=== PATIENT | female | born 1955 | race Caucasian/White ===

== ENCOUNTER 2016-09-14 17:42 | Observation (INO) | payer MEDICAID ==
[~2016-09-14] VITALS: Ht 167.6 cm; Wt 139.8 kg
[~2016-09-14 17:42] MED LIST: ACTOS PLUS MET; ALBU8.5H2 IH; ALBU8.5H2 INH; ALPR.25T PO; ARIP15TA; ASP325T PO; ASP81TEC PO; ASPI-875 PO; BACTRIM; BUDE6HFA IH; BUDE6HFA INH; CALC-719 PO; CEFU250T PO; CHLO500T4 PO; CHOL10003 PO; CLCX100C PO; CLON0.3T4 PO; CLON0.5T3 PO; CLON0.5T60 PO; CLOP75TA28 PO; CLPD75T PO; CMBV14.7IN; CYCL10TA45 PO; CYCL10TA9 PO; DPAS20025 PO; DULO30CA PO; DULO60CA58 PO; DULO60CA6 PO; FENT1PAT6 TD; FLT05NA16; FLUT16SP22; FNT25TD TD; FURO40TA4 PO; GABA100C PO; GABA800T PO; GABA800T2 PO; GBPN100C PO; GBPN300C PO; GI COCKTAIL; GLIM2TAB PO; HYDR-2890 PO; HYDR-2962 PO; HYDR-34 PO; HYDR-3583 PO; HYDR-3720 PO; HYDR15SO4 PO; HYDR1TAB66 PO; HYZAAR 100/25; INSASP10V; INSASP10V SC; INSU100I11 SQ; INSU100I14 SC; INSU100I14 SQ; INSU100I16 SQ; INSU100I29 SC; INSU100V16 SQ; INSU100V3 IJ; LANS30CA PO; LEVE1U SQ; LEVEMIR; LEVEMIR SQ; LINA290C PO; LISI10TA PO; LISI10TA2 PO; LISI20TA PO; LOSA25TA15 PO; LOSA50TA6 PO; LUBI8CAP PO; LUNESTA 3 MG; LYRICA 75MG; MELO-195 PO; METF850T2 PO; METO-272 PO; METO10TA3 PO; MNTL10T PO; MONT10TA24 PO; MULT-974 PO; NAPR250T34; NF-TRA/ACE PO; NOVOLOG; OMEP1CAP PO; OMEP1CAP10 PO; OMEP1CAP14 PO; OMEP1CAP15 PO; OMEP40CA36 PO; OXYB5TAB9 PO; OXYC-201 PO; PANT20TA2 PO; PANT40TA PO; PNT40TEC PO; POTA10TA36 PO; PRAV10TA PO; PRAV10TA23 PO; PREG75CA PO; QUET100T32 PO; QUET50TA PO; RANI-10 PO; ROFL500T PO; ROFL500T3 PO; SENN25TA8 PO; SITA1TAB6 PO; TIZA4CAP6 PO; TIZA4CAP8 PO; TIZA4TAB55 PO; TOLT4CAP PO; TOLT4CAP13 PO; TOLTA4; TOLTA4 PO; TRAZ150T42 PO; TRM50TRX; [UNRECOGNIZED DRUG - OTHER]; [UNRECOGNIZED DRUG - OTHER]; [UNRECOGNIZED DRUG - OTHER]; [UNRECOGNIZED DRUG - OTHER]
--- NOTE | 2016-09-14 19:11 | ED Abdominal Pain ---
General Stated Complaint: DIZZY/STOMACH CRAMPS Source of Information: Patient, RN Notes Reviewed, Spouse Exam Limitations: Physical Impairments History of Present Illness Time Seen By Provider: 19:11 Initial Comments Patient presents c/ c/o being dizzy c/ abdominal cramping as well as N/V/D. Patient is an IDDM patient c/ multiple other health issues including hypertension, CAD, S/P RCA stent, and A/P CVA and apparently has been out of her meds for the last week including her Plavix. Timing/Duration: 1 Week Severity/Quality: Severe Location: Generalized Abdomen Radiation: No Radiation Activities at Onset: None Modifying Factors: Improves With Other (none) Associated Symptoms: Back Pain, Nausea/Vomiting Allergies and Home Medications Allergies Coded Allergies: morphine (Unverified Allergy, Mild, HIVES, ITCHING; TAKES LORTAB AT HOME, 12/07/15) Fish Containing Products (Unverified Allergy, Unknown, 12/07/15) FROM UNCODED ALLERGIES "SEAFOOD" Penicillins (Unverified Allergy, Unknown, 12/07/15) erythromycin base (Verified Allergy, Unknown, 12/07/15) shellfish derived (Unverified Allergy, Unknown, 12/07/15) FROM UNCODED ALLERGIES "SEAFOOD" Uncoded Allergies: SILK TAPE (Allergy, Unknown, 02/26/06) Home Medications Albuterol Sulfate 8.5 Gm Aer.w.adap, 2 PUFF INH Q4H PRN for SHORTNESS OF BREATH, (Reported) Aspirin 81 Mg Tablet.dr, 81 MG PO HS, (Reported) Budesonide/Formoterol Fumarate 1 Inhaler Aero, 2 PUFF INH BID, (Reported) Calcium Carbonate 300 Mg Tab.chew, 2-3 TAB PO DAILY, (Reported) Cholecalciferol 1,000 Unit Tablet, 1,000 UNIT PO DAILY, (Reported) Clonazepam 0.5 Mg Tablet, 0.5 MG PO TID, (Reported) Clopidogrel Bisulfate 75 Mg Tablet, 75 MG PO DAILY, (Reported) Duloxetine HCl 60 Mg Capsule.dr, 60 MG PO DAILY, (Reported) Fentanyl 1 Each Patch.td72, 12 MCG TD Q72H, (Reported) Fluticasone Propionate 16 Gm Naspr, 2 SPRAY NA HS PRN for CONGESTION, (Reported) Furosemide 40 Mg Tablet, 40 MG PO DAILY PRN for SWELLING, (Reported) Gabapentin 800 Mg Tablet, 800 MG PO TID, (Reported) Insulin Aspart 100 Unit/1 Ml Insuln.pen, 25 UNITS SQ AC, (Reported) Insulin Aspart 100 Unit/1 Ml Susp, 1-100 SQ HS, (Reported) SLIDING SCALE Insulin Detemir 100 Unit/1 Ml Insuln.pen, 15 UNITS SC BID, (Reported) Linaclotide 290 Mcg Capsule, 290 MCG PO DAILY PRN for IBS, (Reported) Metoprolol Succinate 50 Mg Tab.er.24h, 50 MG PO DAILY, (Reported) Montelukast Sodium 10 Mg Tablet, 10 MG PO DAILY, (Reported) Oxybutynin Chloride 5 Mg Tablet, 5 MG PO TID PRN for URINARY DISCOMFORT, ( Reported) Oxycodone HCl/Acetaminophen 1 Each Tablet, 1 EACH PO TID, (Reported) Pantoprazole Sodium 40 Mg Tablet.dr, 40 MG PO DAILY, (Reported) Potassium Chloride 10 Meq Tab.er.prt, 10 MEQ PO PRN, (Reported) Pravastatin Sodium 10 Mg Tablet, 10 MG PO HS, (Reported) Quetiapine Fumarate 100 Mg Tablet, 100 MG PO HS, (Reported) Roflumilast 500 Mcg Tablet, 500 MCG PO DAILY, (Reported) Tizanidine HCl 4 Mg Capsule, 4 MG PO TID, (Reported) Review of Systems Constitutional: see HPI, dizziness, malaise, weakness Cardiovascular: See HPI, Lightheadedness, Palpitations Gastrointestinal: See HPI, Abdominal Pain, Diarrhea, Nausea, Vomiting Musculoskeletal: see HPI, back pain Psychiatric/Neurological: See HPI, Weakness All Other Systems Reviewed Negative Unless Noted: Yes (Negative excepted noted.) Past Ohswunz-Jpugrr-Mcxohv Hx Patient Social History Former Smoker/When Quit: Apr 14, 1985 Recent Foreign Travel: No Contact w/Someone Who Travel: No Recent Hopitalizations: No Immunizations Up To Date Tetanus Booster (TDap): Less than 5yrs PED Vaccines UTD: No Date of Pneumonia Vaccine: Jan 25, 2013 Date of Influenza Vaccine: Feb 02, 2016 Seasonal Allergies Seasonal Allergies: No Surgeries HX Surgeries: Yes Surgeries: Abdominal, Section, 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, Orthopedic Respiratory Hx Respiratory Disorders: Yes Respiratory Disorders: COPD Cardiovascular Hx Cardiac Disorders: Yes (CHF) Cardiac Disorders: Coronary Artery Disease, Hypertension Neurological Hx Neurological Disorders: Yes Neurological Disorders: Stroke, TIA Reproductive System Hx Reproductive Disorders: No Sexually Transmitted Disease: No HIV/AIDS: 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 Genitourinary Hx Genitourinary Disorders: No Genitourinary Disorders: UTI-Chronic Gastrointestinal Hx Gastrointestinal Disorders: Yes Gastrointestinal Disorders: Diverticulosis Musculoskeletal Hx Musculoskeletal Disorders: Yes Musculoskeletal Disorders: Chronic Back Pain Endocrine Hx Endocrine Disorders: Yes Endocrine Disorders: Diabetes, Insulin dep HEENT HX ENT Disorders: No HEENT Disorders: Cataract, Macular Degeneration Loss of Vision: Denies Hearing Impairment: Denies Cancer Hx Cancer: No Psychosocial Hx Psychiatric Problems: No Behavioral Health Disorders: Anxiety, Depression Integumentary HX Skin/Integumentary Disorder: No Blood Transfusions Hx Blood Disorders: No Adverse Reaction to a Blood Tr: No Family Medical History Family Medial History: Alcoholism 03 FATHER, , Onset:15's - 20 09 BROTHER, Onset:20's - 25 Cataract 03 FATHER, 09 SISTER Dementia 03 FATHER, Family history: Alzheimer's disease 03 FATHER, Family history: Arthritis 03 FATHER, 03 MOTHER 09 BROTHER 09 SISTER Family history: Asthma 03 MOTHER 09 BROTHER 09 SISTER Family history: Cardiovascular disease Family history: Diabetes mellitus 03 MOTHER 09 SISTER Family history: Hypertension 03 FATHER, 03 MOTHER 09 BROTHER 09 SISTER Heart disease 03 FATHER, 03 MOTHER History of - anemia 09 SISTER History of - respiratory disease 03 FATHER, ( OF PNEUMONIA) 09 BROTHER 09 SISTER History of drug abuse 09 BROTHER Hypercholesterolemia 09 BROTHER 09 SISTER Infertile 09 SISTER Kidney disease 03 FATHER, (KIDNEY STONES) Myocardial infarction 03 FATHER, Parkinson's disease 03 FATHER, Psychotic disorder 09 BROTHER (BIPOLAR) 09 SISTER (BIPOLAR) Stroke 03 FATHER, 03 MOTHER No Family History of: Abdominal aortic aneurysm Hinds's disease Aphasia Cancer Cancer of colon Congenital heart disease Congestive heart failure Cystic fibrosis Dysphagia Family history: Breast disease Family history: Coronary thrombosis Family history: Gastrointestinal disease Family history: Glaucoma Family history: Thyroid disorder Human immunodeficiency virus (HIV) seropositivity Malignant neoplasm of lung Prostate cancer Seizure disorder Tuberculosis Visual impairment Physical Exam Vital Signs VS - Last 72 Hours, by Label 09/14/16 18:53 Temp 99.0 Pulse 109 Resp 20 B/P (MAP) 211/106 O2 Delivery Room Air Capillary Refill : General Appearance: WD/WN, moderate distress, obese HEENT: other (appears to be on the dry side) Neck: supple Respiratory: no respiratory distress Cardiovascular: tachycardia, irregularly irregular Gastrointestinal: No guarding, No rebound, tenderness (generalized but worse epigastric and suprapubic), other (obese) Rectal: deferred Back: CVA tenderness (R), CVA tenderness (L), other (tender lumbar spine (hyper -exaggerated)) Neurologic/Psychiatric: alert, oriented x 3, depressed affect Skin: warm/dry Progress/Results/Core Measures Results/Orders Lab Results Laboratory Tests Test 09/14/16 18:55 09/14/16 19:10 Range/Units Urine Color YELLOW Urine Clarity CLEAR Urine pH 5 5-9 Urine Specific [place] 1.015 L 1.016-1.022 Urine Protein 2+ H NEGATIVE Urine Glucose (UA) 4+ H NEGATIVE Urine Ketones NEGATIVE NEGATIVE Urine Nitrite NEGATIVE NEGATIVE Urine Bilirubin NEGATIVE NEGATIVE Urine Urobilinogen NORMAL NORMAL MG/DL Urine Leukocyte Esterase 2+ H NEGATIVE Urine RBC (Auto) 3+ H NEGATIVE Urine RBC 2-5 H /HPF Urine WBC 25-50 H /HPF Urine Squamous Epithelial Cells 10-25 H /HPF Urine Crystals NONE /LPF Urine Bacteria FEW H /HPF Urine Casts NONE /LPF Urine Mucus NEGATIVE /LPF Urine Yeast FEW H /HPF Urine Culture Indicated YES White Blood Count 8.1 4.3-11.0 10^3/uL Red Blood Count 5.50 4.35-5.85 10^6/uL Hemoglobin 15.1 11.5-16.0 G/DL Hematocrit 45 35-52 % Mean Corpuscular Volume 82 80-99 FL Mean Corpuscular Hemoglobin 28 25-34 PG Mean Corpuscular Hemoglobin Concent 33 32-36 G/DL Red Cell Distribution Width 14.2 10.0-14.5 % Platelet Count 181 130-400 10^3/uL Mean Platelet Volume 11.0 H 7.4-10.4 FL Neutrophils (%) (Auto) 57 42-75 % Lymphocytes (%) (Auto) 29 12-44 % Monocytes (%) (Auto) 11 0-12 % Eosinophils (%) (Auto) 2 0-10 % Basophils (%) (Auto) 0 0-10 % Neutrophils # (Auto) 4.7 1.8-7.8 X 10^3 Lymphocytes # (Auto) 2.4 1.0-4.0 X 10^3 Monocytes # (Auto) 0.9 0.0-1.0 X 10^3 Eosinophils # (Auto) 0.1 0.0-0.3 10^3/uL Basophils # (Auto) 0.0 0.0-0.1 10^3/uL Sodium Level 138 135-145 MMOL/L Potassium Level 2.9 L 3.6-5.0 MMOL/L Chloride Level 100 98-107 MMOL/L Carbon Dioxide Level 23 21-32 MMOL/L Anion Gap 15 H 5-14 MMOL/L Blood Urea Nitrogen 9 7-18 MG/DL Creatinine 0.84 0.60-1.30 MG/DL Estimat Glomerular Filtration Rate > 60 BUN/Creatinine Ratio 11 Glucose Level 436 *H 70-105 MG/DL Calcium Level 9.4 8.5-10.1 MG/DL Magnesium Level 1.8 1.8-2.4 MG/DL Total Bilirubin 0.7 0.1-1.0 MG/DL Aspartate Amino Transf (AST/SGOT) 11 5-34 U/L Alanine Aminotransferase (ALT/SGPT) 12 0-55 U/L Alkaline Phosphatase 91 40-136 U/L Troponin I < 0.30 <0.30 NG/ML B-Type Natriuretic Peptide 94.6 <100.0 PG/ML Total Protein 7.0 6.4-8.2 G/DL Albumin 3.8 3.2-4.5 G/DL Lipase 17 8-78 U/L My Orders Orders - TOMMIE GUERIN DO Implanted Port: Access (09/14/16 19:07) Ekg Tracing (09/14/16 19:07) BNP (09/14/16 19:07) Cbc With Automated Diff (09/14/16 19:07) Comprehensive Metabolic Panel (09/14/16 19:07) Lipase (09/14/16 19:07) Magnesium (09/14/16 19:07) Troponin I (09/14/16 19:07) Ua Culture If Indicated (09/14/16 19:07) Chest 1 View, Ap/Pa Only (09/14/16 19:07) Urine Culture (09/14/16 18:55) Insulin Aspart (Novolog) (Novolog (Charg (09/14/16 20:15) Potassium Chloride (Tablet) (K Dur Table (09/14/16 20:15) Famotidine Injection (Pepcid Injection) (09/14/16 20:15) Ondansetron Injection (Zofran Injectio (09/14/16 20:15) Ceftriaxone Injection (Rocephin Injectio (09/14/16 20:15) Ketorolac Injection (Toradol Injection) (09/14/16 20:15) Metoprolol Succinate (Xl) Tab (Toprol Xl (09/14/16 20:15) Accucheck Stat ONCE (09/14/16 22:07) Medications Given in ED Current Medications Medications Dose Ordered Sig/Fernanda Route Start Time Stop Time Status Last Admin Dose Admin Ceftriaxone Sodium 1000 mg/ Sodium Chloride 50 ml @ 100 mls/hr ONCE ONCE IV 09/14/16 20:15 09/14/16 20:44 DC 09/14/16 20:26 100 MLS/HR Famotidine 20 mg ONCE ONCE IVP 09/14/16 20:15 09/14/16 20:16 DC 09/14/16 20:26 20 MG Insulin Aspart 10 unit ONCE ONCE SC 09/14/16 20:15 09/14/16 21:32 DC 09/14/16 22:59 10 UNIT Ketorolac Tromethamine 15 mg ONCE ONCE IVP 09/14/16 20:15 09/14/16 20:16 DC 09/14/16 20:26 15 MG Ondansetron HCl 4 mg ONCE ONCE IVP 09/14/16 20:15 09/14/16 20:16 DC 09/14/16 20:26 4 MG Potassium Chloride 40 meq ONCE ONCE PO 09/14/16 20:15 09/14/16 21:32 DC 09/14/16 22:58 40 MEQ Vital Signs/I&O Vital Sign - Last 12Hours 09/14/16 18:53 Temp 99.0 Pulse 109 Resp 20 B/P (MAP) 211/106 O2 Delivery Room Air Intake and Output 09/15/16 00:00 Intake Total 50 ml Balance 50 ml Progress Note : Progress Note Patient improved p/ IVF, Humalog, Metoprolol, Pepcid, Zofran, KCL, and Toradol. ECG Initial ECG Impression Date: Sep 14, 2016 Initial ECG Rhythm: A Fib/Flutter Initial ECG Impression: Atrial Fibrillation w/RVR Diagnostic Imaging Diagonstic Imaging: Xray Plain Films/CT/US/NM/MRI: chest (nothing acute) Departure Communication Time/Spoke to Admitting Phy: 22:32 Impression Impression: Primary Impression: Abdominal pain c/ N/V/D Additional Impressions: Dizziness UTI (urinary tract infection) Hyperglycemia Diabetes mellitus, insulin dependent (IDDM), uncontrolled Non compliance w medication regimen Hypokalemia Hypertension Disposition: 09 ADMITTED INPATIENT Condition: Improved Decision to Admit Reason: Admit from ER (General) Decision to Admit/Date: Sep 14, 2016 Time/Decision to Admit Time: 22:32 Departure-Patient Inst. Referrals: PHILIP THAPA MD (PCP/Family) Primary Care Physician TOMMIE GUERIN DO Sep 14, 2016 19:10
[2016-09-14 19:17] LABS: BILIRUBIN,URINE NEGATIVE (NEGATIVE); KETONES,URINE NEGATIVE (NEGATIVE); LEUKOCYTE ESTERASE ,URINE 2+ (NEGATIVE); NITRITE,URINE NEGATIVE (NEGATIVE); PH,URINE 5 (5-9); PROTEIN,URINE 2+ (NEGATIVE); UROBILINOGEN,URINE NORMAL (NORMAL)
[2016-09-14 19:20] LABS: BASOPHILS % (AUTO) 0 % (0-10); EOSINOPHILS # (AUTO) 0.1 10^3/uL (0.0-0.3); EOSINOPHILS % (AUTO) 2 % (0-10); LYMPHOCYTES # (AUTO) 2.4 X 10^3 (1.0-4.0); LYMPHOCYTES % (AUTO) 29 % (12-44); MEAN CORPUSCULAR HEMOGLOBIN 28 PG (25-34); MEAN CORPUSCULAR HGB CONC 33 G/DL (32-36); MEAN CORPUSCULAR VOLUME 82 FL (80-99); MONOCYTES # (AUTO) 0.9 X 10^3 (0.0-1.0); MONOCYTES % (AUTO) 11 % (0-12); NEUTROPHILS # (AUTO) 4.7 X 10^3 (1.8-7.8); NEUTROPHILS % (AUTO) 57 % (42-75); PLATELET COUNT 181 10^3/uL (130-400); RED CELL DISTRIBUTION WIDTH 14.2 % (10.0-14.5); WHITE BLOOD COUNT 8.1 10^3/uL (4.3-11.0)
[2016-09-14 19:27] LABS: WBC,URINE 25-50 /HPF; YEAST,URINE FEW /HPF
--- NOTE | 2016-09-14 19:38 | Diagnostic Imaging Report ---
INDICATION: Weakness. Chest pain. EXAMINATION: Single view of the chest was obtained. COMPARISON: 03/04/2016. FINDINGS: Pacemaker again noted with generator overlying the left chest. Heart is mildly enlarged though has decreased in size when compared with previous exam. Lungs are well-aerated without infiltrate. Right subclavian catheter is again noted. IMPRESSION: There has been decrease in cardiac size since previous exam with no evidence of acute pulmonary edema or pneumonia developing. Dictated by: Dictated on workstation # [id number]
[2016-09-14 19:40] LABS: ALANINE AMINOTRANSFERASE 12 U/L (0-55); ALBUMIN 3.8 G/DL (3.2-4.5); ANION GAP 15 MMOL/L (5-14); ASPARTATE AMINO TRANSFERASE 11 U/L (5-34); BILIRUBIN,TOTAL 0.7 MG/DL (0.1-1.0); BLOOD UREA NITROGEN 9 MG/DL (7-18); BUN/CREATININE RATIO 11; CALCIUM 9.4 MG/DL (8.5-10.1); CARBON DIOXIDE 23 MMOL/L (21-32); CHLORIDE 100 MMOL/L (98-107); CREATININE SERUM 0.84 MG/DL (0.60-1.30); GFR ESTIMATED > 60; LIPASE 17 U/L (8-78); MAGNESIUM 1.8 MG/DL (1.8-2.4); POTASSIUM 2.9 MMOL/L (3.6-5.0); SODIUM 138 MMOL/L (135-145)
[2016-09-14 19:43] LABS: GLUCOSE 436 MG/DL (70-105)
[2016-09-14 19:46] LABS: TROPONIN I < 0.30 NG/ML (<0.30)
[2016-09-14] MEDS ORDERED: FAMOTIDINE 20MG/2ML IV (PEPCID) IVP ONE (20:15)
[2016-09-14] MEDS ORDERED: meTOproloL SUCCINATE 50 MG (TOPROL XL) TAB PO SCH (20:15)
[2016-09-14] MEDS ORDERED: cefTRIAXone INJECTION 1,000 MG in NS (IVPB) 50 ML IV ONE (20:15)
[2016-09-14] MEDS ORDERED: inSUlin ASPART (NovoLOG) 1 UNIT/0.01 ML (CHARGE PER UNIT) SC ONE (20:15)
[2016-09-14] MEDS ORDERED: ONDANSETRON 4 MG/2 ML (SDV) Z0FRAN IVP ONE (20:15)
[2016-09-14] MEDS ORDERED: KETOROLAC 30 MG/ML VIAL IVP ONE (20:15)
[2016-09-14] MEDS ORDERED: KCL 20 MEQ TAB (K-DUR) PO ONE ×2 (20:15→22:52)
[2016-09-14] MEDS ORDERED: inSUlin ASPART (NovoLOG) 1 UNIT/0.01 ML (CHARGE PER UNIT) ONE (22:53)
[2016-09-14] MEDS ORDERED: KETOROLAC 15 MG/ML VIAL IV ONE (23:30)
[2016-09-15 00:05] VITALS: BP 166/89
[2016-09-15 04:00] VITALS: BP 175/77
[2016-09-15] MEDS: KETOROLAC 30 MG/ML VIAL IV PRN ×2 (05:52→20:54)
[2016-09-15 06:16] LABS: ANION GAP 12 MMOL/L (5-14); BLOOD UREA NITROGEN 10 MG/DL (7-18); BUN/CREATININE RATIO 12; CALCIUM 9.2 MG/DL (8.5-10.1); CARBON DIOXIDE 26 MMOL/L (21-32); CHLORIDE 101 MMOL/L (98-107); CREATININE SERUM 0.82 MG/DL (0.60-1.30); GFR ESTIMATED > 60; GLUCOSE 332 MG/DL (70-105); POTASSIUM 3.5 MMOL/L (3.6-5.0); SODIUM 139 MMOL/L (135-145)
[2016-09-15] MEDS: inSUlin (REGULAR) HUMAN 1 UNIT/0.01 ML (CHARGE PER UNIT) SC SCH ×4 (06:58→20:54)
[2016-09-15 07:44] VITALS: BP 168/86
[2016-09-15] MEDS ORDERED: CLOPIDOGREL 75 MG (PLAVIX) TABLET PO SCH (09:00)
[2016-09-15] MEDS ORDERED: fentaNYL PATCH 12 MCG (DURAGESIC) TD SCH (09:30)
[2016-09-15] MEDS ORDERED: ONDANSETRON 4 MG/2 ML (SDV) Z0FRAN IVP PRN (09:30)
[2016-09-15] MEDS ORDERED: clonazePAM 0.5 MG (KlonoPIN) TAB PO SCH (09:33)
[2016-09-15] MEDS ORDERED: inSUlin DETERMIR 1 UNIT/0.01 ML (LEVEMIR) CHARGE PER UNIT SQ SCH (09:39)
[2016-09-15] MEDS ORDERED: RT-ADVAIR HFA 115/21 MCG PER PUFF IH SCH (09:44)
[2016-09-15] MEDS ORDERED: RT-ALBUTEROL SULF 2.5 MG/3 ML PRE-MIX VIAL IH PRN (10:00)
[2016-09-15] MEDS: CLOPIDOGREL 75 MG (PLAVIX) TABLET PO SCH (10:21)
[2016-09-15] MEDS: meTOproloL SUCCINATE 50 MG (TOPROL XL) TAB PO SCH (10:24)
[2016-09-15] MEDS: PANTOPRAZOLE 40 MG (PROTONIX) TAB PO SCH (10:24)
[2016-09-15] MEDS: GABAPENTIN 400 MG (NEURONTIN) CAP PO SCH ×3 (10:24→20:54)
[2016-09-15] MEDS: DULoxetine 30 MG (CYMBALTA) CAP PO SCH (11:10)
[2016-09-15] MEDS ORDERED: clonazePAM 0.5 MG (KlonoPIN) TAB PO PRN (11:15)
--- NOTE | 2016-09-15 11:20 | History & Physical-Hospitalist ---
HPI History of Present Illness: HPI/Chief Complaint this is a 61-year-old white female who has multiple medical problems. SHe did run out of her medications about a week ago. She presents with complaints of nausea and vomiting and diarrhea most likely secondary to medication withdrawal from benzodiazepines and chronic pain medications. she in addition notes that his urine she's been having some urinary frequency and has severe pain in her shoulders and knees and hips. her blood sugars have been [id number] secondary to not taking her insulin. Her potassium is found to be at 2.9. I reviewed with her that she will probably be here until tomorrow morning for restarting her medications with attempting to not over sedate her and to make sure that her potassium stays corrected. Source: patient Exam Limitations: no limitations Date Seen 09/15/16 Attending Physician Yovany Keene MD PCP Philip Ramires MD Referring Physician Date of Admission Sep 14, 2016 at 22:32 Home Medications & Allergies Home Medications Reviewed patient Home Medication Reconciliation Form Allergies Allergies Coded Allergies morphine (Unverified Allergy, Mild, HIVES, ITCHING; TAKES LORTAB AT HOME, 12/06) Fish Containing Products (Unverified Allergy, Unknown, 12/07/15) FROM UNCODED ALLERGIES "SEAFOOD" Penicillins (Unverified Allergy, Unknown, 12/07/15) erythromycin base (Verified Allergy, Unknown, 12/07/15) shellfish derived (Unverified Allergy, Unknown, 12/07/15) FROM UNCODED ALLERGIES "SEAFOOD" Uncoded Allergies SILK TAPE ( Allergy, Unknown, 02/26/06) Past Iukhtkv-Eabftm-Uilccn Hx Patient Social History Marrital Status: Employed/Student: unemployed Alcohol Use: Denies Use Recreational Drug Use: No Smoking Status: Former Smoker Former smoker/When Quit: Apr 14, 1985 Physical Abuse Screen: No Sexual Abuse: No Recent Foreign Travel: No Contact w/other who traveled: No Recent Hopitalizations: No Recent Infectious Disease Expo: No Immunizations Up To Date Tetanus Booster (TDap): Less than 5yrs Date of Pneumonia Vaccine: Jan 25, 2013 Date of Influenza Vaccine: Feb 02, 2016 Seasonal Allergies Seasonal Allergies: No Surgeries HX Surgeries: Yes Surgeries: Abdominal, Section, 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, Orthopedic Respiratory Hx Respiratory Disorders: Yes Respiratory Disorders: COPD, Sleep Apnea Cardiovascular Hx Cardiovascular Disorders: Yes (CHF) Cardiac Disorders: Coronary Artery Disease, Hypertension Neurological Hx Neurological Disorders: Yes Neurological Disorders: Stroke, TIA Reproductive System Hx Reproductive Disorders: No Sexually Transmitted Disease: No HIV/AIDS: No Genitourinary Hx Genitourinary Disorders: Yes Genitourinary Disorders: Bladder Infection, UTI-Chronic Gastrointestinal Hx Gastrointestinal Disorders: Yes Gastrointestinal Disorders: Diverticulosis Musculoskeletal Hx Musculoskeletal Disorders: Yes Musculoskeletal Disorders: Chronic Back Pain Endocrine Hx Endocrine Disorders: Yes Endocrine Disorders: Diabetes, Insulin dep HEENT HX ENT Disorders: No HEENT Disorders: Cataract, Macular Degeneration Loss of Vision: Denies Hearing Impairment: Denies Cancer Hx Cancer: No Psychosocial Hx Psychiatric Problems: No Behavioral Health Disorders: Anxiety, Depression Integumentary HX Skin/Integumentary Disorder: No Blood Transfusions Hx Blood Disorders: No Adverse Reaction to a Blood Tr: No Family Medical History Family Hx: Alcoholism 03 FATHER, , Onset:15's - 20 09 BROTHER, Onset:20's - 25 Cataract 03 FATHER, 09 SISTER Dementia 03 FATHER, Family history: Alzheimer's disease 03 FATHER, Family history: Arthritis 03 FATHER, 03 MOTHER 09 BROTHER 09 SISTER Family history: Asthma 03 MOTHER 09 BROTHER 09 SISTER Family history: Cardiovascular disease Family history: Diabetes mellitus 03 MOTHER 09 SISTER Family history: Hypertension 03 FATHER, 03 MOTHER 09 BROTHER 09 SISTER Heart disease 03 FATHER, 03 MOTHER History of - anemia 09 SISTER History of - respiratory disease 03 FATHER, ( OF PNEUMONIA) 09 BROTHER 09 SISTER History of drug abuse 09 BROTHER Hypercholesterolemia 09 BROTHER 09 SISTER Infertile 09 SISTER Kidney disease 03 FATHER, (KIDNEY STONES) Myocardial infarction 03 FATHER, Parkinson's disease 03 FATHER, Psychotic disorder 09 BROTHER (BIPOLAR) 09 SISTER (BIPOLAR) Stroke 03 FATHER, 03 MOTHER No Family History of: Abdominal aortic aneurysm Anibal's disease Aphasia Cancer Cancer of colon Congenital heart disease Congestive heart failure Cystic fibrosis Dysphagia Family history: Breast disease Family history: Coronary thrombosis Family history: Gastrointestinal disease Family history: Glaucoma Family history: Thyroid disorder Human immunodeficiency virus (HIV) seropositivity Malignant neoplasm of lung Prostate cancer Seizure disorder Tuberculosis Visual impairment Review of Systems Constitutional: see HPI EENTM: blurred vision, vision loss Respiratory: dyspnea on exertion Cardiovascular: syncope Gastrointestinal: abdominal pain, diarrhea, nausea, vomiting Genitourinary: frequency Musculoskeletal: back pain, joint pain, joint swelling, muscle pain, muscle stiffness, muscle cramps, muscle weakness Skin: pruritus Psychiatric/Neurological: Anxiety, Depressed, Numbness, Paresthesia, Tingling, Weakness Physical Exam Physical Exam Vital Signs Vital Sign - Last 12Hours 09/14/16 09/14/16 18:53 23:08 Temp 99.0 Pulse 109 Resp 20 B/P (MAP) 211/106 Pulse Ox 96 O2 Delivery Room Air Capillary Refill : Less Than 3 Seconds General Appearance: Mild Distress, Obese HEENT: Normal ENT Inspection Neck: Supple Respiratory: Lungs Clear, Normal Breath Sounds, No Accessory Muscle Use, No Respiratory Distress Cardiovascular: Regular Rate, Rhythm, No Gallop, No Murmur Gastrointestinal: Non Tender, Soft Rectal: Deferred Back: Normal Inspection, No Vertebral Tenderness Extremity: No Pedal Edema Neurologic/Psychiatric: Alert, Oriented x3, Depressed Affect Skin: Normal Color Results Results/Procedures Lab Laboratory Tests 09/14/16 19:10 09/15/16 05:52 Assessment/Plan Admission Diagnosis 1.nausea vomiting and diarrhea most likely secondary to narcotics and didn't soap diazepam withdrawal secondary to noncompliance with medications. 2. Urinary tract infection 3. Type II diabetes on insulin with insulin resistance out of control secondary to being out of her medications for a week 4. Somatization with multiple complaints 5. Chronic pain issues 6. Hypokalemia Plan to replace her potassium IV fluids IV antibiotics for the urinary tract infection restart her medications and discharge in the morning in improved shape Copy Copies To 1: PHILIP RAMIRES MD Clinical Quality Measures DVT/VTE Risk/Contraindication: Risk Factor Score Per Nursin RFS Level Per Nursing on Admit: 4+=Very High YOVANY KEENE MD Sep 15, 2016 11:20
[2016-09-15 11:42] VITALS: BP 136/108
[2016-09-15] MEDS: ENOXAPARIN 40 MG/0.4 ML (LOVENOX) SYR SC SCH (12:26)
[2016-09-15] MEDS: inSUlin ASPART (NovoLOG) 1 UNIT/0.01 ML (CHARGE PER UNIT) SQ SCH ×2 (12:27→17:48)
[2016-09-15] MEDS: oxyCODONE/APAP 7.5-325 MG (PERCOCET 7.5) TABLET PO PRN (13:51)
[2016-09-15 16:08] VITALS: BP 188/92
[2016-09-15] MEDS ORDERED: fluCOnazole (DIFLUCAN) 100 MG TAB PO SCH (16:13)
[2016-09-15 20:00] VITALS: BP 189/87
[2016-09-15] MEDS ORDERED: cefTRIAXone INJECTION 1,000 MG in NS (IVPB) 50 ML IV SCH (20:00)
[2016-09-15] MEDS: inSUlin DETERMIR 1 UNIT/0.01 ML (LEVEMIR) CHARGE PER UNIT SQ SCH (20:54)
[2016-09-15] MEDS ORDERED: QUEtiapine 100 MG (SEROquel) TAB IMMEDIATE RELEASE PO SCH (21:00)
[2016-09-15] MEDS ORDERED: ASPIRIN E.C. 81 MG (ECOTRIN) TAB PO SCH (21:00)
[2016-09-15] MEDS ORDERED: SIMvastatin 10 MG (ZOCOR) TAB PO SCH (21:00)
[2016-09-16] VITALS (9 sets, daily range): BP systolic 133–167; BP diastolic 65–91
[2016-09-16 06:08] LABS: BASOPHILS % (AUTO) 0 % (0-10); EOSINOPHILS # (AUTO) 0.2 10^3/uL (0.0-0.3); EOSINOPHILS % (AUTO) 3 % (0-10); LYMPHOCYTES # (AUTO) 2.1 X 10^3 (1.0-4.0); LYMPHOCYTES % (AUTO) 35 % (12-44); MEAN CORPUSCULAR HEMOGLOBIN 28 PG (25-34); MEAN CORPUSCULAR HGB CONC 33 G/DL (32-36); MEAN CORPUSCULAR VOLUME 84 FL (80-99); MEAN PLATELET VOLUME 11.1 FL (7.4-10.4); MONOCYTES # (AUTO) 0.5 X 10^3 (0.0-1.0); MONOCYTES % (AUTO) 8 % (0-12); NEUTROPHILS # (AUTO) 3.3 X 10^3 (1.8-7.8); NEUTROPHILS % (AUTO) 54 % (42-75); PLATELET COUNT 171 10^3/uL (130-400); RED BLOOD COUNT 5.09 10^6/uL (4.35-5.85); RED CELL DISTRIBUTION WIDTH 14.4 % (10.0-14.5)
[2016-09-16 06:27] LABS: ALANINE AMINOTRANSFERASE 11 U/L (0-55); ALBUMIN 3.5 G/DL (3.2-4.5); ANION GAP 11 MMOL/L (5-14); ASPARTATE AMINO TRANSFERASE 14 U/L (5-34); BILIRUBIN,TOTAL 0.5 MG/DL (0.1-1.0); BLOOD UREA NITROGEN 15 MG/DL (7-18); BUN/CREATININE RATIO 18; CARBON DIOXIDE 25 MMOL/L (21-32); CHLORIDE 101 MMOL/L (98-107); CREATININE SERUM 0.83 MG/DL (0.60-1.30); GFR ESTIMATED > 60; POTASSIUM 3.8 MMOL/L (3.6-5.0); SODIUM 137 MMOL/L (135-145); TOTAL PROTEIN 6.5 G/DL (6.4-8.2)
[2016-09-16 06:33] LABS: GLUCOSE 407 MG/DL (70-105)
[2016-09-16] MEDS: inSUlin ASPART (NovoLOG) 1 UNIT/0.01 ML (CHARGE PER UNIT) SQ SCH ×2 (06:43→12:04)
[2016-09-16] MEDS: inSUlin (REGULAR) HUMAN 1 UNIT/0.01 ML (CHARGE PER UNIT) SC SCH ×2 (06:44→12:04)
[2016-09-16] MEDS: DULoxetine 30 MG (CYMBALTA) CAP PO SCH (08:16)
[2016-09-16] MEDS: meTOproloL SUCCINATE 50 MG (TOPROL XL) TAB PO SCH (08:17)
[2016-09-16] MEDS: GABAPENTIN 400 MG (NEURONTIN) CAP PO SCH ×2 (08:17→12:06)
[2016-09-16] MEDS: CLOPIDOGREL 75 MG (PLAVIX) TABLET PO SCH (08:17)
[2016-09-16] MEDS: PANTOPRAZOLE 40 MG (PROTONIX) TAB PO SCH (08:17)
[2016-09-16] MEDS: oxyCODONE/APAP 7.5-325 MG (PERCOCET 7.5) TABLET PO PRN (08:17)
[2016-09-16] MEDS: inSUlin DETERMIR 1 UNIT/0.01 ML (LEVEMIR) CHARGE PER UNIT SQ SCH (08:18)
[2016-09-16] MEDS ORDERED: FENT1PAT6 TD (08:56)
[2016-09-16] MEDS ORDERED: OXYC-201 PO (08:56)
[2016-09-16] MEDS: KETOROLAC 30 MG/ML VIAL IV PRN (09:22)
[2016-09-16] MEDS: ENOXAPARIN 40 MG/0.4 ML (LOVENOX) SYR SC SCH (12:04)
[2016-09-18] MEDS ORDERED: FENTANYL PATCH REMOVAL TP SCH (09:30)
== END 2016-09-16 08:53 | disposition home or self-care (01) ==
LOC: EDUNIT# 17:42 → ER 17:43 → UNDOADMOB 22:32 → 4TH 22:32 → UNDODISOB 09-16 13:20 → 4TH 09-16 13:50
PROVIDERS: ADMIT Internal Medicine; ATTEND Internal Medicine
DX: R10.84 Generalized abdominal pain (principal); R11.2 Nausea with vomiting, unspecified; R19.7 Diarrhea, unspecified; R42 Dizziness and giddiness; N39.0 Urinary tract infection, site not specified; E11.65 Type 2 diabetes mellitus with hyperglycemia; E87.6 Hypokalemia; I10 Essential (primary) hypertension; I25.10 Atherosclerotic heart disease of native coronary artery without angina pectoris; J44.9 Chronic obstructive pulmonary disease, unspecified; Z79.4 Long term (current) use of insulin; Z79.02 Long term (current) use of antithrombotics/antiplatelets; Z87.891 Personal history of nicotine dependence; Z79.899 Other long term (current) drug therapy; Z91.14 Patient's other noncompliance with medication regimen; Z95.828 Presence of other vascular implants and grafts
CPT/HCPCS: 36415; 71010; 80048; 80053; 81000; 82962; 83690; 83735; 83880; 84484; 85025; 87088; 87186; 93005; 96372; 96374; 96375; G0378

== ENCOUNTER 2016-10-24 21:05 | Outpatient (CLI) | payer MEDICAID | END 2016-10-25 06:48 | disposition home or self-care (01) | LOC: SLEEP 21:05 | PROVIDERS: ATTEND Family Medicine | DX: G47.33 Obstructive sleep apnea (adult) (pediatric) (principal) | CPT/HCPCS: 95811 ==

== ENCOUNTER 2017-03-22 15:57 | Inpatient (IN) | payer MEDICAID ==
[2017-03-22] VITALS (12 sets, daily range): BP systolic 93–156; BP diastolic 44–79
[~2017-03-22] VITALS: Ht 162.6 cm; Wt 143.8 kg
[~2017-03-22 15:57] MED LIST changes: -METO-272 PO; +METO-370 PO
[2017-03-22 16:28] LABS: MEAN PLATELET VOLUME 10.1 FL (7.4-10.4); RED BLOOD COUNT 4.22 10^6/uL (4.35-5.85); RED CELL DISTRIBUTION WIDTH 14.2 % (10.0-14.5); WHITE BLOOD COUNT 4.8 10^3/uL (4.3-11.0)
--- NOTE | 2017-03-22 16:33 | Consultation-Hospitalist ---
HPI History of Present Illness: HPI/Chief Complaint Pt is a 61yoCF with a PMH of CHF, hypothyroidism, COPD, RY, fibromyalgia who presented as a transfer from OSH for presumed septic shock. She was admitted to OSH yesterday for acutely decompensated heart failure. She originally presented to the ER for SOB that she thought was due to a recent episode of vomiting. She was given IV diuretics in conjunction with her home antihypertensives. She quickly became hypotensive (BP 70/40 per report) and was found to have UTI. She was started on Rocephin for treatment of the UTI. Upon arrival to the ICU she was on Levophed and SBP was ~150. She reports she has back pain currently that is consistent with her fibromyalgia pain. Source: patient Date Seen 03/22/17 Attending Physician Tricia Mcfadden MD PCP Raj Ramires MD Referring Physician Dr Mcfadden Date of Admission Mar 22, 2017 at 15:57 Home Medications & Allergies Home Medications Reviewed patient Home Medication Reconciliation Form Allergies Allergies Coded Allergies morphine (Unverified Allergy, Mild, HIVES, ITCHING; TAKES LORTAB AT HOME, 12/06) Fish Containing Products (Unverified Allergy, Unknown, 12/07/15) FROM UNCODED ALLERGIES "SEAFOOD" Penicillins (Unverified Allergy, Unknown, 12/07/15) erythromycin base (Verified Allergy, Unknown, 12/07/15) shellfish derived (Unverified Allergy, Unknown, 12/07/15) FROM UNCODED ALLERGIES "SEAFOOD" Uncoded Allergies SILK TAPE ( Allergy, Unknown, 02/26/06) Past [place]-Bdsvzp-Igvwom Hx Patient Social History Smoking Status: Unknown if Ever Smoked Former Smoker, Quit: Mar 04, 1986 Recent Hopitalizations: Yes Immunizations Up To Date Tetanus Booster (TDap): Less than 5yrs Pediatric: No Date of Pneumonia Vaccine: Jan 25, 2013 Date of Influenza Vaccine: Feb 02, 2016 Seasonal Allergies Seasonal Allergies: No Surgeries Yes (RIGHT FOOT/BONE SPUR/CHOLECYSTECTOMY/APPENDECTOMY) Abdominal, Section, 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, Orthopedic Respiratory Yes COPD, Sleep Apnea Cardiovascular Yes (CHF) Cardiomyopathy, Coronary Artery Disease (s/p stenting), Hypertension Neurological Yes Stroke, TIA Reproductive System Hx Reproductive Disorders: No Sexually Transmitted Disease: No 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 Genitourinary Yes Bladder Infection, UTI-Chronic Gastrointestinal Yes Diverticulosis Musculoskeletal Yes Chronic Back Pain Endocrine History of Endocrine Disorders: Yes Endocrine Disorders: Diabetes, Insulin dep HEENT HEENT Disorders: Cataract, Macular Degeneration Loss of Vision: Denies Hearing Impairment: Denies Cancer No Psychosocial History of Psychiatric Problem: No Behavioral Health Disorders: Anxiety, Depression Integumentary History of Skin or Integumenta: No Blood Transfusions History of Blood Disorders: No Adverse Reaction to a Blood Tr: No Family Medical History Family Hx: Alcoholism 03 FATHER, , Onset:15's - 20 09 BROTHER, Onset:20's - 25 Cataract 03 FATHER, 09 SISTER Dementia 03 FATHER, Family history: Alzheimer's disease 03 FATHER, Family history: Arthritis 03 FATHER, 03 MOTHER 09 BROTHER 09 SISTER Family history: Asthma 03 MOTHER 09 BROTHER 09 SISTER Family history: Cardiovascular disease Family history: Diabetes mellitus 03 MOTHER 09 SISTER Family history: Hypertension 03 FATHER, 03 MOTHER 09 BROTHER 09 SISTER Heart disease 03 FATHER, 03 MOTHER History of - anemia 09 SISTER History of - respiratory disease 03 FATHER, ( OF PNEUMONIA) 09 BROTHER 09 SISTER History of drug abuse 09 BROTHER Hypercholesterolemia 09 BROTHER 09 SISTER Infertile 09 SISTER Kidney disease 03 FATHER, (KIDNEY STONES) Myocardial infarction 03 FATHER, Parkinson's disease 03 FATHER, Psychotic disorder 09 BROTHER (BIPOLAR) 09 SISTER (BIPOLAR) Stroke 03 FATHER, 03 MOTHER No Family History of: Abdominal aortic aneurysm Cecil's disease Aphasia Cancer Cancer of colon Congenital heart disease Congestive heart failure Cystic fibrosis Dysphagia Family history: Breast disease Family history: Coronary thrombosis Family history: Gastrointestinal disease Family history: Glaucoma Family history: Thyroid disorder Human immunodeficiency virus (HIV) seropositivity Malignant neoplasm of lung Prostate cancer Seizure disorder Tuberculosis Visual impairment Review of Systems Constitutional: No diaphoresis, No fever EENTM: no symptoms reported Respiratory: orthopnea, short of breath Cardiovascular: chest pain, Hx of Intervention Gastrointestinal: No abdominal pain, nausea, vomiting Genitourinary: frequency Musculoskeletal: back pain, joint pain Skin: no symptoms reported Psychiatric/Neurological: No Symptoms Reported Physical Exam Physical Exam Vital Signs Vital Sign - Last 12Hours 03/22/17 03/22/17 03/22/17 16:00 16:10 16:15 Temp 99.6 Pulse 60 Resp 22 B/P (MAP) 111/56 (74) Pulse Ox 99 O2 Delivery Nasal Cannula O2 Flow Rate 2.00 Capillary Refill : General Appearance: No Apparent Distress, Obese HEENT: Other (dry mucus membranes) Respiratory: Lungs Clear, Normal Breath Sounds, No Accessory Muscle Use Cardiovascular: Regular Rate, Rhythm, No Edema, No JVD Gastrointestinal: Normal Bowel Sounds, Non Tender, Soft Rectal: Deferred Extremity: Non Tender, No Calf Tenderness, No Pedal Edema Neurologic/Psychiatric: Alert, Oriented x3, Normal Mood/Affect Skin: Normal Color, Warm/Dry Results Results/Procedures Lab Laboratory Tests 03/22/17 16:17 03/23/17 04:50 Assessment/Plan Admission Diagnosis Hypotension Diagnosis/Problems Diagnosis/Problems (1) Hypotension Status: Resolved Assessment & Plan: No resolved Likely due to hypovolemia from diuresis Off levophed No signs of septic shock UA not consistent with a UTI Will stop antibiotics, received 1 dose Rocephin at OSH (2) Insulin dependent diabetes mellitus Assessment & Plan: She only takes prandial insulin and cannot remember her sliding scale Will Start Sliding Scale B here and evaluate Quit taking basal insulin as on diet (3) Essential (primary) hypertension Status: Chronic Assessment & Plan: Hold antihypertensives given hypotension (4) Chest pain Status: Acute Assessment & Plan: Likely associated with levophed Management per cardiology (5) CAD (coronary artery disease) Status: Chronic Assessment & Plan: Did complain of chest pain while on Levophed Dr Mcfadden primary Received Nitro in route Qualifiers: Qualified Codes: I25.10 - Atherosclerotic heart disease of [place] coronary artery without angina pectoris (6) Chronic low back pain Status: Acute Assessment & Plan: On chronic narcotics Has Fentanyl patch in place Will resume home Percocet as BP allows MATIAS ROLLINS MD Mar 22, 2017 16:33
[2017-03-22 16:41] LABS: INR 1.1 (0.8-1.4); PROTHROMBIN TIME PATIENT 13.9 SEC (12.2-14.7)
[2017-03-22 16:50] LABS: ALANINE AMINOTRANSFERASE 8 U/L (0-55); ALBUMIN 3.4 GM/DL (3.2-4.5); ANION GAP 12 MMOL/L (5-14); ASPARTATE AMINO TRANSFERASE 13 U/L (5-34); BILIRUBIN,TOTAL 1.1 MG/DL (0.1-1.0); BLOOD UREA NITROGEN 19 MG/DL (7-18); BUN/CREATININE RATIO 18; CALCIUM 8.8 MG/DL (8.5-10.1); CARBON DIOXIDE 31 MMOL/L (21-32); CHLORIDE 95 MMOL/L (98-107); CREATININE SERUM 1.08 MG/DL (0.60-1.30); GFR ESTIMATED 51; GLUCOSE 245 MG/DL (70-105); MAGNESIUM 1.3 MG/DL (1.8-2.4); POTASSIUM 3.5 MMOL/L (3.6-5.0); SODIUM 138 MMOL/L (135-145); TOTAL PROTEIN 6.3 GM/DL (6.4-8.2)
[2017-03-22 16:56] LABS: TROPONIN I < 0.30 NG/ML (<0.30)
[2017-03-22] MEDS ORDERED: MIRA50TA PO (16:58)
[2017-03-22] MEDS ORDERED: FAMO20TA5 PO (16:58)
[2017-03-22] MEDS ORDERED: OXYC-202 PO (16:58)
[2017-03-22] MEDS ORDERED: GABA-488 PO (16:58)
[2017-03-22] MEDS ORDERED: SUCR1TAB36 PO (16:58)
[2017-03-22] MEDS ORDERED: TIZA4TAB11 PO (16:58)
[2017-03-22] MEDS ORDERED: NF-SOLIF5T PO (16:58)
[2017-03-22] MEDS ORDERED: LISI2.5T PO (16:58)
[2017-03-22] MEDS ORDERED: QUET50TA PO (16:58)
[2017-03-22] MEDS ORDERED: FLUTICASONE NASAL SPRAY (FLONASE) 16 GM BTL NS PRN (17:15)
[2017-03-22] MEDS ORDERED: fentaNYL PATCH 12 MCG (DURAGESIC) TD SCH (17:15)
[2017-03-22] MEDS ORDERED: KCL 20 MEQ TAB (K-DUR) PO NR (17:15)
[2017-03-22] MEDS ORDERED: RT-ALBUTEROL SULF 2.5 MG/3 ML PRE-MIX VIAL IH PRN (17:15)
[2017-03-22] MEDS: oxyCODONE/APAP 10/325MG (PERCOCET 10) TABLET PO PRN ×2 (17:17→21:09)
[2017-03-22] MEDS: MAGNESIUM 1 GM/100 ML IVPB 100 ML IV SCH ×4 (17:52→19:54)
[2017-03-22] MEDS: RT-ADVAIR HFA 115/21 MCG PER PUFF IH SCH (19:34)
[2017-03-22] MEDS: RT-ALBUTEROL SULF 2.5 MG/3 ML PRE-MIX VIAL IH SCH ×2 (19:34→22:15)
[2017-03-22] MEDS ORDERED: RT-ADVAIR HFA 115/21 MCG PER PUFF IH SCH (20:00)
[2017-03-22] MEDS ORDERED: SIMvastatin 10 MG (ZOCOR) TAB PO SCH (21:00)
[2017-03-22] MEDS ORDERED: ASPIRIN E.C. 81 MG (ECOTRIN) TAB PO SCH (21:00)
[2017-03-22] MEDS: GABAPENTIN 300 MG (NEURONTIN) CAP PO SCH (21:09)
[2017-03-22] MEDS: inSUlin ASPART (NovoLOG) 1 UNIT/0.01 ML (CHARGE PER UNIT) SC SCH (21:09)
[2017-03-22] MEDS: FAMOTIDINE 20 MG (PEPCID) TABLET PO SCH (21:09)
[2017-03-23] VITALS (15 sets, daily range): BP systolic 81–133; BP diastolic 40–67
[2017-03-23] MEDS: RT-ALBUTEROL SULF 2.5 MG/3 ML PRE-MIX VIAL IH SCH ×4 (02:22→14:00)
[2017-03-23 05:01] LABS: BASOPHILS % (AUTO) 0 % (0-10); EOSINOPHILS # (AUTO) 0.1 10^3/uL (0.0-0.3); EOSINOPHILS % (AUTO) 2 % (0-10); LYMPHOCYTES # (AUTO) 0.8 X 10^3 (1.0-4.0); LYMPHOCYTES % (AUTO) 16 % (12-44); MEAN CORPUSCULAR HEMOGLOBIN 28 PG (25-34); MEAN CORPUSCULAR HGB CONC 32 G/DL (32-36); MEAN CORPUSCULAR VOLUME 87 FL (80-99); MEAN PLATELET VOLUME 10.9 FL (7.4-10.4); MONOCYTES # (AUTO) 0.5 X 10^3 (0.0-1.0); MONOCYTES % (AUTO) 11 % (0-12); NEUTROPHILS # (AUTO) 3.4 X 10^3 (1.8-7.8); NEUTROPHILS % (AUTO) 71 % (42-75); PLATELET COUNT 161 10^3/uL (130-400); RED BLOOD COUNT 3.86 10^6/uL (4.35-5.85); RED CELL DISTRIBUTION WIDTH 14.4 % (10.0-14.5); WHITE BLOOD COUNT 4.8 10^3/uL (4.3-11.0)
[2017-03-23 05:30] LABS: ANION GAP 10 MMOL/L (5-14); BLOOD UREA NITROGEN 14 MG/DL (7-18); BUN/CREATININE RATIO 19; CARBON DIOXIDE 23 MMOL/L (21-32); CHLORIDE 105 MMOL/L (98-107); CREATININE SERUM 0.72 MG/DL (0.60-1.30); POTASSIUM 3.7 MMOL/L (3.6-5.0); SODIUM 138 MMOL/L (135-145)
[2017-03-23 05:31] LABS: ALANINE AMINOTRANSFERASE < 6 U/L (0-55); ALBUMIN 2.5 GM/DL (3.2-4.5); ASPARTATE AMINO TRANSFERASE 18 U/L (5-34); BILIRUBIN,TOTAL 0.6 MG/DL (0.1-1.0); CALCIUM 6.6 MG/DL (8.5-10.1); GFR ESTIMATED > 60; GLUCOSE 289 MG/DL (70-105); MAGNESIUM 2.4 MG/DL (1.8-2.4); PHOSPHORUS 2.7 MG/DL (2.3-4.7); TOTAL PROTEIN 4.8 GM/DL (6.4-8.2)
[2017-03-23 05:38] LABS: TROPONIN I < 0.30 NG/ML (<0.30)
[2017-03-23] MEDS ORDERED: KCL 20 MEQ TAB (K-DUR) PO SCH (06:00)
[2017-03-23] MEDS ORDERED: POTASSIUM CL 10MEQ/50ML IVPB 50 ML IV SCH (06:00)
[2017-03-23] MEDS ORDERED: MAGNESIUM 1 GM/100 ML IVPB 100 ML IV SCH (06:00)
[2017-03-23] MEDS: inSUlin ASPART (NovoLOG) 1 UNIT/0.01 ML (CHARGE PER UNIT) SC SCH ×2 (06:19→11:24)
[2017-03-23] MEDS: RT-ADVAIR HFA 115/21 MCG PER PUFF IH SCH (06:35)
[2017-03-23] MEDS: oxyCODONE/APAP 10/325MG (PERCOCET 10) TABLET PO PRN ×2 (06:50→12:08)
[2017-03-23] MEDS ORDERED: ONDANSETRON 4 MG/2 ML (SDV) Z0FRAN IVP PRN (08:15)
--- NOTE | 2017-03-23 08:42 | Short Stay Summary ---
History of Present Illness History of Present Illness Reason for visit/HPI 61 years old lady with history of coronary artery disease, sick sinus syndrome, paroxysmal atrial tachycardia, was in her usual state of health until late last week when she started having increasing nausea and vomiting, progressed to shortness of breath, went to [facility] and she was admitted with fluid overload. Given IV Lasix. Reported improvement. Yesterday morning she became severely hypotensive with a blood pressure 70/50. Given IV fluid without response. She was started on Levophed. Started on empiric antibiotic, she was transferred over to our facility. Upper my evaluation she was laying down in bed, pleasant, comfortable, breathing is better. Her blood pressure was stabilizing. She denied any chest pain, reported having 2 episodes of chest pain while she was hypotensive in [place]. Has been off Levophed since last night. This morning she was feeling better except for headache. Denied any chest pain, denied any palpitation, complaining of hip and back pain. Date of Admission Mar 22, 2017 at 15:57 Date of Discharge March 23, 2017 Time Seen by Provider: 08:37 Attending Physician Tricia Mcfadden MD Admitting Physician Raj Ramires MD Consult Dr. Yovany Paul Allergies and Home Medications Allergies Coded Allergies: morphine (Unverified Allergy, Mild, HIVES, ITCHING; TAKES LORTAB AT HOME, 12/07/15) Fish Containing Products (Unverified Allergy, Unknown, 12/07/15) FROM UNCODED ALLERGIES "SEAFOOD" Penicillins (Unverified Allergy, Unknown, 12/07/15) erythromycin base (Verified Allergy, Unknown, 12/07/15) shellfish derived (Unverified Allergy, Unknown, 12/07/15) FROM UNCODED ALLERGIES "SEAFOOD" Uncoded Allergies: SILK TAPE (Allergy, Unknown, 02/26/06) Home Medications Albuterol Sulfate 8.5 Gm Aer.w.adap, 2 PUFF INH Q4H PRN for SHORTNESS OF BREATH, (Reported) Aspirin 81 Mg Tablet.dr, 81 MG PO HS, (Reported) Budesonide/Formoterol Fumarate 1 Inhaler Aero, 2 PUFF INH BID, (Reported) Calcium Carbonate 300 Mg Tab.chew, 2-3 TAB PO DAILY, (Reported) Cholecalciferol 1,000 Unit Tablet, 1,000 UNIT PO DAILY, (Reported) Clopidogrel Bisulfate 75 Mg Tablet, 75 MG PO DAILY, (Reported) Duloxetine HCl 60 Mg Capsule.dr, 60 MG PO DAILY, (Reported) Famotidine 20 Mg Tablet, 20 MG PO BID, (Reported) Fentanyl 1 Each Patch.td72, 12 MCG TD Q72H for 7 Days, #2 Prescribed by: YOVANY KEENE on 09/16/16 0856 Fluticasone Propionate 16 Gm Naspr, 2 SPRAY NA HS PRN for CONGESTION, (Reported) Furosemide 40 Mg Tablet, 40 MG PO DAILY PRN for SWELLING, (Reported) Gabapentin 300 Mg Capsule, 300 MG PO TID, (Reported) Insulin Aspart 100 Unit/1 Ml Insuln.pen, 25 UNITS SQ AC, (Reported) PATIENT DOSES MEAL TIME INSULIN BY BLOOD SUGAR LEVELS BEFORE MEALS. Insulin Aspart 100 Unit/1 Ml Susp, 1-100 SQ HS, (Reported) SLIDING SCALE Linaclotide 290 Mcg Capsule, 290 MCG PO DAILY PRN for IBS, (Reported) Lisinopril 2.5 Mg Tablet, 2.5 MG PO DAILY, (Reported) Metoprolol Succinate 50 Mg Tab.er.24h, 50 MG PO DAILY, (Reported) Mirabegron 50 Mg Tab.er.24h, 50 MG PO DAILY, (Reported) Montelukast Sodium 10 Mg Tablet, 10 MG PO DAILY, (Reported) Oxybutynin Chloride 5 Mg Tablet, 5 MG PO BID, (Reported) Oxycodone HCl/Acetaminophen 1 Each Tablet, 1 EACH PO TID, (Reported) Potassium Chloride 10 Meq Tab.er.prt, 10 MEQ PO PRN, (Reported) Pravastatin Sodium 10 Mg Tablet, 10 MG PO HS, (Reported) Quetiapine Fumarate 50 Mg Tablet, 50 MG PO HS, (Reported) Roflumilast 500 Mcg Tablet, 500 MCG PO DAILY, (Reported) Solifenacin Succinate 5 Mg Tablet, 5 MG PO BID, (Reported) Sucralfate 1 Gm Tablet, 1 GM PO ACHS, (Reported) Tizanidine HCl 4 Mg Tablet, 4 MG PO TID, (Reported) Past [place]-Yywhdp-[place] Hx Patient Social History Employed/Student: unemployed Alcohol Use: Denies Use Recreational Drug Use: No Smoking Status: Never a Smoker Former Smoker, Quit: Mar 04, 1986 Physical Abuse Screen: No Sexual Abuse: No Recent Foreign Travel: No Contact w/other who traveled: No Recent Hopitalizations: Yes Recent Infectious Disease Expo: No Immunizations Up To Date Tetanus Booster (TDap): Less than 5yrs Pediatric: No Date of Pneumonia Vaccine: Jan 25, 2013 Date of Influenza Vaccine: Feb 06, 2017 Seasonal Allergies Seasonal Allergies: No Surgeries Yes (LEFT FOOT/BONE SPUR/CHOLECYSTECTOMY/APPENDECTOMY) Abdominal, Section, 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, Orthopedic Respiratory Yes COPD, Sleep Apnea Currently Using CPAP: Yes Currently Using BIPAP: No Cardiovascular Yes (CHF, Pacemaker related to Bradycardia) Cardiomyopathy, Coronary Artery Disease (s/p stenting), Hypertension Neurological Yes Stroke, TIA Reproductive System Hx Reproductive Disorders: No Sexually Transmitted Disease: No 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 Genitourinary Yes (Overactive bladder, weak bladder, weak stream) Bladder Infection, Kidney Stones, UTI-Chronic Gastrointestinal Yes (Esophageal spams ) Gastroesophageal Reflux, Diverticulosis, Hiatal Hernia, Irritable Bowel Musculoskeletal Yes Degenerate Disk Disease, Arthritis, Fibromyalgia, Chronic Back Pain Endocrine History of Endocrine Disorders: Yes Endocrine Disorders: Diabetes, Insulin dep Are Your Blood Sugars Over 250: Yes HEENT History of HEENT Disorders: Yes HEENT Disorders: Cataract, Macular Degeneration Loss of Vision: Denies Hearing Impairment: Denies Cancer No Psychosocial History of Psychiatric Problem: No Behavioral Health Disorders: Anxiety, Depression Integumentary History of Skin or Integumenta: No Blood Transfusions History of Blood Disorders: No Adverse Reaction to a Blood Tr: No Family Medical History Family Hx: Alcoholism 03 FATHER, , Onset:15's - 20 09 BROTHER, Onset:20's - 25 Cataract 03 FATHER, 09 SISTER Dementia 03 FATHER, Family history: Alzheimer's disease 03 FATHER, Family history: Arthritis 03 FATHER, 03 MOTHER 09 BROTHER 09 SISTER Family history: Asthma 03 MOTHER 09 BROTHER 09 SISTER Family history: Cardiovascular disease Family history: Diabetes mellitus 03 MOTHER 09 SISTER Family history: Hypertension 03 FATHER, 03 MOTHER 09 BROTHER 09 SISTER Heart disease 03 FATHER, 03 MOTHER History of - anemia 09 SISTER History of - respiratory disease 03 FATHER, ( OF PNEUMONIA) 09 BROTHER 09 SISTER History of drug abuse 09 BROTHER Hypercholesterolemia 09 BROTHER 09 SISTER Infertile 09 SISTER Kidney disease 03 FATHER, (KIDNEY STONES) Myocardial infarction 03 FATHER, Parkinson's disease 03 FATHER, Psychotic disorder 09 BROTHER (BIPOLAR) 09 SISTER (BIPOLAR) Stroke 03 FATHER, 03 MOTHER No Family History of: Abdominal aortic aneurysm [place]'s disease Aphasia Cancer Cancer of colon Congenital heart disease Congestive heart failure Cystic fibrosis Dysphagia Family history: Breast disease Family history: Coronary thrombosis Family history: Gastrointestinal disease Family history: Glaucoma Family history: Thyroid disorder Human immunodeficiency virus (HIV) seropositivity Malignant neoplasm of lung Prostate cancer Seizure disorder Tuberculosis Visual impairment Constitutional: see HPI, malaise, weakness EENTM: see HPI, no symptoms reported Respiratory: see HPI, dyspnea on exertion Cardiovascular: see HPI, No chest pain, edema, No Hx of Intervention, No palpitations, No syncope, No vascular heart diseas, No other Gastrointestinal: no symptoms reported, see HPI Genitourinary: no symptoms reported, see HPI Musculoskeletal: see HPI, back pain, joint pain, muscle pain Skin: see HPI, change in hair/nails Psychiatric/Neurological: No Symptoms Reported, See HPI, Anxiety, Headache, Tremors Physical Exam Vital Signs Vital Sign - Last 12Hours 03/22/17 03/22/17 03/22/17 16:00 16:10 16:15 Temp 99.6 Pulse 60 Resp 22 B/P (MAP) 111/56 (74) Pulse Ox 99 O2 Delivery Nasal Cannula O2 Flow Rate 2.00 Capillary Refill : General Appearance: No Apparent Distress, WD/WN Eyes: Bilateral Eye Normal Inspection, Bilateral Eye PERRL, Bilateral Eye EOMI HEENT: PERRL/EOMI, TMs Normal, Normal ENT Inspection, Pharynx Normal Neck: Full Range of Motion, Normal Inspection, Non Tender, Supple Respiratory: Chest Non Tender, Lungs Clear, Normal Breath Sounds, No Accessory Muscle Use, No Respiratory Distress, Crackles Cardiovascular: Regular Rate, Rhythm, No Edema, No JVD, No Murmur, Normal Peripheral Pulses, Gallop/S3 Gastrointestinal: Normal Bowel Sounds, No Organomegaly, No Pulsatile Mass, Non Tender, Soft Back: Normal Inspection, No CVA Tenderness, No Vertebral Tenderness Extremity: Normal Capillary Refill, Normal Inspection, Normal Range of Motion, Non Tender, No Calf Tenderness, Pedal Edema Neurologic/Psychiatric: Alert, Oriented x3, No Motor/Sensory Deficits, Normal Mood/Affect Skin: Normal Color, Warm/Dry Lymphatic: No Adenopathy Clinical Quality Measures AMI/AHF: Ejection Fraction: Normal LVSF D/C Medications Addressed: Toby inhibitors, Beta marko D/C Inst. for HF given: Yes ASA Given prior to admit: Yes Initial ECG Impression: Normal, Nonspecific Changes DVT/VTE Risk/Contraindication: Risk Factor Score Per Nursin RFS Level Per Nursing on Admit: 4+=Very High Other: received Lovenox in [facility] Short Stay Diagnosis Discharge Diagnosis-Short Stay Admission Diagnosis: Congestive heart failure, acute left ventricular diastolic dysfunction Shortness of breath Hypotension secondary to hypovolemia Coronary artery disease Chest pain nonspecific etiology Final Discharge Diagnosis: Congestive heart failure, acute left ventricular diastolic dysfunction Shortness of breath Hypotension secondary to hypovolemia Coronary artery disease Chest pain nonspecific etiology Conclusion Labs Laboratory Tests 03/22/17 16:17: White Blood Count 4.8, Red Blood Count 4.22L, Hemoglobin 11.6, Hematocrit 37, Mean Corpuscular Volume 87, Mean Corpuscular Hemoglobin 28, Mean Corpuscular Hemoglobin Concent 32, Red Cell Distribution Width 14.2, Platelet Count 156, Mean Platelet Volume 10.1, Prothrombin Time 13.9, INR Comment 1.1, Activated Partial Thromboplast Time 38H, Sodium Level 138, Potassium Level 3.5L, Chloride Level 95L, Carbon Dioxide Level 31, Anion Gap 12, Blood Urea Nitrogen 19H, Creatinine 1.08, Estimat Glomerular Filtration Rate 51, BUN/Creatinine Ratio 18 , Glucose Level 245H, Calcium Level 8.8, Magnesium Level 1.3L, Total Bilirubin 1.1H, Aspartate Amino Transf (AST/SGOT) 13, Alanine Aminotransferase (ALT/SGPT) 8, Alkaline Phosphatase 72, Troponin I < 0.30, B-Type Natriuretic Peptide 261.5H , Total Protein 6.3L, Albumin 3.4 03/22/17 20:56: Glucometer 243H 03/23/17 04:50: White Blood Count 4.8, Red Blood Count 3.86L, Hemoglobin 10.9L, Hematocrit 34L, Mean Corpuscular Volume 87, Mean Corpuscular Hemoglobin 28, Mean Corpuscular Hemoglobin Concent 32, Red Cell Distribution Width 14.4, Platelet Count 161, Mean Platelet Volume 10.9H, Sodium Level 138, Potassium Level 3.7, Chloride Level 105, Carbon Dioxide Level 23, Anion Gap 10, Blood Urea Nitrogen 14, Creatinine 0.72, Estimat Glomerular Filtration Rate > 60, BUN/Creatinine Ratio 19, Glucose Level 289H, Calcium Level 6.6L, Magnesium Level 2.4, Total Bilirubin 0.6, Aspartate Amino Transf (AST/SGOT) 18, Alanine Aminotransferase ( ALT/SGPT) < 6, Alkaline Phosphatase 51, Troponin I < 0.30, B-Type Natriuretic Peptide 129.6H, Total Protein 4.8L, Albumin 2.5L, Neutrophils (%) (Auto) 71, Lymphocytes (%) (Auto) 16, Monocytes (%) (Auto) 11, Eosinophils (%) (Auto) 2, Basophils (%) (Auto) 0, Neutrophils # (Auto) 3.4, Lymphocytes # (Auto) 0.8L, Monocytes # (Auto) 0.5, Eosinophils # (Auto) 0.1, Basophils # (Auto) 0.0, Phosphorus Level 2.7 Conclusion/Plan shortness of breath, fluid overload, resolved, was hypotensive, improved. Next Hypotension, secondary to hypovolemia in addition to pain medication and blood pressure medication, resolved with IV hydration. Feeling better. Elevated troponin level, congestive heart failure, acute left ventricular diastolic dysfunction, normal systolic function, hypertensive heart disease. Improved at this time. Continue on current medications and monitor. Back pain, hip pain, generalized body ache, history of fibromyalgia, maintained on fentanyl patch. Receiving Percocet as an outpatient. Migraine headache. Scheduled to receive Toradol Coronary artery disease. Had 3.5 X 16mm Promus element drug-eluting stent placed in the midright coronary artery extended to 3.77 mm, recovering well. Maintained on aspirin and Plavix. done in March 2013, most recent cardiac catheterization done in February 2016, showing patent stent in the right coronary artery was small vessel disease distally, distal circumflex artery disease mild disease, normal LV end-diastolic pressure. Continue to monitor, continue on aspirin and Plavix as an outpatient Recurrent chest pain, had another episode of chest pain yesterday with hypotension, no EKG changes, cardiac enzymes are negative, has history of pacemaker rhythm. Continue to monitor as an outpatient Multiple CVA, unknown source. SHUKRI. showed no cardiac source of embolization. had another CVA in August 2014, she was at [facility] in [place], pacemaker showed multiple episode of paroxysmal atrial tachycardia with one-to- one conduction, no signs of atrial fibrillation at this point. Continue on aspirin and Plavix. Syncope, sick sinus syndrome, episodes of escape junctional rhythm, second and third degree AV block, tachybradycardia episode, continue on current medications and monitor Hypertension, status post hypotensive episode as described above, blood pressure is better, restart medication monitor. Hyperlipidemia, controlled, continue to monitor lipids. Carotid stenosis, nonobstructive disease. last ultrasound was done in December 2016 Diabetes mellitus. Managed and followed by primary care physician. Obesity, BMI 54, discussed weight loss and exercise. Obstructive sleep apnea, on BiPAP machine, seen and followed by Dr. Us History of multiple orthopedic surgeries. TRICIA MCFADDEN MD Mar 23, 2017 08:42
[2017-03-23] MEDS ORDERED: PROMETHAZINE INJ 25 MG/ML (PHENERGAN) AMP IVP NR (08:45)
[2017-03-23] MEDS ORDERED: KETOROLAC 30 MG/ML VIAL IVP NR (08:45)
[2017-03-23] MEDS ORDERED: CALCIUM CARBONATE 500 MG (TUMS) TAB.CHEW PO SCH (09:00)
[2017-03-23] MEDS ORDERED: DULoxetine 30 MG (CYMBALTA) CAP PO SCH (09:00)
[2017-03-23] MEDS ORDERED: MONTELUKAST 10 MG (SINGULAIR) TAB PO SCH (09:00)
[2017-03-23] MEDS ORDERED: CLOPIDOGREL 75 MG (PLAVIX) TABLET PO SCH (09:00)
--- NOTE | 2017-03-23 09:21 | Progress Note-Hospitalist ---
Subjective HPI/CC On Admission Date Seen by Provider: Mar 23, 2017 Time Seen by Provider: 08:35 Pt is a 61yoCF with a PMH of CHF, hypothyroidism, COPD, RY, fibromyalgia who presented as a transfer from OSH for presumed septic shock. She was admitted to OSH yesterday for acutely decompensated heart failure. She originally presented to the ER for SOB that she thought was due to a recent episode of vomiting. She was given IV diuretics in conjunction with her home antihypertensives. She quickly became hypotensive (BP 70/40 per report) and was found to have UTI. She was started on Rocephin for treatment of the UTI. Upon arrival to the ICU she was on Levophed and SBP was ~150. She reports she has back pain currently that is consistent with her fibromyalgia pain. Subjective/Events-last exam Pt complaints of a migraine. Has a history of migraines that normally respond to her Percocet. She also has some nausea which normally accompanies her migraines. Objective Exam Vital Signs Vital Sign - Last 12Hours 03/22/17 03/22/17 03/22/17 16:00 16:10 16:15 Temp 99.6 Pulse 60 Resp 22 B/P (MAP) 111/56 (74) Pulse Ox 99 O2 Delivery Nasal Cannula O2 Flow Rate 2.00 Capillary Refill : General Appearance: No Apparent Distress, WD/WN Respiratory: Lungs Clear, No Accessory Muscle Use, No Respiratory Distress, Decreased Breath Sounds Cardiovascular: Regular Rate, Rhythm, No JVD, No Murmur Gastrointestinal: Normal Bowel Sounds, Non Tender, Soft Neurologic/Psychiatric: Alert, Oriented x3, Normal Mood/Affect, No Aphasia, No EOM Palsy, No Facial Droop Results/Procedures Lab Laboratory Tests 03/22/17 16:17 03/23/17 04:50 Assessment/Plan Assessment and Plan Assess & Plan/Chief Complaint Hypotension Diagnosis/Problems Diagnosis/Problems (1) Migraine headache Status: Chronic Assessment & Plan: Will attempt Toradol x1 and Phenergan Has also not had any caffeine and may be associated Qualifiers: (2) Hypotension Status: Resolved Assessment & Plan: Now resolved Likely due to hypovolemia from diuresis UA not consistent with a UTI OSH faxed prelim cultures that show NGTD on blood and urine No indication for antibiotics No signs of sepsis (3) Insulin dependent diabetes mellitus Assessment & Plan: She only takes prandial insulin and cannot remember her sliding scale Will Start Sliding Scale B here and evaluate Quit taking basal insulin as on diet (4) Essential (primary) hypertension Status: Chronic Assessment & Plan: Resume home meds at DC if BP allows (5) Chest pain Status: Acute Assessment & Plan: Report from EMS Described to me as normal back pain from her fibromyalgia (6) CAD (coronary artery disease) Status: Chronic Assessment & Plan: Did complain of chest pain while on Levophed in EMS Dr Mcfadden primary Received Nitro in route Qualifiers: Qualified Codes: I25.10 - Atherosclerotic heart disease of [place] coronary artery without angina pectoris (7) Chronic low back pain Status: Acute Assessment & Plan: On chronic narcotics Has Fentanyl patch in place Will resume home Percocet as BP allows Copy Copies To 1: PHILIP THAPA MD, KATELYN M MD Mar 23, 2017 9:21 am
[2017-03-23] MEDS: GABAPENTIN 300 MG (NEURONTIN) CAP PO SCH ×2 (09:40→12:08)
[2017-03-23] MEDS: FAMOTIDINE 20 MG (PEPCID) TABLET PO SCH (09:40)
--- NOTE | 2017-03-23 10:41 | Diagnostic Imaging Report ---
EXAMINATION: Chest radiograph, portable AP view. DATE: March 23, 2017 at 0513 hours. INDICATION: 61-year-old female, dyspnea. COMPARISON: September 14, 2016. FINDINGS: There is a left-sided cardiac assist device with leads. The leads appear intact. Stable overall appearance of the cardiomediastinal silhouette. There is no identified pneumothorax. There is no large pleural effusion. Lung volumes are somewhat low. There are bilateral predominantly interstitial opacities. There is nonspecific left basilar airspace consolidation. There is an anchor overlying the left humeral head and also noted on the right. IMPRESSION: 1. Mildly prominent bilateral interstitial opacities which may potentially reflect mild interstitial edema. Atypical infection would be the primary differential diagnostic consideration. 2. Nonspecific left basilar airspace consolidation which may relate to atelectasis, small effusion, and/or infiltrate. Dictated by: Dictated on workstation # [id number]
[2017-03-23] MEDS ORDERED: SUCRALFATE 1 GM (CARAFATE) TAB PO SCH (11:00)
== END 2017-03-23 14:42 | disposition home or self-care (01) | DRG 292 ==
LOC: ICU 15:57
PROVIDERS: ADMIT Internal Medicine Cardiovascular Disease; ATTEND Internal Medicine Cardiovascular Disease
DX: I11.0 Hypertensive heart disease with heart failure (principal); I50.31 Acute diastolic (congestive) heart failure; E86.1 Hypovolemia; E66.9 Obesity, unspecified; Z68.43 Body mass index [BMI] 50.0-59.9, adult; I25.10 Atherosclerotic heart disease of native coronary artery without angina pectoris; I48.0 Paroxysmal atrial fibrillation; J44.9 Chronic obstructive pulmonary disease, unspecified; E11.9 Type 2 diabetes mellitus without complications; G47.33 Obstructive sleep apnea (adult) (pediatric); I42.9 Cardiomyopathy, unspecified; E03.9 Hypothyroidism, unspecified; K21.9 Gastro-esophageal reflux disease without esophagitis; K44.9 Diaphragmatic hernia without obstruction or gangrene; M19.91 Primary osteoarthritis, unspecified site; M79.7 Fibromyalgia; F41.9 Anxiety disorder, unspecified; F32.9 Major depressive disorder, single episode, unspecified; G43.909 Migraine, unspecified, not intractable, without status migrainosus; M54.5 Low back pain; G89.29 Other chronic pain; Z95.0 Presence of cardiac pacemaker; Z95.5 Presence of coronary angioplasty implant and graft; Z79.4 Long term (current) use of insulin; Z86.73 Personal history of transient ischemic attack (TIA), and cerebral infarction without residual deficits
CPT/HCPCS: 36415; 71010; 80053; 82962; 83735; 83880; 84100; 84484; 85025; 85027; 85610; 85730; 93005; 93306; 94640

== ENCOUNTER → 2017-07-09 | Outpatient (CLI) | payer MEDICAID ==
[~2017-07-09] VITALS: Ht 165.1 cm; Wt 142.0 kg
[~2017-07-09] MED LIST changes: +CATHETER FLUSH 10 ML SYR IV PRN; +FAMO20TA5 PO; +GABA-488 PO; +LISI2.5T PO; +MIRA50TA PO; +NF-SOLIF5T PO; +OXYC-202 PO; +REGADENOSON 0.4 MG/5 ML SYR (LEXISCAN) IV ONE; +SUCR1TAB36 PO; +TIZA4TAB11 PO
[2017-07-09 12:49] VITALS: BP 149/74
[2017-07-09 12:53] VITALS: BP 138/91
--- NOTE | 2017-07-09 18:18 | STRESS TEST ---
DATE OF SERVICE: 07/09/2017 LEXISCAN MYOVIEW STRESS TEST REPORT REFERRING PHYSICIAN: Raj Ramires MD INDICATION: Chest pain. Baseline heart rate is 60. Baseline blood pressure is 149/74. Baseline EKG, sinus rhythm with left bundle branch block. SUMMARY: The patient received 10.78 mCi of technetium-99 Myoview and the resting images were obtained. Then, the patient received 0.4 mg of Lexiscan followed by 30.9 mCi of technetium-99 Myoview. Throughout the test, there were no EKG changes. The resting and stress images were reviewed and compared in the short axis, horizontal long axis, and vertical long axis views. Review of the images showed breast attenuation with reversible ischemia involving the mid to apical anterolateral and inferolateral wall. SSS is 7, SDS 7, TID value 1.03. On the gated images, the left ventricle appeared to be normal size with normal contractility. Calculated ejection fraction 69%. CONCLUSION: 1. The patient tolerated Lexiscan well. 2. Baseline left bundle branch block persisted throughout test. 3. Breast attenuation affecting the quality of the images with questionable ischemia involving the mid to apical anterolateral and inferolateral wall. 4. Normal left ventricular size with normal contractility. Calculated ejection fraction 69%. Job ID: [id number] DocumentID: [id number] Dictated Date: 07/09/2017 15:22:12 [place] Date: 07/09/2017 18:18:16 Dictated By: RAVEN GRAMAJO MD
== END ==
LOC: CARD 10:21
PROVIDERS: ATTEND Physician Assistant
DX: R07.89 Other chest pain (principal); I25.10 Atherosclerotic heart disease of native coronary artery without angina pectoris; I10 Essential (primary) hypertension; E78.5 Hyperlipidemia, unspecified; I07.1 Rheumatic tricuspid insufficiency
CPT/HCPCS: 78452; 93017; 93306

== ENCOUNTER 2017-07-23 06:44 | Day surgery (SDC) | payer MEDICAID ==
[2017-07-23] VITALS (10 sets, daily range): BP systolic 126–198; BP diastolic 58–95
[~2017-07-23] VITALS: Ht 165.1 cm; Wt 145.1 kg
[~2017-07-23 06:44] MED LIST changes: -CATHETER FLUSH 10 ML SYR IV PRN; -REGADENOSON 0.4 MG/5 ML SYR (LEXISCAN) IV ONE
[2017-07-23] MEDS ORDERED: NS IV 1000 ML 1,000 ML ONE (06:53)
[2017-07-23] MEDS ORDERED: HEParin (CATH LAB) 2,000 ML IV ONE (06:54)
--- OUTSIDE RECORDS SUMMARY | 2017-07-23 06:56 | XMS REPORT | Continuity of Care Document ---
Author Author [facility] Organization [facility] Address Unknown Phone Unavailable Allergies Active Description Code Type Severity Reaction Onset Reported/Identified Relationship to Patient Clinical Status Yes MORPHINE MORPHINE SEVERE Yes MORPHINE SEVERE OTHER Yes SEAFOOD SEAFOOD Unknown N/A 02/26/2006 Yes SILK TAPE SILK TAPE Unknown N/A 02/26/2006 Yes morphine [id number] Drug Allergy Mild HIVES, ITCHING 03/13/2007 Yes morphine [id number] Drug Allergy Mild HIVES, ITCHING; 12/07/2015 Yes erythromycin base [id number] Drug Allergy Unknown N/A 12/07/2015 Yes Fish Containing Products [id number] Drug Allergy Unknown N/A 12/07/2015 Yes Penicillins [id number] Drug Allergy Unknown N/A 12/07/2015 Yes shellfish derived [id number] Drug Allergy Unknown N/A 12/07/2015 Medications Medication Packaging Start Date Stop Date Route Dosage Sig PROMETHAZINE VIAL INJ 25 MG/CC (PHENERGAN VIAL) MG 06/11/2016 06/11/2016 PRN ONCE MEPERIDINE SYRINGE INJ 25 MG/CC (DEMEROL SYRINGE) MG 06/11/2016 06/11/2016 ONCE&1823 Heparin, FLUSH IV syringe 500 units UNITS 06/11/2016 06/11/2016 ONCE&1940 MEPERIDINE SYRINGE INJ 25 MG/CC (DEMEROL SYRINGE) MG 06/11/2016 06/11/2016 ONCE&1940 HEPARIN 1000 units/cc VIAL 1cc vial UNITS 11/01/2016 11/01/2016 ONCE&1239 IPRATROPIUM/ALBUTEROL INH SOLN (DUO-NEB INH SOLN) MLS 03/21/2017 03/21/2017 ONCE&1030 FUROSEMIDE VIAL INJ 100 MG (LASIX VIAL) MG 03/21/2017 03/21/2017 ONCE&1104 SUCRALFATE TAB 1 GM (CARAFATE) Dose(s) 03/21/2017 03/28/2017 Q6H&0600,1200,1800,2359 METOPROLOL TAB 25 MG (LOPRESSOR) Dose(s) 03/21/2017 03/21/2017 ONCE&1245 GABAPENTIN CAP 300 MG (NEURONTIN) Dose(s) 03/21/2017 03/28/2017 TID&0800,1400,2000 TIZANIDINE TAB 4 MG (ZANAFLEX) Dose(s) 03/21/2017 03/28/2017 TID&0800,1400,2000 INSULIN ASPART PEN INJ 100 UNITS/CC (NOVOLOG FLEXPEN) UNITS 03/21/2017 03/21/2017 ONCE&1400 ONDANSETRON VIAL INJ 4 MG/2CC (ZOFRAN 2CC VIAL) MG 03/21/2017 03/28/2017 PRN Q4H ALBUTEROL SVN 2.5MG/3CC LIQ 2.5 MG (PROVENTIL MANUEL 2.5MG/3CC) Dose(s) 03/21/2017 03/31/2017 PRN QID FUROSEMIDE VIAL INJ 100 MG (LASIX VIAL) MG 03/21/2017 03/21/2017 ONCE&1600 FUROSEMIDE VIAL INJ 40 MG (LASIX VIAL) MG 03/21/2017 03/21/2017 ONCE&1600 INSULIN ASPART PEN INJ 100 UNITS/CC (NOVOLOG FLEXPEN) Dose(s) 03/21/2017 04/20/2017 TID&0630,1130,1630 PROMETHAZINE VIAL INJ 25 MG/CC (PHENERGAN VIAL) MG 03/21/2017 03/21/2017 PRN ONCE FAMOTIDINE TAB 20 MG (PEPCID) Dose(s) 03/21/2017 03/28/2017 BID&0800,2000 METOPROLOL TAB 50 MG (LOPRESSOR) MG 03/21/2017 03/28/2017 BID&0800,2000 BUDESONIDE/FORMOTEROL INH 160 /4.5MCG (SYMBICORT) Dose(s) 03/21/2017 03/28/2017 BID&0800,2000 INSULIN DETEMIR PEN INJ 100 UNITS/CC (LEVEMIR FLEXPEN) Dose(s) 03/21/2017 04/20/2017 BID&0800,2000 ONDANSETRON VIAL INJ 4 MG/2CC (ZOFRAN 2CC VIAL) MG 03/21/2017 03/28/2017 PRN Q4H PROMETHAZINE VIAL INJ 25 MG/CC (PHENERGAN VIAL) MG 03/21/2017 03/31/2017 PRN Q6H OXYCODONE/APAP 10MG/325MG TAB(PERCOCET-10) TAB 03/22/2017 03/29/2017 PRN Q8H FENTANYL PATCH PAT 12 MCG/HR (DURAGESIC PATCH) Dose(s) 03/22/2017 04/03/2017 Q72H&0800 CLOPIDOGREL TAB 75 MG (PLAVIX) Dose(s) 03/22/2017 03/28/2017 Daily&0900 LISINOPRIL TAB 10 MG (ZESTRIL) Dose(s) 03/22/2017 03/28/2017 Daily&0900 LISINOPRIL TAB 5 MG (ZESTRIL) MG 03/28/2017 Daily&0900 DULOXETINE CAP 30 MG (CYMBALTA) Dose(s) 03/22/2017 03/28/2017 Daily&0900 FUROSEMIDE VIAL INJ 100 MG (LASIX VIAL) MG 03/22/2017 03/28/2017 Daily&0900 ROFLUMILAST TAB 500 MCG (DALIRESP) Dose(s) 03/22/2017 03/28/2017 Daily&0900 MONTELUKAST TAB 10 MG (SINGULAIR) Dose(s) 03/22/2017 03/28/2017 Daily&0900 NORMAL SALINE 1000CC IV BAG INJ 0.9 % (NS 1000CC IV BAG) ml 03/22/2017 03/22/2017 ONCE&1150 D5W 250CC IV BAG INJ ml 03/22/2017 03/22/2017 ONCE& 1252 CEFTRIAXONE PREMIX IV BAG IV 1 GM/50CC (ROCEPHIN PREMIX IV BAG) GM 03/22/2017 03/29/2017 Daily&1300 OXYCODONE/APAP 10MG/325MG TAB(PERCOCET-10) TAB 03/22/2017 03/29/2017 PRN Q8H NITROSTAT TAB 0.4 MG (NITROGLYCERINE) MG 03/22/2017 03/22/2017 ONCE&1442 LEVOFLOXACIN PREMIX IV BAG INJ 500 MG/100CC (LEVAQUIN IV PREMIX 100CC BAG) MG 03/22/2017 03/28/2017 Daily&1500 METOPROLOL TAB 25 MG (LOPRESSOR) MG 03/22/2017 03/29/2017 BID&0800,2000 ENOXAPARIN SYRINGE INJ 40 MG (LOVENOX SYRINGE) MG 03/23/2017 04/01/2017 Daily&0900 FUROSEMIDE TAB 20 MG (LASIX) MG 01/201703/29/2017 Daily&0900 LEVOFLOXACIN PREMIX IV BAG INJ 500 MG/100CC (LEVAQUIN IV PREMIX 100CC BAG) MG 03/23/2017 03/29/2017 Daily&0900 CEFTRIAXONE PREMIX IV BAG IV 1 GM/50CC (ROCEPHIN PREMIX IV BAG) GM 03/23/2017 03/29/2017 Daily&0900 Problems Date Dx Coded Attending Type Code Diagnosis Diagnosed By 10/04/2009 Ot 250.00 10/04/2009 Ot 726.32 10/04/2009 Ot V58.67 10/04/2009 Ot V58.69 10/04/2009 Ot 784.99 07/09/2010 Ot 250.00 07/09/2010 Ot 996.1 07/09/2010 Ot V58.67 09/05/2010 Ot 250.00 09/05/2010 Ot 428.0 09/05/2010 Ot 496 09/05/2010 Ot 726.10 09/05/2010 Ot 840.4 09/05/2010 Ot E000.8 09/05/2010 Ot E927.0 09/05/2010 Ot V58.69 03/27/2012 Ot 455.0 03/27/2012 Ot 530.11 03/27/2012 Ot 535.40 03/27/2012 Ot 535.60 03/27/2012 Ot 553.3 03/27/2012 Ot 562.10 03/27/2012 Ot V12.72 04/29/2012 Ot 250.00 04/29/2012 Ot 354.0 04/29/2012 Ot 401.9 04/29/2012 Ot 428.0 04/29/2012 Ot 496 04/29/2012 Ot 564.1 04/29/2012 Ot 722.52 04/29/2012 Ot 729.1 04/29/2012 Ot V58.67 04/29/2012 Ot V58.69 05/20/2012 Ot 250.00 05/20/2012 Ot 354.0 05/20/2012 Ot 428.0 05/20/2012 Ot 496 05/20/2012 Ot 530.81 05/20/2012 Ot V58.69 05/20/2012 Ot V74.8 01/04/2013 JAREK DO, AMANDA K Ot 338.29 01/04/2013 JAREK DO, AMANDA K Ot 724.3 01/04/2013 JAREK DO, AMANDA K Ot 724.5 01/04/2013 JAREK DO, AMANDA K Ot 847.2 01/04/2013 JAREK DO, AMANDA K Ot E000.8 01/04/2013 JAREK DO, AMANDA K Ot E849.0 01/04/2013 JAREK DO, AMANDA K Ot E928.9 01/25/2013 JOY DO, BONNIE Ot 250.00 01/25/2013 JOY DO, BONNIE Ot 272.4 01/25/2013 JOY DO, BONNIE Ot 278.01 01/25/2013 JOY DO, BONNIE Ot 280.9 01/25/2013 JOY DO, BONNIE Ot 300.00 01/25/2013 JOY DO, BONNIE Ot 311 01/25/2013 JOY DO, BONNIE Ot 327.23 01/25/2013 JOY DO, BONNIE Ot 401.9 01/25/2013 JOY DO, BONNIE Ot 428.0 01/25/2013 JOY DO, BONNIE Ot 434.91 01/25/2013 JOY DO, BONNIE Ot 496 01/25/2013 JOY DO, BONNIE Ot 530.81 01/25/2013 JOY DO, BONNIE Ot 728.87 01/25/2013 JOY DO, BONNIE Ot 729.1 01/25/2013 JOY DO, BONNIE Ot V03.82 01/25/2013 JOY DO, BONNIE Ot V04.81 01/25/2013 JOY DO, BONNIE Ot V58.67 01/25/2013 JOY DO, BONNIE Ot V85.44 02/21/2013 RAMON FUNES MD Ot 250.00 02/21/2013 RAMON FUNES MD Ot 272.0 02/21/2013 SHANTEL SPENCER, RAMON Pina Ot 278.01 02/21/2013 RAMON FUNES MD Ot 300.00 02/21/2013 RAMON FUNES MD Ot 311 02/21/2013 SHANTEL SPENCER RAMON Pina Ot 338.29 02/21/2013 SHANTEL SPENCER RAMON Pina Ot 362.50 02/21/2013 SHANTEL SPENCER RAMON Pina Ot 401.9 02/21/2013 SHANTEL SPENCER RAMON Pina Ot 428.0 02/21/2013 SHANTEL SPENCER RAMON Pina Ot 434.91 02/21/2013 SHANTEL SPENCER RAMON Pina Ot 435.9 02/21/2013 SHANTEL SPENCER RAMON Pina Ot 493.20 02/21/2013 SHANTEL SPENCER RAMON Pina Ot 530.81 02/21/2013 SHANTEL SPENCER RAMON Pina Ot 553.3 02/21/2013 SHANTEL SPENCER RAMON Pina Ot 562.10 02/21/2013 SHANTEL SPENCER RAMON Pina Ot 564.1 02/21/2013 SHANTEL SPENCER RAMON Pina Ot 716.90 02/21/2013 SHANTEL SPENCER RAMON Pina Ot 722.6 02/21/2013 SHANTEL SPENCER RAMON Pina Ot 728.87 02/21/2013 SHANTEL SPENCER RAMON Pina Ot 780.57 02/21/2013 SHANTEL SPENCER RAMON Pina Ot 782.0 02/21/2013 SHANTEL SPENCER RAMON Pina Ot V12.54 02/21/2013 SHANTEL SPENCER RAMON Silvana Ot V85.44 03/10/2013 RAVEN GRAMAJO MD Ot 250.00 03/10/2013 RAVEN GRAMAJO MD Ot 272.4 03/10/2013 RAVEN GRAMAJO MD Ot 278.00 03/10/2013 RAVEN GRAMAJO MD J Ot 327.23 03/10/2013 ROX SPENCER, ISABELHAR J Ot 401.9 03/10/2013 RVAEN GRAMAJO MD Ot 434.91 03/10/2013 RAVEN GRAMAJO MD Ot 496 03/10/2013 ISABEL GRAMAJO MDHAR J Ot V58.67 03/10/2013 RAVEN GRAMAJO MD J Ot V58.69 03/10/2013 RAVEN GRAMAJO MD Ot V85.43 03/25/2013 RAVEN GRAMAJO MD J Ot 250.00 03/25/2013 RAVEN GRAMAJO MD J Ot 278.01 03/25/2013 RAVEN GRAMAJO MD Ot 327.23 03/25/2013 ROX SPENCER, RAVEN Powell Ot 401.9 03/25/2013 RAVEN GRAMAJO MD Ot 414.01 03/25/2013 RAVEN GRAMAJO MD Ot 428.0 03/25/2013 RAVEN GRAMAJO MD Ot 493.20 03/25/2013 RAVEN GRAMAJO MD Ot 794.30 03/25/2013 RAVEN GRAMAJO MD Ot V12.54 03/25/2013 RAVEN GRAMAJO MD Ot V58.66 03/25/2013 RAVEN GRAMAJO MD Ot V58.67 03/25/2013 RAVEN GRAMAJO MD Ot V58.69 03/25/2013 RAVEN GRAMAJO MD Ot V85.43 04/28/2014 Ot 789.01 04/28/2014 Ot 726.32 04/28/2014 Ot V72.83 04/28/2014 Ot V74.8 04/28/2014 Ot 996.1 04/28/2014 Ot V72.83 04/28/2014 Ot V74.8 04/28/2014 Ot 727.61 04/28/2014 Ot V72.81 04/28/2014 Ot V74.8 04/28/2014 Ot 789.03 04/28/2014 Ot 733.93 04/28/2014 Ot V72.84 04/28/2014 Ot 354.0 04/28/2014 Ot V72.83 04/28/2014 Ot V74.8 04/28/2014 Ot 354.0 04/28/2014 Ot V72.84 04/28/2014 RAVEN GRAMAJO MD Ot 250.00 04/28/2014 RAVEN GRAMAJO MD Ot 401.9 04/28/2014 RAVEN GRAMAJO MD Ot 428.0 04/28/2014 RAVEN GRAMAJO MD Ot 434.91 04/28/2014 RAVEN GRAMAJO MD Ot 786.05 05/11/2014 Ot 789.01 05/11/2014 Ot 726.32 05/11/2014 Ot V72.83 05/11/2014 Ot V74.8 05/11/2014 Ot 996.1 05/11/2014 Ot V72.83 05/11/2014 Ot V74.8 05/11/2014 Ot 727.61 05/11/2014 Ot V72.81 05/11/2014 Ot V74.8 05/11/2014 Ot 789.03 05/11/2014 Ot 733.93 05/11/2014 Ot V72.84 05/11/2014 Ot 354.0 05/11/2014 Ot V72.83 05/11/2014 Ot V74.8 05/11/2014 Ot 354.0 05/11/2014 Ot V72.84 05/11/2014 ROX SPENCER, RAVEN Powell Ot 250.00 05/11/2014 ROX SPENCER, RAVEN Powell Ot 401.9 05/11/2014 RAVEN GRAMAJO MD Ot 428.0 05/11/2014 RAVEN GRAMAJO MD Ot 434.91 05/11/2014 RAVEN GRAMAJO MD Ot 786.05 05/12/2014 Ot 789.01 05/12/2014 Ot 726.32 05/12/2014 Ot V72.83 05/12/2014 Ot V74.8 05/12/2014 Ot 996.1 05/12/2014 Ot V72.83 05/12/2014 Ot V74.8 05/12/2014 Ot 727.61 05/12/2014 Ot V72.81 05/12/2014 Ot V74.8 05/12/2014 Ot 789.03 05/12/2014 Ot 733.93 05/12/2014 Ot V72.84 05/12/2014 Ot 354.0 05/12/2014 Ot V72.83 05/12/2014 Ot V74.8 05/12/2014 Ot 354.0 05/12/2014 Ot V72.84 05/12/2014 ROX SPENCER, RAVEN Powell Ot 250.00 05/12/2014 ROX SPENCER, RAVEN Powell Ot 401.9 05/12/2014 RAVEN GRAMAJO MD Ot 428.0 05/12/2014 RAVEN GRAMAJO MD Ot 434.91 05/12/2014 RAVEN GRAMAJO MD Ot 786.05 06/01/2014 ROX SPENCER, RAVEN Powell Ot 401.9 06/01/2014 RAVEN GRAMAJO MD Ot 414.00 06/01/2014 RAVEN GRAMAJO MD Ot 434.91 06/01/2014 ROX SPENCER, RAVEN J Ot 451.19 06/02/2014 ROX SPENCER, BASHAR J Ot 401.9 06/02/2014 ROX SPENCER, BASHAR J Ot 414.00 06/02/2014 ROX SPENCER, ISABELHAR J Ot V12.51 06/02/2014 ROX SPENCER, RAVEN J Ot V12.54 06/07/2014 ROX SPENCER, BASHAR J Ot 250.00 06/07/2014 ROX SPENCER, BASHAR J Ot 272.4 06/07/2014 ROX SPENCER, BASHAR J Ot 278.00 06/07/2014 ROX SPENCER, ISABELHAR J Ot 327.23 06/07/2014 ROX SPENCER, ISABELHAR J Ot 401.9 06/07/2014 ROX SPENCER, ISABELHAR J Ot 414.01 06/07/2014 ROX SPENCER, ISABELHAR J Ot 786.50 06/07/2014 ROX SPENCER, ISABELHAR J Ot 794.30 06/07/2014 ROX SPENCER, ISABELHAR J Ot V12.54 06/07/2014 ROX SPENCER, ISABELHAR J Ot V15.82 06/07/2014 ROX SPENCER, RAVEN J Ot V45.82 06/07/2014 ROX SPENCER, ISABELHAR J Ot V58.69 06/07/2014 ROX SPENCER, ISABELHAR J Ot V85.44 08/03/2014 ROX SPENCER, ISABELHAR J Ot 250.00 08/03/2014 ROX SPENCER, RAVEN J Ot 272.4 08/03/2014 ROX SPENCER, ISABELHAR J Ot 278.01 08/03/2014 ROX SPENCER, BASHAR J Ot 300.00 08/03/2014 ROX SPENCER, BASHAR J Ot 311 08/03/2014 ROX SPENCER, ISABELHAR J Ot 327.23 08/03/2014 ROX SPENCER, BASHAR J Ot 338.29 08/03/2014 ROX SPENCER, BASHAR J Ot 401.9 08/03/2014 ROX SPENCER, BASHAR J Ot 414.00 08/03/2014 ROX SPENCER, ISABELHAR J Ot 427.89 08/03/2014 ROX SPENCER, BASHAR J Ot 428.0 08/03/2014 ROX SPENCER, ISABELHAR J Ot 433.10 08/03/2014 ROX SPENCER, ISABELHAR J Ot 491.21 08/03/2014 ROX SPENCER, ISABELHAR J Ot 518.83 08/03/2014 ROX SPENCER, RAVEN J Ot 530.81 08/03/2014 ROX SPENCER, RAVEN J Ot 780.2 08/03/2014 ROX SPENCER, RAVEN J Ot V12.51 08/03/2014 ROX SPENCER, RAVEN J Ot V12.54 08/03/2014 ROX SPENCER, RAVEN J Ot V15.82 08/03/2014 ROX SPENCER, RAVEN J Ot V45.82 08/03/2014 ROX SPENCER, RAVEN J Ot V58.67 08/03/2014 ROX SPENCER, RAVEN J Ot V85.43 08/05/2014 ROX SPENCER, RAVEN J Ot 250.00 08/05/2014 ROX SPENCER, RAVEN J Ot 272.4 08/05/2014 ROX SPENCER, RAVEN J Ot 278.01 08/05/2014 ROX SPENCER, RAVEN J Ot 300.00 08/05/2014 ROX SPENCER, ISABELHAR J Ot 311 08/05/2014 ROX SPENCER, RAVEN J Ot 327.23 08/05/2014 ROX SPENCER, RAVEN J Ot 338.29 08/05/2014 ROX SPENCER, ISABELHAR J Ot 401.9 08/05/2014 ROX SPENCER, RAVEN J Ot 414.00 08/05/2014 ROX SPENCER, RAVEN J Ot 427.89 08/05/2014 ROX SPENCER, RAVEN J Ot 428.0 08/05/2014 ROX SPENCER, RAVEN J Ot 433.10 08/05/2014 ROX SPENCER, ISABELHAR J Ot 491.21 08/05/2014 ROX SPENCER, ISABELHAR J Ot 496 08/05/2014 ROX SPENCER, RAVEN J Ot 518.83 08/05/2014 ROX SPENCER, ISABELHAR J Ot 530.81 08/05/2014 ROX SPENCER, RAVEN J Ot 780.2 08/05/2014 RAVEN GRAMAJO MD J Ot V12.51 08/05/2014 RAVEN GRAMAJO MD J Ot V12.54 08/05/2014 ROX SPENCER, RAVEN J Ot V15.82 08/05/2014 RAVEN GRAMAJO MD J Ot V45.82 08/05/2014 RAVEN GRAMAJO MD J Ot V58.67 08/05/2014 ROX SPENCER, BASHORACIO J Ot V85.43 08/05/2014 ROX SPENCER, ISABELHAR J Ot 250.00 08/05/2014 ROX SPENCER, ISABELHAR J Ot 272.4 08/05/2014 ROX SPENCER, ISABELHAR J Ot 278.01 08/05/2014 ROX SPENCER, BASHAR J Ot 300.00 08/05/2014 ROX SPENCER, ISABELHAR J Ot 311 08/05/2014 ROX SPENCER, BASHAR J Ot 327.23 08/05/2014 ROX SPENCER, ISABELHAR J Ot 338.29 08/05/2014 ROX SPENCER, ISABELHAR J Ot 401.9 08/05/2014 ROX SPENCER, RAVEN J Ot 414.00 08/05/2014 ROX SPENCER, RAVEN J Ot 427.89 08/05/2014 ROX SPENCER, RAVEN J Ot 428.0 08/05/2014 ROX SPENCER, RAVEN J Ot 433.10 08/05/2014 ROX SPENCER, ISABELHAR J Ot 496 08/05/2014 ROX SPENCER, ISABELHAR J Ot 518.83 08/05/2014 ROX SPENCER, RAVEN J Ot 530.81 08/05/2014 ROX SPENCER, RAVEN J Ot 780.2 08/05/2014 ROX SPENCER, RAVEN J Ot V12.51 08/05/2014 ROX SPENCER, RAVEN J Ot V12.54 08/05/2014 ROX SPENCER, RAVEN J Ot V15.82 08/05/2014 ROX SPENCER, RAVEN J Ot V45.82 08/05/2014 ROX SPENCER, RAVEN J Ot V58.67 08/05/2014 ROX SPENCER, ISABELHAR J Ot V85.43 08/05/2014 ROX SPENCER, ISABELHAR J Ot 250.00 08/05/2014 ROX SPENCER, ISABELHAR J Ot 272.4 08/05/2014 ROX SPENCER, ISABELHAR J Ot 278.01 08/05/2014 ROX SPENCER, BASHAR J Ot 300.00 08/05/2014 ROX SPENCER, RAVEN J Ot 311 08/05/2014 ROX SPENCER, BASHAR J Ot 327.23 08/05/2014 ROX SPENCER, ISABELHAR J Ot 338.29 08/05/2014 RAVEN GRAMAJO MD Ot 401.9 08/05/2014 RAVEN GRAMAJO MD Ot 414.00 08/05/2014 RAVEN GRAMAJO MD Ot 427.89 08/05/2014 RAVEN GRAMAJO MD Ot 428.0 08/05/2014 RAVEN GRAMAJO MD Ot 433.10 08/05/2014 RAVEN GRAMAJO MD Ot 496 08/05/2014 RAVEN GRAMAJO MD Ot 518.83 08/05/2014 RAVEN GRAMAJO MD Ot 530.81 08/05/2014 RAVEN GRAMAJO MD Ot 780.2 08/05/2014 RAVEN GRAMAJO MD Ot V12.51 08/05/2014 RAVEN GRAAMJO MD Ot V12.54 08/05/2014 RAVEN GRAMAJO MD Ot V15.82 08/05/2014 RAVEN GRAMAJO MD Ot V45.82 08/05/2014 RAVEN GRAMAJO MD Ot V58.67 08/05/2014 RAVEN GRAMAJO MD Ot V85.43 08/10/2014 Ot 789.01 08/10/2014 Ot 726.32 08/10/2014 Ot V72.83 08/10/2014 Ot V74.8 08/10/2014 Ot 996.1 08/10/2014 Ot V72.83 08/10/2014 Ot V74.8 08/10/2014 Ot 727.61 08/10/2014 Ot V72.81 08/10/2014 Ot V74.8 08/10/2014 Ot 789.03 08/10/2014 Ot 733.93 08/10/2014 Ot V72.84 08/10/2014 Ot 354.0 08/10/2014 Ot V72.83 08/10/2014 Ot V74.8 08/10/2014 Ot 354.0 08/10/2014 Ot V72.84 08/10/2014 RAVEN GRAMAJO MD Ot 250.00 08/10/2014 RAVEN GRAMAJO MD Ot 401.9 08/10/2014 RAVEN GRAMAJO MD Ot 428.0 08/10/2014 RAVEN GRAMAJO MD Ot 434.91 08/10/2014 RAVEN GRAMAJO MD Ot 786.05 08/10/2014 ROX SPENCER, RAVEN J Ot 401.9 08/10/2014 ROX SPENCER, RAVEN J Ot 414.00 08/10/2014 ROX SPENCER, RAVEN J Ot 434.91 08/10/2014 ROX SPENCER, RAVEN J Ot 451.19 08/10/2014 ROX SPENCER, RAVEN J Ot 401.9 08/10/2014 ROX SPENCER, ISABELHAR J Ot 414.00 08/10/2014 ROX SPENCER, RAVEN J Ot V12.51 08/10/2014 ROX SPENCER, RAVEN J Ot V12.54 08/10/2014 ROX SPENCER, RAVEN J Ot 250.00 08/10/2014 ROX SPENCER, RAVEN J Ot 272.4 08/10/2014 ROX SPENCER, RAVEN J Ot 278.00 08/10/2014 ROX SPENCER, RAVEN J Ot 327.23 08/10/2014 ROX SPENCER, RAVEN J Ot 401.9 08/10/2014 ROX SPENCER, RAVEN J Ot 414.01 08/10/2014 ROX SPENCER, RAVEN J Ot 786.50 08/10/2014 ROX SPENCER, RAVEN J Ot 794.30 08/10/2014 ROX SPENCER, RAVEN J Ot V12.54 08/10/2014 ROX SPENCER, RAVEN J Ot V15.82 08/10/2014 ROX SPENCER, RAVEN J Ot V45.82 08/10/2014 ROX SPENCER, RAVEN J Ot V58.69 08/10/2014 ROX SPENCER, RAVEN J Ot V85.44 08/30/2014 ORENDER DO, COOPER S Ot 250.00 08/30/2014 ORENDER DO, COOPER S Ot 272.4 08/30/2014 ORENDER DO, COOPER S Ot 278.01 08/30/2014 ORENDER DO, COOPER S Ot 327.23 08/30/2014 ORENDER DO, COOPER S Ot 401.9 08/30/2014 ORENDER DO, COOPER S Ot 414.01 08/30/2014 ORENDER DO, COOPER S Ot 438.89 08/30/2014 ORENDER DO, COOPER S Ot 493.20 08/30/2014 ORENDER DO, COOPER S Ot 599.0 08/30/2014 ORENDER DO, COOPER S Ot 728.87 08/30/2014 ORENDER DO, COOPER S Ot 784.0 08/30/2014 ORENDER DO, COOPER S Ot 786.50 08/30/2014 ORENDER DO, COOPER S Ot V46.2 08/30/2014 ORENDER DO, COOPER S Ot V85.43 09/16/2014 ROX SPENCER, BASHAR J Ot 272.4 09/16/2014 ROX SPENCER, BASHAR J Ot 401.9 09/16/2014 ROX SPENCER, BASHAR J Ot 414.9 09/16/2014 ROX SPENCER, BASHAR J Ot 428.0 09/16/2014 ROX SPENCER, BASHAR J Ot 786.50 09/19/2014 ROX SPENCER, BASHAR J Ot 272.4 09/19/2014 ROX SPENCER, BASHAR J Ot 401.9 09/19/2014 ROX SPENCER, BASHAR J Ot 414.9 09/19/2014 ROX SPENCER, BASHAR J Ot 428.0 09/19/2014 ROX SPENCER, BASHAR J Ot 786.50 09/26/2014 ROX SPENCER, BASHAR J Ot 250.00 09/26/2014 ROX SPENCER, BASHAR J Ot 401.9 09/26/2014 ROX SPENCER, BASHAR J Ot 428.0 09/26/2014 ROX SPENCER, BASHAR J Ot 434.91 09/26/2014 ROX SPENCER, BASHAR J Ot 786.05 10/07/2014 BINTA SPENCER, RAHUL S Ot 427.81 10/07/2014 BINTA SPENCER, RAHUL S Ot V72.63 10/07/2014 BINTA SPENCER, RAHUL S Ot V74.8 10/08/2014 BINTA SPENCER, RAHUL S Ot 250.00 10/08/2014 BINTA SPENCER, RAHUL S Ot 426.0 10/10/2014 FABI SCHMITT APRN Ot 428.0 10/10/2014 FABI SCHMITT APRN Ot 496 10/18/2014 BINTA SPENCER, RAHUL S Ot 427.81 10/18/2014 BINTA SPENCER, RAHUL S Ot V72.63 10/18/2014 BINTA SPENCER, RAHUL S Ot V74.8 10/28/2014 KODI SPENCER, GRACE Powell Ot 338.4 10/28/2014 KODI SPENCER, GRACE Powell Ot 715.95 10/28/2014 KODI SPENCER, GRACE Powell Ot 721.3 10/28/2014 KODI SPENCER, GRACE Powell Ot 722.83 10/28/2014 KODI SPENCER, GRACE Powell Ot 729.1 10/28/2014 KODI SPENCER, GRACE Powell Ot V58.69 11/10/2014 SONU SPENCER, CASIMIRO Cummins Ot 250.00 11/10/2014 SONU SPENCER, CASIMIRO Cummins Ot 278.01 11/10/2014 SONU SPENCER, CASIMIRO Cummins Ot 401.9 11/10/2014 SONU SPENCER, CASIMIRO Cummins Ot 414.01 11/10/2014 SONU SPENCER, CASIMIRO Cummins Ot 438.20 11/10/2014 SONU SPENCER, CASIMIRO Cummins Ot 458.0 11/10/2014 SONU SPENCER, CASIMIRO Cummins Ot 530.81 11/10/2014 SONU SPENCER, CASIMIRO Cummins Ot V45.82 11/10/2014 SONU SPENCER, CASIMIRO Cummins Ot V46.2 11/10/2014 SONU SPENCER, CASIMIRO Cummins Ot V58.67 11/10/2014 SONU SPENCER, CASIMIRO Cummins Ot V85.43 11/10/2014 SONU SPENCER, CASIMIRO Cummins Ot 250.00 11/10/2014 SONU SPENCER, CASIMIRO Cummins Ot 278.01 11/10/2014 SONU SPENCER, CASIMIRO Cummins Ot 401.9 11/10/2014 SONU SPENCER, CASIMIRO Cummins Ot 414.01 11/10/2014 SONU SPENCER, CASIMIRO Cummins Ot 438.20 11/10/2014 SONU SPENCER, CASIMIRO Cummins Ot 458.0 11/10/2014 SONU SPENCER, CASIMIRO Cummins Ot 530.81 11/10/2014 SONU SPENCER, CASIMIRO Cummins Ot V45.82 11/10/2014 SONU SPENCER, CASIMIRO Cummins Ot V46.2 11/10/2014 SONU SPENCER, CASIMIRO Cummins Ot V58.67 11/10/2014 SONU SPENCER, CASIMIRO Cummins Ot V85.43 11/11/2014 KODI SPENCER, GRACE Powell Ot 715.35 11/24/2014 TOMMIE GUERIN DO Ot 250.00 11/24/2014 TOMMIE GUERIN DO Ot 599.0 11/24/2014 TOMMIE GUERIN DO Ot 786.50 11/24/2014 TOMMIE GUERIN DO Ot 786.59 11/24/2014 TOMMIE GUERIN DO Ot V58.67 11/24/2014 TOMMIE GUERIN DO Ot V58.69 02/14/2015 Ot E78.5 02/14/2015 Ot I10 02/14/2015 Ot I25.10 02/14/2015 Ot I50.9 02/14/2015 Ot R07.9 05/28/2015 HECTOR ARAIZA FINANCIAL PLANNING ADVISER Ot E11.9 05/28/2015 HECTOR ARAIZA FINANCIAL PLANNING ADVISER Ot M47.816 05/28/2015 HECTOR ARAIZA FINANCIAL PLANNING ADVISER Ot S50.02XA 05/28/2015 HECTOR ARAIZA FINANCIAL PLANNING ADVISER Ot S80.12XA 05/28/2015 HECTOR RAAIZA FINANCIAL PLANNING ADVISER Ot W01.0XXA 05/28/2015 HECTOR ARAIZA FINANCIAL PLANNING ADVISER Ot Y92.009 05/28/2015 HECTOR ARAIZA FINANCIAL PLANNING ADVISER Ot Y99.8 05/28/2015 HECTOR ARAIZA FINANCIAL PLANNING ADVISER Ot Z79.4 05/28/2015 Ot 996.1 05/28/2015 Ot V72.83 05/28/2015 Ot V74.8 05/28/2015 Ot 727.61 05/28/2015 Ot V72.81 05/28/2015 Ot V74.8 05/28/2015 Ot 789.03 05/28/2015 Ot 733.93 05/28/2015 Ot V72.84 05/28/2015 Ot 354.0 05/28/2015 Ot V72.83 05/28/2015 Ot V74.8 05/28/2015 Ot 354.0 05/28/2015 Ot V72.84 05/28/2015 RAVEN GRAMAJO MD Ot 250.00 05/28/2015 RAVEN GRAMAJO MD Ot 401.9 05/28/2015 RAVEN GRAMAJO MD Ot 428.0 05/28/2015 RAVEN GRAMAJO MD Ot 434.91 05/28/2015 RAVEN GRAMAJO MD Ot 786.05 05/28/2015 RAVEN GRAMAJO MD Ot 401.9 05/28/2015 RAVEN GRAMAJO MD Ot 414.00 05/28/2015 RAVEN GRAMAJO MD Ot 434.91 05/28/2015 ROX SPENCER, RAVEN J Ot 451.19 05/28/2015 ROX SPENCER, BASHAR J Ot 401.9 05/28/2015 ROX SPENCER, BASHAR J Ot 414.00 05/28/2015 ROX SPENCER, RAVEN J Ot V12.51 05/28/2015 ROX SPENCER, RAVEN J Ot V12.54 05/28/2015 ROX SPENCER, ISABELHAR J Ot 250.00 05/28/2015 ROX SPENCER, BASHAR J Ot 272.4 05/28/2015 ROX SPENCER, ISABELHAR J Ot 278.00 05/28/2015 ROX SPENCER, ISABELHAR J Ot 327.23 05/28/2015 ROX SPENCER, ISABELHAR J Ot 401.9 05/28/2015 ROX SPENCER, ISABELHAR J Ot 414.01 05/28/2015 ROX SPENCER, ISABELHAR J Ot 786.50 05/28/2015 ROX SPENCER, ISABELHAR J Ot 794.30 05/28/2015 ROX SPENCER, RAVEN J Ot V12.54 05/28/2015 ROX SPENCER, RAVEN J Ot V15.82 05/28/2015 ROX SPENCER, RAVEN J Ot V45.82 05/28/2015 ROX SPENCER, ISABELHAR J Ot V58.69 05/28/2015 ROX SPENCER, RAVEN J Ot V85.44 05/28/2015 ROX SPENCER, RAVEN J Ot 272.4 05/28/2015 ROX SPENCER, RAVEN J Ot 401.9 05/28/2015 ROX SPENCER, ISABELHAR J Ot 414.9 05/28/2015 ROX SPENCER, ISABELHAR J Ot 428.0 05/28/2015 ROX SPENCER, BASHAR J Ot 786.50 05/28/2015 FABI SCHMITT APRN Ot 428.0 05/28/2015 FABI SCHMITT APRN Ot 496 05/28/2015 BINTA SPENCER, RAHUL Hoff Ot 427.81 05/28/2015 BINTA SPENCER, RAHUL Hoff Ot V72.63 05/28/2015 BINTA SPENCER, RAHUL Hoff Ot V74.8 05/28/2015 GRACE MARIEE MD Ot 715.35 05/28/2015 Ot E78.5 05/28/2015 Ot I10 05/28/2015 Ot I25.10 05/28/2015 Ot I50.9 05/28/2015 Ot R07.9 12/07/2015 BEBE JACKMAN MD Ot E11.9 TYPE 2 DIABETES MELLITUS WITHOUT COMPLIC 12/07/2015 BEBE JACKMAN MD Ot G47.30 SLEEP APNEA, UNSPECIFIED 12/07/2015 BEBE JACKMAN MD Ot I10 ESSENTIAL (PRIMARY) HYPERTENSION 12/07/2015 BEBE JACKMAN MD Ot I25.10 ATHSCL HEART DISEASE OF [place] CORONARY 12/07/2015 BEBE JACKMAN MD Ot I44.7 LEFT BUNDLE-BRANCH BLOCK, UNSPECIFIED 12/07/2015 BEBE JACKMAN MD Ot I69.354 HEMIPLGA FOLLOWING CEREBRAL INFRC AFFECT 12/07/2015 BEBE JACKMAN MD, Ot J44.9 CHRONIC OBSTRUCTIVE PULMONARY DISEASE, U 12/07/2015 BEBE JACKMAN MD Ot R07.9 CHEST PAIN, UNSPECIFIED 12/07/2015 BEBE JACKMAN MD Ot Z79.4 [facility] (CURRENT) USE OF INSULIN 12/07/2015 BEBE JACKMAN MD Ot Z95.0 PRESENCE OF CARDIAC PACEMAKER 12/08/2015 BEBE JACKMAN MD Ot E11.9 TYPE 2 DIABETES MELLITUS WITHOUT COMPLIC 12/08/2015 BEBE JACKMAN MD Ot G47.30 SLEEP APNEA, UNSPECIFIED 12/08/2015 BEBE JACKMAN MD Ot I10 ESSENTIAL (PRIMARY) HYPERTENSION 12/08/2015 BEBE JACKMAN MD Ot I25.10 ATHSCL HEART DISEASE OF [place] CORONARY 12/08/2015 BEBE JACKMAN MD Ot I44.7 LEFT BUNDLE-BRANCH BLOCK, UNSPECIFIED 12/08/2015 BEBE JACKMAN MD Ot I69.354 HEMIPLGA FOLLOWING CEREBRAL INFRC AFFECT 12/08/2015 BEBE JACKMAN MD, Ot J44.9 CHRONIC OBSTRUCTIVE PULMONARY DISEASE, U 12/08/2015 BEBE JACKMAN MD Ot R07.9 CHEST PAIN, UNSPECIFIED 12/08/2015 BEBE JACKMAN MD Ot Z79.4 PEDIATRIC CNS (CURRENT) USE OF INSULIN 12/08/2015 BEBE JACKMAN MD Ot Z95.0 PRESENCE OF CARDIAC PACEMAKER 12/14/2015 BEBE JACKMAN MD Ot E11.9 TYPE 2 DIABETES MELLITUS WITHOUT COMPLIC 12/14/2015 BEBE JACKMAN MD Ot G47.30 SLEEP APNEA, UNSPECIFIED 12/14/2015 BEBE JACKMAN MD Ot I10 ESSENTIAL (PRIMARY) HYPERTENSION 12/14/2015 BEBE JACKMAN MD Ot I25.10 ATHSCL HEART DISEASE OF [place] CORONARY 12/14/2015 BEBE JACKMAN MD Ot I44.7 LEFT BUNDLE-BRANCH BLOCK, UNSPECIFIED 12/14/2015 BEBE JACKMAN MD Ot I69.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10 ATHSCL HEART DISEASE OF [place] CORONARY 02/16/2016 Ot R06.02 SHORTNESS OF BREATH 02/28/2016 Ot E78.2 MIXED HYPERLIPIDEMIA 02/28/2016 Ot I10 ESSENTIAL ( PRIMARY) HYPERTENSION 02/28/2016 Ot I25.10 ATHSCL HEART DISEASE OF [place] CORONARY 02/28/2016 Ot R06.02 SHORTNESS OF BREATH 02/29/2016 SABRINA IGNACIO Ot E78.2 MIXED HYPERLIPIDEMIA 02/29/2016 SABRINA IGNACIO Ot I10 ESSENTIAL (PRIMARY) HYPERTENSION 02/29/2016 SABRINA IGNACIO Ot I25.10 ATHSCL HEART DISEASE OF [place] CORONARY 02/29/2016 SABRINA IGNACIO Ot R06.02 SHORTNESS OF BREATH 02/29/2016 SABRINA IGNACIO Ot E78.2 MIXED HYPERLIPIDEMIA 02/29/2016 SABRINA IGNACIO Ot I10 ESSENTIAL (PRIMARY) HYPERTENSION 02/29/2016 SABRINA IGNACIO Ot I25.10 ATHSCL HEART DISEASE OF [place] CORONARY 02/29/2016 SABRINA IGNACIO Ot R06.02 SHORTNESS OF BREATH 03/04/2016 RAVEN GRAMAJO MD Ot E11.9 TYPE 2 DIABETES MELLITUS WITHOUT COMPLIC 03/04/2016 RAVEN GRAMAJO MD Ot E78.5 HYPERLIPIDEMIA, UNSPECIFIED 03/04/2016 RAVEN GRAMAJO MD Ot I10 ESSENTIAL (PRIMARY) HYPERTENSION 03/04/2016 RAVEN GRAMAJO MD Ot I25.10 ATHSCL HEART DISEASE OF [place] CORONARY 03/04/2016 RAVEN GRAMAJO MD Ot I49.5 SICK SINUS SYNDROME 03/04/2016 RAVEN GRAMAJO MD Ot Z79.899 OTHER PEDIATRIC CNS (CURRENT) DRUG THERAPY 03/04/2016 RAVEN GRAMAJO MD Ot Z86.73 PRSNL HX OF TIA (TIA), AND CEREB INFRC W 03/04/2016 RAVEN GRAMAJO MD Ot Z95.5 PRESENCE OF CORONARY ANGIOPLASTY IMPLANT 03/13/2016 SABRINA IGNACIO Ot E78.2 MIXED HYPERLIPIDEMIA 03/13/2016 SABRINA IGNACIO Ot I10 ESSENTIAL (PRIMARY) HYPERTENSION 03/13/2016 SABRINA IGNACIO Ot I25.10 ATHSCL HEART DISEASE OF [place] CORONARY 03/13/2016 SABRINA IGNACIO Ot R06.02 SHORTNESS OF BREATH 06/11/2016 Richar Mariscal 922.1 CONTUSION OF CHEST WALL 06/11/2016 Richar Mariscal 923.10 CONTUSION OF FOREARM 06/11/2016 Richar Mariscal E885.9 FALL FROM OTHER SLIPPING, TRIPPING, OR STUMBLING 06/11/2016 Richar Mariscal S20.212A CONTUSION OF LEFT FRONT WALL OF THORAX, INITIAL ENCOUNTER 06/11/2016 Howayek, Richar W S50.12XA CONTUSION OF LEFT FOREARM, INITIAL ENCOUNTER 06/11/2016 Richar Mariscal W01.0XXA FALL SAME LEV FROM SLIP/TRIP W/O STRIKE AGAINST OBJECT, INIT 09/16/2016 YOVANY KEENE MD, Ot E11.65 TYPE 2 DIABETES MELLITUS WITH HYPERGLYCE 09/16/2016 YOVANY KEENE MD Ot E87.6 HYPOKALEMIA 09/16/2016 YOVANY KEENE MD Ot I10 ESSENTIAL (PRIMARY) HYPERTENSION 09/16/2016 YOVANY KEENE MD, Ot I25.10 ATHSCL HEART DISEASE OF [place] CORONARY 09/16/2016 YOVANY KEENE MD, Ot J44.9 CHRONIC OBSTRUCTIVE PULMONARY DISEASE, U 09/16/2016 YOVANY KEENE MD, Ot N39.0 URINARY TRACT INFECTION, SITE NOT SPECIF 09/16/2016 YOVANY KEENE MD Ot R10.84 GENERALIZED ABDOMINAL PAIN 09/16/2016 YOVANY KEENE MD Ot R11.2 NAUSEA WITH VOMITING, UNSPECIFIED 09/16/2016 YOVANY KEENE MD Ot R19.7 DIARRHEA, UNSPECIFIED 09/16/2016 YOVANY KEENE MD Ot R42 DIZZINESS AND GIDDINESS 09/16/2016 YOVANY KEENE MD Ot Z79.02 PEDIATRIC CNS (CURRENT) USE OF ANTITHROMBOTI 09/16/2016 YOVANY KEENE MD Ot Z79.4 [facility] (CURRENT) USE OF INSULIN 09/16/2016 YOVANY KEENE MD Ot Z79.899 OTHER PEDIATRIC CNS (CURRENT) DRUG THERAPY 09/16/2016 YOVANY KEENE MD Ot Z87.891 PERSONAL HISTORY OF NICOTINE DEPENDENCE 09/16/2016 YOVANY KEENE MD Ot Z91.14 PATIENT'S OTHER NONCOMPLIANCE WITH MEDIC 09/16/2016 YOVANY KEENE MD Ot Z95.828 PRESENCE OF OTHER VASCULAR IMPLANTS AND 09/16/2016 YOVANY KEENE MD Ot E11.65 TYPE 2 DIABETES MELLITUS WITH HYPERGLYCE 09/16/2016 YOVANY KEENE MD Ot E87.6 HYPOKALEMIA 09/16/2016 YOVANY KEENE MD Ot I10 ESSENTIAL (PRIMARY) HYPERTENSION 09/16/2016 YOVANY KEENE MD, Ot I25.10 ATHSCL HEART DISEASE OF [place] CORONARY 09/16/2016 YOVANY KEENE MD, Ot J44.9 CHRONIC OBSTRUCTIVE PULMONARY DISEASE, U 09/16/2016 YOVANY KEENE MD, Ot N39.0 URINARY TRACT INFECTION, SITE NOT SPECIF 09/16/2016 YOVANY KEENE MD Ot R10.84 GENERALIZED ABDOMINAL PAIN 09/16/2016 YOVANY KEENE MD, Ot R11.2 NAUSEA WITH VOMITING, UNSPECIFIED 09/16/2016 YOVANY KEENE MD, Ot R19.7 DIARRHEA, UNSPECIFIED 09/16/2016 YOVANY KEENE MD, Ot R42 DIZZINESS AND GIDDINESS 09/16/2016 YOVANY KEENE MD, Ot Z79.02 PEDIATRIC CNS (CURRENT) USE OF ANTITHROMBOTI 09/16/2016 YOVANY KEENE MD Ot Z79.4 PEDIATRIC CNS (CURRENT) USE OF INSULIN 09/16/2016 YOVANY KEENE MD Ot Z79.899 OTHER [facility] (CURRENT) DRUG THERAPY 09/16/2016 YOVANY KEENE MD, Ot Z87.891 PERSONAL HISTORY OF NICOTINE DEPENDENCE 09/16/2016 YOVANY KEENE MD Ot Z91.14 PATIENT'S OTHER NONCOMPLIANCE WITH MEDIC 09/16/2016 YOVANY KEENE MD Ot Z95.828 PRESENCE OF OTHER VASCULAR IMPLANTS AND 10/25/2016 PHILIP THAPA MD Ot G47.33 OBSTRUCTIVE SLEEP APNEA (ADULT) (PEDIATR 10/29/2016 PHILIP THAPA MD Ot G47.33 OBSTRUCTIVE SLEEP APNEA (ADULT) (PEDIATR 10/31/2016 PHILIP THAPA MD Ot G47.33 OBSTRUCTIVE SLEEP APNEA (ADULT) (PEDIATR 11/01/2016 W 719.41 PAIN IN JOINT INVOLVING SHOULDER REGION 11/01/2016 W 722.4 DEGENERATION OF CERVICAL INTERVERTEBRAL DISC 11/01/2016 A 782.0 DISTURBANCE OF SKIN SENSATION 11/01/2016 W M25.512 PAIN IN LEFT SHOULDER 11/01/2016 W M50.322 OTHER CERVICAL DISC DEGENERATION AT C5-C6 LEVEL 11/01/2016 A R20.2 PARESTHESIA OF SKIN 11/01/2016 W V58.81 ENCOUNTER FOR FITTING AND ADJUSTMENT OF VASCULAR CATHETER 11/01/2016 W Z45.2 ENCOUNTER FOR ADJUSTMENT AND MANAGEMENT OF VAD 03/21/2017 Thapa, Dineshu W 250.00 DIABETES MELLITUS WITHOUT MENTION OF COMPLICATION, TYPE II OR UNSPECIFIED TYPE, NOT STATED UNCONTROLLED 03/21/2017 Thapa, Ehlene-Cj W 428.0 CONGESTIVE HEART FAILURE, UNSPECIFIED 03/21/2017 Thapa, Helene-Cj W 786.09 OTHER DYSPNEA AND RESPIRATORY ABNORMALITY 03/21/2017 Thapa, Helene-Cj W E11.9 TYPE 2 DIABETES MELLITUS WITHOUT COMPLICATIONS 03/21/2017 Thapa, Helene-Cj W I50.9 HEART FAILURE, UNSPECIFIED 03/21/2017 Thapa, Helene-Cj W R06.00 DYSPNEA, UNSPECIFIED 03/21/2017 Thapa, Helene-Cj W 250.00 DIABETES MELLITUS WITHOUT MENTION OF COMPLICATION, TYPE II OR UNSPECIFIED TYPE, NOT STATED UNCONTROLLED 03/21/2017 Thapa, Helene-Cj W 428.0 CONGESTIVE HEART FAILURE, UNSPECIFIED 03/21/2017 Thapa, Helene-Cj W 786.09 OTHER DYSPNEA AND RESPIRATORY ABNORMALITY 03/21/2017, Helene-Cj W E11.9 TYPE 2 DIABETES MELLITUS WITHOUT COMPLICATIONS 03/21/2017, Helene-Cj W I50.9 HEART FAILURE, UNSPECIFIED 03/21/2017, Helene-Cj W R06.00 DYSPNEA, UNSPECIFIED 03/21/2017 Thapa, Helene-Cj W 250.00 DIABETES MELLITUS WITHOUT MENTION OF COMPLICATION, TYPE II OR UNSPECIFIED TYPE, NOT STATED UNCONTROLLED 03/21/2017 Thapa, Helene-Cj W 428.0 CONGESTIVE HEART FAILURE, UNSPECIFIED 03/21/2017 Thapa, Helene-Cj W 786.09 OTHER DYSPNEA AND RESPIRATORY ABNORMALITY 03/21/2017 Thapa, Helene-Cj W E11.9 TYPE 2 DIABETES MELLITUS WITHOUT COMPLICATIONS 03/21/2017 Thapa, Helene-Cj W I50.9 HEART FAILURE, UNSPECIFIED 03/21/2017 Thapa, Helene-Cj W R06.00 DYSPNEA, UNSPECIFIED 03/22/2017 Thapa, Helene-Jc W 250.00 DIABETES MELLITUS WITHOUT MENTION OF COMPLICATION, TYPE II OR UNSPECIFIED TYPE, NOT STATED UNCONTROLLED 03/22/2017 Thapa, Helene-Cj W 427.81 SINOATRIAL NODE DYSFUNCTION 03/22/2017 Thapa, Helene-Cj W 428.0 CONGESTIVE HEART FAILURE, UNSPECIFIED 03/22/2017 Thapa, Helene-Cj W 786.09 OTHER DYSPNEA AND RESPIRATORY ABNORMALITY 03/22/2017 Thapa, Helene-Cj W E11.9 TYPE 2 DIABETES MELLITUS WITHOUT COMPLICATIONS 03/22/2017 Thapa, Helene-Cj W I49.5 SICK SINUS SYNDROME 03/22/2017 Thapa, Helene-Cj W I50.9 HEART FAILURE, UNSPECIFIED 03/22/2017 Thapa, Helene-Cj W R06.00 DYSPNEA, UNSPECIFIED 03/22/2017 Thapa, Helene-Cj W 250.00 DIABETES MELLITUS WITHOUT MENTION OF COMPLICATION, TYPE II OR UNSPECIFIED TYPE, NOT STATED UNCONTROLLED 03/22/2017, Helene-Cj W 427.81 SINOATRIAL NODE DYSFUNCTION 03/22/2017, Helene-Cj W 428.0 CONGESTIVE HEART FAILURE, UNSPECIFIED 03/22/2017, Helene-Cj W 786.09 OTHER DYSPNEA AND RESPIRATORY ABNORMALITY 03/22/2017, Heleen-Cj W E11.9 TYPE 2 DIABETES MELLITUS WITHOUT COMPLICATIONS 03/22/2017, Helene-Cj W I49.5 SICK SINUS SYNDROME 03/22/2017, Helene-Cj W I50.9 HEART FAILURE, UNSPECIFIED 03/22/2017, Helene-Cj W R06.00 DYSPNEA, UNSPECIFIED 03/22/2017 Thapa, Helene-Cj W 250.00 DIABETES MELLITUS WITHOUT MENTION OF COMPLICATION, TYPE II OR UNSPECIFIED TYPE, NOT STATED UNCONTROLLED 03/22/2017, Helene-Jc W 427.81 SINOATRIAL NODE DYSFUNCTION 03/22/2017, Helene-Cj W 428.0 CONGESTIVE HEART FAILURE, UNSPECIFIED 03/22/2017 Thapa, Helene-Cj W 786.09 OTHER DYSPNEA AND RESPIRATORY ABNORMALITY 03/22/2017, Helene-Cj W E11.9 TYPE 2 DIABETES MELLITUS WITHOUT COMPLICATIONS 03/22/2017 Thapa, Helene-Cj W 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 03/22/2017, Helene-Cj W I49.5 SICK SINUS SYNDROME 03/22/2017 Thapa, Helene-Cj W I50.9 HEART FAILURE, UNSPECIFIED 03/22/2017 Thapa, Helene-Cj W R06.00 DYSPNEA, UNSPECIFIED 03/22/2017 Thapa, Helene-Cj W 250.00 DIABETES MELLITUS WITHOUT MENTION OF COMPLICATION, TYPE II OR UNSPECIFIED TYPE, NOT STATED UNCONTROLLED 03/22/2017 Thapa, Helene-Cj W 427.81 SINOATRIAL NODE DYSFUNCTION 03/22/2017 Thapa, Helene-Cj W 428.0 CONGESTIVE HEART FAILURE, UNSPECIFIED 03/22/2017 Thapa, Helene-Cj W 786.09 OTHER DYSPNEA AND RESPIRATORY ABNORMALITY 03/22/2017 Thapa, Helene-Cj W E11.9 TYPE 2 DIABETES MELLITUS WITHOUT COMPLICATIONS 03/22/2017 Thapa, Helene-Cj W 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 03/22/2017, Helene-Cj W I49.5 SICK SINUS SYNDROME 03/22/2017 Thapa, Helene-Cj W I50.9 HEART FAILURE, UNSPECIFIED 03/22/2017 Thapa, Helene-Cj W R06.00 DYSPNEA, UNSPECIFIED 03/22/2017 Thapa, Helene-Cj W 250.00 DIABETES MELLITUS WITHOUT MENTION OF COMPLICATION, TYPE II OR UNSPECIFIED TYPE, NOT STATED UNCONTROLLED 03/22/2017 Thapa, Helene-Cj W 427.81 SINOATRIAL NODE DYSFUNCTION 03/22/2017 Thapa, Helene-Cj W 428.0 CONGESTIVE HEART FAILURE, UNSPECIFIED 03/22/2017 Thaap, Helene-Cj W 786.09 OTHER DYSPNEA AND RESPIRATORY ABNORMALITY 03/22/2017 Thapa, Helene-Cj W E11.9 TYPE 2 DIABETES MELLITUS WITHOUT COMPLICATIONS 03/22/2017 Thapa, Helene-Cj W 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 03/22/2017, Helene-Cj W I49.5 SICK SINUS SYNDROME 03/22/2017 Thapa, Helene-Cj W I50.9 HEART FAILURE, UNSPECIFIED 03/22/2017 Thapa, Helene-Cj W R06.00 DYSPNEA, UNSPECIFIED 03/22/2017 Thapa, Helene-Cj W 250.00 DIABETES MELLITUS WITHOUT MENTION OF COMPLICATION, TYPE II OR UNSPECIFIED TYPE, NOT STATED UNCONTROLLED 03/22/2017 Thapa, Helene-Cj W 427.81 SINOATRIAL NODE DYSFUNCTION 03/22/2017 Thapa, Helene-Cj W 428.0 CONGESTIVE HEART FAILURE, UNSPECIFIED 03/22/2017 Thapa, Helene-Cj W 786.09 OTHER DYSPNEA AND RESPIRATORY ABNORMALITY 03/22/2017 Thapa, Helene-Cj W E11.9 TYPE 2 DIABETES MELLITUS WITHOUT COMPLICATIONS 03/22/2017 Thapa, Helene-Cj W 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 03/22/2017, Helene-Jc W I49.5 SICK SINUS SYNDROME 03/22/2017 Thapa, Helene-Cj W I50.9 HEART FAILURE, UNSPECIFIED 03/22/2017 Thapa, Helene-Cj W R06.00 DYSPNEA, UNSPECIFIED 03/22/2017 Thapa, Helene-Cj W 250.00 DIABETES MELLITUS WITHOUT MENTION OF COMPLICATION, TYPE II OR UNSPECIFIED TYPE, NOT STATED UNCONTROLLED 03/22/2017, Helene-Cj W 427.81 SINOATRIAL NODE DYSFUNCTION 03/22/2017, Helene-Cj W 428.0 CONGESTIVE HEART FAILURE, UNSPECIFIED 03/22/2017, Helene-Cj W 786.09 OTHER DYSPNEA AND RESPIRATORY ABNORMALITY 03/22/2017, Helene-Cj W E11.9 TYPE 2 DIABETES MELLITUS WITHOUT COMPLICATIONS 03/22/2017, Helene-Cj W 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 03/22/2017, Helene-Cj W I49.5 SICK SINUS SYNDROME 03/22/2017, Helene-Cj W I50.9 HEART FAILURE, UNSPECIFIED 03/22/2017 Thapa, Helene-Cj W R06.00 DYSPNEA, UNSPECIFIED 03/22/2017 Thapa, Helene-Cj W 250.00 DIABETES MELLITUS WITHOUT MENTION OF COMPLICATION, TYPE II OR UNSPECIFIED TYPE, NOT STATED UNCONTROLLED 03/22/2017, Helene-Cj W 427.81 03/22/2017, Helene-Cj W 428.0 CONGESTIVE HEART FAILURE, UNSPECIFIED 03/22/2017, Helene-Cj W 458 03/22/2017, Helene-Cj W 786.09 OTHER DYSPNEA AND RESPIRATORY ABNORMALITY 03/22/2017, Helene-Cj W E11.9 TYPE 2 DIABETES MELLITUS WITHOUT COMPLICATIONS 03/22/2017 Thapa, Helene-Cj W 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 03/22/2017, Helene-Cj W I49.5 SICK SINUS SYNDROME 03/22/2017, Helene-Cj W I50.9 HEART FAILURE, UNSPECIFIED 03/22/2017, Helene-Cj W I95 HYPOTENSION 03/22/2017, Helene-Cj W R06.00 DYSPNEA, UNSPECIFIED 03/22/2017 Thapa, Helene-Cj W 250.00 DIABETES MELLITUS WITHOUT MENTION OF COMPLICATION, TYPE II OR UNSPECIFIED TYPE, NOT STATED UNCONTROLLED 03/22/2017, Helene-Cj W 427.81 03/22/2017, Hleene-Cj W 428.0 CONGESTIVE HEART FAILURE, UNSPECIFIED 03/22/2017, Helene-Cj W 458 03/22/2017, Helene-Cj W 599.0 03/22/2017, Helene-Cj W 786.09 03/22/2017, Helene-Cj W E11.9 TYPE 2 DIABETES MELLITUS WITHOUT COMPLICATIONS 03/22/2017, Helene-Cj W 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 03/22/2017, Helene-Cj W I49.5 SICK SINUS SYNDROME 03/22/2017, Helene-Cj W I50.9 HEART FAILURE, UNSPECIFIED 03/22/2017, Helene-Cj W I95 HYPOTENSION 03/22/2017, Helene-Cj W N39.0 URINARY TRACT INFECTION, SITE NOT SPECIFIED 03/22/2017, Helene-Cj W R06.00 DYSPNEA, UNSPECIFIED 03/22/2017, Helene-Cj W 250.00 DIABETES MELLITUS WITHOUT MENTION OF COMPLICATION, TYPE II OR UNSPECIFIED TYPE, NOT STATED UNCONTROLLED 03/22/2017, Helene-Cj W 250.80 03/22/2017, Helene-Cj W 278.01 03/22/2017, Helene-Cj W 401.0 03/22/2017, Helene-Cj W 414.01 03/22/2017, Helene-Cj W 427.81 03/22/2017 Thapa, Helene-Cj A 428.0 CONGESTIVE HEART FAILURE, UNSPECIFIED 03/22/2017 Thapa, Helene-Cj W 458 03/22/2017, Helene-Cj W 491.20 03/22/2017, Helene-Cj W 599.0 03/22/2017 Thapa, Helene-Cj W 729.1 03/22/2017 Thapa, Helene-Cj W 786.09 03/22/2017 Thapa, Helene-Cj W E11.65 03/22/2017 Thapa, Helene-Cj W E11.9 TYPE 2 DIABETES MELLITUS WITHOUT COMPLICATIONS 03/22/2017 Thapa, Helene-Cj W E66.01 MORBID (SEVERE) OBESITY DUE TO EXCESS CALORIES 03/22/2017 Thapa, Helene-Cj W I10 03/22/2017 Thapa, Helene-Cj W 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 03/22/2017, Helene-Cj W I25.10 03/22/2017 Thapa, Helene-Jc W I49.5 SICK SINUS SYNDROME 03/22/2017 Thapa, Helene-Cj A I50.9 HEART FAILURE, UNSPECIFIED 03/22/2017, Helene-Cj W I95 HYPOTENSION 03/22/2017 Thapa, Helene-Cj W I95.9 03/22/2017 Thapa, Helene-Cj W J44.9 CHRONIC OBSTRUCTIVE PULMONARY DISEASE, UNSPECIFIED 03/22/2017 Thapa, Helene-Cj W M79.7 03/22/2017 Thapa, Helene-Cj W N39.0 URINARY TRACT INFECTION, SITE NOT SPECIFIED 03/22/2017 Thapa, Helene-Cj W R06.00 DYSPNEA, UNSPECIFIED 03/22/2017 Thapa, Helene-Cj W R07.9 03/22/2017 Thapa, Helene-Cj W R09.02 03/23/2017 ROX SPENCER, RAVEN Powell Ot E03.9 HYPOTHYROIDISM, UNSPECIFIED 03/23/2017 ROX SPENCER, RAVEN Powell Ot E11.9 TYPE 2 DIABETES MELLITUS WITHOUT COMPLIC 03/23/2017 ROX SPENCER, RAVEN Powell Ot E66.9 OBESITY, UNSPECIFIED 03/23/2017 ROX SPENCER, RAVEN Powell Ot E86.1 HYPOVOLEMIA 03/23/2017 ROX SPENCER, RAVEN Powell Ot F32.9 MAJOR DEPRESSIVE DISORDER, SINGLE EPISOD 03/23/2017 RAVEN GRAMAJO MD Ot F41.9 ANXIETY DISORDER, UNSPECIFIED 03/23/2017 RAVEN GRAMAJO MD Ot G43.909 MIGRAINE, UNSP, NOT INTRACTABLE, WITHOUT 03/23/2017 RAVEN GRAMAJO MD Ot G47.33 OBSTRUCTIVE SLEEP APNEA (ADULT) (PEDIATR 03/23/2017 RAVEN GRAMAJO MD Ot G89.29 OTHER CHRONIC PAIN 03/23/2017 RAVEN GRAMAJO MD Ot I11.0 HYPERTENSIVE HEART DISEASE WITH HEART FA 03/23/2017 RAVEN GRAMAJO MD Ot I25.10 ATHSCL HEART DISEASE OF [place] CORONARY 03/23/2017 RAVEN GRAMAJO MD Ot I42.9 CARDIOMYOPATHY, UNSPECIFIED 03/23/2017 RAVEN GRAMAJO MD Ot I48.0 PAROXYSMAL ATRIAL FIBRILLATION 03/23/2017 RAVEN GRAMAJO MD Ot I50.31 ACUTE DIASTOLIC (CONGESTIVE) HEART FAILU 03/23/2017 RAVEN GRAMAJO MD Ot J44.9 CHRONIC OBSTRUCTIVE PULMONARY DISEASE, U 03/23/2017 RAVEN GRAMAJO MD Ot K21.9 GASTRO-ESOPHAGEAL REFLUX DISEASE WITHOUT 03/23/2017 RAVEN GRAMAJO MD Ot K44.9 DIAPHRAGMATIC HERNIA WITHOUT OBSTRUCTION 03/23/2017 RAVEN GRAMAJO MD Ot M19.91 PRIMARY OSTEOARTHRITIS, UNSPECIFIED SITE 03/23/2017 RAVEN GRAMAJO MD Ot M54.5 LOW BACK PAIN 03/23/2017 RAVEN GRAMAJO MD Ot M79.7 FIBROMYALGIA 03/23/2017 RAVEN GRAMAJO MD Ot Z68.43 BODY MASS INDEX (BMI) 50-59.9 , ADULT 03/23/2017 RAVEN GRAMAJO MD Ot Z79.4 [facility] (CURRENT) USE OF INSULIN 03/23/2017 RAVEN GRAMAJO MD Ot Z86.73 PRSNL HX OF TIA (TIA), AND CEREB INFRC W 03/23/2017 RAVEN GRAMAJO MD Ot Z95.0 PRESENCE OF CARDIAC PACEMAKER 03/23/2017 RAVEN GRAMAJO MD Ot Z95.5 PRESENCE OF CORONARY ANGIOPLASTY IMPLANT 07/10/2017 SABRINA IGNACIO Ot E78.5 HYPERLIPIDEMIA, UNSPECIFIED 07/10/2017 SABRINA IGNACIO Ot I07.1 RHEUMATIC TRICUSPID INSUFFICIENCY 07/10/2017 SABRINA IGNACIO Ot I10 ESSENTIAL (PRIMARY) HYPERTENSION 07/10/2017 SABRINA IGNACIO Ot I25.10 ATHSCL HEART DISEASE OF [place] CORONARY 07/10/2017 SABRINA IGNACIO Ot R07.89 OTHER CHEST PAIN Procedures There is no data. Results Test Result Range Complete blood count (CBC) with automated white blood cell (WBC) differential - 12/07/15 18:18 Blood leukocytes automated count (number/volume) 5.6 10*3/uL 4.3-11.0 Blood erythrocytes automated count (number/volume) 4.47 10*6/uL 4.35-5.85 Venous blood hemoglobin measurement (mass/volume) 11.8 g/dL 11.5-16.0 Blood hematocrit (volume fraction) 37 % 35-52 Automated erythrocyte mean corpuscular volume 83 [foz_us] 80-99 Automated erythrocyte mean corpuscular hemoglobin (mass per erythrocyte) 26 pg 25-34 Automated erythrocyte mean corpuscular hemoglobin concentration measurement ( mass/volume) 32 g/dL 32-36 Automated erythrocyte distribution width ratio 14.1 % 10.0-14.5 Automated blood platelet count (count/volume) 183 10*3/uL 130-400 Automated blood platelet mean volume measurement 9.7 [foz_us] 7.4-10.4 Automated blood neutrophils/100 leukocytes 58 % 42-75 Automated blood lymphocytes/100 leukocytes 30 % 12-44 Blood monocytes/100 leukocytes 9 % 0-12 Automated blood eosinophils/100 leukocytes 3 % 0-10 Automated blood basophils/100 leukocytes 0 % 0-10 Blood neutrophils automated count (number/volume) 3.2 10*3 1.8-7.8 Blood lymphocytes automated count (number/volume) 1.7 10*3 1.0-4.0 Blood monocytes automated count (number/volume) 0.5 10*3 0.0-1.0 Automated eosinophil count 0.2 10*3/uL 0.0-0.3 Automated blood basophil count (count/volume) 0.0 10*3/uL 0.0-0.1 PT panel in platelet poor plasma by coagulation assay - 12/07/15 18:18 Prothrombin time (PT) in platelet poor plasma by coagulation assay 13.2 s 12.2-14.7 INR in platelet poor plasma or blood by coagulation assay 1.0 0.8-1.4 Activated partial thromboplastin time (aPTT) in platelet poor plasma bycoagulation assay - 12/07/15 18:18 Activated partial thromboplastin time (aPTT) in platelet poor plasma bycoagulation assay 33 s 24-35 Comprehensive metabolic panel - 12/07/15 18:18 Serum or plasma sodium measurement (moles/volume) 139 mmol/L 135-145 Serum or plasma potassium measurement (moles/volume) 4.1 mmol/L 3.6-5.0 Serum or plasma chloride measurement (moles/volume) 103 mmol/L 98-107 Carbon dioxide 29 mmol/L 21-32 Serum or plasma anion gap determination (moles/volume) 7 mmol/L 5-14 Serum or plasma urea nitrogen measurement (mass/volume) 9 mg/dL 7-18 Serum or plasma creatinine measurement (mass/volume) 0.76 mg/dL 0.60-1.30 Serum or plasma urea nitrogen/creatinine mass ratio 12 NRG Serum or plasma creatinine measurement with calculation of estimated glomerular filtration rate > NRG Serum or plasma glucose measurement (mass/volume) 267 mg/dL 70-105 Serum or plasma calcium measurement (mass/volume) 9.0 mg/dL 8.5-10.1 Serum or plasma total bilirubin measurement (mass/volume) 0.3 mg/dL 0.1-1.0 Serum or plasma alkaline phosphatase measurement (enzymatic activity/volume) 89 U/L 40-136 Serum or plasma aspartate aminotransferase measurement (enzymatic activity/ volume) 13 U/L 5-34 Serum or plasma alanine aminotransferase measurement (enzymatic activity/volume ) 6 U/L 0-55 Serum or plasma protein measurement (mass/volume) 5.8 g/dL 6.4-8.2 Serum or plasma albumin measurement (mass/volume) 3.3 g/dL 3.2-4.5 Magnesium - 12/07/15 18:18 Magnesium 1.9 mg/dL 1.8-2.4 Serum or plasma troponin i.cardiac measurement (mass/volume) - 12/07/15 18:18 Serum or plasma troponin i.cardiac measurement (mass/volume) < ng/ mL <0.30 Myoglobin, serum - 12/07/15 18:18 Myoglobin, serum 20.5 ng/mL 10.0-92.0 Serum or plasma troponin i.cardiac measurement (mass/volume) - 12/07/15 20:00 Serum or plasma troponin i.cardiac measurement (mass/volume) < ng/ mL <0.30 Automated blood complete blood count (hemogram) panel - 03/04/16 07:36 Blood leukocytes automated count (number/volume) 8.0 10*3/uL 4.3-11.0 Blood erythrocytes automated count (number/volume) 5.03 10*6/uL 4.35-5.85 Venous blood hemoglobin measurement (mass/volume) 13.4 g/dL 11.5-16.0 Blood hematocrit (volume fraction) 42 % 35-52 Automated erythrocyte mean corpuscular volume 83 [foz_us] 80-99 Automated erythrocyte mean corpuscular hemoglobin (mass per erythrocyte) 27 pg 25-34 Automated erythrocyte mean corpuscular hemoglobin concentration measurement ( mass/volume) 32 g/dL 32-36 Automated erythrocyte distribution width ratio 14.5 % 10.0-14.5 Automated blood platelet count (count/volume) 212 10*3/uL 130-400 Automated blood platelet mean volume measurement 10.1 [foz_us] 7.4-10.4 Complete urinalysis with reflex to culture - 03/04/16 07:36 Urine color determination YELLOW NRG Urine clarity determination CLEAR NRG Urine pH measurement by test strip 5 5-9 Specific gravity of urine by test strip 1.030 1.016- 1.022 Urine protein assay by test strip, semi-quantitative 1+ NEGATIVE Urine glucose detection by automated test strip NEGATIVE NEGATIVE Erythrocytes detection in urine sediment by light microscopy 2+ NEGATIVE Urine ketones detection by automated test strip NEGATIVE NEGATIVE Urine nitrite detection by test strip NEGATIVE NEGATIVE Urine total bilirubin detection by test strip NEGATIVE NEGATIVE Urine urobilinogen measurement by automated test strip (mass/volume) NORMAL NORMAL Urine leukocyte esterase detection by dipstick 3+ NEGATIVE Automated urine sediment erythrocyte count by microscopy (number/high power field) [HPF] NRG Automated urine sediment leukocyte count by microscopy (number/high power field ) [HPF] NRG Bacteria detection in urine sediment by light microscopy MODERATE NRG Squamous epithelial cells detection in urine sediment by light microscopy 10-25 NRG Crystals detection in urine sediment by light microscopy PRESENT NRG Casts detection in urine sediment by light microscopy PRESENT NRG Mucus detection in urine sediment by light microscopy NEGATIVE NRG Complete urinalysis with reflex to culture YES NRG Amorphous sediment detection in urine sediment by light microscopy FEW AZUCENA URATES NRG Hyaline casts detection in urine sediment by light microscopy 2-5 NRG PT panel in platelet poor plasma by coagulation assay - 03/04/16 07:36 Prothrombin time (PT) in platelet poor plasma by coagulation assay 12.8 s 12.2-14.7 INR in platelet poor plasma or blood by coagulation assay 1.0 0.8-1.4 Activated partial thromboplastin time (aPTT) in platelet poor plasma bycoagulation assay - 03/04/16 07:36 Activated partial thromboplastin time (aPTT) in platelet poor plasma bycoagulation assay 29 s 24-35 Comprehensive metabolic panel - 03/04/16 07:36 Serum or plasma sodium measurement (moles/volume) 140 mmol/L 135-145 Serum or plasma potassium measurement (moles/volume) 4.0 mmol/L 3.6-5.0 Serum or plasma chloride measurement (moles/volume) 104 mmol/L 98-107 Carbon dioxide 24 mmol/L 21-32 Serum or plasma anion gap determination (moles/volume) 12 mmol/L 5-14 Serum or plasma urea nitrogen measurement (mass/volume) 11 mg/dL 7-18 Serum or plasma creatinine measurement (mass/volume) 0.80 mg/dL 0.60-1.30 Serum or plasma urea nitrogen/creatinine mass ratio 14 NRG Serum or plasma creatinine measurement with calculation of estimated glomerular filtration rate > NRG Serum or plasma glucose measurement (mass/volume) 241 mg/dL 70-105 Serum or plasma calcium measurement (mass/volume) 8.9 mg/dL 8.5-10.1 Serum or plasma total bilirubin measurement (mass/volume) 0.6 mg/dL 0.1-1.0 Serum or plasma alkaline phosphatase measurement (enzymatic activity/volume) 73 U/L 40-136 Serum or plasma aspartate aminotransferase measurement (enzymatic activity/ volume) 12 U/L 5-34 Serum or plasma alanine aminotransferase measurement (enzymatic activity/volume ) 7 U/L 0-55 Serum or plasma protein measurement (mass/volume) 6.7 g/dL 6.4-8.2 Serum or plasma albumin measurement (mass/volume) 3.8 g/dL 3.2-4.5 Lipid 1996 panel - 03/04/16 07:36 Serum or plasma triglyceride measurement (mass/volume) 108 mg/dL <150 Serum or plasma cholesterol measurement (mass/volume) 156 mg/dL < 200 Serum or plasma cholesterol in HDL measurement (mass/volume) 57 mg/ dL 40-60 Cholesterol in LDL [mass/volume] in serum or plasma by direct assay 85 mg/dL 1-129 Serum or plasma cholesterol in VLDL measurement (mass/volume) 22 mg/ dL 5-40 Bacterial urine culture - 03/04/16 07:36 Bacterial urine culture [id number] NRG COLONY COUNT 10,000/ML - 100,000/ML NRG FTX;REPORTABLE SEE COMMENTS NRG URINE CULTURE RESULTS SUGGEST RECOLLECTION NRG Methicillin resistant Staphylococcus aureus (MRSA) screening culture - 07:36 Methicillin resistant Staphylococcus aureus (MRSA) screening culture NEG NRG Total T3 - 06/04/16 12:37 Total T3 1.03 ng/mL 0.58-1.59 Thyroid Stimulating Hormone - 06/04/16 12:37 TSH 0.29 mIU/mL 0.32-5.00 Complete urinalysis with reflex to culture - 09/14/16 18:55 Urine color determination YELLOW NRG Urine clarity determination CLEAR NRG Urine pH measurement by test strip 5 5-9 Specific gravity of urine by test strip 1.015 1.016- 1.022 Urine protein assay by test strip, semi-quantitative 2+ NEGATIVE Urine glucose detection by automated test strip 4+ NEGATIVE Erythrocytes detection in urine sediment by light microscopy 3+ NEGATIVE Urine ketones detection by automated test strip NEGATIVE NEGATIVE Urine nitrite detection by test strip NEGATIVE NEGATIVE Urine total bilirubin detection by test strip NEGATIVE NEGATIVE Urine urobilinogen measurement by automated test strip (mass/volume) NORMAL NORMAL Urine leukocyte esterase detection by dipstick 2+ NEGATIVE Automated urine sediment erythrocyte count by microscopy (number/high power field) [HPF] NRG Automated urine sediment leukocyte count by microscopy (number/high power field ) [HPF] NRG Bacteria detection in urine sediment by light microscopy FEW NRG Squamous epithelial cells detection in urine sediment by light microscopy 10-25 NRG Crystals detection in urine sediment by light microscopy NONE NRG Casts detection in urine sediment by light microscopy NONE NRG Mucus detection in urine sediment by light microscopy NEGATIVE NRG Complete urinalysis with reflex to culture YES NRG Yeast detection in urine sediment by light microscopy FEW NRG Bacterial urine culture - 09/14/16 18:55 Bacterial urine culture [id number] NRG COLONY COUNT 10,000/ML - 100,000/ML NRG FTX;REPORTABLE SENSITIVITY REPORTED 09/16/16 7:15 NRG URINE CULTURE RESULTS PLUS NRG Bacterial susceptibility panel - 09/14/16 18:55 Gentamicin susceptibility test by minimum inhibitory concentration < = NRG Trimethoprim/sulfamethoxazole susceptibility test by minimum inhibitoryconcentration <= NRG Ampicillin susceptibility test by minimum inhibitory concentration < = NRG Tobramycin susceptibility test by minimum inhibitory concentration < = NRG Cefazolin susceptibility test by minimum inhibitory concentration < = NRG Ceftriaxone susceptibility test by minimum inhibitory concentration <= NRG Ampicillin/sulbactam susceptibility test by minimum inhibitory concentration <= NRG Piperacillin/tazobactam susceptibility test by minimum inhibitory concentration <= NRG Ciprofloxacin susceptibility test by minimum inhibitory concentration <= NRG Meropenem susceptibility test by minimum inhibitory concentration < = NRG Nitrofurantoin susceptibility test by minimum inhibitory concentration <= NRG Aztreonam susceptibility test by minimum inhibitory concentration < = NRG Extended spectrum beta lactamase (ESBL) producing bacteria susceptibility test by minimum inhibitory concentration - NRG Complete blood count (CBC) with automated white blood cell (WBC) differential - 09/14/16 19:10 Blood leukocytes automated count (number/volume) 8.1 10*3/uL 4.3-11.0 Blood erythrocytes automated count (number/volume) 5.50 10*6/uL 4.35-5.85 Venous blood hemoglobin measurement (mass/volume) 15.1 g/dL 11.5-16.0 Blood hematocrit (volume fraction) 45 % 35-52 Automated erythrocyte mean corpuscular volume 82 [foz_us] 80-99 Automated erythrocyte mean corpuscular hemoglobin (mass per erythrocyte) 28 pg 25-34 Automated erythrocyte mean corpuscular hemoglobin concentration measurement ( mass/volume) 33 g/dL 32-36 Automated erythrocyte distribution width ratio 14.2 % 10.0-14.5 Automated blood platelet count (count/volume) 181 10*3/uL 130-400 Automated blood platelet mean volume measurement 11.0 [foz_us] 7.4-10.4 Automated blood neutrophils/100 leukocytes 57 % 42-75 Automated blood lymphocytes/100 leukocytes 29 % 12-44 Blood monocytes/100 leukocytes 11 % 0-12 Automated blood eosinophils/100 leukocytes 2 % 0-10 Automated blood basophils/100 leukocytes 0 % 0-10 Blood neutrophils automated count (number/volume) 4.7 10*3 1.8-7.8 Blood lymphocytes automated count (number/volume) 2.4 10*3 1.0-4.0 Blood monocytes automated count (number/volume) 0.9 10*3 0.0-1.0 Automated eosinophil count 0.1 10*3/uL 0.0-0.3 Automated blood basophil count (count/volume) 0.0 10*3/uL 0.0-0.1 Comprehensive metabolic panel - 09/14/16 19:10 Serum or plasma sodium measurement (moles/volume) 138 mmol/L 135-145 Serum or plasma potassium measurement (moles/volume) 2.9 mmol/L 3.6-5.0 Serum or plasma chloride measurement (moles/volume) 100 mmol/L 98-107 Carbon dioxide 23 mmol/L 21-32 Serum or plasma anion gap determination (moles/volume) 15 mmol/L 5-14 Serum or plasma urea nitrogen measurement (mass/volume) 9 mg/dL 7-18 Serum or plasma creatinine measurement (mass/volume) 0.84 mg/dL 0.60-1.30 Serum or plasma urea nitrogen/creatinine mass ratio 11 NRG Serum or plasma creatinine measurement with calculation of estimated glomerular filtration rate > NRG Serum or plasma glucose measurement (mass/volume) 436 mg/dL 70-105 Serum or plasma calcium measurement (mass/volume) 9.4 mg/dL 8.5-10.1 Serum or plasma total bilirubin measurement (mass/volume) 0.7 mg/dL 0.1-1.0 Serum or plasma alkaline phosphatase measurement (enzymatic activity/volume) 91 U/L 40-136 Serum or plasma aspartate aminotransferase measurement (enzymatic activity/ volume) 11 U/L 5-34 Serum or plasma alanine aminotransferase measurement (enzymatic activity/volume ) 12 U/L 0-55 Serum or plasma protein measurement (mass/volume) 7.0 g/dL 6.4-8.2 Serum or plasma albumin measurement (mass/volume) 3.8 g/dL 3.2-4.5 Magnesium - 09/14/16 19:10 Magnesium 1.8 mg/dL 1.8-2.4 Serum or plasma troponin i.cardiac measurement (mass/volume) - 09/14/16 19:10 Serum or plasma troponin i.cardiac measurement (mass/volume) < ng/ mL <0.30 Lipase - 09/14/16 19:10 Lipase 17 U/L 8-78 Serum or plasma lithium measurement (moles/volume) - 09/14/16 19:10 BNP level 94.6 pg/mL <100.0 Capillary blood glucose measurement by glucometer (mass/volume) - 09/14/16 22: 34 Capillary blood glucose measurement by glucometer (mass/volume) 350 mg/dL 70-110 Whole blood basic metabolic panel - 09/15/16 05:52 Serum or plasma sodium measurement (moles/volume) 139 mmol/L 135-145 Serum or plasma potassium measurement (moles/volume) 3.5 mmol/L 3.6-5.0 Serum or plasma chloride measurement (moles/volume) 101 mmol/L 98-107 Carbon dioxide 26 mmol/L 21-32 Serum or plasma anion gap determination (moles/volume) 12 mmol/L 5-14 Serum or plasma urea nitrogen measurement (mass/volume) 10 mg/dL 7-18 Serum or plasma creatinine measurement (mass/volume) 0.82 mg/dL 0.60-1.30 Serum or plasma urea nitrogen/creatinine mass ratio 12 NRG Serum or plasma creatinine measurement with calculation of estimated glomerular filtration rate > NRG Serum or plasma glucose measurement (mass/volume) 332 mg/dL 70-105 Serum or plasma calcium measurement (mass/volume) 9.2 mg/dL 8.5-10.1 Capillary blood glucose measurement by glucometer (mass/volume) - 09/15/16 10: 27 Capillary blood glucose measurement by glucometer (mass/volume) 352 mg/dL 70-110 Capillary blood glucose measurement by glucometer (mass/volume) - 09/15/16 16: 38 Capillary blood glucose measurement by glucometer (mass/volume) 151 mg/dL 70-110 Capillary blood glucose measurement by glucometer (mass/volume) - 09/15/16 20: 30 Capillary blood glucose measurement by glucometer (mass/volume) 93 mg/dL 70-110 Complete blood count (CBC) with automated white blood cell (WBC) differential - 09/16/16 05:55 Blood leukocytes automated count (number/volume) 6.0 10*3/uL 4.3-11.0 Blood erythrocytes automated count (number/volume) 5.09 10*6/uL 4.35-5.85 Venous blood hemoglobin measurement (mass/volume) 14.1 g/dL 11.5-16.0 Blood hematocrit (volume fraction) 43 % 35-52 Automated erythrocyte mean corpuscular volume 84 [foz_us] 80-99 Automated erythrocyte mean corpuscular hemoglobin (mass per erythrocyte) 28 pg 25-34 Automated erythrocyte mean corpuscular hemoglobin concentration measurement ( mass/volume) 33 g/dL 32-36 Automated erythrocyte distribution width ratio 14.4 % 10.0-14.5 Automated blood platelet count (count/volume) 171 10*3/uL 130-400 Automated blood platelet mean volume measurement 11.1 [foz_us] 7.4-10.4 Automated blood neutrophils/100 leukocytes 54 % 42-75 Automated blood lymphocytes/100 leukocytes 35 % 12-44 Blood monocytes/100 leukocytes 8 % 0-12 Automated blood eosinophils/100 leukocytes 3 % 0-10 Automated blood basophils/100 leukocytes 0 % 0-10 Blood neutrophils automated count (number/volume) 3.3 10*3 1.8-7.8 Blood lymphocytes automated count (number/volume) 2.1 10*3 1.0-4.0 Blood monocytes automated count (number/volume) 0.5 10*3 0.0-1.0 Automated eosinophil count 0.2 10*3/uL 0.0-0.3 Automated blood basophil count (count/volume) 0.0 10*3/uL 0.0-0.1 Comprehensive metabolic panel - 09/16/16 05:55 Serum or plasma sodium measurement (moles/volume) 137 mmol/L 135-145 Serum or plasma potassium measurement (moles/volume) 3.8 mmol/L 3.6-5.0 Serum or plasma chloride measurement (moles/volume) 101 mmol/L 98-107 Carbon dioxide 25 mmol/L 21-32 Serum or plasma anion gap determination (moles/volume) 11 mmol/L 5-14 Serum or plasma urea nitrogen measurement (mass/volume) 15 mg/dL 7-18 Serum or plasma creatinine measurement (mass/volume) 0.83 mg/dL 0.60-1.30 Serum or plasma urea nitrogen/creatinine mass ratio 18 NRG Serum or plasma creatinine measurement with calculation of estimated glomerular filtration rate > NRG Serum or plasma glucose measurement (mass/volume) 407 mg/dL 70-105 Serum or plasma calcium measurement (mass/volume) 9.0 mg/dL 8.5-10.1 Serum or plasma total bilirubin measurement (mass/volume) 0.5 mg/dL 0.1-1.0 Serum or plasma alkaline phosphatase measurement (enzymatic activity/volume) 81 U/L 40-136 Serum or plasma aspartate aminotransferase measurement (enzymatic activity/ volume) 14 U/L 5-34 Serum or plasma alanine aminotransferase measurement (enzymatic activity/volume ) 11 U/L 0-55 Serum or plasma protein measurement (mass/volume) 6.5 g/dL 6.4-8.2 Serum or plasma albumin measurement (mass/volume) 3.5 g/dL 3.2-4.5 Capillary blood glucose measurement by glucometer (mass/volume) - 09/16/16 11: 15 Capillary blood glucose measurement by glucometer (mass/volume) 212 mg/dL 70-110 Urinalysis - 09/18/16 17:21 Icotest N/A Negative Urine Volume Urine Volume Sufficient (10mL) Urine Yeast Yeast Present Urine-Appearance Slightly Cloudy Clear Urine-Bacteria Trace Urine-Bilirubin Negative Negative Urine-Blood Trace-lysed Negative Urine-Color Yellow Colorless-Lt. Yellow Urine-Epithelial Cells 5-10/HPF Urine-Glucose 2+ Negative Urine-Ketones Negative Negative Urine-Leukocytes Negative Negative Urine-Nitrite Negative Negative Urine-Other Culture to follow Urine-pH 6.0 5-8.5 Urine-Protein Negative Negative Urine-RBC Rare/HPF Urine-Specific [place] 1.020 1.000-1.030 Urine-WBC Nothing Seen on Microscopic Urobilinogen 0.2 E.U./dL 0.2-1.0 Urine Culture - 09/18/16 17:21 FINAL CULTURE RESULTS 10,000-20,000 Gram Positive Mixed Maribel [id number] Skin Contaminant MEDIA PLATED Setup at 17:25 on 09/18/2016 CULTURE SOURCE void Hemoglobin A1C - 03/19/17 17:03 % A1C 7.40 % 5.40-6.60 AvGlu 185 mg/dL 70-110 Arterial Blood Gas - 03/21/17 10:33 Base 1.00 mmol/L 1.80-4.20 HCO3 26 mmol/L 20-31 O2 Sat 98 40% BIPAP % 95-100 pCO2 48 mm/Hg 35-45 pH 7.35 7.35-7.45 PO2 116 mm/Hg 80-95 Comprehensive Metabolic Panel - 03/21/17 10:38 Albumin 3.8 g/dL 3.6-5.1 ALP 99 U/L 35-130 ALT 10 U/L 6-45 Anion Gap 17 6-14 AST 21 U/L 2-40 BUN 17 mg/dL 5-25 Calcium 9.5 mg/dL 8.3-10.4 Chloride 102 mmol/L 95-114 CO2 27 mEq/L 22-33 Creat 0.97 mg/dL 0.50-1.50 eGFR 58 mL/min/1.73m2 >59 Globulin 4.0 g/dL 2.3-3.5 Glucose 275 mg/dL 70-110 Osmo 301 280-295 Potassium 5.1 mmol/L 3.5-5.3 Sodium 141 mmol/L 134-148 TBil 1.3 mg/dL 0.2-1.2 TP 7.8 g/dL 6.0-8.3 Urinalysis - 03/21/17 11:00 Icotest N/A Negative Urine Volume Urine Volume Sufficient (10mL) Urine Yeast No Yeast present Urine-Appearance Clear Clear Urine-Bacteria 1+ Urine-Bilirubin Negative Negative Urine-Blood 2+ Negative Urine-Color Yellow Colorless-Lt. Yellow Urine-Epithelial Cells 10-20/HPF Urine-Glucose 1+ Negative Urine-Ketones 2+ Negative Urine-Leukocytes Negative Negative Urine-Nitrite Negative Negative Urine-Other Culture to follow - Cath Sample Urine-pH 5.5 5-8.5 Urine-Protein Negative Negative Urine-RBC 10-20/HPF Urine-Specific [place] 1.025 1.000-1.030 Urine-WBC Rare/HPF Urobilinogen 0.2 E.U./dL 0.2-1.0 Urine Culture - 03/21/17 11:00 PRELIM CULTURE RESULTS No Growth 24 hours FINAL CULTURE RESULTS No Growth 48 hours MEDIA PLATED Setup at 13:29 on 03/21/2017 CULTURE SOURCE cath MRSA Screen - 03/21/17 16:05 FINAL CULTURE RESULTS MRSA Negative Nasal Culture MEDIA PLATED Setup at 16:56 on 03/21/2017 BMP - 03/22/17 06:51 Anion Gap 11 6-14 BUN 19 mg/dL 5-25 Calcium 8.5 mg/dL 8.3-10.4 Chloride 99 mmol/L 95-114 CO2 33 mEq/L 22-33 Creat 0.84 mg/dL 0.50-1.50 eGFR 68 mL/min/1.73m2 >59 Glucose 251 mg/dL 70-110 Osmo 297 280-295 Potassium 3.6 mmol/L 3.5-5.3 Sodium 139 mmol/L 134-148 Cardiac Panel - 03/22/17 06:52 CK 21 U/L 26-174 CK-MB 0.9 ng/ml 0.0-9.2 Myoglobin 39.3 ng/ml 1.6-106.0 Troponin 0.046 ng/mL 0.000-0.400 BNP - 03/22/17 06:53 BNP 364.80 pg/ml 0.00-100.00 Cardiac Panel - 03/22/17 12:12 CK 18 U/L 26-174 CK-MB 0.9 ng/ml 0.0-9.2 Myoglobin 81.8 ng/ml 1.6-106.0 Troponin 0.049 ng/mL 0.000-0.400 Urine Culture - 03/22/17 13:01 PRELIM CULTURE RESULTS No Growth 24 hours FINAL CULTURE RESULTS No Growth 48 hours MEDIA PLATED Setup at 14:33 on 03/22/2017 CULTURE SOURCE [id number] Lactic Acid - 03/22/17 13:15 Lactic Acid 9.7 mg/dL 4.5-19.8 Blood Culture - 03/22/17 13:35 PRELIM CULTURE RESULTS Blood Culture Negative, No Growth Day 1 FINAL CULTURE RESULTS Blood Culture Negative, No Growth Day 5 MEDIA PLATED Setup at 19:49 on 03/22/[id number] Culture Media Position C49 CULTURE SOURCE 1 Blood Culture - 03/22/17 13:45 PRELIM CULTURE RESULTS Blood Culture Negative, No Growth Day 1 FINAL CULTURE RESULTS Blood Culture Negative, No Growth Day 5 MEDIA PLATED Setup at 19:48 on 03/22/[id number] Culture Media Position [id number] CULTURE SOURCE lt arm Automated blood complete blood count (hemogram) panel - 03/22/17 16:17 Blood leukocytes automated count (number/volume) 4.8 10*3/uL 4.3-11.0 Blood erythrocytes automated count (number/volume) 4.22 10*6/uL 4.35-5.85 Venous blood hemoglobin measurement (mass/volume) 11.6 g/dL 11.5-16.0 Blood hematocrit (volume fraction) 37 % 35-52 Automated erythrocyte mean corpuscular volume 87 [foz_us] 80-99 Automated erythrocyte mean corpuscular hemoglobin (mass per erythrocyte) 28 pg 25-34 Automated erythrocyte mean corpuscular hemoglobin concentration measurement ( mass/volume) 32 g/dL 32-36 Automated erythrocyte distribution width ratio 14.2 % 10.0-14.5 Automated blood platelet count (count/volume) 156 10*3/uL 130-400 Automated blood platelet mean volume measurement 10.1 [foz_us] 7.4-10.4 PT panel in platelet poor plasma by coagulation assay - 03/22/17 16:17 Prothrombin time (PT) in platelet poor plasma by coagulation assay 13.9 s 12.2-14.7 INR in platelet poor plasma or blood by coagulation assay 1.1 0.8-1.4 Activated partial thromboplastin time (aPTT) in platelet poor plasma bycoagulation assay - 03/22/17 16:17 Activated partial thromboplastin time (aPTT) in platelet poor plasma bycoagulation assay 38 s 24-35 Comprehensive metabolic panel - 03/22/17 16:17 Serum or plasma sodium measurement (moles/volume) 138 mmol/L 135-145 Serum or plasma potassium measurement (moles/volume) 3.5 mmol/L 3.6-5.0 Serum or plasma chloride measurement (moles/volume) 95 mmol/L 98-107 Carbon dioxide 31 mmol/L 21-32 Serum or plasma anion gap determination (moles/volume) 12 mmol/L 5-14 Serum or plasma urea nitrogen measurement (mass/volume) 19 mg/dL 7-18 Serum or plasma creatinine measurement (mass/volume) 1.08 mg/dL 0.60-1.30 Serum or plasma urea nitrogen/creatinine mass ratio 18 NRG Serum or plasma creatinine measurement with calculation of estimated glomerular filtration rate 51 NRG Serum or plasma glucose measurement (mass/volume) 245 mg/dL 70-105 Serum or plasma calcium measurement (mass/volume) 8.8 mg/dL 8.5-10.1 Serum or plasma total bilirubin measurement (mass/volume) 1.1 mg/dL 0.1-1.0 Serum or plasma alkaline phosphatase measurement (enzymatic activity/volume) 72 U/L 40-136 Serum or plasma aspartate aminotransferase measurement (enzymatic activity/ volume) 13 U/L 5-34 Serum or plasma alanine aminotransferase measurement (enzymatic activity/volume ) 8 U/L 0-55 Serum or plasma protein measurement (mass/volume) 6.3 g/dL 6.4-8.2 Serum or plasma albumin measurement (mass/volume) 3.4 g/dL 3.2-4.5 Magnesium - 03/22/17 16:17 Magnesium 1.3 mg/dL 1.8-2.4 Serum or plasma troponin i.cardiac measurement (mass/volume) - 03/22/17 16:17 Serum or plasma troponin i.cardiac measurement (mass/volume) < ng/ mL <0.30 Serum or plasma lithium measurement (moles/volume) - 03/22/17 16:17 BNP level 261.5 pg/mL <100.0 Capillary blood glucose measurement by glucometer (mass/volume) - 03/22/17 20: 56 Capillary blood glucose measurement by glucometer (mass/volume) 243 mg/dL 70-110 Complete blood count (CBC) with automated white blood cell (WBC) differential - 03/23/17 04:50 Blood leukocytes automated count (number/volume) 4.8 10*3/uL 4.3-11.0 Blood erythrocytes automated count (number/volume) 3.86 10*6/uL 4.35-5.85 Venous blood hemoglobin measurement (mass/volume) 10.9 g/dL 11.5-16.0 Blood hematocrit (volume fraction) 34 % 35-52 Automated erythrocyte mean corpuscular volume 87 [foz_us] 80-99 Automated erythrocyte mean corpuscular hemoglobin (mass per erythrocyte) 28 pg 25-34 Automated erythrocyte mean corpuscular hemoglobin concentration measurement ( mass/volume) 32 g/dL 32-36 Automated erythrocyte distribution width ratio 14.4 % 10.0-14.5 Automated blood platelet count (count/volume) 161 10*3/uL 130-400 Automated blood platelet mean volume measurement 10.9 [foz_us] 7.4-10.4 Automated blood neutrophils/100 leukocytes 71 % 42-75 Automated blood lymphocytes/100 leukocytes 16 % 12-44 Blood monocytes/100 leukocytes 11 % 0-12 Automated blood eosinophils/100 leukocytes 2 % 0-10 Automated blood basophils/100 leukocytes 0 % 0-10 Blood neutrophils automated count (number/volume) 3.4 10*3 1.8-7.8 Blood lymphocytes automated count (number/volume) 0.8 10*3 1.0-4.0 Blood monocytes automated count (number/volume) 0.5 10*3 0.0-1.0 Automated eosinophil count 0.1 10*3/uL 0.0-0.3 Automated blood basophil count (count/volume) 0.0 10*3/uL 0.0-0.1 Comprehensive metabolic panel - 03/23/17 04:50 Serum or plasma sodium measurement (moles/volume) 138 mmol/L 135-145 Serum or plasma potassium measurement (moles/volume) 3.7 mmol/L 3.6-5.0 Serum or plasma chloride measurement (moles/volume) 105 mmol/L 98-107 Carbon dioxide 23 mmol/L 21-32 Serum or plasma anion gap determination (moles/volume) 10 mmol/L 5-14 Serum or plasma urea nitrogen measurement (mass/volume) 14 mg/dL 7-18 Serum or plasma creatinine measurement (mass/volume) 0.72 mg/dL 0.60-1.30 Serum or plasma urea nitrogen/creatinine mass ratio 19 NRG Serum or plasma creatinine measurement with calculation of estimated glomerular filtration rate > NRG Serum or plasma glucose measurement (mass/volume) 289 mg/dL 70-105 Serum or plasma calcium measurement (mass/volume) 6.6 mg/dL 8.5-10.1 Serum or plasma total bilirubin measurement (mass/volume) 0.6 mg/dL 0.1-1.0 Serum or plasma alkaline phosphatase measurement (enzymatic activity/volume) 51 U/L 40-136 Serum or plasma aspartate aminotransferase measurement (enzymatic activity/ volume) 18 U/L 5-34 Serum or plasma alanine aminotransferase measurement (enzymatic activity/volume ) < U/L 0-55 Serum or plasma protein measurement (mass/volume) 4.8 g/dL 6.4-8.2 Serum or plasma albumin measurement (mass/volume) 2.5 g/dL 3.2-4.5 Serum or plasma phosphate measurement (mass/volume) - 03/23/17 04:50 Serum or plasma phosphate measurement (mass/volume) 2.7 mg/dL 2.3-4.7 Magnesium - 03/23/17 04:50 Magnesium 2.4 mg/dL 1.8-2.4 Serum or plasma troponin i.cardiac measurement (mass/volume) - 03/23/17 04:50 Serum or plasma troponin i.cardiac measurement (mass/volume) < ng/ mL <0.30 Serum or plasma lithium measurement (moles/volume) - 03/23/17 04:50 BNP level 129.6 pg/mL <100.0 Capillary blood glucose measurement by glucometer (mass/volume) - 03/23/17 11: 18 Capillary blood glucose measurement by glucometer (mass/volume) 347 mg/dL 70-110 Encounters ACCT No. Visit Date/Time Discharge Status Pt. Type Provider Facility Loc./Unit Complaint [id number] 07/09/2017 10:21:00 07/09/2017 23:59:59 CLS Outpatient SABRINA IGNACIO [facility] CARD R07.89 CHEST PAIN [id number] 06/24/2017 09:53:00 06/24/2017 23:59:59 CLS Preadmit SABRINA IGNACIO [facility] CARD R07.89 CHEST PAIN [id number] 03/22/2017 15:57:00 03/23/2017 14:42:00 DIS Inpatient RAVEN GRAMAJO MD [facility] ICU HYPERTENSION [id number] 10/24/2016 21:05:00 10/25/2016 06:48:00 DIS Outpatient ALANIS SPENCER, PHILIP [facility] SLEEP RY,SNORING [id number] 09/14/2016 22:32:00 09/16/2016 13:20:00 DIS Inpatient JASSI SPENCER, YOVANY Herrera [facility] 4TH DIZZY;ABD PAIN,UTI, UNCONTROLLED IDDM [id number] 03/04/2016 06:50:00 03/04/2016 13:34:00 DIS Outpatient RAVEN GRAMAJO MD [facility] CATH ABN STRESS TEST,CP,CAD, HTN [id number] 02/28/2016 07:05:00 02/28/2016 23:59:59 CLS Outpatient SABRINA IGNACIO [facility] CARD ESSENTIAL HTN,HLP,SOB [id number] 12/07/2015 17:32:00 12/07/2015 21:32:00 DIS Emergency BEBE JACKMAN MD [facility] ER L SIDED WEAKNESS [id number] 05/28/2015 13:55:00 05/28/2015 16:37:00 DIS Emergency HECTOR ARAIZA APRN [facility] ER [id number] 11/24/2014 17:09:00 11/24/2014 21:21:00 DIS Emergency TOMMIE GUERIN DO [facility] ER [id number] 11/09/2014 18:20:00 11/10/2014 14:10:00 DIS Inpatient CASIMIRO ASCENCIO MD [facility] SURGICAL [id number] 10/28/2014 08:40:00 10/28/2014 09:55:00 DIS Outpatient GRACE MARIEE MD [facility] CARD [id number] 10/27/2014 16:02:00 10/27/2014 23:59:59 CLS Outpatient GRACE MARIEE MD [facility] RAD [id number] 10/07/2014 06:00:00 10/08/2014 10:50:00 DIS Outpatient RAHUL JUDD MD [facility] SDC [id number] 10/03/2014 15:21:00 10/03/2014 23:59:59 CLS Outpatient RAHUL JUDD MD [facility] PREOP [id number] 09/29/2014 15:00:00 09/29/2014 23:59:59 CLS Preadmit PASTORA BUITRAGO MD [facility] PULM COPD CHF [id number] 09/26/2014 13:00:00 09/26/2014 23:59:59 CLS Outpatient FABI SCHMITT APRN [facility] RT [id number] 09/15/2014 11:29:00 09/15/2014 23:59:59 CLS Outpatient RAVEN GRAMAJO MD [facility] CARD [id number] 08/28/2014 20:50:00 08/30/2014 18:00:00 DIS Inpatient COOPER FULTON DO [facility] [id number] 08/03/2014 23:08:00 08/05/2014 12:21:00 DIS Inpatient RAVEN GRAMAJO MD [facility] [id number] 05/18/2014 08:37:00 05/18/2014 23:59:59 CLS Outpatient RAVEN GRAMAJO MD [facility] CATH [id number] 05/16/2014 07:58:00 05/16/2014 23:59:59 CLS Outpatient RAVEN GRAMAJO MD [facility] CARD [id number] 05/12/2014 11:08:00 05/12/2014 23:59:59 CLS Outpatient RAVEN GRAMAJO MD [facility] CARD [id number] 03/24/2013 06:46:00 03/25/2013 09:39:00 DIS Outpatient RAVEN GRAMAJO MD [facility] CATH [id number] 03/17/2013 07:49:00 03/17/2013 23:59:59 CLS Outpatient RAVEN GRAMAJO MD [facility] RAD [id number] 03/10/2013 07:23:00 03/10/2013 10:30:00 DIS Outpatient RAVEN GRAMAJO MD [facility] CATH [id number] 02/19/2013 10:27:00 02/21/2013 15:25:00 DIS Inpatient RAMON FUNES MD Via [address] [id number] 01/23/2013 13:07:00 01/25/2013 14:00:00 DIS Inpatient BONNIE JOY DO Via [address] [id number] 01/04/2013 11:02:00 01/04/2013 16:25:00 DIS Emergency AMANDA TILLEY DO [facility] [id number] 07/23/2017 08:00:00 PEN Preadmit RAVEN GRAMAJO MD [facility] CATH LEFT HEART CATH [id number] 02/14/2016 07:55:00 Document Registration [id number] 01/23/2015 08:08:00 Document Registration [id number] 04/28/2014 10:11:00 Document Registration [id number] 05/20/2012 07:54:00 Document Registration [id number] 05/15/2012 08:05:00 Document Registration [id number] 04/29/2012 06:59:00 Document Registration [id number] 04/28/2012 14:36:00 Document Registration [id number] 03/27/2012 10:19:00 Document Registration [id number] 03/25/2012 07:21:00 Document Registration [id number] 12/19/2011 10:55:00 Document Registration [id number] 06/17/2011 08:16:00 Document Registration [id number] 09/05/2010 05:37:00 Document Registration [id number] 08/31/2010 09:56:00 Document Registration [id number] 07/09/2010 05:40:00 Document Registration [id number] 07/05/2010 07:52:00 Document Registration [id number] 10/04/2009 15:34:00 Document Registration [id number] 10/04/2009 05:40:00 Document Registration [id number] 09/28/2009 09:51:00 Document Registration [id number] 03/02/2009 14:53:00 Document Registration [id number] 11/25/2014 03:39:47 ACT Document Registration [id number] 03/21/2017 10:23:00 03/22/2017 15:25:00 DIS Inpatient Philip Thapa [facility] MED-SURG [id number] 03/19/2017 16:54:00 03/19/2017 23:59:00 DIS Outpatient Philip Thapa [id number] 11/01/2016 12:37:00 11/01/2016 12:51:00 DIS Outpatient Philip Thapa [id number] 09/18/2016 17:20:00 09/18/2016 23:59:00 DIS Outpatient Philip Thapa [id number] 06/11/2016 17:05:00 06/11/2016 19:52:00 DIS [place]patient [place], [place] [id number] 06/04/2016 12:36:00 06/04/2016 23:59:00 DIS Outpatient Philip Thapa [id number] 11/01/2016 12:04:50 Document Registration [id number] 06/11/2016 18:24:52 Document Registration
[2017-07-23] MEDS ORDERED: LIDOCAINE 1% INJ 50 ML (XYLOCAINE) VIAL ONE (06:58)
[2017-07-23] MEDS ORDERED: NS IV 1000 ML 1,000 ML IV SCH ×2 (07:00→08:50)
[2017-07-23 07:35] LABS: BILIRUBIN,URINE NEGATIVE (NEGATIVE); CLARITY,URINE SLIGHTLY CLOUDY; COLOR,URINE YELLOW; GLUCOSE, URINE (UA) 4+ (NEGATIVE); KETONES,URINE NEGATIVE (NEGATIVE); LEUKOCYTE ESTERASE ,URINE 1+ (NEGATIVE); NITRITE,URINE NEGATIVE (NEGATIVE); PH,URINE 6.5 (5-9); PROTEIN,URINE 1+ (NEGATIVE); UROBILINOGEN,URINE 4 MG/DL (NORMAL)
[2017-07-23 07:36] LABS: HEMOGLOBIN 12.1 G/DL (11.5-16.0); MEAN PLATELET VOLUME 10.3 FL (7.4-10.4); RED BLOOD COUNT 4.49 10^6/uL (4.35-5.85); RED CELL DISTRIBUTION WIDTH 13.6 % (10.0-14.5)
[2017-07-23 07:44] LABS: RBC,URINE 0-2 /HPF; WBC,URINE 0-2 /HPF
[2017-07-23 07:45] LABS: BACTERIA,URINE FEW /HPF
[2017-07-23 07:46] LABS: INR 1.1 (0.8-1.4); PROTHROMBIN TIME PATIENT 14.1 SEC (12.2-14.7)
--- NOTE | 2017-07-23 07:48 | Diagnostic Imaging Report ---
PATIENT HISTORY: ABN STRESS,CP,HTN,HLP. TECHNIQUE: Single frontal view of the chest COMPARISON: 03/23/2017 FINDINGS: Lung volumes are normal. There is central vascular congestion with perihilar interstitial opacities, may represent early edema. There is mild cardio megaly. The left-sided pacemaker leads are in expected position. No pneumothorax or pleural effusion is seen. Suture anchors are seen in the right humeral head. The tip of the right Port-A-Cath is not well seen, but appears to be in the low SVC. IMPRESSION: 1. Mild cardio megaly with perihilar interstitial opacities, may represent early edema. Dictated by: Dictated on workstation # [id number]
[2017-07-23 07:58] LABS: ALANINE AMINOTRANSFERASE 8 U/L (0-55); ALBUMIN 3.6 GM/DL (3.2-4.5); ALKALINE PHOSPHATASE 89 U/L (40-136); BILIRUBIN,TOTAL 0.8 MG/DL (0.1-1.0); BUN/CREATININE RATIO 14; CALCIUM 8.9 MG/DL (8.5-10.1); CARBON DIOXIDE 27 MMOL/L (21-32); CHLORIDE 101 MMOL/L (98-107); CHOLESTEROL 141 MG/DL (< 200); CREATININE SERUM 0.73 MG/DL (0.60-1.30); GFR ESTIMATED > 60; GLUCOSE 295 MG/DL (70-105); HDL CHOLESTEROL 44 MG/DL (40-60); POTASSIUM 3.9 MMOL/L (3.6-5.0); SODIUM 139 MMOL/L (135-145); TOTAL PROTEIN 6.5 GM/DL (6.4-8.2); TRIGLYCERIDES 76 MG/DL (<150); VLDL CHOLESTEROL 15 MG/DL (5-40)
[2017-07-23] MEDS ORDERED: methylPREDNISolone 125 MG (Solu-MEDROL) VIAL ONE (07:59)
[2017-07-23] MEDS ORDERED: SERT50TA9 PO (08:05)
[2017-07-23] MEDS ORDERED: LISI10TA2 PO (08:05)
[2017-07-23] MEDS ORDERED: METO50TA15 PO (08:05)
[2017-07-23] MEDS ORDERED: NF-SOLIF5T PO (08:05)
[2017-07-23] MEDS ORDERED: diphenhydrAMINE 50 MG/ML INJ (BENADRYL) ONE (08:08)
[2017-07-23] MEDS ORDERED: MIDAZOLAM 5 MG/5 ML (VERSED) VIAL ONE (08:08)
[2017-07-23] MEDS ORDERED: fentaNYL INJECTION 100 MCG/2 ML AMP ONE (08:08)
--- NOTE | 2017-07-23 08:50 | Cardiac Procedure Note-CS/ASA ---
Pre-Procedure Note Pre-Op Procedure Note H&P Reviewed The H&P was reviewed, patient examined and no changes noted. Date H&P Reviewed: Jul 23, 2017 Time H&P Reviewed: 08:00 Conscious Sedation Pre-Proced Time Reviewed: 08:00 ASA Class: 3 Airway Mallampati Classification: ([place] appropriate class) I. II. III, IV Lungs Heart ASA score ASA 1: a normal healthy patient ASA 2: a patient with a mild systemic disease (mid diabetes, controlled hypertension, obesity x ASA 3: a patient with a severe systemic disease that limits activity (angina , COPD, prior Myocardial infarction) ASA 4: a patient with an incapacitating disease that is a constant threat to life (CHF, renal failure) ASA 5: a moribund patient not expected to survive 24 hrs. (ruptured aneurysm) ASA 6: a declared brain patient whose organs are being harvested. For emergent operations, add the letter E after the classification Grade 3 Sedation Plan: Analgesia, Amnesia, Plan communicated to team members, Discussed options with patient/fam, Discussed risks with patient/fam Note The patient is an appropriate candidate to undergo the planned procedure, sedation, and anesthesia. The patient immediately re-assessed prior to indication. RAVEN GRAMAJO MD Jul 23, 2017 08:50
--- NOTE | 2017-07-23 08:53 | Discharge Inst-Post CATH ---
Discharge Inst-CATH Post Cardiac Cath D/C Inst Follow Up/Plan Appointment with Dr. Mcfadden's office in 2-4 weeks CARDIAC CATH DISCHARGE INSTRUCTIONS *Hold Metformin for 48 hours post heart cath. ACTIVITY * Go Home directly and rest. * Limit activity of the leg (or wrist if it was used) for 7 days including aerobics, swimming, jogging, bicycling, etc. * Restrict stair-climbing for 7 days if possible, if not, climb up with your non -cath leg, then bring together on the same step. * Avoid lifting, pushing, pulling or excessive movement of the affected extremity for 7 days. * Customary sexual activity may be resumed after 2 days-use caution not to use a position that strains or causes pain to the affected extremity. * No driving for 24 hours. * NO SMOKING. * Avoid straining for bowel movements for 7 days. * Gentle walking on level ground is allowed. * Returning to work will depend on the type of procedure and the results. Your doctor will discuss this with you. CALL YOUR DOCTOR FOR ANY OF THE FOLLOWING: *If bleeding from the puncture site occurs- Apply gentle pressure to site with clean cloth and call your doctor or EMS. * If a knot or lump forms under the skin, increases in size, or causes pain. * If bruising appears to be worsening or moving further down your leg instead of disappearing. * Temperature above 101 F. CARE OF YOUR GROIN INCISION; * Bruising or purple discoloration of the skin near the puncture site is common. * You may shower only, no bathtub bathing for 5 days. Be careful to avoid slipping as your leg may feel stiff. * If a closure device was used on your femoral artery, please see the attached guide regarding care of the device and your leg. * REMOVE the dressing from your groin the next day after your procedure in the shower. CARE OF YOUR WRIST INCISION; * Bruising or purple discoloration of the skin near the puncture site is common. * You may shower. * DO NOT submerge wrist. * Remove dressing in 24 hours. RAVEN MCFADDEN MD Jul 23, 2017 08:53
--- NOTE | 2017-07-23 08:57 | Cardiac Cath Report ---
Cardiac Cath Report Physician (s)/Pit Hand (s) Physician RAVEN GRAMAJO MD Pre-Procedure Diagnosis Pre-Procedure Diagnosis: Coronary artery disease Post-Procedure Note Procedure Start Date: Jul 23, 2017 Name of Procedure: Left heart catheterization Findings/Procedure Note PROCEDURE NOTE: After explaining the procedure to the patient, all pros and cons were explained , all questions were answered. The patient signed the consent and then she was placed on the cardiac catheterization laboratory. Groin was prepped SL fashion local anesthesia was used. Sheath placed in the right femoral artery. Susie right and left catheter were used to access the coronary system. Susie right was used to access the left ventricular cavity, pressure was measured, no left ventriculogram was done At the end of the procedure the sheath was removed. Closure device was used FINDINGS: Hemodynamics LV 152/20, end-diastolic pressure of 20 Aorta 142/62 with mean of 93 ANATOMY: Left Main is free of obstructive disease Left Anterior Descending has mild disease distally nonobstructive disease Left Circumflex a small nondominant artery with no obstructive disease Right Coronory Artery is tortuous with mild disease distally nonobstructive disease LV Gram was not done, pressure was measured CONCLUSION: 1. Ijyp-ji-[id number] coronary artery disease nonobstructive disease 2. Mildly elevated left ventricular end-diastolic pressure DISCUSSION AND RECOMMENDATION: Medical therapy is recommended no intervention is were noted, the abnormal stress test is probably due to small vessel disease and extracardiac attenuation Anesthesia Type: Conscious Sedation Estimated blood loss (mL): 10 ml Contrast Amount: 34 ml Total Radiation Dose: 452 mGy Post-Procedure Diagnosis Post-operative diagnosis: Chest pain nonspecific etiology Coronary artery disease Complete heart block Hypertension Hyperlipidemia RAVEN GRAMAJO MD Jul 23, 2017 08:57
[2017-07-23] MEDS ORDERED: PATIENT MAY USE OWN MEDS, ALL PO SCH (09:00)
[2017-07-23] MEDS ORDERED: HEParin (CENTRAL IV FLUSH) 500 UNIT/5 ML SYR IV ONE (13:15)
== END 2017-07-23 14:00 | disposition home or self-care (01) ==
LOC: CATH 06:44 → SURG 09:10 → CATH 14:00
PROVIDERS: ATTEND Internal Medicine Cardiovascular Disease
DX: I25.10 Atherosclerotic heart disease of native coronary artery without angina pectoris (principal); Z88.1 Allergy status to other antibiotic agents; Z88.0 Allergy status to penicillin; Z88.5 Allergy status to narcotic agent; Z79.82 Long term (current) use of aspirin; Z79.899 Other long term (current) drug therapy; I50.9 Heart failure, unspecified; J44.9 Chronic obstructive pulmonary disease, unspecified; E11.9 Type 2 diabetes mellitus without complications; Z86.73 Personal history of transient ischemic attack (TIA), and cerebral infarction without residual deficits; Z87.891 Personal history of nicotine dependence; E78.5 Hyperlipidemia, unspecified; I65.29 Occlusion and stenosis of unspecified carotid artery; E66.9 Obesity, unspecified
CPT/HCPCS: 36415; 71045; 80053; 80061; 81000; 85027; 85610; 85730; 87081; 93458

== ENCOUNTER 2018-09-24 18:23 | Emergency (ER) | payer MEDICARE, MEDICAID ==
[~2018-09-24] VITALS: Ht 167.6 cm; Wt 104.3 kg
[~2018-09-24 18:23] MED LIST changes: +METF-398 PO; -METF850T2 PO; +METO50TA15 PO; -OXYC-201 PO; -OXYC-202 PO; +OXYC1TAB12 PO; +OXYC1TAB16 PO; +SERT50TA9 PO
--- OUTSIDE RECORDS SUMMARY | 2018-09-24 18:29 | XMS REPORT | Clinical Summary ---
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
--- OUTSIDE RECORDS SUMMARY | 2018-09-24 18:38 | XMS REPORT | Continuity of Care Document ---
Author Organization Unknown Address Unknown Allergies Active Description Code Type Severity Reaction Onset Reported/Identified Relationship to Patient Clinical Status Yes MORPHINE MORPHINE SEVERE Yes MORPHINE SEVERE OTHER Yes MORPHINE SEVERE SEVERE Yes SEAFOOD SEAFOOD Unknown N/A 02/26/2006 Yes SILK TAPE SILK TAPE Unknown N/A 02/26/2006 Yes morphine [id number] Drug Allergy Mild HIVES, ITCHING 03/13/2007 Yes morphine [id number] Drug Allergy Mild HIVES, ITCHING; 12/07/2015 Yes erythromycin base [id number] Drug Allergy Unknown N/A 12/07/2015 Yes Fish Containing Products [id number] Drug Allergy Unknown N/A 12/07/2015 Yes Penicillins [id number] Drug Allergy Unknown N/A 12/07/2015 Yes shellfish derived [id number] Drug Allergy Unknown N/A 12/07/2015 Medications Medication [...] Daily&0900 LISINOPRIL TAB 5 MG (ZESTRIL) MG 03/22/2017 03/28/2017 Daily&0900 DULOXETINE CAP 30 MG (CYMBALTA) [...] 250CC IV BAG INJ ml 03/22/2017 03/22/2017 ONCE&1252 CEFTRIAXONE PREMIX IV BAG IV 1 GM/50CC [...] Daily&0900 FUROSEMIDE TAB 20 MG (LASIX) MG 03/23/2017 03/29/2017 Daily&0900 LEVOFLOXACIN PREMIX IV BAG INJ 500 MG/100CC (LEVAQUIN IV PREMIX 100CC BAG) MG 03/23/2017 03/29/2017 Daily&0900 CEFTRIAXONE PREMIX IV BAG IV 1 GM/50CC (ROCEPHIN PREMIX IV BAG) GM 03/23/2017 03/29/2017 Daily&0900 OXYCODONE 5MG/APAP 325MG TAB(PERCOCET-5) TAB 06/21/2018 06/21/2018 ONCE&1833 Problems Date Dx Coded Attending Type Code Diagnosis Diagnosed By 10/04/2009 Ot 250.00 10/04/2009 Ot 726.32 10/04/2009 Ot V58.67 10/04/2009 Ot V58.69 10/04/2009 Ot 784.99 07/09/2010 Ot 250.00 07/09/2010 Ot 996.1 07/09/2010 Ot V58.67 09/05/2010 Ot 250.00 09/05/2010 Ot 428.0 09/05/2010 Ot 496 09/05/2010 Ot 726.10 09/05/2010 Ot 840.4 09/05/2010 Ot E000.8 09/05/2010 Ot E927.0 09/05/2010 Ot V58.69 03/27/2012 Ot 455.0 INT HEMORRHOID W/O COMPL 03/27/2012 Ot 530.11 REFLUX ESOPHAGITIS 03/27/2012 Ot 535.40 OTH SPECIFIED GASTRITIS,W/O MENTION OF H 03/27/2012 Ot 535.60 DUODENITIS, WITHOUT MENTION OF HEMORRHAG 03/27/2012 Ot 553.3 DIAPHRAGMATIC HERNIA 03/27/2012 Ot 562.10 DIVERTICULOSIS COLON (W/O MENT OF HEMORR 03/27/2012 Ot V12.72 PERSONAL HISTORY OF COLONIC POLYPS 04/29/2012 Ot 250.00 DIAB MELIDA WO COMPL, TYPE II OR UNSPEC TY 04/29/2012 Ot 354.0 CARPAL TUNNEL SYNDROME 04/29/2012 Ot 401.9 HYPERTENSION NOS 04/29/2012 Ot 428.0 CONGESTIVE HEART FAILURE NOS 04/29/2012 Ot 496 CHR AIRWAY OBSTRUCT NEC 04/29/2012 Ot 564.1 IRRITABLE BOWEL SYNDROME 04/29/2012 Ot 722.52 LUMB/LUMBOSAC DISC DEGEN 04/29/2012 Ot 729.1 MYALGIA AND MYOSITIS NOS 04/29/2012 Ot V58.67 LONG-TERM (CURRENT) USE OF INSULIN 04/29/2012 Ot V58.69 OTH MED,LT,CURRENT USE 05/20/2012 Ot 250.00 DIAB MELIDA WO COMPL, TYPE II OR UNSPEC TY 05/20/2012 Ot 354.0 CARPAL TUNNEL SYNDROME 05/20/2012 Ot 428.0 CONGESTIVE HEART FAILURE NOS 05/20/2012 Ot 496 CHR AIRWAY OBSTRUCT NEC 05/20/2012 Ot 530.81 ESOPHAGEAL REFLUX 05/20/2012 Ot V58.69 OTH MED,LT,CURRENT USE 05/20/2012 Ot V74.8 SCREEN-BACTERIAL DIS NEC 01/04/2013 AMANDA TILLEY DO Ot 338.29 OTHER CHRONIC PAIN 01/04/2013 AMANDA TILLEY DO Ot 724.3 SCIATICA 01/04/2013 AMANDA TILLEY DO Ot 724.5 BACKACHE NOS 01/04/2013 AMANDA TILLEY DO Ot 847.2 SPRAIN LUMBAR REGION 01/04/2013 AMANDA TILLEY DO Ot E000.8 OTHER EXTERNAL CAUSE STATUS 01/04/2013 AMANDA TILLEY DO Ot E849.0 ACCIDENT IN HOME 01/04/2013 AMANDA TILLEY DO Ot E928.9 ACCIDENT NOS 01/25/2013 BONNIE JOY DO Ot 250.00 DIAB MELIDA WO COMPL, TYPE II OR UNSPEC TY 01/25/2013 BONNIE JOY DO Ot 272.4 HYPERLIPIDEMIA NEC/NOS 01/25/2013 BONNIE JOY DO Ot 278.01 MORBID OBESITY 01/25/2013 BONNIE JOY DO Ot 280.9 IRON DEFIC ANEMIA NOS 01/25/2013 RUFINO TURPIN BONNIE Ot 300.00 ANXIETY STATE NOS 01/25/2013 RUFINO TURPIN BONNIE Ot 311 DEPRESSIVE DISORDER NEC 01/25/2013 BONNIE JOY DO Ot 327.23 OBSTRUCTIVE SLEEP APNEA (ADULT) (PEDIATR 01/25/2013 BONNIE JOY DO Ot 401.9 HYPERTENSION NOS 01/25/2013 BONNIE JOY DO Ot 428.0 CONGESTIVE HEART FAILURE NOS 01/25/2013 BONNIE JOY DO Ot 434.91 CEREBRAL ART OCCLUSION NOS W CEREBRAL IN 01/25/2013 BONNIE JOY DO Ot 496 CHR AIRWAY OBSTRUCT NEC 01/25/2013 BONNIE JOY DO Ot 530.81 ESOPHAGEAL REFLUX 01/25/2013 BONNIE JOY DO Ot 728.87 MUSCLE WEAKNESS (GENERALIZED) 01/25/2013 BONNIE JOY DO Ot 729.1 MYALGIA AND MYOSITIS NOS 01/25/2013 BONNIE JOY DO Ot V03.82 PROPHYLACTIC VACC AGAINST STREPTOCOCCUS 01/25/2013 BONNIE JOY DO Ot V04.81 ND FOR PROPHYLACTIC VACCIN AND INOCULATI 01/25/2013 BONNIE JOY DO Ot V58.67 LONG-TERM (CURRENT) USE OF INSULIN 01/25/2013 BONNIE JOY DO Ot V85.44 BODY MASS INDEX 60.0-69.9, ADULT 02/21/2013 RAMON FUNES MD Ot 250.00 DIAB MELIDA WO COMPL, TYPE II OR UNSPEC TY 02/21/2013 RAMON FUNES MD Ot 272.0 PURE HYPERCHOLESTEROLEM 02/21/2013 RAMON FUNES MD Ot 278.01 MORBID OBESITY 02/21/2013 RAMON FUNES MD Ot 300.00 ANXIETY STATE NOS 02/21/2013 RAMON FUNES MD Ot 311 DEPRESSIVE DISORDER NEC 02/21/2013 RAMON FUNES MD Ot 338.29 OTHER CHRONIC PAIN 02/21/2013 RAMON FUNES MD Ot 362.50 MACULAR DEGENERATION NOS 02/21/2013 RAMON FUNES MD Ot 401.9 HYPERTENSION NOS 02/21/2013 RAMON FUNES MD Ot 428.0 CONGESTIVE HEART FAILURE NOS 02/21/2013 RAMON FUNES MD Ot 434.91 CEREBRAL ART OCCLUSION NOS W CEREBRAL IN 02/21/2013 RAMON FUNES MD Ot 435.9 TRANS CEREB ISCHEMIA NOS 02/21/2013 RAMON FUNES MD Ot 493.20 CHRONIC OBSTRUCTIVE ASTHMA, NOS 02/21/2013 RAMON FUNES MD Ot 530.81 ESOPHAGEAL REFLUX 02/21/2013 RAMON FUNES MD Ot 553.3 DIAPHRAGMATIC HERNIA 02/21/2013 RAMON FUNES MD Ot 562.10 DIVERTICULOSIS COLON (W/O MENT OF HEMORR 02/21/2013 RAMON FUNES MD Ot 564.1 IRRITABLE BOWEL SYNDROME 02/21/2013 RAMON FUNES MD Ot 716.90 ARTHROPATHY NOS-UNSPEC 02/21/2013 RAMON FUNES MD Ot 722.6 DISC DEGENERATION NOS 02/21/2013 RAMON FUNES MD Ot 728.87 MUSCLE WEAKNESS (GENERALIZED) 02/21/2013 RAMON FUNES MD Ot 780.57 UNSPECIFIED SLEEP APNEA 02/21/2013 RAMON FUNES MD Ot 782.0 SKIN SENSATION DISTURB 02/21/2013 RAMON FUNES MD Ot V12.54 PERSONAL HX OF TIA, CEREBRAL INFARCTION 02/21/2013 RAMON FUNES MD Ot V85.44 BODY MASS INDEX 60.0-69.9, ADULT 03/10/2013 RAVEN GRAMAJO MD Ot 250.00 DIAB MELIDA WO COMPL, TYPE II OR UNSPEC TY 03/10/2013 RAVEN GRAMAJO MD Ot 272.4 HYPERLIPIDEMIA NEC/NOS 03/10/2013 RAVEN GRAMAJO MD Ot 278.00 OBESITY, NOS 03/10/2013 RAVEN GRAMAJO MD Ot 327.23 OBSTRUCTIVE SLEEP APNEA (ADULT) (PEDIATR 03/10/2013 RAVEN GRAMAJO MD Ot 401.9 HYPERTENSION NOS 03/10/2013 RAVEN GRAMAJO MD Ot 434.91 CEREBRAL ART OCCLUSION NOS W CEREBRAL IN 03/10/2013 RAVEN GRAMAJO MD Ot 496 CHR AIRWAY OBSTRUCT NEC 03/10/2013 RAVEN GRAMAJO MD Ot V58.67 LONG-TERM (CURRENT) USE OF INSULIN 03/10/2013 RAVEN GRAMAJO MD Ot V58.69 OTH MED,LT,CURRENT USE 03/10/2013 RAVEN GRAMAJO MD Ot V85.43 BODY MASS INDEX 50.0-59.9, ADULT 03/25/2013 RAVEN GRAMAJO MD Ot 250.00 DIAB MELIDA WO COMPL, TYPE II OR UNSPEC TY 03/25/2013 RAVEN GRAMAJO MD Ot 278.01 MORBID OBESITY 03/25/2013 RAVEN GRAMAJO MD Ot 327.23 OBSTRUCTIVE SLEEP APNEA (ADULT) (PEDIATR 03/25/2013 RAVEN GRAMAJO MD Ot 401.9 HYPERTENSION NOS 03/25/2013 RAVEN GRAMAJO MD Ot 414.01 CORONARY ATHEROSCLEROSIS OF EEK CORON 03/25/2013 RAVEN GRAMAJO MD Ot 428.0 CONGESTIVE HEART FAILURE NOS 03/25/2013 RAVEN GRAMAJO MD Ot 493.20 CHRONIC OBSTRUCTIVE ASTHMA, NOS 03/25/2013 RAVEN GRAMAJO MD Ot 794.30 ABN CARDIOVASC STUDY NOS 03/25/2013 RAVEN GRAMAJO MD Ot V12.54 PERSONAL HX OF TIA, CEREBRAL INFARCTION 03/25/2013 RAVEN GRAMAJO MD Ot V58.66 LONG-TERM (CURRENT) USE OF ASPIRIN 03/25/2013 RAVEN GRAMAJO MD Ot V58.67 LONG-TERM (CURRENT) USE OF INSULIN 03/25/2013 RAVEN GRAMAJO MD Ot V58.69 OTH MED,LT,CURRENT USE 03/25/2013 RAVEN GRAMAJO MD Ot V85.43 BODY MASS INDEX 50.0-59.9, ADULT 04/28/2014 Ot 789.01 04/28/2014 Ot 726.32 04/28/2014 [...] 05/11/2014 Ot 354.0 05/11/2014 Ot V72.84 05/11/2014 RAVEN GRAMAJO MD Ot 250.00 05/11/2014 RAVEN GRAMAJO MD Ot 401.9 05/11/2014 RAVEN GRAMAJO MD Ot [...] 05/12/2014 Ot 354.0 05/12/2014 Ot V72.84 05/12/2014 RAVEN GRAMAJO MD Ot 250.00 05/12/2014 RAVEN GRAMAJO MD Ot 401.9 05/12/2014 RAVEN GRAMAJO MD Ot 428.0 05/12/2014 RAVEN GRAMAJO MD Ot 434.91 05/12/2014 ROX SPENCER, RAVEN J Ot 786.05 06/01/2014 ROX SPENCER, BASHAR J Ot 401.9 06/01/2014 ROX SPENCER, BASHAR J Ot 414.00 06/01/2014 ROX SPENCER, ISABELHAR J Ot 434.91 06/01/2014 ROX SPENCER, RAVEN J Ot 451.19 06/02/2014 ROX SPENCER, BASHAR J Ot 401.9 06/02/2014 ROX SPENCER, BASHAR J Ot 414.00 06/02/2014 ROX SPENCER, BASHAR J Ot V12.51 06/02/2014 ROX SPENCER, ISABELHAR J Ot V12.54 06/07/2014 ROX SPENCER, BASHAR J Ot 250.00 06/07/2014 ROX SPENCER, ISABELHAR J Ot 272.4 06/07/2014 ROX SPENCER, ISABELHAR J Ot 278.00 06/07/2014 ROX SPENCER, ISABELHAR J Ot 327.23 06/07/2014 ROX SPENCER, ISABELHAR J Ot 401.9 06/07/2014 ROX SPENCER, ISABELHAR J Ot 414.01 06/07/2014 RXO SPENCER, ISABELHAR J Ot 786.50 06/07/2014 ROX SPENCER, BASHAR J Ot 794.30 06/07/2014 ROX SPENCER, RAVEN J Ot V12.54 06/07/2014 ROX SPENCER, RAVEN J Ot V15.82 06/07/2014 ROX SPENCER, RAVEN J Ot V45.82 06/07/2014 ROX SPENCER, ISABELHAR J Ot V58.69 06/07/2014 ROX SPENCER, BASHAR J Ot V85.44 08/03/2014 ROX SPENCER, BASHAR J Ot 250.00 08/03/2014 ROX SPENCER, ISABELHAR J Ot 272.4 08/03/2014 ROX SPENCER, BASHAR J Ot 278.01 08/03/2014 ROX SPENCER, BASHAR J Ot 300.00 08/03/2014 ROX SPENCER, ISABELHAR J Ot 311 08/03/2014 ROX SPENCER, BASHAR J Ot 327.23 08/03/2014 ROX SPENCER, BASHAR J Ot 338.29 08/03/2014 ROX SPENCER, BASHAR J Ot 401.9 08/03/2014 ROX SPENCER, BASHAR J Ot 414.00 08/03/2014 RAVEN GRAMAJO MD Ot 427.89 08/03/2014 RAVEN GRAMAJO MD Ot 428.0 08/03/2014 RAVEN GRAMAJO MD Ot 433.10 08/03/2014 RAVEN GRAMAJO MD Ot 491.21 08/03/2014 RAVEN GRAMAJO MD Ot 518.83 08/03/2014 RAVEN GRAMAJO MD Ot 530.81 08/03/2014 RAVEN GRAMAJO MD Ot 780.2 08/03/2014 RAVEN GRAMAJO MD Ot V12.51 08/03/2014 RAVEN GRAMAJO MD Ot V12.54 08/03/2014 RAVEN GRAMAJO MD Ot V15.82 08/03/2014 RAVEN GRAMAJO MD Ot V45.82 08/03/2014 RAVEN GRAMAJO MD Ot V58.67 08/03/2014 RAVEN GRAMAJO MD Ot V85.43 08/05/2014 RAVEN GRAMAJO MD Ot 250.00 DIAB MELIDA WO COMPL, TYPE II OR UNSPEC TY 08/05/2014 ARVEN GRAMAJO MD Ot 272.4 HYPERLIPIDEMIA NEC/NOS 08/05/2014 RAVEN GRAMAJO MD Ot 278.01 MORBID OBESITY 08/05/2014 RAVEN GRAMAJO MD Ot 300.00 ANXIETY STATE NOS 08/05/2014 RAVEN GRAMAJO MD Ot 311 DEPRESSIVE DISORDER NEC 08/05/2014 RAVEN GRAMAJO MD Ot 327.23 OBSTRUCTIVE SLEEP APNEA (ADULT) (PEDIATR 08/05/2014 RAVEN GRAMAJO MD Ot 338.29 OTHER CHRONIC PAIN 08/05/2014 RAVEN GRAMAJO MD Ot 401.9 HYPERTENSION NOS 08/05/2014 RAVEN GRAMAJO MD Ot 414.00 CORON ATHEROSCLER NOS TYPE VESSEL, NATIV 08/05/2014 RAVEN GRAMAJO MD Ot 427.89 CARDIAC DYSRHYTHMIAS NEC 08/05/2014 RAVEN GRAMAJO MD Ot 428.0 CONGESTIVE HEART FAILURE NOS 08/05/2014 RAVEN GRAMAJO MD Ot 433.10 CAROTID ARTERY OCCLUSION W O CEREBRAL IN 08/05/2014 RAVEN GRAMAJO MD Ot 491.21 OBSTR CHRONIC BRONCHITIS, W (ACUTE) EXAC 08/05/2014 RAVEN GRAMAJO MD Ot 496 08/05/2014 RAVEN GRAMAJO MD Ot 518.83 CHRONIC RESPIRATORY FAILURE 08/05/2014 RAVEN GRAMAJO MD Ot 530.81 ESOPHAGEAL REFLUX 08/05/2014 RAVEN GRAMAJO MD Ot 780.2 SYNCOPE AND COLLAPSE 08/05/2014 RAVEN GRAMAJO MD Ot V12.51 HX-VENOUS THROMBOSIS EMBOLISM 08/05/2014 RAVEN GRAMAJO MD Ot V12.54 PERSONAL HX OF TIA, CEREBRAL INFARCTION 08/05/2014 RAVEN GRAMAJO MD Ot V15.82 HISTORY OF TOBACCO USE 08/05/2014 RAVEN GRAMAJO MD Ot V45.82 PERCUTANEOUS TRANSLUM CORON ANGIOPLASTY 08/05/2014 RAVEN GRAMAJO MD Ot V58.67 LONG-TERM (CURRENT) USE OF INSULIN 08/05/2014 RAVEN GRAMAJO MD Ot V85.43 BODY MASS INDEX 50.0-59.9, ADULT 08/05/2014 RAVEN GRAMAJO MD Ot 250.00 08/05/2014 RAVEN GRAMAJO MD Ot 272.4 08/05/2014 RAVEN GRAMAJO MD Ot 278.01 08/05/2014 RAVEN GRAMAJO MD Ot 300.00 08/05/2014 RAVEN GRAMAJO MD Ot 311 08/05/2014 RAVEN GRAMAJO MD Ot 327.23 08/05/2014 RAVEN GRAMAJO MD Ot 338.29 08/05/2014 RAVEN GRAMAJO MD Ot [...] RAVEN GRAMAJO MD Ot V12.51 08/05/2014 RAVEN GRAMAJO MD Ot V12.54 08/05/2014 ROX SPENCER, RAVEN Powell Ot V15.82 08/05/2014 ROX SPENCER, RAVEN Powell Ot V45.82 08/05/2014 ROX SPENCER, RAVEN Powell Ot V58.67 08/05/2014 ROX SPENCER, RAVEN Powell Ot V85.43 08/05/2014 ROX SPENCER, RAVEN Powell Ot 250.00 08/05/2014 ROX SPENCER, RAVEN Powell Ot 272.4 08/05/2014 ROX SPENCER, RAVEN J Ot 278.01 08/05/2014 ROX SPENCER, RAVEN J Ot 300.00 08/05/2014 ROX SPENCER, RAVEN Powell Ot 311 08/05/2014 ROX SPENCER, RAVEN Powell Ot 327.23 08/05/2014 ROX SPENCER, RAVEN Powell Ot 338.29 08/05/2014 ROX SPENCER, RAVEN Powell Ot 401.9 08/05/2014 ROX SPENCER, RAVEN Powell Ot 414.00 08/05/2014 ROX SPENCER, RAVEN Powell Ot 427.89 08/05/2014 ROX SPENCER, RAVEN Powell Ot 428.0 08/05/2014 ROX SPENCER, RAVEN Powell Ot 433.10 08/05/2014 ROX SPENCER, RAVEN Powell Ot 496 08/05/2014 ROX SPENCER, RAVEN Powell Ot 518.83 08/05/2014 ROX SPENCER, RAVEN Powell Ot 530.81 08/05/2014 RAVEN GRAMAJO MD Ot 780.2 08/05/2014 ROX SPENCER, RAVEN Powell Ot V12.51 08/05/2014 ROX SPENCER, RAVEN Powell Ot V12.54 08/05/2014 ROX SPENCER, RAVEN Powell Ot V15.82 08/05/2014 RAVEN GRAMAJO MD Ot V45.82 08/05/2014 ROX SPENCER, RAVEN Powell Ot V58.67 08/05/2014 ROX SPENCER, RAVEN Powell Ot V85.43 08/10/2014 Ot 789.01 08/10/2014 Ot 726.32 08/10/2014 Ot V72.83 08/10/2014 Ot V74.8 08/10/2014 Ot 996.1 08/10/2014 Ot V72.83 08/10/2014 Ot V74.8 08/10/2014 Ot 727.61 08/10/2014 Ot V72.81 08/10/2014 Ot V74.8 08/10/2014 Ot 789.03 08/10/2014 Ot 733.93 08/10/2014 Ot V72.84 08/10/2014 Ot 354.0 08/10/2014 Ot V72.83 08/10/2014 Ot V74.8 08/10/2014 Ot 354.0 08/10/2014 Ot V72.84 08/10/2014 ROX SPENCER, RAVEN Powell Ot 250.00 08/10/2014 ROX SPENCER, RAVEN Powell Ot 401.9 08/10/2014 ROX SPENCER, RAVEN Powell Ot 428.0 08/10/2014 ROX SPENCER, RAVEN Powell Ot 434.91 08/10/2014 ROX SPENCER, RAVEN Powell Ot 786.05 08/10/2014 ROX SPENCER, RAVEN Powell Ot 401.9 08/10/2014 ROX SPENCER, RAVEN Powell Ot 414.00 08/10/2014 ROX SPENCER, RAVEN Powell Ot 434.91 08/10/2014 ROX SPENCER, RAVEN Powell Ot 451.19 08/10/2014 ROX SPENCER, RAVEN Powell Ot 401.9 08/10/2014 ROX SPENCER, RAVEN Powell Ot 414.00 08/10/2014 RAVEN GRAMAJO MD Ot V12.51 08/10/2014 ROX SPENCER, RAVEN Powell Ot V12.54 08/10/2014 ROX SPENCER, RAVEN Powell Ot 250.00 08/10/2014 ROX SPENCER, RAVEN Powell Ot 272.4 08/10/2014 ROX SPENCER, RAVEN Powell Ot 278.00 08/10/2014 ROX SPENCER, RAVEN Powell Ot 327.23 08/10/2014 ROX SPENCER, RAVEN Powell Ot 401.9 08/10/2014 ROX SPENCER, RAVEN Powell Ot 414.01 08/10/2014 ROX SPENCER, RAVEN Powell Ot 786.50 08/10/2014 ROX SPENCER, RAVEN Powell Ot 794.30 08/10/2014 RAVEN GRAMAJO MD Ot V12.54 08/10/2014 ROX SPENCER, RAVEN Powell Ot V15.82 08/10/2014 RAVEN GRAMAJO MD Ot V45.82 08/10/2014 RAVEN GRAMAJO MD Ot V58.69 08/10/2014 ROX SPENCER, RAVEN Powell Ot V85.44 08/30/2014 DONALDO TURPIN, COOPER S Ot 250.00 DIAB MELIDA WO COMPL, TYPE II OR UNSPEC TY 08/30/2014 DONALDO DO, COOPER S Ot 272.4 HYPERLIPIDEMIA NEC/NOS 08/30/2014 TEAGANNDRAN TURPIN, COOPER S Ot 278.01 MORBID OBESITY 08/30/2014 TEAGANNDRAN DO, COOPER S Ot 327.23 OBSTRUCTIVE SLEEP APNEA (ADULT) (PEDIATR 08/30/2014 TEAGANNDER DO, COOPER S Ot 401.9 HYPERTENSION NOS 08/30/2014 TEAGANNDER DO, COOPER S Ot 414.01 CORONARY ATHEROSCLEROSIS OF EEK CORON 08/30/2014 DONALDO DO, COOPER S Ot 438.89 OTH LATE EFFECT-CEREBROVASCULAR DISEASE 08/30/2014 DONALDO TURPIN, COOPER S Ot 493.20 CHRONIC OBSTRUCTIVE ASTHMA, NOS 08/30/2014 FIDELER COOPER S Ot 599.0 URIN TRACT INFECTION NOS 08/30/2014 FIDELER DO, COOPER S Ot 728.87 MUSCLE WEAKNESS (GENERALIZED) 08/30/2014 DONALDO TURPIN, COOPER S Ot 784.0 HEADACHE 08/30/2014 DONALDO TURPIN COOPER S Ot 786.50 CHEST PAIN NOS 08/30/2014 DONALDO TURPIN COOPER S Ot V46.2 SUPPLEMENTAL OXYGEN 08/30/2014 DONALDO TURPIN COOPER S Ot V85.43 BODY MASS INDEX 50.0-59.9, ADULT 09/16/2014 ROX SPENCER, RAVEN Powell Ot 272.4 09/16/2014 ROX SPENCER, RAVEN Powell Ot 401.9 09/16/2014 ROX SPENCER, RAVEN Powell Ot 414.9 09/16/2014 ROX SPENCER, RAVEN Powell Ot 428.0 09/16/2014 ROX SPENCER, RAVEN Powell Ot 786.50 09/19/2014 ROX SPENCER, RAVEN Powell Ot 272.4 09/19/2014 ROX SPENCER, RAVEN Powell Ot 401.9 09/19/2014 ROX PSENCER, RAVEN Powell Ot 414.9 09/19/2014 ROX SPENCER, RAVEN Powell Ot 428.0 09/19/2014 RAVEN GRAMAJO MD Ot 786.50 09/26/2014 RAVEN GRAMAJO MD Ot 250.00 09/26/2014 RAVEN GRAMAJO MD Ot 401.9 09/26/2014 RAVEN GRAMAJO MD Ot 428.0 09/26/2014 RAVEN GRAMAJO MD Ot 434.91 09/26/2014 RAVEN GRAMAJO MD Ot 786.05 10/07/2014 RAHUL JUDD MD S Ot 427.81 10/07/2014 RAHUL JUDD MD S Ot V72.63 10/07/2014 BINTA SPENCER RAHUL S Ot V74.8 10/08/2014 BINTA SPENCER, RAHUL S Ot 250.00 DIAB MELIDA WO COMPL, TYPE II OR UNSPEC TY 10/08/2014 RAHUL JUDD MD S Ot 426.0 ATRIOVENT BLOCK COMPLETE 10/10/2014 FABI SCHMITT APRN Ot 428.0 10/10/2014 FABI SCHMITT APRN Ot 496 10/18/2014 RAHUL JUDD MD S Ot 427.81 10/18/2014 RAHUL JUDD MD S Ot V72.63 10/18/2014 RAHUL JUDD MD S Ot V74.8 10/28/2014 GRACE MARIEE MD Ot 338.4 CHRONIC PAIN SYNDROME 10/28/2014 GRACE MARIEE MD Ot 715.95 OSTEOARTHROS NOS-PELVIS 10/28/2014 GRACE MARIEE MD Ot 721.3 LUMBOSACRAL SPONDYLOSIS 10/28/2014 GRACE MARIEE MD Ot 722.83 POSTLAMINECT SYND-LUMBAR 10/28/2014 GRACE MARIEE MD Ot 729.1 MYALGIA AND MYOSITIS NOS 10/28/2014 GRACE MARIEE MD Ot V58.69 OTH MED,LT,CURRENT USE 11/10/2014 CASIMIRO ASCENCIO MD Ot 250.00 DIAB MELIDA WO COMPL, TYPE II OR UNSPEC TY 11/10/2014 CASIMIRO ASCENCIO MD Ot 278.01 MORBID OBESITY 11/10/2014 CASIMIRO ASCENCIO MD Ot 401.9 HYPERTENSION NOS 11/10/2014 CASIMIRO ASCENCIO MD Ot 414.01 CORONARY ATHEROSCLEROSIS OF EEK CORON 11/10/2014 CASIMIRO ASCENCIO MD Ot 438.20 LATE EFF-CEREBR DIS,HEMIPLEGIA AFFECTING 11/10/2014 SONU SPENCER, CASIMIRO Cummins Ot 458.0 ORTHOSTATIC HYPOTENSION 11/10/2014 SONU SPENCER, CASIMIRO Cummins Ot 530.81 ESOPHAGEAL REFLUX 11/10/2014 SONU SPENCER, CASIMIRO Cummins Ot V45.82 PERCUTANEOUS TRANSLUM CORON ANGIOPLASTY 11/10/2014 CASIMIRO ASCENCIO MD Ot V46.2 SUPPLEMENTAL OXYGEN 11/10/2014 CASIMIRO ASCENCIO MD Ot V58.67 LONG-TERM (CURRENT) USE OF INSULIN 11/10/2014 SONU SPENCER, CASIMIRO Cummins Ot V85.43 BODY MASS INDEX 50.0-59.9, ADULT 11/10/2014 SONU SPENCER, CASIMIRO Cummins Ot 250.00 11/10/2014 SONU SPENCER, CASIMIRO Cummins Ot 278.01 11/10/2014 SONU SPENCER, CASIMIRO Cummins Ot 401.9 11/10/2014 SONU SPENCER, CASIMIRO Cummins Ot 414.01 11/10/2014 SONU SPENCER, CASIMIRO Cummins Ot 438.20 11/10/2014 SONU SPENCER, CASIMIRO Cummins Ot 458.0 11/10/2014 CASIMIRO ASCENCIO MD Ot 530.81 11/10/2014 CASIMIRO ASCENCIO MD Ot V45.82 11/10/2014 CASIMIRO ASCENCIO MD Ot V46.2 11/10/2014 CASIMIRO ASCENCIO MD Ot V58.67 11/10/2014 CASIMIRO ASCENCIO MD Ot V85.43 11/11/2014 KODI SPENCER, GRACE Powell Ot 715.35 11/24/2014 TOMMIE GUERIN DO Ot 250.00 DIAB MELIDA WO COMPL, TYPE II OR UNSPEC TY 11/24/2014 TOMMIE GUERIN DO Ot 599.0 URIN TRACT INFECTION NOS 11/24/2014 TOMMIE GUERIN DO Ot 786.50 CHEST PAIN NOS 11/24/2014 TOMMIE GUERIN DO Ot 786.59 CHEST PAIN NEC 11/24/2014 TOMMIE GUERIN DO Ot V58.67 LONG-TERM (CURRENT) USE OF INSULIN 11/24/2014 TOMMIE GUERIN DO Ot V58.69 OT MED,LT,CURRENT USE 02/14/2015 Ot E78.5 02/14/2015 Ot I10 02/14/2015 Ot I25.10 02/14/2015 Ot I50.9 02/14/2015 Ot R07.9 05/28/2015 HECTOR ARAIZA APRN Ot E11.9 TYPE 2 DIABETES MELLITUS WITHOUT COMPLIC 05/28/2015 HECTOR ARAIZA APRN Ot M47.816 SPONDYLOSIS W/O MYELOPATHY OR RADICULOPA 05/28/2015 HECTOR ARAIZA APRN Ot S50.02XA CONTUSION OF LEFT ELBOW, INITIAL ENCOUNT 05/28/2015 HECTOR ARAIZA APRN Ot S80.12XA CONTUSION OF LEFT LOWER LEG, INITIAL ENC 05/28/2015 HECTOR ARAIZA APRN Ot W01.0XXA FALL SAME LEV FROM SLIP/TRIP W/O STRIKE 05/28/2015 HECTOR ARAIZA APRN Ot Y92.[address] [facility] NON-INSTITUT (PRIVATE 05/28/2015 HECTOR ARAIZA APRN Ot Y99.8 OTHER EXTERNAL CAUSE STATUS 05/28/2015 HECTOR ARAIZA APRN Ot Z79.4 FPC (CURRENT) USE OF INSULIN 05/28/2015 Ot 996.1 05/28/2015 Ot V72.83 05/28/2015 Ot V74.8 05/28/2015 Ot 727.61 05/28/2015 Ot V72.81 05/28/2015 Ot V74.8 05/28/2015 Ot 789.03 05/28/2015 Ot 733.93 05/28/2015 Ot V72.84 05/28/2015 Ot 354.0 05/28/2015 Ot V72.83 05/28/2015 Ot V74.8 05/28/2015 Ot 354.0 05/28/2015 Ot V72.84 05/28/2015 RAVEN GRAMAJO MD Ot 250.00 05/28/2015 ROX SPENCER, RAVEN Powell Ot 401.9 05/28/2015 ROX SPENCER, RAVEN Powell Ot 428.0 05/28/2015 RAVEN GRAMAJO MD Ot 434.91 05/28/2015 RAVEN GRAMAJO MD Ot 786.05 05/28/2015 RAVEN GRAMAJO MD Ot 401.9 05/28/2015 RAVEN GRAMAJO MD Ot 414.00 05/28/2015 RAVEN GRAMAJO MD Ot 434.91 05/28/2015 RAVEN GRAMAJO MD Ot 451.19 05/28/2015 RAVEN GRAMAJO MD J Ot 401.9 05/28/2015 ROX SPENCER, ISABELHORACIO J Ot 414.00 05/28/2015 ROX SPENCER, RAVEN J Ot V12.51 05/28/2015 ROX SPENCER, RAVEN J Ot V12.54 05/28/2015 ROX SPENCER, RAVEN J Ot 250.00 05/28/2015 ROX SPENCER, ISABELHAR J Ot 272.4 05/28/2015 ROX SPENCER, RAVEN J Ot 278.00 05/28/2015 ROX SPENCER, RAVEN J Ot 327.23 05/28/2015 ROX SPENCER, RAVEN J Ot 401.9 05/28/2015 ROX SPENCER, ISABELHAR J Ot 414.01 05/28/2015 ROX SPENCER, RAVEN J Ot 786.50 05/28/2015 ROX SPENCER, RAVEN J Ot 794.30 05/28/2015 ROX SPENCER, RAVEN J Ot V12.54 05/28/2015 ROX SPENCER, ISABELHORACIO J Ot V15.82 05/28/2015 ROX SPENCER, ISABELHORACIO J Ot V45.82 05/28/2015 ROX SPENCER, ISABELHORACIO J Ot V58.69 05/28/2015 ROX SPENCER, ISABELHORACIO J Ot V85.44 05/28/2015 ROX SPENCER, ISABELHORACIO J Ot 272.4 05/28/2015 ROX SPENCER, ISABELHORACIO J Ot 401.9 05/28/2015 ROX SPENCER, ISABELHORACIO J Ot 414.9 05/28/2015 ROX SPENCER, ISABELHORACIO J Ot 428.0 05/28/2015 ROX SPENCER, ISABELHORACIO J Ot 786.50 05/28/2015 FABI SCHMITT APRN [...] MD Ot I25.10 ATHSCL HEART DISEASE OF [place] CORONARY 12/07/2015 BEBE JACKMAN MD Ot I44.7 LEFT BUNDLE-BRANCH BLOCK, UNSPECIFIED 12/07/2015 BEBE JACKMAN MD Ot I69.354 HEMIPLGA FOLLOWING CEREBRAL INFRC AFFECT 12/07/2015 BEBE JACKMAN MD, Ot J44.9 CHRONIC OBSTRUCTIVE PULMONARY DISEASE, U 12/07/2015 BEBE JACKMAN MD Ot R07.9 CHEST PAIN, UNSPECIFIED 12/07/2015 BEBE JACKMAN MD Ot Z79.4 FPC (CURRENT) USE OF INSULIN 12/07/2015 BEBE JACKMAN MD Ot Z95.0 PRESENCE OF CARDIAC PACEMAKER 12/08/2015 BEBE JACKMAN MD Ot E11.9 TYPE 2 DIABETES MELLITUS WITHOUT COMPLIC 12/08/2015 BEBE JACKMAN MD Ot G47.30 SLEEP APNEA, UNSPECIFIED 12/08/2015 BEBE JACKMAN MD Ot I10 ESSENTIAL (PRIMARY) HYPERTENSION 12/08/2015 BEBE JACKMAN MD Ot I25.10 ATHSCL HEART DISEASE OF [place] CORONARY 12/08/2015 BEBE JACKMAN MD Ot I44.7 LEFT BUNDLE-BRANCH BLOCK, UNSPECIFIED 12/08/2015 BEBE JACKMAN MD Ot I69.354 HEMIPLGA FOLLOWING CEREBRAL INFRC AFFECT 12/08/2015 BEBE JACKMAN MD Ot J44.9 CHRONIC OBSTRUCTIVE PULMONARY DISEASE, U 12/08/2015 BEBE JACKMAN MD Ot R07.9 CHEST PAIN, UNSPECIFIED 12/08/2015 BEBE JACKMAN MD Ot Z79.4 FPC (CURRENT) USE OF INSULIN 12/08/2015 BEBE JACKMAN MD Ot Z95.0 PRESENCE OF CARDIAC PACEMAKER 12/14/2015 BEBE JACKMAN MD Ot E11.9 TYPE 2 DIABETES MELLITUS WITHOUT COMPLIC 12/14/2015 BEBE JACKMAN MD Ot G47.30 SLEEP APNEA, UNSPECIFIED 12/14/2015 BEBE JACKMAN MD Ot I10 ESSENTIAL (PRIMARY) HYPERTENSION 12/14/2015 BEBE JACKMAN MD Ot I25.10 ATHSCL HEART DISEASE OF [place] CORONARY 12/14/2015 BEBE JACKMAN MD Ot I44.7 LEFT BUNDLE-BRANCH BLOCK, UNSPECIFIED 12/14/2015 BEBE JACKMAN MD Ot I69.354 HEMIPLGA FOLLOWING CEREBRAL INFRC AFFECT 12/14/2015 BEBE JACKMAN MD Ot J44.9 CHRONIC OBSTRUCTIVE PULMONARY DISEASE, U 12/14/2015 BEBE JACKMAN MD Ot R07.9 CHEST PAIN, UNSPECIFIED 12/14/2015 BEBE JACKMAN MD Ot Z79.4 FPC (CURRENT) USE OF INSULIN 12/14/2015 BEBE JACKMAN MD Ot Z95.0 PRESENCE OF CARDIAC PACEMAKER 02/15/2016 Ot E78.2 MIXED HYPERLIPIDEMIA 02/15/2016 Ot I10 ESSENTIAL (PRIMARY) HYPERTENSION 02/15/2016 Ot I25.10 ATHSCL HEART DISEASE OF [place] CORONARY 02/15/2016 Ot R06.02 SHORTNESS OF BREATH 02/16/2016 Ot E78.2 MIXED HYPERLIPIDEMIA 02/16/2016 Ot I10 ESSENTIAL (PRIMARY) HYPERTENSION 02/16/2016 Ot I25.10 ATHSCL HEART DISEASE OF [place] CORONARY 02/16/2016 Ot R06.02 SHORTNESS OF BREATH 02/28/2016 Ot E78.2 MIXED HYPERLIPIDEMIA 02/28/2016 Ot I10 ESSENTIAL (PRIMARY) HYPERTENSION 02/28/2016 Ot I25.10 ATHSCL HEART DISEASE OF [place] CORONARY 02/28/2016 Ot R06.02 SHORTNESS OF BREATH 02/29/2016 SABRINA IGNACIO Ot E78.2 MIXED HYPERLIPIDEMIA 02/29/2016 SABRINA IGNACIO Ot I10 ESSENTIAL (PRIMARY) HYPERTENSION 02/29/2016 SABRINA IGNACIO Ot I25.10 ATHSCL HEART DISEASE OF [place] CORONARY 02/29/2016 SABRINA IGNACIO Ot R06.02 SHORTNESS OF BREATH 02/29/2016 SABRINA IGNACIO Ot E78.2 MIXED HYPERLIPIDEMIA 02/29/2016 SABRINA IGNACIO Ot I10 ESSENTIAL (PRIMARY) HYPERTENSION 02/29/2016 SABRINA IGNACIO Ot I25.10 ATHSCL HEART DISEASE OF [place] CORONARY 02/29/2016 SABRINA IGNACIO Ot R06.02 SHORTNESS OF BREATH 03/04/2016 RAVEN GRAMAJO MD Ot E11.9 TYPE 2 DIABETES MELLITUS WITHOUT COMPLIC 03/04/2016 RAVEN GRAMAJO MD Ot E78.5 HYPERLIPIDEMIA, UNSPECIFIED 03/04/2016 RAVEN GRAMAJO MD Ot I10 ESSENTIAL (PRIMARY) HYPERTENSION 03/04/2016 RAVEN GRAMAJO MD Ot I25.10 ATHSCL HEART DISEASE OF [place] CORONARY 03/04/2016 RAVEN GRAMAJO MD Ot I49.5 SICK SINUS SYNDROME 03/04/2016 RAVEN GRAMAJO MD Ot Z79.899 OTHER FPC (CURRENT) DRUG THERAPY 03/04/2016 RAVEN GRAMAJO MD Ot Z86.73 PRSNL HX OF TIA (TIA), AND CEREB INFRC W 03/04/2016 RAVEN GRAMAJO MD Ot Z95.5 PRESENCE OF CORONARY ANGIOPLASTY IMPLANT 03/13/2016 SABRINA IGNACIO Ot E78.2 MIXED HYPERLIPIDEMIA 03/13/2016 SABRINA IGNACIO Ot I10 ESSENTIAL (PRIMARY) HYPERTENSION 03/13/2016 SABRINA IGNACIO Ot I25.10 ATHSCL HEART DISEASE OF [place] CORONARY 03/13/2016 SABRINA IGNACIO Ot R06.02 SHORTNESS OF BREATH 06/11/2016 Richar Mariscal 922.1 CONTUSION OF CHEST WALL 06/11/2016 Richar Mariscal 923.10 CONTUSION OF FOREARM 06/11/2016 Richar Mariscal E885.9 FALL FROM OTHER SLIPPING, TRIPPING, OR STUMBLING 06/11/2016 Richar Mariscal S20.212A CONTUSION OF LEFT FRONT WALL OF THORAX, INITIAL ENCOUNTER 06/11/2016 Richar Mariscal S50.12XA CONTUSION OF LEFT FOREARM, INITIAL ENCOUNTER 06/11/2016 Howayek, Richar W W01.0XXA FALL SAME LEV FROM SLIP/TRIP W/O STRIKE AGAINST OBJECT, INIT 09/16/2016 YOVANY KEENE MD, Ot E11.65 TYPE 2 DIABETES MELLITUS WITH HYPERGLYCE 09/16/2016 YOVANY KEENE MD Ot E87.6 HYPOKALEMIA 09/16/2016 YOVANY KEENE MD Ot I10 ESSENTIAL (PRIMARY) HYPERTENSION 09/16/2016 YOVANY KEENE MD, Ot I25.10 ATHSCL HEART DISEASE OF [place] CORONARY 09/16/2016 YOVANY KEENE MD, Ot J44.9 [...] GIDDINESS 09/16/2016 YOVANY KEENE MD Ot Z79.02 FPC (CURRENT) USE OF ANTITHROMBOTI 09/16/2016 YOVANY KEENE MD Ot Z79.4 FPC (CURRENT) USE OF INSULIN 09/16/2016 YOVANY KEENE MD Ot Z79.899 OTHER FPC (CURRENT) DRUG THERAPY 09/16/2016 YOVANY KEENE MD [...] I10 ESSENTIAL (PRIMARY) HYPERTENSION 09/16/2016 YOVANY KEENE MD Ot I25.10 ATHSCL HEART DISEASE OF [place] CORONARY 09/16/2016 YOVANY KEENE MD, Ot J44.9 [...] GIDDINESS 09/16/2016 YOVANY KEENE MD Ot Z79.02 FPC (CURRENT) USE OF ANTITHROMBOTI 09/16/2016 YOVANY KEENE MD Ot Z79.4 FPC (CURRENT) USE OF INSULIN 09/16/2016 YOVANY KEENE MD, Ot Z79.899 OTHER STOCK SUPERVISOR (CURRENT) DRUG THERAPY 09/16/2016 YOVANY KEENE MD, [...] ENCOUNTER FOR ADJUSTMENT AND MANAGEMENT OF VAD 03/21/2017, Philip W 250.00 DIABETES MELLITUS WITHOUT MENTION OF COMPLICATION, TYPE II OR UNSPECIFIED TYPE, NOT STATED UNCONTROLLED 03/21/2017, Helene-Cj W 428.0 CONGESTIVE HEART FAILURE, UNSPECIFIED 03/21/2017, Helene-Cj W 786.09 OTHER DYSPNEA AND RESPIRATORY ABNORMALITY 03/21/2017, Helene-Cj W E11.9 TYPE 2 DIABETES MELLITUS WITHOUT COMPLICATIONS 03/21/2017, Helene-Cj W I50.9 HEART FAILURE, UNSPECIFIED 03/21/2017, Helene-Cj W R06.00 DYSPNEA, UNSPECIFIED 03/21/2017, Helene-Cj W 250.00 DIABETES MELLITUS WITHOUT MENTION OF COMPLICATION, TYPE II OR UNSPECIFIED TYPE, NOT STATED UNCONTROLLED 03/21/2017, Helene-Cj W 428.0 CONGESTIVE HEART FAILURE, UNSPECIFIED 03/21/2017, Helene-Cj W 786.09 OTHER DYSPNEA AND RESPIRATORY ABNORMALITY 03/21/2017, Helene-Cj W E11.9 TYPE 2 DIABETES MELLITUS WITHOUT COMPLICATIONS 03/21/2017, Helene-Cj W I50.9 HEART FAILURE, UNSPECIFIED 03/21/2017, Helene-Cj W R06.00 DYSPNEA, UNSPECIFIED 03/21/2017, Helene-Cj W 250.00 DIABETES MELLITUS WITHOUT MENTION OF COMPLICATION, TYPE II OR UNSPECIFIED TYPE, NOT STATED UNCONTROLLED 03/21/2017, Helene-Cj W 428.0 CONGESTIVE HEART FAILURE, UNSPECIFIED 03/21/2017, Helene-Cj W 786.09 OTHER DYSPNEA AND RESPIRATORY ABNORMALITY 03/21/2017, Helnee-Cj W E11.9 TYPE 2 DIABETES MELLITUS WITHOUT COMPLICATIONS 03/21/2017, Helene-Cj W I50.9 HEART FAILURE, UNSPECIFIED 03/21/2017, Helene-Cj W R06.00 DYSPNEA, UNSPECIFIED 03/22/2017 Thapa, [...] TYPE 2 DIABETES MELLITUS WITHOUT COMPLICATIONS 03/22/2017, HeleneRenettau W I49.5 SICK SINUS SYNDROME 03/22/2017, Helene-Cj W I50.9 HEART FAILURE, UNSPECIFIED 03/22/2017, Helene-Cj W R06.00 DYSPNEA, UNSPECIFIED 03/22/2017, Helene-Cj W 250.00 DIABETES MELLITUS WITHOUT MENTION OF COMPLICATION, TYPE II OR UNSPECIFIED TYPE, NOT STATED UNCONTROLLED 03/22/2017, Helene-Cj W 427.81 SINOATRIAL NODE DYSFUNCTION 03/22/2017, HeleneIsaacCj W 428.0 CONGESTIVE HEART FAILURE, UNSPECIFIED 03/22/2017, Helene-Cj W 786.09 OTHER DYSPNEA AND RESPIRATORY ABNORMALITY 03/22/2017, Helene-Cj W E11.9 TYPE 2 DIABETES MELLITUS WITHOUT COMPLICATIONS 03/22/2017, Helene-Cj W I25.1 ATHEROSCLEROTIC HEART DISEASE OF [place] CORONARY ARTERY 03/22/2017, Helene-Cj W I49.5 SICK [...] Helene-Cj W I25.1 ATHEROSCLEROTIC HEART DISEASE OF [place] CORONARY ARTERY 03/22/2017, Helene-Cj W I49.5 SICK SINUS SYNDROME 03/22/2017, Helene-Cj W I50.9 HEART FAILURE, UNSPECIFIED 03/22/2017 Thapa, Helene-Cj W R06.00 DYSPNEA, UNSPECIFIED 03/22/2017 Thapa, Helene-Cj W 250.00 DIABETES MELLITUS WITHOUT MENTION OF COMPLICATION, TYPE II OR UNSPECIFIED TYPE, NOT STATED UNCONTROLLED 03/22/2017 Thapa, Helene-Cj W 427.81 SINOATRIAL NODE DYSFUNCTION 03/22/2017, Helene-Cj W 428.0 CONGESTIVE HEART FAILURE, UNSPECIFIED 03/22/2017 Thapa, Helene-Cj W 786.09 OTHER DYSPNEA AND RESPIRATORY ABNORMALITY 03/22/2017 Thapa, Helene-Cj W E11.9 TYPE 2 DIABETES MELLITUS WITHOUT COMPLICATIONS 03/22/2017 Thapa, Helene-Cj W I25.1 ATHEROSCLEROTIC HEART DISEASE OF [place] CORONARY ARTERY 03/22/2017 Thapa, Helene-Cj W I49.5 SICK SINUS [...] Helene-Cj W I25.1 ATHEROSCLEROTIC HEART DISEASE OF [place] CORONARY ARTERY 03/22/2017, Helene-Cj W I49.5 SICK [...] Helene-Cj W I25.1 ATHEROSCLEROTIC HEART DISEASE OF [place] CORONARY ARTERY 03/22/2017, Helene-Cj W I49.5 SICK SINUS SYNDROME 03/22/2017, Helene-Cj W I50.9 HEART FAILURE, UNSPECIFIED 03/22/2017 Thapa, Helene-Cj W R06.00 DYSPNEA, UNSPECIFIED 03/22/2017 Thapa, Helene-Cj W 250.00 DIABETES MELLITUS WITHOUT MENTION OF COMPLICATION, TYPE II OR UNSPECIFIED TYPE, NOT STATED UNCONTROLLED 03/22/2017, Helene-Cj W 427.81 03/22/2017, Helene-Cj W 428.0 CONGESTIVE HEART FAILURE, UNSPECIFIED 03/22/2017 Thapa, Helene-Cj W 458 03/22/2017 Thapa, Helene-Cj W 786.09 OTHER DYSPNEA AND RESPIRATORY ABNORMALITY 03/22/2017 Thapa, Helene-Cj W E11.9 TYPE 2 DIABETES MELLITUS WITHOUT COMPLICATIONS 03/22/2017 Thapa, Helene-Cj W I25.1 ATHEROSCLEROTIC HEART DISEASE OF [place] CORONARY ARTERY 03/22/2017 Thapa, Helene-Cj W I49.5 SICK SINUS SYNDROME 03/22/2017, Helene-Cj W I50.9 HEART FAILURE, UNSPECIFIED 03/22/2017, Helene-Cj W I95 HYPOTENSION 03/22/2017, Helene-Cj W R06.00 DYSPNEA, UNSPECIFIED 03/22/2017, [...] Helene-Cj W I25.1 ATHEROSCLEROTIC HEART DISEASE OF [place] CORONARY ARTERY 03/22/2017, Helene-Cj W I49.5 SICK [...] Helene-Cj W 414.01 03/22/2017, Helene-Cj W 427.81 03/22/2017, Helene-Cj A 428.0 CONGESTIVE HEART FAILURE, UNSPECIFIED 03/22/2017, Helene-Cj W 458 03/22/2017, Helene-Cj W 491.20 03/22/2017, Helene-Cj W 599.0 03/22/2017 Thapa, Helene-Cj W 729.1 03/22/2017 Thapa, Helene-Cj W 786.09 03/22/2017 Thapa, Helene-Cj W E11.65 03/22/2017 Thapa, Helene-Cj W E11.9 TYPE 2 DIABETES MELLITUS WITHOUT COMPLICATIONS 03/22/2017 Thapa, Helene-Cj W E66.01 MORBID (SEVERE) OBESITY DUE TO EXCESS CALORIES 03/22/2017 Thapa, Helene-Cj W I10 03/22/2017 Thapa, Helene-Cj W I25.1 ATHEROSCLEROTIC HEART DISEASE OF [place] CORONARY ARTERY 03/22/2017 Thapa, Helene-Cj W I25.10 03/22/2017 Thapa, Helene-Cj W I49.5 SICK SINUS SYNDROME 03/22/2017 Thapa, Helene-Cj A I50.9 HEART FAILURE, UNSPECIFIED 03/22/2017 Thapa, Helene-Cj W I95 HYPOTENSION 03/22/2017 Thapa, Helene-Cj W I95.9 03/22/2017 Thapa, Helene-Cj W J44.9 CHRONIC OBSTRUCTIVE PULMONARY DISEASE, UNSPECIFIED 03/22/2017 Thapa, Helene-Cj W M79.7 03/22/2017 Thapa, Helene-Cj W N39.0 URINARY TRACT INFECTION, SITE NOT SPECIFIED 03/22/2017 Thapa, Helene-Cj W R06.00 DYSPNEA, UNSPECIFIED 03/22/2017 Thapa, Helene-Cj W R07.9 03/22/2017 Thapa, Helene-Cj W R09.02 03/23/2017 RAVEN GRAMAJO MD Ot E03.9 HYPOTHYROIDISM, UNSPECIFIED 03/23/2017 ROX SPENCER, RAVEN Powell Ot E11.9 TYPE 2 DIABETES MELLITUS WITHOUT COMPLIC 03/23/2017 RAVEN GRAMAJO MD Ot E66.9 OBESITY, UNSPECIFIED 03/23/2017 RAVEN GRAMAJO MD Ot E86.1 HYPOVOLEMIA 03/23/2017 RAVEN GRAMAJO MD Ot F32.9 MAJOR DEPRESSIVE DISORDER, SINGLE EPISOD [...] MD Ot I25.10 ATHSCL HEART DISEASE OF [place] CORONARY 03/23/2017 RAVEN GRAMAJO MD Ot I42.9 CARDIOMYOPATHY, UNSPECIFIED 03/23/2017 RVAEN GRAMAJO MD Ot I48.0 PAROXYSMAL ATRIAL FIBRILLATION 03/23/2017 RAVEN GRAMAJO MD Ot I50.31 ACUTE DIASTOLIC (CONGESTIVE) HEART FAILU 03/23/2017 RAVEN GRAMAJO MD, Ot J44.9 CHRONIC OBSTRUCTIVE PULMONARY DISEASE, U 03/23/2017 RAVEN GRAMAJO MD Ot K21.9 GASTRO-ESOPHAGEAL REFLUX DISEASE WITHOUT 03/23/2017 RAVEN GRAMAJO MD Ot K44.9 DIAPHRAGMATIC HERNIA WITHOUT OBSTRUCTION 03/23/2017 RAVEN RGAMAJO MD Ot M19.91 PRIMARY OSTEOARTHRITIS, UNSPECIFIED SITE 03/23/2017 RAVEN GRAMAJO MD Ot M54.5 LOW BACK PAIN 03/23/2017 RAVEN GRAMAJO MD Ot M79.7 FIBROMYALGIA 03/23/2017 RAVEN GRAMAJO MD Ot Z68.43 BODY MASS INDEX (BMI) 50-59.9 , ADULT 03/23/2017 RAVEN GRAMAJO MD Ot Z79.4 FPC (CURRENT) USE OF INSULIN 03/23/2017 RAVEN GRAMAJO MD Ot Z86.73 PRSNL HX OF TIA (TIA), AND CEREB INFRC W 03/23/2017 RAVEN GRAMAJO MD Ot Z95.0 PRESENCE OF CARDIAC PACEMAKER 03/23/2017 RAVEN GRAMAJO MD Ot Z95.5 PRESENCE OF CORONARY ANGIOPLASTY IMPLANT 07/10/2017 SABRINA IGNACIO Ot E78.5 HYPERLIPIDEMIA, UNSPECIFIED 07/10/2017 SABRINA IGNACIO Ot I07.1 RHEUMATIC TRICUSPID INSUFFICIENCY 07/10/2017 OSBORN-DERRICK PA, SABRINA K Ot I10 ESSENTIAL (PRIMARY) HYPERTENSION 07/10/2017 SABRINA IGNACIO Ot I25.10 ATHSCL HEART DISEASE OF [place] CORONARY 07/10/2017 SABRINA IGNACIO Ot R07.89 OTHER CHEST PAIN 07/23/2017 Ot V72.84 EXAM PRE-OPERATIVE NOS 07/23/2017 Ot 354.0 CARPAL TUNNEL SYNDROME 07/23/2017 Ot V72.83 EXAM PRE-OPERATIVE NEC 07/23/2017 Ot V74.8 SCREEN-BACTERIAL DIS NEC 07/23/2017 Ot 354.0 CARPAL TUNNEL SYNDROME 07/23/2017 Ot V72.84 EXAM PRE-OPERATIVE NOS 07/23/2017 RAVEN GRAMAJO MD Ot 250.00 DIAB MELIDA WO COMPL, TYPE II OR UNSPEC TY 07/23/2017 RAVEN GRAMAJO MD Ot 401.9 HYPERTENSION NOS 07/23/2017 RAVEN GRAMAJO MD Ot 428.0 CONGESTIVE HEART FAILURE NOS 07/23/2017 RAVEN GRAMAJO MD Ot 434.91 CEREBRAL ART OCCLUSION NOS W CEREBRAL IN 07/23/2017 RAVEN GRAMAJO MD Ot 786.05 SHORTNESS OF BREATH 07/23/2017 RAVEN GRAMAJO MD Ot 401.9 HYPERTENSION NOS 07/23/2017 RAVEN GRAMAJO MD Ot 414.00 CORON ATHEROSCLER NOS TYPE VESSEL, NATIV 07/23/2017 RAVEN GRAMAJO MD Ot 434.91 CEREBRAL ART OCCLUSION NOS W CEREBRAL IN 07/23/2017 RAVEN GRAMAJO MD Ot 451.19 DEEP PHLEBITIS-LEG NEC 07/23/2017 RAVEN GRAMAJO MD Ot 401.9 HYPERTENSION NOS 07/23/2017 RAVEN GRAMAJO MD Ot 414.00 CORON ATHEROSCLER NOS TYPE VESSEL, NATIV 07/23/2017 RAVEN GRAMAJO MD Ot V12.51 HX-VENOUS THROMBOSIS EMBOLISM 07/23/2017 RAVEN GRAMAJO MD Ot V12.54 PERSONAL HX OF TIA, CEREBRAL INFARCTION 07/23/2017 RAVEN GRAMAJO MD Ot 250.00 DIAB MELIDA WO COMPL, TYPE II OR UNSPEC TY 07/23/2017 RAVEN GRAMAJO MD Ot 272.4 HYPERLIPIDEMIA NEC/NOS 07/23/2017 RAVEN GRAMAJO MD Ot 278.00 OBESITY, NOS 07/23/2017 RAVEN GRAMAJO MD Ot 327.23 OBSTRUCTIVE SLEEP APNEA (ADULT) (PEDIATR 07/23/2017 RAVEN GRAMAJO MD Ot 401.9 HYPERTENSION NOS 07/23/2017 RAVEN GRAMAJO MD Ot 414.01 CORONARY ATHEROSCLEROSIS OF [place] CORON 07/23/2017 RAVEN GRAMAJO MD Ot 786.50 CHEST PAIN NOS 07/23/2017 RAVEN GRAMAJO MD Ot 794.30 ABN CARDIOVASC STUDY NOS 07/23/2017 RAVEN GRAMAJO MD Ot V12.54 PERSONAL HX OF TIA, CEREBRAL INFARCTION 07/23/2017 RAVEN GRAMAJO MD Ot V15.82 HISTORY OF TOBACCO USE 07/23/2017 RAVEN GRAMAJO MD Ot V45.82 PERCUTANEOUS TRANSLUM CORON ANGIOPLASTY 07/23/2017 RAVEN GRAMAJO MD, Ot V58.69 OTH MED,LT,CURRENT USE 07/23/2017 RAVEN GRAMAJO MD Ot V85.44 BODY MASS INDEX 60.0-69.9, ADULT 07/23/2017 RAVEN GRAMAJO MD Ot 272.4 HYPERLIPIDEMIA NEC/NOS 07/23/2017 RAVEN GRAMAJO MD Ot 401.9 HYPERTENSION NOS 07/23/2017 RAVEN GRAMAJO MD Ot 414.9 CHR ISCHEMIC HRT DIS NOS 07/23/2017 RAVEN GRAMAJO MD Ot 428.0 CONGESTIVE HEART FAILURE NOS 07/23/2017 RAVEN GRAMAJO MD Ot 786.50 CHEST PAIN NOS 07/23/2017 FABI SCHMITT APRN Ot 428.0 CONGESTIVE HEART FAILURE NOS 07/23/2017 FABI SCHMITT APRN Ot 496 CHR AIRWAY OBSTRUCT NEC 07/23/2017 RAHUL JUDD MD Ot 427.81 SINOATRIAL NODE DYSFUNCT 07/23/2017 RAHUL JUDD MD Ot V72.63 PRE-PROCEDURAL LABORATORY EXAMINATION 07/23/2017 RAHUL JUDD MD Ot V74.8 SCREEN-BACTERIAL DIS NEC 07/23/2017 GRACE MARIEE MD Ot 715.35 LOC OSTEOARTH NOS-PELVIS 07/23/2017 Ot E78.5 HYPERLIPIDEMIA, UNSPECIFIED 07/23/2017 Ot I10 ESSENTIAL (PRIMARY) HYPERTENSION 07/23/2017 Ot I25.10 ATHSCL HEART DISEASE OF [place] CORONARY 07/23/2017 Ot I50.9 HEART FAILURE, UNSPECIFIED 07/23/2017 Ot R07.9 CHEST PAIN, UNSPECIFIED 07/23/2017 Ot E78.2 MIXED HYPERLIPIDEMIA 07/23/2017 Ot I10 ESSENTIAL (PRIMARY) HYPERTENSION 07/23/2017 Ot I25.10 ATHSCL HEART DISEASE OF [place] CORONARY 07/23/2017 Ot R06.02 SHORTNESS OF BREATH 07/23/2017 SABRINA IGNACIO Ot E78.2 MIXED HYPERLIPIDEMIA 07/23/2017 SABRINA IGNACIO Ot I10 ESSENTIAL (PRIMARY) HYPERTENSION 07/23/2017 SABRINA IGNACIO Ot I25.10 ATHSCL HEART DISEASE OF [place] CORONARY 07/23/2017 SABRINA IGNACIO Ot R06.02 SHORTNESS OF BREATH 07/23/2017 SABRINA IGNACIO Ot E78.5 HYPERLIPIDEMIA, UNSPECIFIED 07/23/2017 SABRINA IGNACIO Ot I07.1 RHEUMATIC TRICUSPID INSUFFICIENCY 07/23/2017 SABRINA IGNACIO Ot I10 ESSENTIAL (PRIMARY) HYPERTENSION 07/23/2017 SABRINA IGNACIO Ot I25.10 ATHSCL HEART DISEASE OF [place] CORONARY 07/23/2017 SABRINA IGNACIO Ot R07.89 OTHER CHEST PAIN 07/23/2017 RAVEN GRAMAJO MD Ot E11.9 TYPE 2 DIABETES MELLITUS WITHOUT COMPLIC 07/23/2017 RAVEN GRAMAJO MD Ot E66.9 OBESITY, UNSPECIFIED 07/23/2017 RAVEN RGAMAJO MD Ot E78.5 HYPERLIPIDEMIA, UNSPECIFIED 07/23/2017 RAVEN GRAMAJO MD Ot I25.10 ATHSCL HEART DISEASE OF [place] CORONARY 07/23/2017 RAVEN GRAMAJO MD Ot I50.9 HEART FAILURE, UNSPECIFIED 07/23/2017 RAVEN GRAMAJO MD Ot I65.29 OCCLUSION AND STENOSIS OF UNSPECIFIED CA 07/23/2017 RAVEN GRAMAJO MD, Ot J44.9 CHRONIC OBSTRUCTIVE PULMONARY DISEASE, U 07/23/2017 RAVEN GRAMAJO MD Ot Z79.82 FPC (CURRENT) USE OF ASPIRIN 07/23/2017 RAVEN GRAMAJO MD Ot Z79.899 OTHER FPC (CURRENT) DRUG THERAPY 07/23/2017 RAVEN GRAMAJO MD Ot Z86.73 PRSNL HX OF TIA (TIA), AND CEREB INFRC W 07/23/2017 RAVEN GRAMAJO MD Ot Z87.891 PERSONAL HISTORY OF NICOTINE DEPENDENCE 07/23/2017 RAVEN GRAMAJO MD Ot Z88.0 ALLERGY STATUS TO PENICILLIN 07/23/2017 RAVEN GRAMAJO MD Ot Z88.1 ALLERGY STATUS TO OTHER ANTIBIOTIC AGENT 07/23/2017 RAVEN GRAMAJO MD Ot Z88.5 ALLERGY STATUS TO NARCOTIC AGENT STATUS 07/24/2017 RAVEN GRAMAJO MD Ot E11.9 TYPE 2 DIABETES MELLITUS WITHOUT COMPLIC 07/24/2017 RAVEN GRAMAJO MD Ot E66.9 OBESITY, UNSPECIFIED 07/24/2017 RAVEN GRAMAJO MD Ot E78.5 HYPERLIPIDEMIA, UNSPECIFIED 07/24/2017 RAVEN GRAMAJO MD Ot I25.10 ATHSCL HEART DISEASE OF [place] CORONARY 07/24/2017 RAVEN GRAMAJO MD Ot I50.9 HEART FAILURE, UNSPECIFIED 07/24/2017 RAVEN GRAMAJO MD Ot I65.29 OCCLUSION AND STENOSIS OF UNSPECIFIED CA 07/24/2017 RAVEN GRAMAJO MD Ot J44.9 CHRONIC OBSTRUCTIVE PULMONARY DISEASE, U 07/24/2017 RAVEN GRAMAJO MD Ot Z79.82 FPC (CURRENT) USE OF ASPIRIN 07/24/2017 RAVEN GRAMAJO MD Ot Z79.899 OTHER STOCK SUPERVISOR (CURRENT) DRUG THERAPY 07/24/2017 RAVEN GRAMAJO MD Ot Z86.73 PRSNL HX OF TIA (TIA), AND CEREB INFRC W 07/24/2017 RAVEN GRAMAJO MD Ot Z87.891 PERSONAL HISTORY OF NICOTINE DEPENDENCE 07/24/2017 RAVEN GRAMAJO MD Ot Z88.0 ALLERGY STATUS TO PENICILLIN 07/24/2017 RAVEN GRAMAJO MD Ot Z88.1 ALLERGY STATUS TO OTHER ANTIBIOTIC AGENT 07/24/2017 RAVEN GRAMAJO MD Ot Z88.5 ALLERGY STATUS TO NARCOTIC AGENT STATUS 08/05/2017 SABRINA IGNACIO Ot E78.5 HYPERLIPIDEMIA, UNSPECIFIED 08/05/2017 SABRINA IGNACIO Ot I07.1 RHEUMATIC TRICUSPID INSUFFICIENCY 08/05/2017 SABRINA IGNACIO Ot I10 ESSENTIAL (PRIMARY) HYPERTENSION 08/05/2017 SABRINA IGNACIO Ot I25.10 ATHSCL HEART DISEASE OF EE[place] CORONARY 08/05/2017 SABRINA IGNACIO Ot R07.89 OTHER CHEST PAIN 06/21/2018 Alena Dodge W 826.0 CLOSED FRACTURE OF ONE OR MORE PHALANGES OF FOOT 06/21/2018 Alena Dodge W 924.01 CONTUSION OF HIP 06/21/2018 Alena Dodge W 924.11 CONTUSION OF KNEE 06/21/2018 Alena Dodge W S70.01XA CONTUSION OF RIGHT HIP, INITIAL ENCOUNTER 06/21/2018 Alena Dodge W S80.01XA CONTUSION OF RIGHT KNEE, INITIAL ENCOUNTER 06/21/2018AugustDodgeAlena soliz W S92.415A NONDISP FX OF PROXIMAL PHALANX OF LEFT GREAT TOE, INIT Procedures There is no data. Results Test [...] Automated erythrocyte mean corpuscular hemoglobin concentration measurement (mass/volume) 32 g/dL 32-36 Automated erythrocyte distribution width ratio 14.1 % 10.0- 14.5 Automated blood platelet count (count/volume) 183 10*3/uL [...] Blood monocytes automated count (number/volume) 0.5 10*3 0.0- 1.0 Automated eosinophil count 0.2 10*3/uL 0.0-0.3 Automated [...] Serum or plasma aspartate aminotransferase measurement (enzymatic activity/volume) 13 U/L 5-34 Serum or plasma alanine aminotransferase measurement (enzymatic activity/volume) 6 U/L 0-55 Serum or plasma protein measurement (mass/volume) 5.8 g/dL 6.4-8.2 Serum or plasma albumin measurement (mass/volume) 3.3 g/dL 3.2-4.5 Magnesium - 12/07/15 18:18 Magnesium 1.9 mg/dL 1.8-2.4 Serum or plasma troponin i.cardiac measurement (mass/volume) - 12/07/15 18:18 Serum or plasma troponin i.cardiac measurement (mass/volume) < ng/mL <0.30 Myoglobin, serum - 12/07/15 18:18 Myoglobin, serum 20.5 ng/mL 10.0-92.0 Serum or plasma troponin i.cardiac measurement (mass/volume) - 12/07/15 20:00 Serum or plasma troponin i.cardiac measurement (mass/volume) < ng/mL <0.30 Automated blood complete blood count (hemogram) [...] Automated erythrocyte mean corpuscular hemoglobin concentration measurement (mass/volume) 32 g/dL 32-36 Automated erythrocyte distribution width ratio 14.5 % 10.0- 14.5 Automated blood platelet count (count/volume) 212 10*3/uL 130-400 Automated blood platelet mean volume measurement 10.1 [foz_us] 7.4-10.4 Complete urinalysis with reflex to culture - 03/04/16 07:36 Urine color determination YELLOW NRG Urine clarity determination CLEAR NRG Urine pH measurement by test strip 5 5-9 Specific gravity of urine by test strip 1.030 1.016-1.022 Urine protein assay by test strip, semi-quantitative [...] sediment leukocyte count by microscopy (number/high power field) [HPF] NRG Bacteria detection in urine sediment [...] Serum or plasma aspartate aminotransferase measurement (enzymatic activity/volume) 12 U/L 5-34 Serum or plasma alanine aminotransferase measurement (enzymatic activity/volume) 7 U/L 0-55 Serum or plasma protein measurement (mass/volume) 6.7 g/dL 6.4-8.2 Serum or plasma albumin measurement (mass/volume) 3.8 g/dL 3.2-4.5 Lipid 1996 panel - 03/04/16 07:36 Serum or plasma triglyceride measurement (mass/volume) 108 mg/dL <150 Serum or plasma cholesterol measurement (mass/volume) 156 mg/dL < 200 Serum or plasma cholesterol in HDL measurement (mass/volume) 57 mg/dL 40-60 Cholesterol in LDL [mass/volume] in serum or plasma by direct assay 85 mg/dL 1-129 Serum or plasma cholesterol in VLDL measurement (mass/volume) 22 mg/dL 5-40 Bacterial urine culture - 03/04/16 07:36 Bacterial urine culture [id number] NRG COLONY COUNT 10,000/ML - 100,000/ML NRG FTX;REPORTABLE SEE COMMENTS NRG URINE CULTURE RESULTS SUGGEST RECOLLECTION NRG Methicillin resistant Staphylococcus aureus (MRSA) screening culture - 03/04/16 07:36 Methicillin resistant Staphylococcus aureus (MRSA) screening [...] gravity of urine by test strip 1.015 1.016-1.022 Urine protein assay by test strip, semi-quantitative [...] sediment leukocyte count by microscopy (number/high power field) [HPF] NRG Bacteria detection in urine sediment [...] culture - 09/14/16 18:55 Bacterial urine culture [id number] NRG COLONY COUNT 10,000/ML - 100,000/ML NRG FTX;REPORTABLE SENSITIVITY REPORTED 09/16/16 7:15 NRG URINE CULTURE RESULTS PLUS NRG Bacterial susceptibility panel - 09/14/16 18:55 Gentamicin susceptibility test by minimum inhibitory concentration <= NRG Trimethoprim/sulfamethoxazole susceptibility test by minimum inhibitoryconcentration <= NRG Ampicillin susceptibility test by minimum inhibitory concentration <= NRG Tobramycin susceptibility test by minimum inhibitory concentration <= NRG Cefazolin susceptibility test by minimum inhibitory concentration <= NRG Ceftriaxone susceptibility test by minimum inhibitory concentration <= NRG Ampicillin/sulbactam susceptibility test by minimum inhibitory concentration <= NRG Piperacillin/tazobactam susceptibility test by minimum inhibitory concentration <= NRG Ciprofloxacin susceptibility test by minimum inhibitory concentration <= NRG Meropenem susceptibility test by minimum inhibitory concentration <= NRG Nitrofurantoin susceptibility test by minimum inhibitory concentration <= NRG Aztreonam susceptibility test by minimum inhibitory concentration <= NRG Extended spectrum beta lactamase (ESBL) producing [...] Automated erythrocyte mean corpuscular hemoglobin concentration measurement (mass/volume) 33 g/dL 32-36 Automated erythrocyte distribution width ratio 14.2 % 10.0- 14.5 Automated blood platelet count (count/volume) 181 10*3/uL [...] Blood monocytes automated count (number/volume) 0.9 10*3 0.0- 1.0 Automated eosinophil count 0.1 10*3/uL 0.0-0.3 Automated [...] Serum or plasma aspartate aminotransferase measurement (enzymatic activity/volume) 11 U/L 5-34 Serum or plasma alanine aminotransferase measurement (enzymatic activity/volume) 12 U/L 0-55 Serum or plasma protein measurement (mass/volume) 7.0 g/dL 6.4-8.2 Serum or plasma albumin measurement (mass/volume) 3.8 g/dL 3.2-4.5 Magnesium - 09/14/16 19:10 Magnesium 1.8 mg/dL 1.8-2.4 Serum or plasma troponin i.cardiac measurement (mass/volume) - 09/14/16 19:10 Serum or plasma troponin i.cardiac measurement (mass/volume) < ng/mL <0.30 Lipase - 09/14/16 19:10 Lipase 17 U/L 8-78 Serum or plasma lithium measurement (moles/volume) - 09/14/16 19:10 BNP level 94.6 pg/mL <100.0 Capillary blood glucose measurement by glucometer (mass/volume) - 09/14/16 22:34 Capillary blood glucose measurement by glucometer (mass/volume) [...] glucose measurement by glucometer (mass/volume) - 09/15/16 10:27 Capillary blood glucose measurement by glucometer (mass/volume) 352 mg/dL 70-110 Capillary blood glucose measurement by glucometer (mass/volume) - 09/15/16 16:38 Capillary blood glucose measurement by glucometer (mass/volume) 151 mg/dL 70-110 Capillary blood glucose measurement by glucometer (mass/volume) - 09/15/16 20:30 Capillary blood glucose measurement by glucometer (mass/volume) [...] Automated erythrocyte mean corpuscular hemoglobin concentration measurement (mass/volume) 33 g/dL 32-36 Automated erythrocyte distribution width ratio 14.4 % 10.0- 14.5 Automated blood platelet count (count/volume) 171 10*3/uL [...] Blood monocytes automated count (number/volume) 0.5 10*3 0.0- 1.0 Automated eosinophil count 0.2 10*3/uL 0.0-0.3 Automated [...] Serum or plasma aspartate aminotransferase measurement (enzymatic activity/volume) 14 U/L 5-34 Serum or plasma alanine aminotransferase measurement (enzymatic activity/volume) 11 U/L 0-55 Serum or plasma protein measurement (mass/volume) 6.5 g/dL 6.4-8.2 Serum or plasma albumin measurement (mass/volume) 3.5 g/dL 3.2-4.5 Capillary blood glucose measurement by glucometer (mass/volume) - 09/16/16 11:15 Capillary blood glucose measurement by glucometer (mass/volume) [...] 5-8.5 Urine-Protein Negative Negative Urine-RBC Rare/HPF Urine-Specific [place] 1.020 1.000-1.030 Urine-WBC Nothing Seen on Microscopic Urobilinogen 0.2 E.U./dL 0.2-1.0 Urine Culture - 09/18/16 17:21 FINAL CULTURE RESULTS 10,000-20,000 Gram Positive Mixed Maribel [id number] Skin Contaminant MEDIA PLATED Setup at 17:25 [...] 5-8.5 Urine-Protein Negative Negative Urine-RBC 10-20/HPF Urine-Specific [place] 1.025 1.000-1.030 Urine-WBC Rare/HPF Urobilinogen 0.2 E.U./dL [...] Setup at 14:33 on 03/22/2017 CULTURE SOURCE [id number]\ Lactic Acid - 03/22/17 13:15 Lactic Acid 9.7 mg/dL 4.5-19.8 Blood Culture - 03/22/17 13:35 PRELIM CULTURE RESULTS Blood Culture Negative, No Growth Day 1 FINAL CULTURE RESULTS Blood Culture Negative, No Growth Day 5 MEDIA PLATED Setup at 19:49 on 03/[id number] [employer] Position C49 CULTURE SOURCE 1 Blood Culture - 03/22/17 13:45 PRELIM CULTURE RESULTS Blood Culture Negative, No Growth Day 1 FINAL CULTURE RESULTS Blood Culture Negative, No Growth Day 5 MEDIA PLATED Setup at 19:48 on 03/[id number] [employer] Position c44 CULTURE SOURCE lt [...] Automated erythrocyte mean corpuscular hemoglobin concentration measurement (mass/volume) 32 g/dL 32-36 Automated erythrocyte distribution width ratio 14.2 % 10.0- 14.5 Automated blood platelet count (count/volume) 156 10*3/uL [...] Serum or plasma aspartate aminotransferase measurement (enzymatic activity/volume) 13 U/L 5-34 Serum or plasma alanine aminotransferase measurement (enzymatic activity/volume) 8 U/L 0-55 Serum or plasma protein measurement (mass/volume) 6.3 g/dL 6.4-8.2 Serum or plasma albumin measurement (mass/volume) 3.4 g/dL 3.2-4.5 Magnesium - 03/22/17 16:17 Magnesium 1.3 mg/dL 1.8-2.4 Serum or plasma troponin i.cardiac measurement (mass/volume) - 03/22/17 16:17 Serum or plasma troponin i.cardiac measurement (mass/volume) < ng/mL <0.30 Serum or plasma lithium measurement (moles/volume) - 03/22/17 16:17 BNP level 261.5 pg/mL <100.0 Capillary blood glucose measurement by glucometer (mass/volume) - 03/22/17 20:56 Capillary blood glucose measurement by glucometer (mass/volume) [...] Automated erythrocyte mean corpuscular hemoglobin concentration measurement (mass/volume) 32 g/dL 32-36 Automated erythrocyte distribution width ratio 14.4 % 10.0- 14.5 Automated blood platelet count (count/volume) 161 10*3/uL [...] Blood monocytes automated count (number/volume) 0.5 10*3 0.0- 1.0 Automated eosinophil count 0.1 10*3/uL 0.0-0.3 Automated [...] Serum or plasma aspartate aminotransferase measurement (enzymatic activity/volume) 18 U/L 5-34 Serum or plasma alanine aminotransferase measurement (enzymatic activity/volume) < U/L 0-55 Serum or plasma protein [...] or plasma troponin i.cardiac measurement (mass/volume) < ng/mL <0.30 Serum or plasma lithium measurement (moles/volume) - 03/23/17 04:50 BNP level 129.6 pg/mL <100.0 Capillary blood glucose measurement by glucometer (mass/volume) - 03/23/17 11:18 Capillary blood glucose measurement by glucometer (mass/volume) 347 mg/dL 70-110 Automated blood complete blood count (hemogram) panel - 07/23/17 07:24 Blood leukocytes automated count (number/volume) 6.0 10*3/uL 4.3-11.0 Blood erythrocytes automated count (number/volume) 4.49 10*6/uL 4.35-5.85 Venous blood hemoglobin measurement (mass/volume) 12.1 g/dL 11.5-16.0 Blood hematocrit (volume fraction) 38 % 35-52 Automated erythrocyte mean corpuscular volume 84 [foz_us] 80-99 Automated erythrocyte mean corpuscular hemoglobin (mass per erythrocyte) 27 pg 25-34 Automated erythrocyte mean corpuscular hemoglobin concentration measurement (mass/volume) 32 g/dL 32-36 Automated erythrocyte distribution width ratio 13.6 % 10.0- 14.5 Automated blood platelet count (count/volume) 183 10*3/uL 130-400 Automated blood platelet mean volume measurement 10.3 [foz_us] 7.4-10.4 Complete urinalysis with reflex to culture - 07/23/17 07:24 Urine color determination YELLOW NRG Urine clarity determination SLIGHTLY CLOUDY NRG Urine pH measurement by test strip 6.5 5-9 Specific gravity of urine by test strip 1.020 1.016-1.022 Urine protein assay by test strip, semi-quantitative 1+ NEGATIVE Urine glucose detection by automated test strip 4+ NEGATIVE Erythrocytes detection in urine sediment by light microscopy 3+ NEGATIVE Urine ketones detection by automated test strip NEGATIVE NEGATIVE Urine nitrite detection by test strip NEGATIVE NEGATIVE Urine total bilirubin detection by test strip NEGATIVE NEGATIVE Urine urobilinogen measurement by automated test strip (mass/volume) 4 mg/dL NORMAL Urine leukocyte esterase detection by dipstick 1+ NEGATIVE Automated urine sediment erythrocyte count by microscopy (number/high power field) [HPF] NRG Automated urine sediment leukocyte count by microscopy (number/high power field) [HPF] NRG Bacteria detection in urine sediment by light microscopy FEW NRG Squamous epithelial cells detection in urine sediment by light microscopy 10-25 NRG Crystals detection in urine sediment by light microscopy NONE NRG Casts detection in urine sediment by light microscopy NONE NRG Mucus detection in urine sediment by light microscopy SMALL NRG Complete urinalysis with reflex to culture NO NRG PT panel in platelet poor plasma by coagulation assay - 07/23/17 07:24 Prothrombin time (PT) in platelet poor plasma by coagulation assay 14.1 s 12.2-14.7 INR in platelet poor plasma or blood by coagulation assay 1.1 0.8-1.4 Activated partial thromboplastin time (aPTT) in platelet poor plasma bycoagulation assay - 07/23/17 07:24 Activated partial thromboplastin time (aPTT) in platelet poor plasma bycoagulation assay 31 s 24-35 Comprehensive metabolic panel - 07/23/17 07:24 Serum or plasma sodium measurement (moles/volume) 139 mmol/L 135-145 Serum or plasma potassium measurement (moles/volume) 3.9 mmol/L 3.6-5.0 Serum or plasma chloride measurement (moles/volume) 101 mmol/L 98-107 Carbon dioxide 27 mmol/L 21-32 Serum or plasma anion gap determination (moles/volume) 11 mmol/L 5-14 Serum or plasma urea nitrogen measurement (mass/volume) 10 mg/dL 7-18 Serum or plasma creatinine measurement (mass/volume) 0.73 mg/dL 0.60-1.30 Serum or plasma urea nitrogen/creatinine mass ratio 14 NRG Serum or plasma creatinine measurement with calculation of estimated glomerular filtration rate > NRG Serum or plasma glucose measurement (mass/volume) 295 mg/dL 70-105 Serum or plasma calcium measurement (mass/volume) 8.9 mg/dL 8.5-10.1 Serum or plasma total bilirubin measurement (mass/volume) 0.8 mg/dL 0.1-1.0 Serum or plasma alkaline phosphatase measurement (enzymatic activity/volume) 89 U/L 40-136 Serum or plasma aspartate aminotransferase measurement (enzymatic activity/volume) 12 U/L 5-34 Serum or plasma alanine aminotransferase measurement (enzymatic activity/volume) 8 U/L 0-55 Serum or plasma protein measurement (mass/volume) 6.5 g/dL 6.4-8.2 Serum or plasma albumin measurement (mass/volume) 3.6 g/dL 3.2-4.5 Lipid 1996 panel - 07/23/17 07:24 Serum or plasma triglyceride measurement (mass/volume) 76 mg/dL <150 Serum or plasma cholesterol measurement (mass/volume) 141 mg/dL < 200 Serum or plasma cholesterol in HDL measurement (mass/volume) 44 mg/dL 40-60 Cholesterol in LDL [mass/volume] in serum or plasma by direct assay 86 mg/dL 1-129 Serum or plasma cholesterol in VLDL measurement (mass/volume) 15 mg/dL 5-40 Methicillin resistant Staphylococcus aureus (MRSA) screening culture - 07/23/17 07:24 Methicillin resistant Staphylococcus aureus (MRSA) screening culture NEG NRG Thyroid Stimulating Hormone - 08/12/17 17:20 TSH 0.09 mIU/mL 0.32-5.00 Urinalysis - 08/19/18 17:41 Icotest N/A Negative Urine Volume Urine Volume Sufficient (10mL) Urine Yeast No Yeast present Urine-Appearance Clear Clear Urine-Bacteria Negative Urine-Bilirubin Negative Negative Urine-Blood 1+ Negative Urine-Color Yellow Colorless-Lt. Yellow Urine-Epithelial Cells 0-5/HPF Urine-Glucose Negative Negative Urine-Ketones Negative Negative Urine-Leukocytes 1+ Negative Urine-Mucus 1+ Urine-Nitrite Negative Negative Urine-Other Urine Saved if Culture Needed (48hrs from time of collection) Urine-pH 7.0 5-8.5 Urine-Protein Negative Negative Urine-RBC Negative Urine-Specific [place] 1.010 1.000-1.030 Urine-WBC Rare/HPF Urobilinogen 0.2 E.U./dL 0.2-1.0 Urine Culture - 08/19/18 17:41 PRELIM CULTURE RESULTS 20,000-50,000 Gram Positive Mixed Maribel FINAL CULTURE RESULTS 20,000-50,000 Gram Positive Mixed Maribel [id number] Skin Contaminant [id number] Further Workup done MEDIA PLATED Setup at 06:44 on 08/21/2018 CULTURE SOURCE void Comprehensive Metabolic Panel - 09/22/18 10:38 Albumin 3.6 g/dL 3.6-5.1 ALP 109 U/L 35-130 ALT 10 U/L 6-45 Anion Gap 14 6-14 AST 11 U/L 2-40 BUN 15 mg/dL 5-25 Calcium 9.2 mg/dL 8.3-10.4 Chloride 99 mmol/L 95-114 CO2 25 mEq/L 22-33 Creat 0.83 mg/dL 0.50-1.50 eGFR 69 mL/min/1.73m2 >59 Globulin 2.5 g/dL 2.3-3.5 Glucose 485 mg/dL 70-110 Osmo 297 280-295 Potassium 4.1 mmol/L 3.5-5.3 Sodium 134 mmol/L 134-148 TBil 0.7 mg/dL 0.2-1.2 TP 6.1 g/dL 6.0-8.3 Encounters ACCT No. Visit Date/Time Discharge Status Pt. Type Provider Facility Loc./Unit Complaint [id number] 09/22/2018 13:23:00 09/22/2018 23:59:00 DIS Outpatient Philip Thapa [id number] 08/19/2018 17:32:00 08/19/2018 23:59:00 DIS Outpatient Philip Thapa [id number] 06/21/2018 18:00:00 06/21/2018 20:15:00 [id number]/12/2017 17:18:00 08/12/2017 23:59:00 DIS Outpatient Philip Thapa [id number] 03/21/2017 10:23:00 03/22/2017 15:25:00 DIS Inpatient Philip Thapa [facility]G [id number] 03/19/2017 16:54:00 03/19/2017 23:59:00 DIS Outpatient Ike Philip [id number] 11/01/2016 12:37:00 11/01/2016 12:51:00 DIS Outpatient Ike Philip [id number] 09/18/2016 17:20:00 09/18/2016 23:59:00 DIS Outpatient Philip Thapa [id number] 06/11/2016 17:05:00 06/11/2016 19:52:00 DIS Outpatient Davey [facility] ER [id number] 06/04/2016 12:36:00 06/04/2016 23:59:00 DIS Outpatient Philip Thapa [id number] 11/01/2016 12:04:50 Document Registration [id number] 06/11/2016 18:24:52 Document Registration [id number] 07/23/2017 06:44:00 07/23/2017 14:00:00 DIS Outpatient RAVEN GRAMAJO MD [facility] CATH LEFT HEART CATH [id number] 07/09/2017 10:21:00 07/09/2017 23:59:59 CLS Outpatient SABRINA IGNACIO [facility] CARD R07.89 CHEST PAIN [id number] 06/24/2017 09:53:00 06/24/2017 23:59:59 CLS Preadmit SABRINA IGNACIO [facility] CARD R07.89 CHEST PAIN [id number] 03/22/2017 15:57:00 03/23/2017 14:42:00 DIS Inpatient RAVEN GRAMAJO MD [facility] ICU HYPERTENSION [id number] 10/24/2016 21:05:00 10/25/2016 06:48:00 DIS Outpatient PHILIP THAPA MD [facility] SLEEP RY,SNORING [id number] 09/14/2016 22:32:00 09/16/2016 13:20:00 DIS Inpatient YOVANY KEENE MD [facility] 4TH DIZZY;ABD PAIN,UTI,UNCONTROLLED IDDM [id number] 03/04/2016 06:50:00 03/04/2016 13:34:00 DIS Outpatient RAVEN GRAMAJO MD [facility] CATH ABN STRESS TEST,CP,CAD,HTN [id number] 02/28/2016 07:05:00 02/28/2016 23:59:59 CLS Outpatient SABRINA IGNACIO [facility] CARD ESSENTIAL HTN,HLP,SOB [id number] 12/07/2015 17:32:00 12/07/2015 21:32:00 DIS Emergency BEBE JACKMAN MD [facility] ER L SIDED WEAKNESS [id number] 05/28/2015 13:55:00 05/28/2015 16:37:00 DIS Emergency HECTOR ARAIZA APRN [facility] ER FALL [id number] 11/24/2014 17:09:00 11/24/2014 21:21:00 DIS Emergency TOMMIE GUERIN DO [facility] ER CP [id number] 11/09/2014 18:20:00 11/10/2014 14:10:00 DIS Inpatient CASIMIRO ASCENCIO MD [facility] SURGICAL GENERALIZED WEAKNESS [id number] 10/28/2014 08:40:00 10/28/2014 09:55:00 DIS Outpatient GRACE MARIEE MD [facility] CARD HIP OSTEOARTHRITIS [id number] 10/27/2014 16:02:00 10/27/2014 23:59:59 CLS Outpatient GRACE MARIEE MD [facility] RAD CHRONIC L HIP PAIN [id number] 10/07/2014 06:00:00 10/08/2014 10:50:00 DIS Outpatient RAHUL JUDD MD [facility] SDC SICK SINUS SYNDROME; SYNCOPE [id number] 10/03/2014 15:21:00 10/03/2014 23:59:59 CLS Outpatient RAHUL JUDD MD [facility] PREOP SICK SINUS SYNDROME; SYNCOPE [id number] 09/29/2014 15:00:00 09/29/2014 23:59:59 CLS Preadmit PASTORA BUITRAGO MD [facility] PULM COPD CHF [id number] 09/26/2014 13:00:00 09/26/2014 23:59:59 CLS Outpatient FABI SCHMITT APRN [facility] RT COPD,CHF [id number] 09/15/2014 11:29:00 09/15/2014 23:59:59 CLS Outpatient RAVEN GRAMAJO MD [facility] CARD CP,HTN,CHF [id number] 08/28/2014 20:50:00 08/30/2014 18:00:00 DIS Inpatient COOPER FULTON DO [facility] CSD CHEST PAIN;EXACERBATION OF L SIDED WEAKNESS;UTI [id number] 08/03/2014 23:08:00 08/05/2014 12:21:00 DIS Inpatient RAVEN GRAMAJO MD [facility] CSD BRADYCARDIA;AMS;NEAR SYNCOPE [id number] 05/18/2014 08:37:00 05/18/2014 23:59:59 CLS Outpatient RAVEN GRAMAJO MD [facility] CATH CP,ABNORMAL STRESS, CAD,HTN,IDDM,HLP [id number] 05/16/2014 07:58:00 05/16/2014 23:59:59 CLS Outpatient RAVEN GRAMAJO MD [facility] CARD CAD,CVA,HTN [id number] 05/12/2014 11:08:00 05/12/2014 23:59:59 CLS Outpatient RAVEN GRAMAJO MD [facility] CARD CAD,CVA,HTN [id number] 03/24/2013 06:46:00 03/25/2013 09:39:00 DIS Outpatient RAVEN GRAMAJO MD [facility] CATH ABN STRES,HTN,CHF,OBESITY [id number] 03/17/2013 07:49:00 03/17/2013 23:59:59 CLS Outpatient RAVEN GRAMAJO MD [facility] RAD SOB,HTN,CVA,CHF [id number] 03/10/2013 07:23:00 03/10/2013 10:30:00 DIS Outpatient RAVEN GRAMAJO MD [facility] CATH CVA,CHF,COPD [id number] 02/19/2013 10:27:00 02/21/2013 15:25:00 DIS Inpatient RAMON FUNES MD [facility] 4TH CVA W/L SIDE WEAKNESS HTN DDM [id number] 01/23/2013 13:07:00 01/25/2013 14:00:00 DIS Inpatient RUFINO TURPIN BONNIE [facility] 4TH TIA POSSIBLE CVA [id number] 01/04/2013 11:02:00 01/04/2013 16:25:00 DIS Emergency JAREK DOAMANDA K [facility] ER BACK PAIN [id number] 02/14/2016 07:55:00 Document Registration [id number] 01/23/2015 08:08:00 Document Registration [id number] 04/28/2014 10:11:00 Document Registration [id number] 05/20/2012 07:54:00 Document Registration [id number] 05/15/2012 08:05:00 Document Registration [id number] 04/29/2012 06:59:00 Document Registration [id number] 04/28/2012 14:36:00 Document Registration [id number] 03/27/2012 10:19:00 Document Registration [id number] 03/25/2012 07:21:00 Document Registration [id number] 12/19/2011 10:55:00 Document Registration [id number] 06/17/2011 08:16:00 Document Registration [id number] 09/05/2010 05:37:00 Document Registration [id number] 08/31/2010 09:56:00 Document Registration [id number] 07/09/2010 05:40:00 Document Registration [id number] 07/05/2010 07:52:00 Document Registration [id number] 10/04/2009 15:34:00 Document Registration [id number] 10/04/2009 05:40:00 Document Registration [id number] 09/28/2009 09:51:00 Document Registration [id number] 03/02/2009 14:53:00 Document Registration
[2018-09-24 19:14] LABS: BILIRUBIN,URINE NEGATIVE (NEGATIVE); CLARITY,URINE CLEAR; COLOR,URINE YELLOW; GLUCOSE, URINE (UA) 4+ (NEGATIVE); KETONES,URINE NEGATIVE (NEGATIVE); LEUKOCYTE ESTERASE ,URINE NEGATIVE (NEGATIVE); NITRITE,URINE NEGATIVE (NEGATIVE); PH,URINE 6 (5-9); PROTEIN,URINE NEGATIVE (NEGATIVE); UROBILINOGEN,URINE NORMAL (NORMAL)
[2018-09-24 19:22] LABS: BACTERIA,URINE TRACE /HPF; WBC,URINE RARE /HPF
[2018-09-24 19:23] LABS: SQUAMOUS EPITHELIAL CELL,UR 0-2 /HPF
[2018-09-24 19:28] LABS: AMPHETAMINE SCREEN, URINE POSITIVE (NEGATIVE); BARBITURATE SCREEN URINE NEGATIVE (NEGATIVE); BENZODIAZEPINES SCREEN URINE NEGATIVE (NEGATIVE); CANNABINOID SCREEN, URINE NEGATIVE (NEGATIVE); COCAINE SCREEN URINE NEGATIVE (NEGATIVE); METHADONE STAT NEGATIVE (NEGATIVE); METHAMPHETAMINE SCREEN URINE S NEGATIVE (NEGATIVE); OPIATE SCREEN URINE NEGATIVE (NEGATIVE); OXYCODONE STAT POSITIVE (NEGATIVE); PROPOXYPHENE STAT NEGATIVE (NEGATIVE); TRICYCLIC ANTIDEPRESSANTS SCRE NEGATIVE (NEGATIVE)
[2018-09-24 19:30] LABS: BASOPHILS % (AUTO) 0 % (0-10); EOSINOPHILS # (AUTO) 0.1 10^3/uL (0.0-0.3); EOSINOPHILS % (AUTO) 2 % (0-10); HEMATOCRIT 42 % (35-52); HEMOGLOBIN 13.8 G/DL (11.5-16.0); LYMPHOCYTES # (AUTO) 1.5 X 10^3 (1.0-4.0); LYMPHOCYTES % (AUTO) 20 % (12-44); MEAN CORPUSCULAR HEMOGLOBIN 27 PG (25-34); MEAN CORPUSCULAR HGB CONC 33 G/DL (32-36); MEAN CORPUSCULAR VOLUME 82 FL (80-99); MEAN PLATELET VOLUME 10.7 FL (7.4-10.4); MONOCYTES # (AUTO) 0.6 X 10^3 (0.0-1.0); MONOCYTES % (AUTO) 8 % (0-12); NEUTROPHILS # (AUTO) 5.3 X 10^3 (1.8-7.8); NEUTROPHILS % (AUTO) 70 % (42-75); PLATELET COUNT 185 10^3/uL (130-400); RED CELL DISTRIBUTION WIDTH 14.1 % (10.0-14.5); WHITE BLOOD COUNT 7.6 10^3/uL (4.3-11.0)
--- NOTE | 2018-09-24 19:37 | ED General ---
General Chief Complaint: General Problems/Pain Stated Complaint: DIZZY Nursing Triage Note: THE PT STATES THAT SHE IS NOT FEELING WELL. THE PT IS ASSISTED TO THE ROOM BY WHEELCHAIR. NO DISTRESS IS SEN ON ARRIVAL. Nursing Sepsis Screen: No Definite Risk Source of Information: Patient History of Present Illness Date Seen by Provider: Sep 24, 2018 Time Seen by Provider: 18:40 Initial Comments PT ARRIVES VIA POV--WANTS WHEELCHAIR ON ARRIVAL MULTIPLE COMPLAINTS STATES SHE HAD FELT DIZZY AND SHAKEY AND HER LEGS FEEL WEAK SINCE WAKING YESTERDAY AM ( FRIDAY -09/23/18) HAS HAD PRIOR CVA IN 2011 WITH MILD RESIDUAL LEFT SIDE WEAKNESS AND DECREASED SENSATION ON RIGHT, BUT IS ABLE TO WALK AND USE LEFT SIDE, WITH ONLY SLIGHT DECREASED SENSATION ON LEFT STATES SHE HAS BEEN ON HOSPICE FOR THE LAST YEAR FOR CHRONIC PAIN COMPLAINTS AND "MY HEART"--STATES SHE HAS CHRONIC ATRIAL FIBRILLATION--STATES HOSPICE WAS REVOKED ON Friday09/22/18 "BECAUSE I COULD GET AROUND PRETTY GOOD" SAW HER PCP, DR. THAPA, YESTERDAY FOR ROUTINE EXAM AND DISCUSSED THESE SYMPTOMS, AND WAS STARTED ON ELIQUIS AND JARDIANCE FOR CHRONIC ATRIAL FIBRILLATION, AND CHRONIC DIABETES PT NEVER CHECKS BLOOD GLUCOSE--"LOST GLUCOMETER" AND HAS NOT ATTEMPTED TO GET A NEW ONE. NO CHEST PAIN OR SHORTNESS OF BREATH, BUT STATES "IT ALEXIS DOESN'T FEEL QUITE RIGHT" BUT CANNOT DESCRIBE SYMPTOMS NO HEADACHE NO VISION CHANGES STATES BOTH LEGS FEEL WEAK. AND SHE FEELS A LITTLE MORE NUMB AND A LITTLE MORE WEAK ON HER LEFT SIDE SINCE WAKING YESTERDAY AM ALSO C/O CHRONIC GENERALIZED PAIN PT HAS HISTORY OF ALL THESE SAME ISSUES AND IS NOT ANYTHING DIFFERENT THAN WHAT SHE HAS HAD IN THE PAST. PT HAS HAD CARDIAC STENT X 1 HAD CARDIAC CATH 07/30/17 AND HAD PATENT STENT AND NON-OCCLUSIVE DISEASE--NO INTERVENTION DONE AT THAT TIME HAS NOT SEEN DR. GRAMAJO SINCE THEN. PT HAS PACEMAKER IN PLACE FOR CHRONIC ATRIAL FIB/SVT AND SICK SINUS SYNDROME/2ND AND 3RD DEGREE HEART BLOCK ALSO HAS HISTORY OF CHF--NO INCREASE IN CHRONIC LEG SWELLING PCP: DR. THAPA [facility] GENERAL MAINTENANCE ENGINEER: DR. GRAMAJO Allergies and Home Medications Allergies Coded Allergies: morphine (Unverified Allergy, Mild, HIVES, ITCHING; TAKES LORTAB AT HOME, 12/07/15) Fish Containing Products (Unverified Allergy, Unknown, 12/07/15) FROM UNCODED ALLERGIES "SEAFOOD" Penicillins (Unverified Allergy, Unknown, 12/07/15) erythromycin base (Verified Allergy, Unknown, 12/07/15) shellfish derived (Unverified Allergy, Unknown, 12/07/15) FROM UNCODED ALLERGIES "SEAFOOD" Uncoded Allergies: SILK TAPE (Allergy, Unknown, 02/26/06) Home Medications Albuterol Sulfate 8.5 Gm Aer.w.adap, 2 PUFF INH Q4H PRN for SHORTNESS OF BREATH, (Reported) Aspirin 81 Mg Tablet.dr, 81 MG PO HS, (Reported) Budesonide/Formoterol Fumarate 1 Inhaler Aero, 2 PUFF INH BID, (Reported) Clopidogrel Bisulfate 75 Mg Tablet, 75 MG PO DAILY, (Reported) Fentanyl 1 Each Patch.td72, 12 MCG TD Q72H Prescribed by: YOVANY KEENE on 09/16/16 0856 Fluticasone Propionate 16 Gm Naspr, 2 SPRAY NA HS PRN for CONGESTION, (Reported) Furosemide 40 Mg Tablet, 40 MG PO DAILY PRN for SWELLING, (Reported) Gabapentin 300 Mg Capsule, 300 MG PO TID, (Reported) Insulin Aspart 100 Unit/1 Ml Insuln.pen, 25 UNITS SQ AC, (Reported) PATIENT DOSES MEAL TIME INSULIN BY BLOOD SUGAR LEVELS BEFORE MEALS. Linaclotide 290 Mcg Capsule, 290 MCG PO DAILY PRN for IBS, (Reported) Lisinopril 10 Mg Tablet, 10 MG PO DAILY, (Reported) Metoprolol Tartrate 50 Mg Tablet, 50 MG PO BID, (Reported) Mirabegron 50 Mg Tab.er.24h, 50 MG PO DAILY, (Reported) Montelukast Sodium 10 Mg Tablet, 10 MG PO DAILY, (Reported) Oxybutynin Chloride 5 Mg Tablet, 5 MG PO BID, (Reported) Oxycodone HCl/Acetaminophen 1 Each Tablet, 1 EACH PO TID, (Reported) Pravastatin Sodium 10 Mg Tablet, 10 MG PO HS, (Reported) Quetiapine Fumarate 50 Mg Tablet, 50 MG PO HS, (Reported) Roflumilast 500 Mcg Tablet, 500 MCG PO DAILY, (Reported) Sertraline HCl 50 Mg Tablet, 50 MG PO DAILY, (Reported) Solifenacin Succinate 5 Mg Tablet, 5 MG PO BID, (Reported) Sucralfate 1 Gm Tablet, 1 GM PO ACHS, (Reported) Tizanidine HCl 4 Mg Tablet, 4 MG PO TID, (Reported) Patient Home Medication List Home Medication List Reviewed: Yes Review of Systems Review of Systems Constitutional: see HPI, dizziness; No fever Respiratory: no symptoms reported Cardiovascular: see HPI Gastrointestinal: no symptoms reported Genitourinary: frequency Musculoskeletal: see HPI Skin: no symptoms reported Psychiatric/Neurological: See HPI (DIZZINESS); Denies Headache Hematologic/Lymphatic: No Symptoms Reported Immunological/Allergic: no symptoms reported Past Bmoeigw-Vptajv-Hcpmpi Hx Patient Social History Alcohol Use: Denies Use Recreational Drug Use: No Smoking Status: Former Smoker Type Used: Cigarettes Former Smoker, Quit: Jul 23, 1985 Recent Foreign Travel: No Contact w/Someone Who Travel: No Recent Infectious Disease Expo: No Recent Hopitalizations: No Physical Abuse: No Sexual Abuse: No Mistreated: No Fear: No Immunizations Up To Date Tetanus Booster (TDap): Less than 5yrs PED Vaccines UTD: No Date of Pneumonia Vaccine: Jan 25, 2013 Date of Influenza Vaccine: Feb 06, 2017 Seasonal Allergies Seasonal Allergies: No Past Medical History Surgeries: Yes (LEFT FOOT/BONE SPUR; CARDIAC CATHS--STENT X 1 TO RCA, LAST CATH 07/30/17--PATENT STENT, NON-OCCLUSIVE DISEASE, NO INTERVENTION;) Abdominal, Appendectomy, Cardiac, Section, Coronary Stent, Gallbladder, 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, Orthopedic, Pacemaker Respiratory: Yes Asthma, Sleep Apnea, COPD Currently Using CPAP: Yes Currently Using BIPAP: No Cardiac: Yes (CHF, Pacemaker related to Bradycardia/SICK SINUS SYNDROME WITH 2ND AND 3RD HEART BLOCK; CARDIAC STENT X 1; CARDIAC CATH 07/30/17--PATENT STENT/NON-OCCLUSIVE DISEASE) Atrial Fibrillation, Cardiomyopathy, Coronary Artery Disease, Hypertension Neurological: Yes (LEFT SIDE AFFECTED, MINIMAL RESIDUAL WEAKNESS/PARESTHESIAS) Stroke, TIA Reproductive Disorders: Yes Female Reproductive Disorders: Menstrual Problems 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, Menopausal Sexually Transmitted Disease: No HIV/AIDS: No Genitourinary: Yes (Overactive bladder, weak bladder, weak stream) Bladder Infection, Kidney Stones, UTI-Chronic Gastrointestinal: Yes (Esophageal spams ) Gastroesophageal Reflux, Chronic Constipation, Diverticulosis, Hiatal Hernia, Irritable Bowel Musculoskeletal: Yes Degenerate Disk Disease, Arthritis, Fibromyalgia, Chronic Back Pain Endocrine: Yes (MORBID OBESITY) Diabetes, Insulin dep HEENT: Yes Cataract, Macular Degeneration Loss of Vision: Denies Hearing Impairment: Denies Cancer: No Psychosocial: Yes Anxiety, Depression Integumentary: No Blood Disorders: No Adverse Reaction/Blood Tranf: No Family Medical History Alcoholism 03 FATHER, , Onset:15's - 20 09 BROTHER, Onset:20's - 25 Cataract 03 FATHER, 09 SISTER Dementia 03 FATHER, Family history: Alzheimer's disease 03 FATHER, Family history: Arthritis 03 FATHER, 03 MOTHER 09 BROTHER 09 SISTER Family history: Asthma 03 MOTHER 09 BROTHER 09 SISTER Family history: Cardiovascular disease Family history: Diabetes mellitus 03 MOTHER 09 SISTER Family history: Hypertension 03 FATHER, 03 MOTHER 09 BROTHER 09 SISTER Heart disease 03 FATHER, 03 MOTHER History of - anemia 09 SISTER History of - respiratory disease 03 FATHER, ( OF PNEUMONIA) 09 BROTHER 09 SISTER History of drug abuse 09 BROTHER Hypercholesterolemia 09 BROTHER 09 SISTER Infertile 09 SISTER Kidney disease 03 FATHER, (KIDNEY STONES) Myocardial infarction 03 FATHER, Parkinson's disease 03 FATHER, Psychotic disorder 09 BROTHER (BIPOLAR) 09 SISTER (BIPOLAR) Stroke 03 FATHER, 03 MOTHER No Family History of: Abdominal aortic aneurysm [place]'s disease Aphasia Cancer Cancer of colon Congenital heart disease Congestive heart failure Cystic fibrosis Dysphagia Family history: Breast disease Family history: Coronary thrombosis Family history: Gastrointestinal disease Family history: Glaucoma Family history: Thyroid disorder Human immunodeficiency virus (HIV) seropositivity Malignant neoplasm of lung Prostate cancer Seizure disorder Tuberculosis Visual impairment Physical Exam Vital Signs Vital Signs - First Documented 09/24/18 18:45 Temp 97.6 Pulse 100 B/P (MAP) 200/99 (132) Capillary Refill : Less Than 3 Seconds Height, Weight, BMI Height: 5'6.00" Weight: 230lbs. 0.0oz. 104.570005gq; 53.3 BMI Method:Estimated General Appearance: Obese (MORBIDLY), Other (SOMEWHAT DRAMATIC, HAIR IS NEON PINK; PT ABLE TO AMBULATE TO AND FROM BATHROOM ON HER OWN WITHOUT DIFFICULTY) HEENT: PERRL/EOMI Respiratory: Normal Breath Sounds, No Accessory Muscle Use, No Respiratory Distress Cardiovascular: No Murmur, Irregularly Irregular Gastrointestinal: Non Tender, Soft Extremity: Pedal Edema (APPEARS TO HAVE SOME PEDAL EDEMA, BUT DIFFICULT TO DETERMINE DUE TO BODY HABITUS) Neurologic/Psychiatric: Alert, Oriented x3, No Motor/Sensory Deficits (GROSSLY INTACT), Normal Mood/Affect, supervisor braiding II-XII Norm as Tested Skin: Normal Color, Warm/Dry Progress/Results/Core Measures Suspected Sepsis Recent Fever Within 48 Hours: No Infection Criteria Present: None New/Unexplained Altered Menta: No Sepsis Screen: No Definite Risk SIRS Temperature:97.6 Pulse: 100 Respiratory Rate: Laboratory Tests 09/24/18 19:25: White Blood Count 7.6 Blood Pressure 200 /99 Mean: 132 Laboratory Tests 09/24/18 19:25: Creatinine 0.81, INR Comment 1.0, Platelet Count 185, Total Bilirubin 0.4 Results/Orders Lab Results Laboratory Tests Test 09/24/18 17:05 09/24/18 19:21 09/24/18 19:25 Range/Units Urine Color YELLOW Urine Clarity CLEAR Urine pH 6 5-9 Urine Specific [place] 1.015 L 1.016-1.022 Urine Protein NEGATIVE NEGATIVE Urine Glucose (UA) 4+ H NEGATIVE Urine Ketones NEGATIVE NEGATIVE Urine Nitrite NEGATIVE NEGATIVE Urine Bilirubin NEGATIVE NEGATIVE Urine Urobilinogen NORMAL NORMAL MG/DL Urine Leukocyte Esterase NEGATIVE NEGATIVE Urine RBC (Auto) 2+ H NEGATIVE Urine RBC NONE /HPF Urine WBC RARE /HPF Urine Squamous Epithelial Cells 0-2 /HPF Urine Crystals NONE /LPF Urine Bacteria TRACE /HPF Urine Casts NONE /LPF Urine Mucus NEGATIVE /LPF Urine Culture Indicated NO Urine Opiates Screen NEGATIVE NEGATIVE Urine Oxycodone Screen POSITIVE H NEGATIVE Urine Methadone Screen NEGATIVE NEGATIVE Urine Propoxyphene Screen NEGATIVE NEGATIVE Urine Barbiturates Screen NEGATIVE NEGATIVE Ur Tricyclic Antidepressants Screen NEGATIVE NEGATIVE Urine Phencyclidine Screen NEGATIVE NEGATIVE Urine Amphetamines Screen POSITIVE H NEGATIVE Urine Methamphetamines Screen NEGATIVE NEGATIVE Urine Benzodiazepines Screen NEGATIVE NEGATIVE Urine Cocaine Screen NEGATIVE NEGATIVE Urine Cannabinoids Screen NEGATIVE NEGATIVE Glucometer 186 H 70-110 MG/DL White Blood Count 7.6 4.3-11.0 10^3/uL Red Blood Count 5.16 4.35-5.85 10^6/uL Hemoglobin 13.8 11.5-16.0 G/DL Hematocrit 42 35-52 % Mean Corpuscular Volume 82 80-99 FL Mean Corpuscular Hemoglobin 27 25-34 PG Mean Corpuscular Hemoglobin Concent 33 32-36 G/DL Red Cell Distribution Width 14.1 10.0-14.5 % Platelet Count 185 130-400 10^3/uL Mean Platelet Volume 10.7 H 7.4-10.4 FL Neutrophils (%) (Auto) 70 42-75 % Lymphocytes (%) (Auto) 20 12-44 % Monocytes (%) (Auto) 8 0-12 % Eosinophils (%) (Auto) 2 0-10 % Basophils (%) (Auto) 0 0-10 % Neutrophils # (Auto) 5.3 1.8-7.8 X 10^3 Lymphocytes # (Auto) 1.5 1.0-4.0 X 10^3 Monocytes # (Auto) 0.6 0.0-1.0 X 10^3 Eosinophils # (Auto) 0.1 0.0-0.3 10^3/uL Basophils # (Auto) 0.0 0.0-0.1 10^3/uL Prothrombin Time 13.6 12.2-14.7 SEC INR Comment 1.0 0.8-1.4 Activated Partial Thromboplast Time 26 24-35 SEC Sodium Level 145 135-145 MMOL/L Potassium Level 3.5 L 3.6-5.0 MMOL/L Chloride Level 103 98-107 MMOL/L Carbon Dioxide Level 31 21-32 MMOL/L Anion Gap 11 5-14 MMOL/L Blood Urea Nitrogen 10 7-18 MG/DL Creatinine 0.81 0.60-1.30 MG/DL Estimat Glomerular Filtration Rate > 60 BUN/Creatinine Ratio 12 Glucose Level 195 H 70-105 MG/DL Calcium Level 9.3 8.5-10.1 MG/DL Corrected Calcium 9.7 8.5-10.1 MG/DL Magnesium Level 1.9 1.8-2.4 MG/DL Total Bilirubin 0.4 0.1-1.0 MG/DL Aspartate Amino Transf (AST/SGOT) 10 5-34 U/L Alanine Aminotransferase (ALT/SGPT) 8 0-55 U/L Alkaline Phosphatase 97 40-136 U/L Total Creatine Kinase 30 29-168 U/L Creatine Kinase MB 1.2 <6.6 NG/ML Troponin I < 0.028 <0.028 NG/ML B-Type Natriuretic Peptide 74.1 <100.0 PG/ML Total Protein 6.3 L 6.4-8.2 GM/DL Albumin 3.5 3.2-4.5 GM/DL Free Thyroxine 1.01 0.70-1.48 NG/DL TSH [place] Testing 0.28 L 0.35-4.94 UIU/ML Serum Alcohol < 10 <10 MG/DL My Orders Orders - AMANDA TILLEY DO Accucheck Stat ONCE (09/24/18 18:48) Ed Iv/Invasive Line Start (09/24/18 18:48) Ekg Tracing (09/24/18 18:48) Monitor-Rhythm Ecg Trace Only (09/24/18 18:48) Ct Head Wo-R/O Stroke (09/24/18 18:48) Chest 1 View, Ap/Pa Only (09/24/18 18:48) Alcohol (09/24/18 18:48) BNP (09/24/18 18:48) Cbc With Automated Diff (09/24/18 18:48) Comprehensive Metabolic Panel (09/24/18 18:48) Creatine Kinase (09/24/18 18:48) Creatine Kinase Mb (09/24/18 18:48) Drug Screen Stat (Urine) (09/24/18 18:48) Magnesium (09/24/18 18:48) Protime With Inr (09/24/18 18:48) Partial Thromboplastin Time (09/24/18 18:48) Thyroid Analyzer (09/24/18 18:48) Troponin I (09/24/18 18:48) Ua Culture If Indicated (09/24/18 18:48) Free T4 (Free Thyroxine) (09/24/18 19:25) Ct Angio Head/Neck (09/24/18 20:23) Ct Chest W (09/24/18 20:23) Iohexol Injection (Omnipaque 350 Mg/Ml 1 (09/24/18 20:45) Received Contrast (Hold Metformin- Contr (09/24/18 20:45) Ns (Ivpb) (Sodium Chloride 0.9% Ivpb Bag (09/24/18 20:45) Medications Given in ED Current Medications Medications Dose Ordered Sig/Fernanda Route Start Time Stop Time Status Last Admin Dose Admin Iohexol 100 ml ONCE ONCE IV 09/24/18 20:45 09/24/18 20:46 DC 09/24/18 20:51 100 ML Sodium Chloride 100 ml ONCE ONCE IV 09/24/18 20:45 09/24/18 20:46 DC 09/24/18 20:52 100 ML Vital Signs/I&O 09/24/18 18:45 Temp 97.6 Pulse 100 B/P (MAP) 200/99 (132) Capillary Refill : Less Than 3 Seconds Blood Pressure Mean: 132 Progress Note : Progress Note UNEVENTFUL ER STAY PT ADVISED OF CT FINDINGS AND NEED FOR FOLLOW UP MONITORING OF PULMONARY NODULES ECG Initial ECG Impression Date: Sep 24, 2018 Initial ECG Impression Time: 18:58 Initial ECG Rate: 105 Initial ECG Rhythm: A Fib/Flutter Initial ECG Comparisson: Unchanged Diagnostic Imaging Comments CT HEAD--NO ACUTE PROCESS, PER RADIOLOGIST REPORT AT 1943 CXR--NO ACUTE PROCESS, CARDIOMEGALY--PER RADIOLOGIST REVIEW CT ANGIOGRAM HEAD/NECK--NO ACUTE PROCESS, NO LARGE VESSEL OCCLUSION, MILD CAROTID CALCIFICATIONS CT CHEST ANGIO--NO ACUTE PROCESS, NON-SPECIFIC PULMONARY NODULES PER RADIOLOGIST REPORTS AT 2228 Reviewed: Reviewed by Me Departure Impression Primary Impression: Chronic generalized pain Additional Impressions: Insulin dependent diabetes mellitus Morbid exogenous obesity Chronic atrial fibrillation Disposition: HOME, SELF-CARE Condition: Stable Departure-Patient Inst. Referrals: RAVEN GRAMAJO MD, WEN-CHOU MD (PCP/Family) Primary Care Physician Patient Instructions: Atrial Fibrillation (DC), Carbohydrate Counting Diet, Chronic Pain (DC), Diabetes Type 2 (DC), Diabetes and Diet Add. Discharge Instructions: GET A GLUCOMETER AND CHECK YOUR BLOOD SUGAR 3 TIMES A DAY--BEFORE EACH MEAL--AND KEEP DIARY TAKE ALL OF YOUR MEDICATIONS PRESCRIBED FOLLOW UP WITH DR GRAMAJO AND DR THAPA NEXT FRIDAY SCHEDULED All discharge instructions reviewed with patient and/or family. Voiced understanding. AMANDA TILLEY DO Sep 24, 2018 19:37
[2018-09-24 19:48] LABS: PROTHROMBIN TIME PATIENT 13.6 SEC (12.2-14.7)
--- NOTE | 2018-09-24 19:52 | Diagnostic Imaging Report ---
EXAMINATION: Single frontal view of the chest. INDICATION: Chest pain. COMPARISON: Multiple priors, most recent performed on 07/23/2017. FINDINGS: Left transvenous pacemaker and leads are unchanged in position. Right Port-A-Cath appears to be unchanged in position, distal tip not well seen, but apparently overlying the lower SVC. There is mild central vascular prominence, without overt edema. The lungs are clear. The cardiomediastinal silhouette is unchanged. No pneumothorax or large pleural effusion. No acute osseous abnormality is appreciated. IMPRESSION: No radiographic evidence of acute chest disease. Dictated by: Dictated on workstation # [id number]
[2018-09-24 19:56] LABS: ALANINE AMINOTRANSFERASE 8 U/L (0-55); ALBUMIN 3.5 GM/DL (3.2-4.5); ALKALINE PHOSPHATASE 97 U/L (40-136); BILIRUBIN,TOTAL 0.4 MG/DL (0.1-1.0); BUN/CREATININE RATIO 12; CALCIUM 9.3 MG/DL (8.5-10.1); CARBON DIOXIDE 31 MMOL/L (21-32); CHLORIDE 103 MMOL/L (98-107); CREATINE KINASE 30 U/L (29-168); CREATININE SERUM 0.81 MG/DL (0.60-1.30); GFR ESTIMATED > 60; GLUCOSE 195 MG/DL (70-105); MAGNESIUM 1.9 MG/DL (1.8-2.4); POTASSIUM 3.5 MMOL/L (3.6-5.0); SODIUM 145 MMOL/L (135-145); TOTAL PROTEIN 6.3 GM/DL (6.4-8.2)
--- NOTE | 2018-09-24 20:00 | Diagnostic Imaging Report ---
PROCEDURE: CT head without contrast, r/o stroke. TECHNIQUE: Multiple contiguous axial images were obtained through the brain without the use of intravenous contrast. Auto Exposure Controls were utilized during the CT exam to meet ALARA standards for radiation dose reduction. INDICATION: Left-sided numbness for the last couple of days increasing in severity. CORRELATION STUDY: CT head from 12/07/2015. FINDINGS: Ventricles and sulci appear age-appropriate. Findings compatible with prior lacunar type infarct involving the right basal ganglia and thalamus is again demonstrated and unchanged. Additional small lacunar type infarct of the left centrum semiovale. There are additional areas of decreased attenuation. There appear to be and fibula a small vessel ischemic disease. More focal are of low density about the left frontal lobe posteriorly is changed from prior study may reflect of interval infarct is not acute. Definitive regional area of decreased attenuation suggest edema is not suggested. No midline shift or mass effect. No hyperdense MCA sign. The degree of vascular calcification is present. IMPRESSION: 1. Negative for acute intracranial abnormality. Given symptoms, if further assessment is desired, then MRI would be recommended. 2. Findings compatible with prior areas of lacunar type infarct involving the right basal ganglia and thalamus, left centrum semiovale as well as interval but nonacute area of likely infarct involving the posterior left frontal lobe compared to prior study. Telephone call made to Dr. Neil in the [facility]. at 7:41 p.m. Dictated by: Dictated on workstation # [id number]
[2018-09-24 20:16] LABS: CREATINE KINASE MB 1.2 NG/ML (<6.6); TSH (THYROID ANALYZER) 0.28 UIU/ML (0.35-4.94)
[2018-09-24] MEDS ORDERED: IOHEXOL 350 MG/ML 100 ML (OMNIPAQUE 350) VIAL IV ONE (20:45)
[2018-09-24] MEDS ORDERED: NS 100 ML (IVPB) BAG IV ONE (20:45)
[2018-09-24] MEDS ORDERED: HOLD METFORMIN - RECEIVED CONTRAST 20 ML VIAL IV SCH (20:45)
[2018-09-24 21:04] LABS: FREE T4 (FREE THYROXINE) 1.01 NG/DL (0.70-1.48)
--- NOTE | 2018-09-24 22:09 | Diagnostic Imaging Report ---
PROCEDURE: CT chest with contrast only. TECHNIQUE: Multiple contiguous axial images were obtained through the chest after administration of intravenous contrast. Auto Exposure Controls were utilized during the CT exam to meet ALARA standards for radiation dose reduction. INDICATION: Atrial fibrillation, chest pain, shortness of air. CORRELATION STUDY: None FINDINGS: Examination was modified to accommodate additional angiographic evaluation through the head and neck. Left-sided pacemaker is present. The heart size is enlarged. No pericardial effusion. There is moderate coronary artery calcification with presence of scattered cardiac valvular calcification. No definitive pathologically enlarged mediastinal lymph nodes. The thoracic aorta with mild calcification at its arch. Normal three-vessel branching pattern of the arch. Pulmonary arteries are limited in evaluation owing to contrast timing but a large central pulmonary embolus does not appear to be suggested. The lung [place] demonstrate no consolidating infiltrate. Right costophrenic angle incompletely imaged. A few scattered micronodules are suggested. Cholecystectomy clips are present. Stomach is distended with retained gastric contents. IMPRESSION: 1. Negative for acute abnormality about the chest. 2. Cardiac enlargement with presence of coronary artery and cardiac valvular calcifications as well as left-sided pacemaker. 3. There are several scattered sub-5 mm micronodules throughout the lung caballero. If the patient is a high risk candidate for malignancy, followup CT imaging in 12 months would be recommended. Dictated by: Dictated on workstation # [id number]
--- NOTE | 2018-09-24 22:22 | Diagnostic Imaging Report ---
PROCEDURE: CT angiography of the head and CT angiography of the neck with and without contrast. TECHNIQUE: Contiguous noncontrast images were obtained from the skull base through the vertex. After intravenous contrast administration, helical CT angiography of the neck was performed. Source data was reformatted into multiple MIP projections. Delayed post contrast acquisition was also obtained. Auto Exposure Controls were utilized during the CT exam to meet ALARA standards for radiation dose reduction. INDICATION: Dizziness and stroke like symptoms. History of stroke. CORRELATION STUDY: None FINDINGS: Evaluation of the aortic arch is incomplete. There appears to be likely normal three-vessel branching pattern. Brachiocephalic trunk appearing unremarkable. The bilateral common carotid arteries are somewhat tortuous but otherwise patent. There is mild calcification of the carotid bifurcations, greatest on the right. No significant stenosis. The bilateral internal carotid arteries are also fairly tortuous and coarse but appear to be widely patent, however, there are some areas of kinking from the tortuous course. Internal carotid arteries are patent to the level of the skull base. External carotid arteries appearing patent. The bilateral vertebral arteries perhaps slightly more prominent on the left compared to the right. Vertebral arteries appear to be generally unremarkable. Vertebral arteries terminate into the basilar artery. The [place] demonstrates the bilateral internal carotid arteries to be widely patent. Mild calcification of supraclinoid portions. Middle cerebral arteries as well as bilateral anterior cerebral arteries are patent. Anterior communicating artery not definitely visualized. The basilar artery unremarkable. There is presence of posterior communicating arteries, right greater than left. On the right, the predominant supplier is the posterior cerebral artery. There is a hypoplastic right P1 segment. Soft tissue of the neck demonstrate no airway compromise. Postcontrast imaging of the head demonstrates no abnormal areas of intracranial enhancement. The dural sinuses appearing patent. IMPRESSION: 1. CTA of the [place] demonstrates patent intracranial circulation. No findings to suggest definitive large vessel occlusion. 2. CTA of the neck demonstrates very mild calcification of the carotid bifurcations but without significant stenosis or occlusion. Dictated by: Dictated on workstation # [id number]
[2018-09-24 22:45] VITALS: BP 200/99
== END 2018-09-24 22:45 | disposition home or self-care (01) ==
LOC: EDUNIT# 18:23 → ER 18:24
DX: E11.9 Type 2 diabetes mellitus without complications (principal); E66.01 Morbid (severe) obesity due to excess calories; I48.2 Chronic atrial fibrillation; I25.2 Old myocardial infarction; R52 Pain, unspecified; I11.0 Hypertensive heart disease with heart failure; I50.9 Heart failure, unspecified; I25.10 Atherosclerotic heart disease of native coronary artery without angina pectoris; J44.9 Chronic obstructive pulmonary disease, unspecified; G47.30 Sleep apnea, unspecified; I42.9 Cardiomyopathy, unspecified; K58.9 Irritable bowel syndrome, unspecified; K21.9 Gastro-esophageal reflux disease without esophagitis; M79.7 Fibromyalgia; F41.9 Anxiety disorder, unspecified; F32.9 Major depressive disorder, single episode, unspecified; Z82.49 Family history of ischemic heart disease and other diseases of the circulatory system; Z95.0 Presence of cardiac pacemaker; Z95.5 Presence of coronary angioplasty implant and graft; Z86.73 Personal history of transient ischemic attack (TIA), and cerebral infarction without residual deficits; Z68.43 Body mass index [BMI] 50.0-59.9, adult; Z87.442 Personal history of urinary calculi; Z87.440 Personal history of urinary (tract) infections; Z87.19 Personal history of other diseases of the digestive system; Z88.5 Allergy status to narcotic agent; Z88.8 Allergy status to other drugs, medicaments and biological substances; Z88.0 Allergy status to penicillin; Z91.041 Radiographic dye allergy status; Z91.048 Other nonmedicinal substance allergy status; Z79.82 Long term (current) use of aspirin; Z79.51 Long term (current) use of inhaled steroids; Z79.4 Long term (current) use of insulin; Z87.891 Personal history of nicotine dependence; Z90.49 Acquired absence of other specified parts of digestive tract; Z98.890 Other specified postprocedural states; Z90.710 Acquired absence of both cervix and uterus
CPT/HCPCS: 36415; 70450; 70496; 70498; 71045; 71260; 80053; 80306; 80320; 81000; 82550; 82553; 82962; 83735; 83880; 84439; 84443; 84484; 85025; 85610; 85730; 93005; 93041

== ENCOUNTER → 2018-10-12 | Outpatient (CLI) | payer MEDICARE, MEDICAID | LOC: CARD 10:20 | PROVIDERS: ATTEND Internal Medicine Cardiovascular Disease | DX: R07.89 Other chest pain (principal); I11.0 Hypertensive heart disease with heart failure; I50.9 Heart failure, unspecified; I25.10 Atherosclerotic heart disease of native coronary artery without angina pectoris; E78.5 Hyperlipidemia, unspecified | CPT/HCPCS: 93306 ==

== ENCOUNTER 2018-10-20 09:50 | Emergency (ER) | payer MEDICARE, MEDICAID ==
[~2018-10-20] VITALS: Ht 162.6 cm; Wt 127.9 kg
[2018-10-20] MEDS ORDERED: fentaNYL INJECTION 100 MCG/2 ML AMP IVP STA ×2 (10:09→11:19)
[2018-10-20] MEDS ORDERED: ASPIRIN 81 MG CHEW (CHILDREN'S ASA) PO ONE (10:15)
[2018-10-20] MEDS ORDERED: ONDANSETRON 4 MG/2 ML (SDV) Z0FRAN ONE (10:19)
[2018-10-20 10:20] LABS: BASOPHILS % (AUTO) 0 % (0-10); EOSINOPHILS # (AUTO) 0.1 10^3/uL (0.0-0.3); EOSINOPHILS % (AUTO) 1 % (0-10); HEMATOCRIT 43 % (35-52); HEMOGLOBIN 13.9 G/DL (11.5-16.0); LYMPHOCYTES # (AUTO) 1.4 X 10^3 (1.0-4.0); LYMPHOCYTES % (AUTO) 14 % (12-44); MEAN CORPUSCULAR HEMOGLOBIN 27 PG (25-34); MEAN CORPUSCULAR HGB CONC 33 G/DL (32-36); MEAN CORPUSCULAR VOLUME 83 FL (80-99); MEAN PLATELET VOLUME 9.9 FL (7.4-10.4); MONOCYTES # (AUTO) 0.7 X 10^3 (0.0-1.0); MONOCYTES % (AUTO) 7 % (0-12); NEUTROPHILS # (AUTO) 7.7 X 10^3 (1.8-7.8); NEUTROPHILS % (AUTO) 77 % (42-75); PLATELET COUNT 190 10^3/uL (130-400); RED CELL DISTRIBUTION WIDTH 14.2 % (10.0-14.5); WHITE BLOOD COUNT 9.9 10^3/uL (4.3-11.0)
[2018-10-20] MEDS ORDERED: ONDANSETRON 4 MG/2 ML (SDV) Z0FRAN IVP ONE (10:30)
[2018-10-20 10:34] LABS: PROTHROMBIN TIME PATIENT 13.8 SEC (12.2-14.7)
--- NOTE | 2018-10-20 10:38 | Diagnostic Imaging Report ---
INDICATION: Chest pain FINDINGS: The lungs are clear. The heart size and vascularity normal. There is no effusion or pneumothorax. IMPRESSION: No acute appearing abnormality. Dictated by: Dictated on workstation # [id number]
[2018-10-20 10:42] LABS: ALANINE AMINOTRANSFERASE 12 U/L (0-55); ALBUMIN 3.4 GM/DL (3.2-4.5); ALKALINE PHOSPHATASE 114 U/L (40-136); BILIRUBIN,TOTAL 0.3 MG/DL (0.1-1.0); BUN/CREATININE RATIO 16; CALCIUM 9.1 MG/DL (8.5-10.1); CARBON DIOXIDE 22 MMOL/L (21-32); CHLORIDE 103 MMOL/L (98-107); CREATININE SERUM 0.79 MG/DL (0.60-1.30); GFR ESTIMATED > 60; GLUCOSE 324 MG/DL (70-105); LIPASE 13 U/L (8-78); POTASSIUM 3.9 MMOL/L (3.6-5.0); SODIUM 138 MMOL/L (135-145); TOTAL PROTEIN 6.5 GM/DL (6.4-8.2)
--- NOTE | 2018-10-20 10:42 | ED Chest Pain ---
General Chief Complaint: Chest Pain Stated Complaint: CHEST PAIN Nursing Triage Note: PT TO RM 6 BY WHEELCHAIR WITH COMPLAINT OF CHEST PAIN. PT STATES PAIN HAS BEEN GOING ON FOR 3-4 DAYS. STATES HER LEFT ARM FEELS HEAVIER THAN NORMAL. DESCRIBES CP AN "ELEPHANT SITTING ON HER CHEST". PT SENT FROM DR. SANTILLAN OFFICE. Nursing Sepsis Screen: No Definite Risk Source: patient Exam Limitations: no limitations History of Present Illness Date Seen by Provider: Oct 20, 2018 Time Seen by Provider: 10:08 Initial Comments Here with report of left-sided chest pain that is worse in the morning but has been persistent throughout the day. She states that it's a heavy pressure and h as been persistent for 3-4 days. Notes that she is having the pain now. Her typical pain medicine is not working. She was seen by her provider who sent her here for evaluation due to the chest pressure. Did have evaluation last month regarding chest problems and did have CT angiogram of the head and neck as well as contrasted chest CT. She did have heart catheter last year which did not show significant disease. She does have atrial fibrillation and she is on Eliquis and reports taking that as directed. She states she would like to avoid CT scan of the chest that she could. Denies nausea or vomiting. Denies swelling. Timing/Duration: 3-4 days Severity/Quality: moderate, pressure Location: central Radiation: arms (left) Activities at Onset: sleep Prior CP/Workup: cardiac cath, stress test Modifying Factors: improves with rest ASA po PORTER LUGGAGE: No NTG SL P[place]TER [place]: No Associated Symptoms: No abdominal pain, No back pain, No diaphoresis, No nausea/vomiting, No shortness of breath, No weakness Allergies and Home Medications Allergies Coded Allergies: morphine (Unverified Allergy, Mild, HIVES, ITCHING; TAKES LORTAB AT HOME, 12/07/15) Fish Containing Products (Unverified Allergy, Unknown, 12/07/15) FROM UNCODED ALLERGIES "SEAFOOD" Penicillins (Unverified Allergy, Unknown, 12/07/15) erythromycin base (Verified Allergy, Unknown, 12/07/15) shellfish derived (Unverified Allergy, Unknown, 12/07/15) FROM UNCODED ALLERGIES "SEAFOOD" Uncoded Allergies: SILK TAPE (Allergy, Unknown, 02/26/06) Home Medications Albuterol Sulfate 8.5 Gm Aer.w.adap, 2 PUFF INH Q4H PRN for SHORTNESS OF BREATH, (Reported) Aspirin 81 Mg Tablet.dr, 81 MG PO HS, (Reported) Budesonide/Formoterol Fumarate 1 Inhaler Aero, 2 PUFF INH BID, (Reported) Clopidogrel Bisulfate 75 Mg Tablet, 75 MG PO DAILY, (Reported) Fentanyl 1 Each Patch.td72, 12 MCG TD Q72H Prescribed by: YOVANY KEENE on 09/16/16 0856 Fluticasone Propionate 16 Gm Naspr, 2 SPRAY NA HS PRN for CONGESTION, (Reported) Furosemide 40 Mg Tablet, 40 MG PO DAILY PRN for SWELLING, (Reported) Gabapentin 300 Mg Capsule, 300 MG PO TID, (Reported) Insulin Aspart 100 Unit/1 Ml Insuln.pen, 25 UNITS SQ AC, (Reported) PATIENT DOSES MEAL TIME INSULIN BY BLOOD SUGAR LEVELS BEFORE MEALS. Linaclotide 290 Mcg Capsule, 290 MCG PO DAILY PRN for IBS, (Reported) Lisinopril 10 Mg Tablet, 10 MG PO DAILY, (Reported) Metoprolol Tartrate 50 Mg Tablet, 50 MG PO BID, (Reported) Mirabegron 50 Mg Tab.er.24h, 50 MG PO DAILY, (Reported) Montelukast Sodium 10 Mg Tablet, 10 MG PO DAILY, (Reported) Oxybutynin Chloride 5 Mg Tablet, 5 MG PO BID, (Reported) Oxycodone HCl/Acetaminophen 1 Each Tablet, 1 EACH PO TID, (Reported) Pravastatin Sodium 10 Mg Tablet, 10 MG PO HS, (Reported) Quetiapine Fumarate 50 Mg Tablet, 50 MG PO HS, (Reported) Roflumilast 500 Mcg Tablet, 500 MCG PO DAILY, (Reported) Sertraline HCl 50 Mg Tablet, 50 MG PO DAILY, (Reported) Solifenacin Succinate 5 Mg Tablet, 5 MG PO BID, (Reported) Sucralfate 1 Gm Tablet, 1 GM PO ACHS, (Reported) Tizanidine HCl 4 Mg Tablet, 4 MG PO TID, (Reported) Patient Home Medication List Home Medication List Reviewed: Yes Review of Systems Review of Systems Constitutional: see HPI; No chills, No fever EENTM: No Symptoms Reported Respiratory: No Symptoms Reported Cardiovascular: See HPI, Chest Pain; Denies Edema Gastrointestinal: Denies Nausea, Denies Vomiting Genitourinary: No Symptoms Reported Musculoskeletal: see HPI; No back pain; muscle pain Skin: no symptoms reported All Other Systems Reviewed Negative Unless Noted: Yes Past Gumrlcf-Ukigxp-Jspiwg Hx Past Med/Social Hx: Reviewed Nursing Past Med/Soc Hx Patient Social History Alcohol Use: Denies Use Recreational Drug Use: No Smoking Status: Current Everyday Smoker Type Used: Cigarettes Former Smoker, Quit: Jul 23, 1985 Recent Foreign Travel: No Contact w/Someone Who Travel: No Recent Infectious Disease Expo: No Recent Hopitalizations: No Immunizations Up To Date Tetanus Booster (TDap): Less than 5yrs PED Vaccines UTD: No Date of Pneumonia Vaccine: Jan 25, 2013 Date of Influenza Vaccine: Feb 06, 2017 Seasonal Allergies Seasonal Allergies: No Past Medical History Surgeries: Yes Abdominal, Appendectomy, Cardiac, Section, Coronary Stent, Gallbladder, 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, Orthopedic, Pacemaker Respiratory: Yes Asthma, Sleep Apnea, COPD Currently Using CPAP: Yes Currently Using BIPAP: No Cardiac: Yes Atrial Fibrillation, Cardiomyopathy, Coronary Artery Disease, Hypertension Neurological: Yes (LEFT SIDE AFFECTED, MINIMAL RESIDUAL WEAKNESS/PARESTHESIAS) Stroke, TIA Reproductive Disorders: Yes Female Reproductive Disorders: Menstrual Problems [employer] History: 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, Menopausal Sexually Transmitted Disease: No HIV/AIDS: No Genitourinary: Yes (Overactive bladder, weak bladder, weak stream) Bladder Infection, Kidney Stones, UTI-Chronic Gastrointestinal: Yes (Esophageal spams ) Gastroesophageal Reflux, Chronic Constipation, Diverticulosis, Hiatal Hernia, Irritable Bowel Musculoskeletal: Yes Degenerate Disk Disease, Arthritis, Fibromyalgia, Chronic Back Pain Endocrine: Yes (MORBID OBESITY) Diabetes, Insulin dep HEENT: Yes Cataract, Macular Degeneration Loss of Vision: Denies Hearing Impairment: Denies Cancer: No Psychosocial: Yes Anxiety, Depression Integumentary: No Blood Disorders: No Adverse Reaction/Blood Tranf: No Family Medical History Reviewed Nursing Family Hx Alcoholism 03 FATHER, , Onset:15's - 20 09 BROTHER, Onset:20's - 25 Cataract 03 FATHER, 09 SISTER Dementia 03 FATHER, Family history: Alzheimer's disease 03 FATHER, Family history: Arthritis 03 FATHER, 03 MOTHER 09 BROTHER 09 SISTER Family history: Asthma 03 MOTHER 09 BROTHER 09 SISTER Family history: Cardiovascular disease Family history: Diabetes mellitus 03 MOTHER 09 SISTER Family history: Hypertension 03 FATHER, 03 MOTHER 09 BROTHER 09 SISTER Heart disease 03 FATHER, 03 MOTHER History of - anemia 09 SISTER History of - respiratory disease 03 FATHER, ( OF PNEUMONIA) 09 BROTHER 09 SISTER History of drug abuse 09 BROTHER Hypercholesterolemia 09 BROTHER 09 SISTER Infertile 09 SISTER Kidney disease 03 FATHER, (KIDNEY STONES) Myocardial infarction 03 FATHER, Parkinson's disease 03 FATHER, Psychotic disorder 09 BROTHER (BIPOLAR) 09 SISTER (BIPOLAR) Stroke 03 FATHER, 03 MOTHER No Family History of: Abdominal aortic aneurysm Anibal's disease Aphasia Cancer Cancer of colon Congenital heart disease Congestive heart failure Cystic fibrosis Dysphagia Family history: Breast disease Family history: Coronary thrombosis Family history: Gastrointestinal disease Family history: Glaucoma Family history: Thyroid disorder Human immunodeficiency virus (HIV) seropositivity Malignant neoplasm of lung Prostate cancer Seizure disorder Tuberculosis Visual impairment Physical Exam Vital Signs Vital Signs - First Documented 10/20/18 09:52 Temp 97.9 Pulse 94 Resp 18 B/P (MAP) 144/115 (125) Pulse Ox 98 O2 Delivery Room Air Capillary Refill : Less Than 3 Seconds Height, Weight, BMI Height: 5'4.00" Weight: 282lbs. 0.0oz. 127.038422xi; 53.3 BMI Method:Stated General Appearance: No Apparent Distress, WD/WN HEENT: PERRL/EOMI, Pharynx Normal Neck: Non Tender, Supple Respiratory: Lungs Clear, Normal Breath Sounds Cardiovascular: No Murmur, Irregularly Irregular Gastrointestinal: Non Tender, Soft Extremity: Normal Inspection, Normal Range of Motion, Non Tender Neurologic/Psychiatric: Alert, Oriented x3 Skin: Normal Color, Warm/Dry Progress/Results/Core Measures Results/Orders Lab Results Laboratory Tests Test 10/20/18 10:13 10/20/18 12:30 Range/Units White Blood Count 9.9 4.3-11.0 10^3/uL Red Blood Count 5.13 4.35-5.85 10^6/uL Hemoglobin 13.9 11.5-16.0 G/DL Hematocrit 43 35-52 % Mean Corpuscular Volume 83 80-99 FL Mean Corpuscular Hemoglobin 27 25-34 PG Mean Corpuscular Hemoglobin Concent 33 32-36 G/DL Red Cell Distribution Width 14.2 10.0-14.5 % Platelet Count 190 130-400 10^3/uL Mean Platelet Volume 9.9 7.4-10.4 FL Neutrophils (%) (Auto) 77 H 42-75 % Lymphocytes (%) (Auto) 14 12-44 % Monocytes (%) (Auto) 7 0-12 % Eosinophils (%) (Auto) 1 0-10 % Basophils (%) (Auto) 0 0-10 % Neutrophils # (Auto) 7.7 1.8-7.8 X 10^3 Lymphocytes # (Auto) 1.4 1.0-4.0 X 10^3 Monocytes # (Auto) 0.7 0.0-1.0 X 10^3 Eosinophils # (Auto) 0.1 0.0-0.3 10^3/uL Basophils # (Auto) 0.0 0.0-0.1 10^3/uL Prothrombin Time 13.8 12.2-14.7 SEC INR Comment 1.0 0.8-1.4 Activated Partial Thromboplast Time 26 24-35 SEC Sodium Level 138 135-145 MMOL/L Potassium Level 3.9 3.6-5.0 MMOL/L Chloride Level 103 98-107 MMOL/L Carbon Dioxide Level 22 21-32 MMOL/L Anion Gap 13 5-14 MMOL/L Blood Urea Nitrogen 13 7-18 MG/DL Creatinine 0.79 0.60-1.30 MG/DL Estimat Glomerular Filtration Rate > 60 BUN/Creatinine Ratio 16 Glucose Level 324 H 70-105 MG/DL Calcium Level 9.1 8.5-10.1 MG/DL Corrected Calcium 9.6 8.5-10.1 MG/DL Magnesium Level 2.0 1.8-2.4 MG/DL Total Bilirubin 0.3 0.1-1.0 MG/DL Aspartate Amino Transf (AST/SGOT) 17 5-34 U/L Alanine Aminotransferase (ALT/SGPT) 12 0-55 U/L Alkaline Phosphatase 114 40-136 U/L Myoglobin 41.7 10.0-92.0 NG/ML Troponin I < 0.028 < 0.028 <0.028 NG/ML Total Protein 6.5 6.4-8.2 GM/DL Albumin 3.4 3.2-4.5 GM/DL Lipase 13 8-78 U/L My Orders Orders - BEBE JACKMAN MD Ekg Tracing (10/20/18 09:53) Cbc With Automated Diff (10/20/18 10:09) Magnesium (10/20/18 10:09) Chest 1 View, Ap/Pa Only (10/20/18 10:09) Cardiac Profile 1 (10/20/18 10:09) Comprehensive Metabolic Panel (10/20/18 10:09) Myoglobin Serum (10/20/18 10:09) Protime With Inr (10/20/18 10:09) Partial Thromboplastin Time (10/20/18 10:09) O2 (10/20/18 10:09) Monitor-Rhythm Ecg Trace Only (10/20/18 10:09) Lipid Panel (10/21/18 06:00) Ed Iv/Invasive Line Start (10/20/18 10:09) Lipase (10/20/18 10:09) Aspirin Chewable Tablet (Baby Aspirin Ch (10/20/18 10:15) Fentanyl Injection (Sublimaze Injection (10/20/18 10:09) Ondansetron Injection (Zofran Injectio (10/20/18 10:30) Ondansetron Injection (Zofran Injectio (10/20/18 10:19) Fentanyl Injection (Sublimaze Injection (10/20/18 11:19) Troponin I (10/20/18 11:55) Oxycodone/Apap 7.5/325mg Tab (Percocet (10/20/18 12:45) Medications Given in ED Current Medications Medications Dose Ordered Sig/Fernanda Route Start Time Stop Time Status Last Admin Dose Admin Aspirin 324 mg ONCE ONCE PO 10/20/18 10:15 10/20/18 10:16 DC 10/20/18 10:25 324 MG Ondansetron HCl 4 mg ONCE ONCE IVP 10/20/18 10:30 10/20/18 10:31 DC 10/20/18 10:30 4 MG Vital Signs/I&O 10/20/18 09:52 Temp 97.9 Pulse 94 Resp 18 B/P (MAP) 144/115 (125) Pulse Ox 98 O2 Delivery Room Air Blood Pressure Mean: 125 Progress Progress Note : Progress Note Seen and evaluated. IV, labs, ASA 324 mg by mouth ordered. Morphine allergy noted the patient is in pain. Fentanyl 50 g IV ordered. Monitor patient. Patient still with pain. Repeat fentanyl 100 g IV ordered. Patient is normally on oxycodone 15 mg twice a day. She is unsure she took her morning dose. Initial set of troponin negative. We will repeat that at the two-hour mitchell. 1330: Patient drinking okay and sitting up without difficulty. Percocet 2 tabs by mouth ordered. Repeat troponin negative. No other acute findings. Patient has declined further workup with CT scan. At this point with workup negative to this point we will discharge her home and patient is okay with that. Discharged home with return precautions. Patient verbalize understanding instructions and agreement with plan. Initial ECG Impression Date: Oct 20, 2018 Initial ECG Impression Time: 09:56 Initial ECG Rate: 96 Initial ECG Rhythm: A Fib/Flutter Comment Atrial fibrillation with normal axis. No evidence of elevation DC. Similar to previous of 09/24/18. Interpreted by me. Diagnostic Imaging Diagonstic Imaging: Xray Plain Films/CT/US/NM/MRI: chest Comments [facility] [place] [place] NAME: SEVERO BRUNO [facility] REC#: [id number] PT STATUS: REG ER : 1955 PHYSICIAN: BEBE JACKMAN MD ADMIT DATE: 10/20/18/ER Draft Date of Exam:10/20/18 CHEST 1 VIEW, AP/PA ONLY INDICATION: Chest pain FINDINGS: The lungs are clear. The heart size and vascularity normal. There is no effusion or pneumothorax. IMPRESSION: No acute appearing abnormality. Dictated on workstation # [id number] Dict: 10/20/18 1033 Trans: 10/20/[address] [place] [id number] Interpreted by: JENY CABAN Electronically signed by: Departure Impression Primary Impression: Chest pain Qualified Codes: R07.9 - Chest pain, unspecified Disposition: 01 HOME, SELF-CARE Condition: Improved Departure-Patient Inst. Decision time for Depature: 13:34 Referrals: PHILIP THAPA MD (PCP/Family) Primary Care Physician Patient Instructions: Acute Abdomen (Belly Pain), Adult (DC), Chest Pain (DC) Add. Discharge Instructions: All discharge instructions reviewed with patient and/or family. Voiced understanding. Continue home medications as previously prescribed. Follow up with your in one to 2 days for recheck and further evaluation. Follow up with your heart in one to 2 days for recheck and further evaluation as well. You may need upper endoscopy (scope) to evaluate further for reflux and acid problems and/or ulcers. Return for worse pain, fever, vomiting, weakness, breathing problems or other concerns as needed. BEBE JACKMAN MD Oct 20, 2018 10:42
--- NOTE | 2018-10-20 11:07 | NUR ---
CALLED AND LEFT MESSAGE WITH SS TO SEE STATUS ON FINDING NURSNG HOME PLACEMENT.
[2018-10-20] MEDS ORDERED: oxyCODONE/APAP 7.5-325 MG (PERCOCET 7.5) TABLET PO ONE (12:45)
[2018-10-20 13:47] VITALS: BP 138/97
== END 2018-10-20 13:47 | disposition home or self-care (01) ==
LOC: EDUNIT# 09:50 → ER 09:52
DX: R07.89 Other chest pain (principal); I48.91 Unspecified atrial fibrillation; J44.9 Chronic obstructive pulmonary disease, unspecified; G47.30 Sleep apnea, unspecified; I10 Essential (primary) hypertension; I25.10 Atherosclerotic heart disease of native coronary artery without angina pectoris; I42.9 Cardiomyopathy, unspecified; K21.9 Gastro-esophageal reflux disease without esophagitis; K58.9 Irritable bowel syndrome, unspecified; M79.7 Fibromyalgia; E66.01 Morbid (severe) obesity due to excess calories; E11.9 Type 2 diabetes mellitus without complications; F41.9 Anxiety disorder, unspecified; F32.9 Major depressive disorder, single episode, unspecified; F17.210 Nicotine dependence, cigarettes, uncomplicated; Z68.42 Body mass index [BMI] 45.0-49.9, adult; Z86.73 Personal history of transient ischemic attack (TIA), and cerebral infarction without residual deficits; Z87.440 Personal history of urinary (tract) infections; Z87.442 Personal history of urinary calculi; Z90.49 Acquired absence of other specified parts of digestive tract; Z95.5 Presence of coronary angioplasty implant and graft; Z95.0 Presence of cardiac pacemaker; Z88.5 Allergy status to narcotic agent; Z88.0 Allergy status to penicillin; Z88.1 Allergy status to other antibiotic agents; Z79.82 Long term (current) use of aspirin; Z79.02 Long term (current) use of antithrombotics/antiplatelets; Z79.4 Long term (current) use of insulin; Z82.49 Family history of ischemic heart disease and other diseases of the circulatory system
CPT/HCPCS: 36415; 71045; 80053; 83690; 83735; 83874; 84484; 85025; 85610; 85730; 93005; 93041; 96374; 96375; 96376

== ENCOUNTER 2019-09-23 15:12 | Observation (INO) | payer MEDICARE, MEDICAID ==
[~2019-09-23] VITALS: Ht 162 cm; Wt 125.6 kg
[2019-09-23] VITALS (7 sets, daily range): BP systolic 116–151; BP diastolic 75–97
[~2019-09-23 15:12] MED LIST changes: +FEN12TD TD; -FENT1PAT6 TD; -METO-370 PO; +METO50TA7 PO; +OXYB5TAB13 PO; -OXYB5TAB9 PO
--- NOTE | 2019-09-23 15:49 | Diagnostic Imaging Report ---
INDICATION: Left-sided weakness and dizziness and chest pain. COMPARISON: Comparison made to 09/24/2018. TECHNIQUE: Multiple contiguous axial images were obtained through the brain without the use of intravenous contrast. Auto Exposure Controls were utilized during the CT exam to meet ALARA standards for radiation dose reduction. FINDINGS: There is some motion artifact. There is no extra-axial fluid collection. No intracranial hemorrhage. No mass effect or midline shift. The ventricles are normal in size and position. There are multiple low-density areas in the right lenticular nucleus posteriorly and right thalamus, which are probably lacunar infarcts but were present on the previous study. There are patchy low-density areas in the deep white matter, compatible with chronic ischemic change. There is a focal area of low density in the left posterior frontal subcortical white matter which is probably lacunar infarct as well, and has not changed compared to the prior study. Calvarial windows appear unremarkable. IMPRESSION: Chronic ischemic changes in deep white matter with multiple old lacunar infarcts, as described above. No hemorrhage or mass effect or definite acute finding. Dictated by: Dictated on workstation # [id number]
[2019-09-23 16:02] LABS: BASOPHILS % (AUTO) 0 % (0-10); EOSINOPHILS # (AUTO) 0.2 10^3/uL (0.0-0.3); EOSINOPHILS % (AUTO) 2 % (0-10); HEMATOCRIT 45 % (35-52); HEMOGLOBIN 14.5 G/DL (11.5-16.0); LYMPHOCYTES # (AUTO) 2.3 X 10^3 (1.0-4.0); LYMPHOCYTES % (AUTO) 23 % (12-44); MEAN CORPUSCULAR HEMOGLOBIN 27 PG (25-34); MEAN CORPUSCULAR HGB CONC 32 G/DL (32-36); MEAN CORPUSCULAR VOLUME 83 FL (80-99); MONOCYTES # (AUTO) 0.7 X 10^3 (0.0-1.0); MONOCYTES % (AUTO) 7 % (0-12); NEUTROPHILS # (AUTO) 6.8 X 10^3 (1.8-7.8); NEUTROPHILS % (AUTO) 68 % (42-75); PLATELET COUNT 205 10^3/uL (130-400); RED CELL DISTRIBUTION WIDTH 15.8 % (10.0-14.5); WHITE BLOOD COUNT 9.9 10^3/uL (4.3-11.0)
[2019-09-23 16:08] LABS: ALBUMIN 3.1 GM/DL (3.2-4.5); CHLORIDE 104 MMOL/L (98-107); SODIUM 139 MMOL/L (135-145)
[2019-09-23 16:09] LABS: CALCIUM 8.8 MG/DL (8.5-10.1)
[2019-09-23 16:10] LABS: GLUCOSE 132 MG/DL (70-105); TOTAL PROTEIN 6.3 GM/DL (6.4-8.2)
[2019-09-23 16:11] LABS: CARBON DIOXIDE 29 MMOL/L (21-32)
--- NOTE | 2019-09-23 16:11 | Diagnostic Imaging Report ---
HISTORY: Chest pain, left-sided arm numbness. COMPARISON: 10/20/2018. TECHNIQUE: Frontal view of the chest. FINDINGS: Lung volumes are normal. No focal consolidation is seen. There is mild cardiomegaly with mild central vascular congestion. The pacemaker leads are in expected position. No pleural effusion or pneumothorax is seen. IMPRESSION: Mild cardiomegaly with mild central vascular congestion. Dictated by: Dictated on workstation # [id number]
[2019-09-23 16:12] LABS: BILIRUBIN,TOTAL 0.4 MG/DL (0.1-1.0)
[2019-09-23 16:14] LABS: ALKALINE PHOSPHATASE 89 U/L (40-136); CREATININE SERUM 0.67 MG/DL (0.60-1.30); GFR ESTIMATED > 60
[2019-09-23 16:15] LABS: BUN/CREATININE RATIO 15
[2019-09-23 16:17] LABS: BILIRUBIN,URINE NEGATIVE (NEGATIVE); CLARITY,URINE SL CLOUDY; COLOR,URINE YELLOW; GLUCOSE, URINE (UA) 3+ (NEGATIVE); KETONES,URINE NEGATIVE (NEGATIVE); LEUKOCYTE ESTERASE ,URINE NEGATIVE (NEGATIVE); NITRITE,URINE NEGATIVE (NEGATIVE); PROTEIN,URINE NEGATIVE (NEGATIVE)
[2019-09-23 16:17] LABS: ALANINE AMINOTRANSFERASE 7 U/L (0-55)
[2019-09-23 16:24] LABS: BACTERIA,URINE NEGATIVE /HPF
[2019-09-23 16:30] LABS: FIBRIN DEGRADATION PRODUCTS 0.26 UG/ML (0.00-0.49); PROTHROMBIN TIME PATIENT 14.7 SEC (12.2-14.7)
[2019-09-23 16:31] LABS: INR 1.1 (0.8-1.4)
[2019-09-23] MEDS ORDERED: IOHEXOL 350 MG/ML 100 ML (OMNIPAQUE 350) VIAL IV ONE (17:00)
[2019-09-23] MEDS ORDERED: CATHETER FLUSH 10 ML SYR IV PRN (17:00)
[2019-09-23] MEDS ORDERED: NITROGLYCERIN 0.4 MG SL TABS BTL 25'S SL PRN (17:00)
[2019-09-23] MEDS ORDERED: HOLD METFORMIN - RECEIVED CONTRAST 20 ML VIAL IV SCH (17:00)
[2019-09-23] MEDS ORDERED: NS 100 ML (IVPB) BAG IV ONE (17:00)
[2019-09-23] MEDS ORDERED: NS IV 1000 ML 1,000 ML IV SCH (17:25)
[2019-09-23] MEDS ORDERED: FAMOTIDINE 20MG/2ML IV (PEPCID) IVP ONE (17:30)
[2019-09-23] MEDS ORDERED: LIDOCAINE 2% VISCOUS 15 ML UDC PO ONE (17:30)
[2019-09-23] MEDS ORDERED: ONDANSETRON 4 MG/2 ML (SDV) Z0FRAN IVP ONE (17:30)
[2019-09-23] MEDS ORDERED: ANTACID SUSP 30 ML UDC (MYLANTA) PO ONE (17:30)
--- NOTE | 2019-09-23 18:39 | Diagnostic Imaging Report ---
PROCEDURE: CT angiography of the head and CT angiography of the neck with and without contrast. TECHNIQUE: Contiguous noncontrast images were obtained from the skull base through the vertex. After intravenous contrast administration, helical CT angiography of the neck was performed. Source data was reformatted into 3D MIP projections. Delayed post contrast acquisition was also obtained. Auto Exposure Controls were utilized during the CT exam to meet ALARA standards for radiation dose reduction. INDICATION: Left-sided arm numbness, jaw pain. History of uterine/cervical cancer. CORRELATION STUDY: None. FINDINGS: At the arch, there is near common origin of the brachiocephalic trunk and left common carotid artery. Mild calcification at the origins which are patent. Right common carotid artery is patent. There is mildly prominent calcification at the origin of the internal carotid artery. However, no significant stenosis is present. It is noted that there is an anatomical variant with occipital branch off the proximal right internal carotid artery. The internal carotid arteries are patent to the level of the skull base. Left common carotid artery, carotid bifurcations, as well as internal and external carotid arteries are patent. Very mild calcification at the origin of the internal and external carotid artery without stenosis. Posterior circulation demonstrates very slightly dominant left vertebral artery. Vertebral arteries are patent to the level of the skull base. There is note made of a right-sided Zamjeq-B-Ogwt catheter as well as partial visualization of left-sided pacemaker. Visualized lung apices with some groundglass opacities could be reflective of mild infiltrate. CTA [place] demonstrates patency of the internal carotid arteries. Middle and anterior cerebral arteries are patent. Basilar artery is patent with posterior cerebral arteries maintained. There is a prominent right posterior communicating artery. Postcontrast CT imaging of the head demonstrates no abnormal areas of intracranial enhancement. Findings compatible with prior lacunar-type infarcts are present. More focal cystic area in the deep left frontal lobe white matter. IMPRESSION: 1. CTA of the neck demonstrates very mild calcification at the carotid bifurcations. No significant stenosis. 2. CTA of the [place] demonstrates patency without evidence for large vessel occlusion or significant vascular malformation. 3. No abnormal areas of intracranial enhancement on postcontrast imaging. Dictated by: Dictated on workstation # [id number]
--- NOTE | 2019-09-23 19:23 | ED Neurological Problem ---
General Chief Complaint: Neuro-Stroke Like Symptoms Stated Complaint: CHEST PAIN, L-SIDE NUMBNESS Nursing Triage Note: ARRIVES VIA EMS TO ROOM 7 HOWEVER IS TAKEN DIRECTLY TO CT SCAN. PATIENT IS ALERT AND ORIENTED X4, ABLE TO VERIFY ALLERGIES. PATIENT WORDS SLIGHTLY SLURRED. Nursing Sepsis Screen: No Definite Risk Source: patient, old records Exam Limitations: no limitations History of Present Illness Date Seen by Provider: Sep 23, 2019 Time Seen by Provider: 15:13 Initial Comments This 64-year-old woman presents to emergency room via EMS with complaints of left-sided chest pain that started last night and then returned today. She reports "feeling funny" when she woke up. She describes an exacerbation of left-sided weakness present from a prior stroke. She also reports some slow, slurred speech that seems to be dysarthria on assessment. She reports her chest was feeling heavy this afternoon and she felt confused when she woke up this morning. Stroke activation was paged and patient's NIH was 5. Dr. Mcfadden is her hand i blocker and Jessica Sinhg is her primary care provider. She was noted to have mild coronary artery disease by cardiac angiography 2018. Patient reports chest pain seems to be worse when she moves around the bed. She does have some tenderness of the chest and epigastrium with palpation. She is an insulin- dependent diabetic and also uses Eliquis for atrial fibrillation. Patient was not hypoglycemic. EMS. Allergies and Home Medications Allergies Coded Allergies: morphine (Unverified Allergy, Mild, HIVES, ITCHING; TAKES LORTAB AT HOME, 12/07/15) Fish Containing Products (Unverified Allergy, Unknown, 12/07/15) FROM UNCODED ALLERGIES "SEAFOOD" Penicillins (Unverified Allergy, Unknown, 12/07/15) erythromycin base (Verified Allergy, Unknown, 12/07/15) shellfish derived (Unverified Allergy, Unknown, 12/07/15) FROM UNCODED ALLERGIES "SEAFOOD" Uncoded Allergies: SILK TAPE (Allergy, Unknown, 02/26/06) Home Medications Albuterol Sulfate 8.5 Gm Aer.w.adap, 2 PUFF INH Q4H PRN for SHORTNESS OF BREATH, (Reported) Aspirin 81 Mg Tablet.dr, 81 MG PO HS, (Reported) Budesonide/Formoterol Fumarate 1 Inhaler Aero, 2 PUFF INH BID, (Reported) Clopidogrel Bisulfate 75 Mg Tablet, 75 MG PO DAILY, (Reported) Fentanyl 1 Each Patch.td72, 12 MCG TD Q72H Prescribed by: YOVANY KEENE on 09/16/16 0856 Fluticasone Propionate 16 Gm Naspr, 2 SPRAY NA HS PRN for CONGESTION, (Reported) Furosemide 40 Mg Tablet, 40 MG PO DAILY PRN for SWELLING, (Reported) Gabapentin 300 Mg Capsule, 300 MG PO TID, (Reported) Insulin Aspart 100 Unit/1 Ml Insuln.pen, 25 UNITS SQ AC, (Reported) PATIENT DOSES MEAL TIME INSULIN BY BLOOD SUGAR LEVELS BEFORE MEALS. Linaclotide 290 Mcg Capsule, 290 MCG PO DAILY PRN for IBS, (Reported) Lisinopril 10 Mg Tablet, 10 MG PO DAILY, (Reported) Metoprolol Tartrate 50 Mg Tablet, 50 MG PO BID, (Reported) Mirabegron 50 Mg Tab.er.24h, 50 MG PO DAILY, (Reported) Montelukast Sodium 10 Mg Tablet, 10 MG PO DAILY, (Reported) Oxybutynin Chloride 5 Mg Tablet, 5 MG PO BID, (Reported) Oxycodone HCl/Acetaminophen 1 Each Tablet, 1 EACH PO TID, (Reported) Pravastatin Sodium 10 Mg Tablet, 10 MG PO HS, (Reported) Quetiapine Fumarate 50 Mg Tablet, 50 MG PO HS, (Reported) Roflumilast 500 Mcg Tablet, 500 MCG PO DAILY, (Reported) Sertraline HCl 50 Mg Tablet, 50 MG PO DAILY, (Reported) Solifenacin Succinate 5 Mg Tablet, 5 MG PO BID, (Reported) Sucralfate 1 Gm Tablet, 1 GM PO ACHS, (Reported) Tizanidine HCl 4 Mg Tablet, 4 MG PO TID, (Reported) Patient Home Medication List Home Medication List Reviewed: Yes Review of Systems Review of Systems Constitutional: no symptoms reported Eyes: No Symptoms Reported Ears, Nose, Mouth, Throat: see HPI Respiratory: no symptoms reported Cardiovascular: see HPI Gastrointestinal: see HPI Genitourinary: no symptoms reported Musculoskeletal: see HPI Skin: no symptoms reported Psychiatric/Neurological: See HPI Endocrine: No Symptoms Reported Hematologic/Lymphatic: No Symptoms Reported Past Ciwojhc-Rsscku-Qdohyz Hx Past Med/Social Hx: Reviewed Nursing Past Med/Soc Hx Patient Social History Alcohol Use: Denies Use Recreational Drug Use: No Smoking Status: Current Everyday Smoker Type Used: Cigarettes Former Smoker, Quit: Jul 23, 1985 Recent Foreign Travel: No Contact w/Someone Who Travel: No Recent Infectious Disease Expo: No Recent Hopitalizations: No Physical Abuse: No Sexual Abuse: No Mistreated: No Fear: No Immunizations Up To Date Tetanus Booster (TDap): Less than 5yrs PED Vaccines UTD: No Date of Pneumonia Vaccine: Jan 25, 2013 Date of Influenza Vaccine: Feb 06, 2019 Seasonal Allergies Seasonal Allergies: No Past Medical History Surgeries: Yes Abdominal, Appendectomy, Cardiac, Section, Coronary Stent, Gallbladder, 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, Orthopedic, Pacemaker Respiratory: Yes Asthma, Sleep Apnea, COPD Currently Using CPAP: Yes Currently Using BIPAP: No Cardiac: Yes Atrial Fibrillation, Cardiomyopathy, Coronary Artery Disease, Hypertension Neurological: Yes (LEFT SIDE AFFECTED, MINIMAL RESIDUAL WEAKNESS/PARESTHESIAS) Stroke, TIA Reproductive Disorders: Yes Female Reproductive Disorders: Menstrual Problems 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, 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 Sexually Transmitted Disease: No HIV/AIDS: No Genitourinary: Yes (Overactive bladder, weak bladder, weak stream) Bladder Infection, Kidney Stones, UTI-Chronic Gastrointestinal: Yes (Esophageal spams ) Gastroesophageal Reflux, Chronic Constipation, Diverticulosis, Hiatal Hernia, Irritable Bowel Musculoskeletal: Yes Degenerate Disk Disease, Arthritis, Fibromyalgia, Chronic Back Pain Endocrine: Yes (MORBID OBESITY) Diabetes, Insulin dep HEENT: Yes Cataract, Macular Degeneration Loss of Vision: Denies Hearing Impairment: Denies Cancer: No Psychosocial: Yes Anxiety, Depression Integumentary: No Blood Disorders: No Adverse Reaction/Blood Tranf: No Family Medical History Reviewed Nursing Family Hx Alcoholism 03 FATHER, , Onset:15's - 20 09 BROTHER, Onset:20's - 25 Cataract 03 FATHER, 09 SISTER Dementia 03 FATHER, Family history: Alzheimer's disease 03 FATHER, Family history: Arthritis 03 FATHER, 03 MOTHER 09 BROTHER 09 SISTER Family history: Asthma 03 MOTHER 09 BROTHER 09 SISTER Family history: Cardiovascular disease Family history: Diabetes mellitus 03 MOTHER 09 SISTER Family history: Hypertension 03 FATHER, 03 MOTHER 09 BROTHER 09 SISTER Heart disease 03 FATHER, 03 MOTHER History of - anemia 09 SISTER History of - respiratory disease 03 FATHER, ( OF PNEUMONIA) 09 BROTHER 09 SISTER History of drug abuse 09 BROTHER Hypercholesterolemia 09 BROTHER 09 SISTER Infertile 09 SISTER Kidney disease 03 FATHER, (KIDNEY STONES) Myocardial infarction 03 FATHER, Parkinson's disease 03 FATHER, Psychotic disorder 09 BROTHER (BIPOLAR) 09 SISTER (BIPOLAR) Stroke 03 FATHER, 03 MOTHER No Family History of: Abdominal aortic aneurysm [place]'s disease Aphasia Cancer Cancer of colon Congenital heart disease Congestive heart failure Cystic fibrosis Dysphagia Family history: Breast disease Family history: Coronary thrombosis Family history: Gastrointestinal disease Family history: Glaucoma Family history: Thyroid disorder Human immunodeficiency virus (HIV) seropositivity Malignant neoplasm of lung Prostate cancer Seizure disorder Tuberculosis Visual impairment Physical Exam Vital Signs Vital Signs - First Documented 09/23/19 15:15 Temp 36.5 Pulse 104 Resp 20 B/P (MAP) 135/66 (89) Pulse Ox 94 Capillary Refill : Less Than 3 Seconds Height, Weight, BMI Height: 5'4.00" Weight: 282lbs. 0.0oz. 127.325238bf; 43.00 BMI Method:Stated General Appearance: WD/WN, no apparent distress HEENT: PERRL/EOMI, normal ENT inspection Neck: normal inspection Respiratory: lungs clear, normal breath sounds, no respiratory distress, other (anterior chest wall slightly tender to palpation) Cardiovascular: no edema, no murmur, irregularly irregular Gastrointestinal: normal bowel sounds, soft, tenderness (epigastric) Back: normal inspection Neurologic/Psychiatric: alert, normal mood/affect, oriented x 3, abnormal bird tender II-XII (dysarthria), motor weakness (left extremity weakness) Crainal Nerves: abnormal speech Coordination/Gait: ABN nose to finger (L) Skin: normal color, warm/dry Stroke NIH Stroke Scale Assessment Level of Consciousness: 0=Alert (0), Level of Consciousness-Questions: 0=Answers both month/age (0), LOC Commands: 0=Performs both tasks (0), Gaze: Normal (0), Visual [place]: 0=No visual loss (0), Facial Movement (Facial Paresis): 0=Normal symmetrical mnt (0), Motor Function-Arms Right: 0=No drift (0), Motor Function-Arms Left: 1=Drift (1), Motor Function-Legs Right: 0=No drift (0), Motor Function-Legs Left: 2=Some effort/gravity (2), Limb Ataxia: 1=Present in one limb (1), Sensory: 0=Normal:no loss (0), Best Language: 1=Mild to moderat aphasia (1), Dysarthria: 0=Normal (0), Extinction & Inattention: 0=No abnormality (0), Total: Stroke Thrombolytic Exclusion History of CVA: Yes Severe Hypertension: No GI or Bleed: No Subarachnoid Hemorrhage: No Intracranial Neoplasm/Aneurysm: No Puncture of Non-Compressible V: No Recent CPR: No Diabetic Hemorrhagic Retinopat: No Organ Biopsy: No Recent Obstetric Delivery: No Significant Hepatic Dysfunctio: No NIH Stoke Scale >22: No Progress/Results/Core Measures Results/Orders Lab Results Laboratory Tests Test 09/23/19 15:43 09/23/19 15:52 09/23/19 16:10 Range/Units Glucometer 135 H 70-110 MG/DL White Blood Count 9.9 4.3-11.0 10^3/uL Red Blood Count 5.44 4.35-5.85 10^6/uL Hemoglobin 14.5 11.5-16.0 G/DL Hematocrit 45 35-52 % Mean Corpuscular Volume 83 80-99 FL Mean Corpuscular Hemoglobin 27 25-34 PG Mean Corpuscular Hemoglobin Concent 32 32-36 G/DL Red Cell Distribution Width 15.8 H 10.0-14.5 % Platelet Count 205 130-400 10^3/uL Mean Platelet Volume 10.0 7.4-10.4 FL Neutrophils (%) (Auto) 68 42-75 % Lymphocytes (%) (Auto) 23 12-44 % Monocytes (%) (Auto) 7 0-12 % Eosinophils (%) (Auto) 2 0-10 % Basophils (%) (Auto) 0 0-10 % Neutrophils # (Auto) 6.8 1.8-7.8 X 10^3 Lymphocytes # (Auto) 2.3 1.0-4.0 X 10^3 Monocytes # (Auto) 0.7 0.0-1.0 X 10^3 Eosinophils # (Auto) 0.2 0.0-0.3 10^3/uL Basophils # (Auto) 0.0 0.0-0.1 10^3/uL Prothrombin Time 14.7 12.2-14.7 SEC INR Comment 1.1 0.8-1.4 Activated Partial Thromboplast Time 36 H 24-35 SEC D-Dimer 0.26 0.00-0.49 UG/ML Sodium Level 139 135-145 MMOL/L Potassium Level 4.0 3.6-5.0 MMOL/L Chloride Level 104 98-107 MMOL/L Carbon Dioxide Level 29 21-32 MMOL/L Anion Gap 6 5-14 MMOL/L Blood Urea Nitrogen 10 7-18 MG/DL Creatinine 0.67 0.60-1.30 MG/DL Estimat Glomerular Filtration Rate > 60 BUN/Creatinine Ratio 15 Glucose Level 132 H 70-105 MG/DL Calcium Level 8.8 8.5-10.1 MG/DL Corrected Calcium 9.5 8.5-10.1 MG/DL Total Bilirubin 0.4 0.1-1.0 MG/DL Aspartate Amino Transf (AST/SGOT) 9 5-34 U/L Alanine Aminotransferase (ALT/SGPT) 7 0-55 U/L Alkaline Phosphatase 89 40-136 U/L Troponin I < 0.028 <0.028 NG/ML Total Protein 6.3 L 6.4-8.2 GM/DL Albumin 3.1 L 3.2-4.5 GM/DL Urine Color YELLOW Urine Clarity SL CLOUDY Urine pH 7.0 5-9 Urine Specific [place] 1.015 L 1.016-1.022 Urine Protein NEGATIVE NEGATIVE Urine Glucose (UA) 3+ H NEGATIVE Urine Ketones NEGATIVE NEGATIVE Urine Nitrite NEGATIVE NEGATIVE Urine Bilirubin NEGATIVE NEGATIVE Urine Urobilinogen 1.0 < = 1.0 MG/DL Urine Leukocyte Esterase NEGATIVE NEGATIVE Urine RBC (Auto) TRACE-L NEGATIVE Urine RBC NONE /HPF Urine WBC NONE /HPF Urine Squamous Epithelial Cells 5-10 /HPF Urine Crystals NONE /LPF Urine Bacteria NEGATIVE /HPF Urine Casts NONE /LPF Urine Mucus NEGATIVE /LPF Urine Culture Indicated NO My Orders Orders - NILO POLANCO MD Cbc With Automated Diff (09/23/19 15:14) Protime With Inr (09/23/19 15:14) Partial Thromboplastin Time (09/23/19 15:14) Comprehensive Metabolic Panel (09/23/19 15:14) Fibrin Degradation Products (09/23/19 15:14) Troponin I (09/23/19 15:14) Ua Culture If Indicated (09/23/19 15:14) Chest 1 View, Ap/Pa Only (09/23/19 15:14) Ekg Tracing (09/23/19 15:14) Nothing By Mouth (09/24/19 Breakfast) Accucheck Stat ONCE (09/23/19 15:14) Ed Iv/Invasive Line Start (09/23/19 15:14) Ed Iv/Invasive Line Start (09/23/19 15:14) Vital Signs Stroke Patient Q15M (09/23/19 15:14) Ct Head Wo-R/O Stroke (09/23/19 15:14) O2 (09/23/19 15:14) Intake & Output 06,14,22 (09/23/19 15:14) Monitor-Rhythm Ecg Trace Only (09/23/19 15:14) Dysphagia Screening Tool (09/23/19 15:14) Post Thrombolytic Adminstratio (09/23/19 15:14) Lipid Panel (09/24/19 06:00) Ct Angio Head/Neck (09/23/19 16:42) Nitroglycerin 0.4 Mg Btl 25's (Nitrostat (09/23/19 17:00) Catheter(Urinary) Insert & Ass 03,15 (09/23/19 16:59) Accucheck Stat ONCE (09/23/19 16:59) Ed Iv/Invasive Line Start (09/23/19 16:59) Ed Iv/Invasive Line Start (09/23/19 16:59) Vital Signs Stroke Patient Q15M (09/23/19 16:59) O2 (09/23/19 16:59) Intake & Output 06,14,22 (09/23/19 16:59) Dysphagia Screening Tool (09/23/19 16:59) Post Thrombolytic Adminstratio (09/23/19 16:59) Iohexol Injection (Omnipaque 350 Mg/Ml 1 (09/23/19 17:00) Received Contrast (Hold Metformin- Contr (09/23/19 17:00) Sodium Chloride Flush (Catheter Flush Sy (09/23/19 17:00) Ns (Ivpb) (Sodium Chloride 0.9% Ivpb Bag (09/23/19 17:00) Famotidine Injection (Pepcid Injection) (09/23/19 17:30) Ondansetron Injection (Zofran Injectio (09/23/19 17:30) Lidocaine 2% Viscous 15 Ml (Xylocaine Vi (09/23/19 17:30) Antacid Suspension (Mylanta Suspension (09/23/19 17:30) Ns Iv 1000 Ml (Sodium Chloride 0.9%) (09/23/19 17:25) Aspirin Tablet (Aspirin Tablet) (09/23/19 19:30) Medications Given in ED Current Medications Medications Dose Ordered Sig/Fernanda Route Start Time Stop Time Status Last Admin Dose Admin Al Hydrox/Mg Hydrox/Simethicone 30 ml ONCE ONCE PO 09/23/19 17:30 09/23/19 17:31 DC 09/23/19 17:32 30 ML Famotidine 20 mg ONCE ONCE IVP 09/23/19 17:30 09/23/19 17:31 DC 09/23/19 17:32 20 MG Iohexol 100 ml ONCE ONCE IV 09/23/19 17:00 09/23/19 17:01 DC 09/23/19 17:52 75 ML Lidocaine HCl 15 ml ONCE ONCE PO 09/23/19 17:30 09/23/19 17:31 DC 09/23/19 17:32 15 ML Nitroglycerin 0.4 mg UD PRN SL 09/23/19 17:00 09/23/19 16:53 0.4 MG Ondansetron HCl 4 mg ONCE ONCE IVP 09/23/19 17:30 09/23/19 17:31 DC 09/23/19 17:31 4 MG Sodium Chloride 10 ml NEEDED PRN IV 09/23/19 17:00 09/23/19 17:52 10 ML Sodium Chloride 100 ml ONCE ONCE IV 09/23/19 17:00 09/23/19 17:02 DC 09/23/19 17:52 80 ML Vital Signs/I&O 09/23/19 09/23/19 15:15 16:53 Temp 36.5 Pulse 104 96 Resp 20 20 B/P (MAP) 135/66 (89) 147/97 Pulse Ox 94 96 Blood Pressure Mean: 89 FSBG Bedside Testing Finger Stick Blood Glucose: 135 Progress Progress Note : Time: 19:45 Progress Note Patient's deficits seem to be exacerbation of chronic deficits. CT head and CT angiogram showed no acute findings. I did discuss the case with Dr. Martin, stroke neurologist at [facility] at 17:50. She agrees patient is not a TPA candidate due to low NIH score, questionable last known well time, and Eliquis use. Patient admits that her deficits were the same as her prior stroke and residual symptoms but states they feel worse today. Chest pain seems atypical in nature. It did improve slightly with nitroglycerin and slightly more with GI cocktail but was still present at the time of admission. She declined pain medication. Case was reviewed with Dr. Julio and Dr. Richardson. No ischemic changes were appreciated on EKG by this provider and troponin was negative. Initial ECG Impression Date: Sep 23, 2019 Initial ECG Impression Time: 15:30 Initial ECG Rate: 113 Initial ECG Rhythm: A Fib/Flutter Comment Atrial fibrillation with no diagnostic ST elevation. Left axis deviation. Diagnostic Imaging Diagonstic Imaging: CT Plain Films/CT/US/NM/MRI: head Comments NAME: SEVERO BRUNO MED REC#: [id number] PT STATUS: REG ER : 1955 PHYSICIAN: NILO POLANCO MD ADMIT DATE: 09/23/19/ER Signed Date of Exam:09/23/19 CT HEAD WO-R/O STROKE INDICATION: Left-sided weakness and dizziness and chest pain. COMPARISON: Comparison made to 09/24/2018. TECHNIQUE: Multiple contiguous axial images were obtained through the brain without the use of intravenous contrast. Auto Exposure Controls were utilized during the CT exam to meet ALARA standards for radiation dose reduction. FINDINGS: There is some motion artifact. There is no extra-axial fluid collection. No intracranial hemorrhage. No mass effect or midline shift. The ventricles are normal in size and position. There are multiple low-density areas in the right lenticular nucleus posteriorly and right thalamus, which are probably lacunar infarcts but were present on the previous study. There are patchy low-density areas in the deep white matter, compatible with chronic ischemic change. There is a focal area of low density in the left posterior frontal subcortical white matter which is probably lacunar infarct as well, and has not changed compared to the prior study. Calvarial windows appear unremarkable. IMPRESSION: Chronic ischemic changes in deep white matter with multiple old lacunar infarcts, as described above. No hemorrhage or mass effect or definite acute finding. Dictated by: Dictated on workstation # [id number] Dict: 09/23/19 1538 Trans: 09/23/19 1639 [id number] Interpreted by: RAHUL DIEGO MD Electronically signed by: RAHUL DIEGO MD 09/23/19 1639 Reviewed: Reviewed by Me Diagonstic Imaging: Xray Plain Films/CT/US/NM/MRI: chest Comments NAME: SEVERO BRUNO MED REC#: [id number] PT STATUS: REG ER : 1955 PHYSICIAN: NILO POLANCO MD ADMIT DATE: 09/23/19/ER Signed Date of Exam:09/23/19 CHEST 1 VIEW, AP/PA ONLY HISTORY: Chest pain, left-sided arm numbness. COMPARISON: 10/20/2018. TECHNIQUE: Frontal view of the chest. FINDINGS: Lung volumes are normal. No focal consolidation is seen. There is mild cardiomegaly with mild central vascular congestion. The pacemaker leads are in expected position. No pleural effusion or pneumothorax is seen. IMPRESSION: Mild cardiomegaly with mild central vascular congestion. Dictated by: Dictated on workstation # [id number] Dict: 09/23/19 1608 Trans: 09/23/19 1642 [facility] [id number] Interpreted by: JENNIFER MOTA MD Electronically signed by: JENNIFER MOTA MD 09/23/19 1642 Reviewed: Reviewed by Me Diagonstic Imaging: CT Plain Films/CT/US/NM/MRI: other (angiogram head and neck) Comments NAME: SEVERO BRUNO MED REC#: [id number] PT STATUS: REG ER : 1955 PHYSICIAN: NILO POLANCO MD ADMIT DATE: 09/23/19/ER Draft Date of Exam:09/23/19 CT ANGIO HEAD/NECK PROCEDURE: CT angiography of the head and CT angiography of the neck with and without contrast. TECHNIQUE: Contiguous noncontrast images were obtained from the skull base through the vertex. After intravenous contrast administration, helical CT angiography of the neck was performed. Source data was reformatted into 3D MIP projections. Delayed post contrast acquisition was also obtained. Auto Exposure Controls were utilized during the CT exam to meet ALARA standards for radiation dose reduction. INDICATION: Left-sided arm numbness, jaw pain. History of uterine/cervical cancer. CORRELATION STUDY: None. FINDINGS: At the arch, there is near common origin of the brachiocephalic trunk and left common carotid artery. Mild calcification at the origins which are patent. Right common carotid artery is patent. There is mildly prominent calcification at the origin of the internal carotid artery. However, no significant stenosis is present. It is noted that there is an anatomical variant with occipital branch off the proximal right internal carotid artery. The internal carotid arteries are patent to the level of the skull base. Left common carotid artery, carotid bifurcations, as well as internal and external carotid arteries are patent. Very mild calcification at the origin of the internal and external carotid artery without stenosis. Posterior circulation demonstrates very slightly dominant left vertebral artery. Vertebral arteries are patent to the level of the skull base. There is note made of a right-sided Cgaaaj-P-Yzst catheter as well as partial visualization of left-sided pacemaker. Visualized lung apices with some groundglass opacities could be reflective of mild infiltrate. CTA [place] demonstrates patency of the internal carotid arteries. Middle and anterior cerebral arteries are patent. Basilar artery is patent with posterior cerebral arteries maintained. There is a prominent right posterior communicating artery. Postcontrast CT imaging of the head demonstrates no abnormal areas of intracranial enhancement. Findings compatible with prior lacunar-type infarcts are present. More focal cystic area in the deep left frontal lobe white matter. IMPRESSION: 1. CTA of the neck demonstrates very mild calcification at the carotid bifurcations. No significant stenosis. 2. CTA of the [place] demonstrates patency without evidence for large vessel occlusion or significant vascular malformation. 3. No abnormal areas of intracranial enhancement on postcontrast imaging. Dictated on workstation # [id number] Dict: 09/23/19 1820 Trans: 09/23/19 1837 [id number] Interpreted by: QUIRINO RAMIREZ DO Reviewed: Reviewed by Me Departure Communication (Admissions) Time/Spoke to Admitting Phy: 19:15 Dr. Julio Time/Spoke to Consulting Phy: 19:[address] Mcfadden Impression Primary Impression: Chest pain Qualified Codes: R07.9 - Chest pain, unspecified Additional Impressions: Left-sided weakness Dysarthria Disposition: ADMITTED INPATIENT Condition: Stable Admissions Decision to Admit Reason: Admit from ER (General) Decision to Admit/Date: Sep 23, 2019 Time/Decision to Admit Time: 19:15 Departure-Patient Inst. Referrals: PHILIP THAPA MD (PCP/Family) Primary Care Physician NILO POLANCO MD Sep 23, 2019 19:23
[2019-09-23] MEDS ORDERED: ASPIRIN 325 MG (5 GR) TABLET PO ONE (19:30)
--- OUTSIDE RECORDS SUMMARY | 2019-09-23 19:53 | XMS REPORT | Continuity of Care Document ---
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 BUNDLE-BRANCH BLOCK, UNSPECIFIED 12/08/2015 BEBE JACKMAN MD Ot I69.354 HEMIPLGA FOLLOWING CEREBRAL INFRC AFFECT 12/08/2015 BEBE JACKMAN MD Ot J44.9 CHRONIC OBSTRUCTIVE PULMONARY DISEASE, U 12/08/2015 BEBE JACKMAN MD Ot R07.9 CHEST PAIN, UNSPECIFIED 12/08/2015 BEBE JACKMAN MD Ot Z79.4 SENIOR IT SECURITY ANALYST (CURRENT) USE OF INSULIN 12/08/2015 BEBE JACKMAN MD Ot Z95.0 PRESENCE OF CARDIAC PACEMAKER 12/14/2015 BEBE JACKMAN MD Ot E11.9 TYPE 2 DIABETES MELLITUS WITHOUT COMPLIC 12/14/2015 BEBE JACKMAN MD Ot G47.30 SLEEP APNEA, UNSPECIFIED 12/14/2015 BEBE JACKMAN MD Ot I10 ESSENTIAL (PRIMARY) HYPERTENSION 12/14/2015 BEBE JACKMAN MD Ot I25.10 ATHSCL HEART DISEASE OF [place] CORONARY 12/14/2015 BEBE JACKMAN MD Ot I44.7 LEFT BUNDLE-BRANCH BLOCK, UNSPECIFIED 12/14/2015 BEBE JACKMAN MD Ot I69.354 HEMIPLGA FOLLOWING CEREBRAL INFRC AFFECT 12/14/2015 BEBE JACKMAN MD Ot J44.9 CHRONIC OBSTRUCTIVE PULMONARY DISEASE, U 12/14/2015 BEBE JACKMAN MD Ot R07.9 CHEST PAIN, UNSPECIFIED 12/14/2015 BEBE JACKMAN MD Ot Z79.4 SENIOR IT SECURITY ANALYST (CURRENT) USE OF INSULIN 12/14/2015 BEBE JACKMAN MD Ot Z95.0 PRESENCE OF CARDIAC PACEMAKER 02/15/2016 Ot E78.2 MIXE D HYPERLIPIDEMIA 02/15/2016 Ot I10 ESSENT IAL (PRIMARY) HYPERTENSION 02/15/2016 Ot I25.10 ATH SCL HEART DISEASE OF [place] CORONARY 02/15/2016 Ot R06.02 AMANDEEP RTNESS OF BREATH 02/16/2016 Ot E78.2 MIXE D HYPERLIPIDEMIA 02/16/2016 Ot I10 ESSENT IAL (PRIMARY) HYPERTENSION 02/16/2016 Ot I25.10 ATH SCL HEART DISEASE OF [place] CORONARY 02/16/2016 Ot R06.02 AMANDEEP RTNESS OF BREATH 02/28/2016 Ot E78.2 MIXE D HYPERLIPIDEMIA 02/28/2016 Ot I10 ESSENT IAL (PRIMARY) HYPERTENSION 02/28/2016 Ot I25.10 ATH SCL HEART DISEASE OF [place] CORONARY 02/28/2016 Ot R06.02 AMANDEEP RTNESS OF BREATH 02/29/2016 SABRINA IGNACIO Ot E78.2 MIXED HYPERLIPIDEMIA 02/29/2016 SABRINA IGNACIO Ot I10 ESSENTIAL (PRIMARY) HYPERTENSION 02/29/2016 SABRINA IGNACIO Ot I25.10 ATHSCL HEART DISEASE OF [place] CORONARY 02/29/2016 SABRINA IGNACIO Ot R06.02 SHORTNESS OF BREATH 02/29/2016 SABRINA IGNACIO Ot E78.2 MIXED HYPERLIPIDEMIA 02/29/2016 SABRINA IGNACIO Ot I10 ESSENTIAL (PRIMARY) HYPERTENSION 02/29/2016 SABRINA IGNACIO Ot I25.10 ATHSCL HEART DISEASE OF [place] CORONARY 02/29/2016 SABRINA IGNACIO Ot R06.02 SHORTNESS OF BREATH 03/04/2016 RAVEN GRAMAJO MD Ot E11. 9 TYPE 2 DIABETES MELLITUS WITHOUT COMPLIC 03/04/2016 RAVEN GRAMAJO MD Ot E78. 5 HYPERLIPIDEMIA, UNSPECIFIED 03/04/2016 RAVEN GRAMAJO MD Ot I10 ESSENTIAL (PRIMARY) HYPERTENSION 03/04/2016 RAVEN GRAMAJO MD Ot I25. 10 ATHSCL HEART DISEASE OF [place] CORONARY 03/04/2016 RAVEN GRAMAJO MD Ot I49. 5 SICK SINUS SYNDROME 03/04/2016 RAVEN GRAMAJO MD Ot Z79.899 OTHER CUSTODIAL (CURRENT) DRUG THERAPY 03/04/2016 RAVEN GRAMAJO MD Ot Z86. 73 PRSNL HX OF TIA (TIA), AND CEREB INFRC W 03/04/2016 RAVEN GRAMAJO MD Ot Z95. 5 PRESENCE OF CORONARY ANGIOPLASTY IMPLANT 03/13/2016 SABRINA IGNACIO Ot E78.2 MIXED HYPERLIPIDEMIA 03/13/2016 SABRINA IGNACIO Ot I10 ESSENTIAL (PRIMARY) HYPERTENSION 03/13/2016 SABRINA IGNACIO Ot I25.10 ATHSCL HEART DISEASE OF [place] CORONARY 03/13/2016 SABRINA IGNACIO Ot R06.02 SHORTNESS OF BREATH 06/11/2016 Richar Mariscal 922.1 CONTUSION OF CHEST WALL 06/11/2016 Richar Mariscal 923.10 CONTUSION OF FOREARM 06/11/2016 Richar Mariscal E885.9 FALL FROM OTHER SLIPPING, TRIPPING, OR STUMBLING 06/11/2016 Richar Mariscal A S20.212A CONTUSION OF LEFT FRONT WALL OF THORAX, INITIAL ENCOUNTER 06/11/2016 Richar Mariscal W S50.12XA CONTUSION OF LEFT FOREARM, INITIAL ENCOUNTER 06/11/2016 Richar Mariscal W01.0XXA FALL SAME LEV FROM SLIP/TRIP W/O STRIKE AGAINST OBJECT, INIT 09/16/2016 YOVANY KEENE MD Ot E11.65 TYPE 2 DIABETES MELLITUS WITH HYPERGLYCE 09/16/2016 YOVANY KEENE MD Ot E87.6 HYPOKALEMIA 09/16/2016 YOVANY KEENE MD Ot I10 ESSENTIAL (PRIMARY) HYPERTENSION 09/16/2016 YOVANY KEENE MD, Ot I25.10 ATHSCL HEART DISEASE OF [place] CORONARY 09/16/2016 YOVANY KEENE MD, Ot J44.9 CHRONIC OBSTRUCTIVE PULMONARY DISEASE, U 09/16/2016 YOVANY KEENE MD Ot N39.0 URINARY TRACT INFECTION, SITE NOT SPECIF 09/16/2016 YOVANY KEENE MD Ot R10.84 GENERALIZED ABDOMINAL PAIN 09/16/2016 YOVANY KEENE MD Ot R11.2 NAUSEA WITH VOMITING, UNSPECIFIED 09/16/2016 YOVANY KEENE MD Ot R19.7 DIARRHEA, UNSPECIFIED 09/16/2016 YOVANY KEENE MD Ot R42 DIZZINESS AND GIDDINESS 09/16/2016 YOVANY KEENE MD Ot Z79.02 SENIOR IT SECURITY ANALYST (CURRENT) USE OF ANTITHROMBOTI 09/16/2016 YOVANY KEENE MD Ot Z79.4 CUSTODIAL (CURRENT) USE OF INSULIN 09/16/2016 YOVANY KEENE MD Ot Z79.899 OTHER SENIOR IT SECURITY ANALYST (CURRENT) DRUG THERAPY 09/16/2016 YOVANY KEENE MD, Ot Z87.891 PERSONAL HISTORY OF NICOTINE DEPENDENCE 09/16/2016 YOVANY KEENE MD Ot Z91.14 PATIENT'S OTHER NONCOMPLIANCE WITH MEDIC 09/16/2016 YOVANY KEENE MD Ot Z95.828 PRESENCE OF OTHER VASCULAR IMPLANTS AND 09/16/2016 YOAVNY KEENE MD Ot E11.65 TYPE 2 DIABETES MELLITUS WITH HYPERGLYCE 09/16/2016 YOVANY KEENE MD Ot E87.6 HYPOKALEMIA 09/16/2016 YOVANY KEENE MD Ot I10 ESSENTIAL (PRIMARY) HYPERTENSION 09/16/2016 YOVANY KEENE MD, Ot I25.10 ATHSCL HEART DISEASE OF [place] CORONARY 09/16/2016 YOVANY KEENE MD, Ot J44.9 [...] GIDDINESS 09/16/2016 YOVANY KEENE MD Ot Z79.02 SENIOR IT SECURITY ANALYST (CURRENT) USE OF ANTITHROMBOTI 09/16/2016 YOVANY KEENE MD Ot Z79.4 SENIOR IT SECURITY ANALYST (CURRENT) USE OF INSULIN 09/16/2016 YOVANY KEENE MD, Ot Z79.899 OTHER CUSTODIAL (CURRENT) DRUG THERAPY 09/16/2016 YOVANY KEENE MD, Ot Z87.891 PERSONAL HISTORY OF NICOTINE DEPENDENCE 09/16/2016 YOVANY KEENE MD Ot Z91.14 PATIENT'S OTHER NONCOMPLIANCE WITH MEDIC 09/16/2016 YOVANY KEENE MD Ot Z95.828 PRESENCE OF OTHER VASCULAR IMPLANTS AND 10/25/2016 PHILIP THAPA MD Ot G47.3 3 OBSTRUCTIVE SLEEP APNEA (ADULT) (PEDIATR 10/29/2016 PHILIP THAPA MD Ot G47.3 3 OBSTRUCTIVE SLEEP APNEA (ADULT) (PEDIATR 10/31/2016 PHILIP THAPA MD Ot G47.3 3 OBSTRUCTIVE SLEEP APNEA (ADULT) (PEDIATR 11/01/2016 W 719.41 MAIKOL N IN JOINT INVOLVING SHOULDER REGION 11/01/2016 W 722.4 DEGE NERATION OF CERVICAL INTERVERTEBRAL DISC 11/01/2016 A 782.0 DIST URBANCE OF SKIN SENSATION 11/01/2016 W M25.512 PA IN IN LEFT SHOULDER 11/01/2016 W M50.322 OT HER CERVICAL DISC DEGENERATION AT C5-C6 LEVEL 11/01/2016 A R20.2 PARE STHESIA OF SKIN 11/01/2016 W V58.81 ENC OUNTER FOR FITTING AND ADJUSTMENT OF VASCULAR CATHETER 11/01/2016 W Z45.2 ENCO UNTER FOR ADJUSTMENT AND MANAGEMENT OF VAD 02/27/2017 W 491.20 OBS TRUCTIVE CHRONIC BRONCHITIS, WITHOUT EXACERBATION 02/27/2017 W 530.81 ESO PHAGEAL REFLUX 02/27/2017 W 715.36 OST EOARTHROSIS, LOCALIZED, NOT SPECIFIED WHETHER PRIMARY OR SECONDARY, INVOLVING LOWER LEG 02/27/2017 W 728.87 MUS VEGA WEAKNESS (GENERALIZED) 02/27/2017 W J44.9 SCUDDING INSPECTOR JAKE OBSTRUCTIVE PULMONARY DISEASE, UNSPECIFIED 02/27/2017 W K21.9 COLE RO-ESOPHAGEAL REFLUX DISEASE WITHOUT ESOPHAGITIS 02/27/2017 W M17.9 OSTE OARTHRITIS OF KNEE, UNSPECIFIED 02/27/2017 W M62.81 MUS VEGA WEAKNESS (GENERALIZED) 02/27/2017 W V46.3 WHEE LCHAIR DEPENDENCE 02/27/2017 W Z99.3 DEPE NDENCE ON WHEELCHAIR 03/21/2017 Alanis, TylerCj W 250.00 DIABETES MELLITUS WITHOUT MENTION OF COMPLICATION, TYPE II OR UNSPECIFIED TYPE, NOT STATED UNCONTROLLED 03/21/2017 Alanis, Philip W 428.0 CONGESTIVE HEART FAILURE, UNSPECIFIED 03/21/2017 Alanis, TylerCj W 786.09 OTHER DYSPNEA AND RESPIRATORY ABNORMALITY 03/21/2017 Philip Thapa W E11.9 TYPE 2 DIABETES MELLITUS WITHOUT COMPLICATIONS 03/21/2017 Alanis, TylerCj W I50.9 HEART FAILURE, UNSPECIFIED 03/21/2017 Alanis, Philip W R06.00 DYSPNEA, UNSPECIFIED 03/21/2017 Alanis, TylerCj W 250.00 DIABETES MELLITUS WITHOUT MENTION OF COMPLICATION, TYPE II OR UNSPECIFIED TYPE, NOT STATED UNCONTROLLED 03/21/2017 Alanis, TylerCj W 428.0 CONGESTIVE HEART FAILURE, UNSPECIFIED 03/21/2017 Alanis, TylerCj W 786.09 OTHER DYSPNEA AND RESPIRATORY ABNORMALITY 03/21/2017 Alanis, Helene-Cj W E11.9 TYPE 2 DIABETES MELLITUS [...] UNSPECIFIED TYPE, NOT STATED UNCONTROLLED 03/22/2017 Thapa, Heleen-Cj W 427.81 SINOATRIAL NODE DYSFUNCTION 03/22/2017 Thapa, Helene-Cj W 428.0 CONGESTIVE HEART FAILURE, UNSPECIFIED 03/22/2017 Thapa, Helene-Cj W 786.09 OTHER DYSPNEA AND RESPIRATORY ABNORMALITY 03/22/2017, Helene-Cj W E11.9 TYPE 2 DIABETES MELLITUS WITHOUT COMPLICATIONS 03/22/2017, Helene-Cj W I25.1 ATHEROSCLEROTIC HEART DISEASE OF [place] CORONARY ARTERY 03/22/2017, Helene-Cj W I49.5 SICK [...] Helene-Cj W I25.1 ATHEROSCLEROTIC HEART DISEASE OF [place] CORONARY ARTERY 03/22/2017 Thapa, Helene-Cj W I49.5 [...] Helene-Cj W I25.1 ATHEROSCLEROTIC HEART DISEASE OF [place] CORONARY ARTERY 03/22/2017, Helene-Cj W I49.5 SICK [...] Helene-Cj W I25.1 ATHEROSCLEROTIC HEART DISEASE OF [place] CORONARY ARTERY 03/22/2017, Helene-Cj W I49.5 SICK [...] Helene-Cj W I25.1 ATHEROSCLEROTIC HEART DISEASE OF [place] CORONARY ARTERY 03/22/2017 Thapa, Helene-Cj W I49.5 [...] Helene-Cj W I25.1 ATHEROSCLEROTIC HEART DISEASE OF [place] CORONARY ARTERY 03/22/2017, Helene-Cj W I49.5 SICK [...] Helene-Cj W I25.1 ATHEROSCLEROTIC HEART DISEASE OF [place] CORONARY ARTERY 03/22/2017, Helene-Cj W I49.5 SICK [...] Helene-Cj W 491.20 03/22/2017, Helene-Cj W 599.0 03/22/2017, Helene-Cj W 729.1 03/22/2017, Helene-Cj W 786.09 03/22/2017, Helene-Cj W E11.65 03/22/2017, Helene-Cj W E11.9 TYPE 2 DIABETES MELLITUS WITHOUT COMPLICATIONS 03/22/2017, Helene-Cj W E66.01 MORBID (SEVERE) OBESITY DUE TO EXCESS CALORIES 03/22/2017, Helene-Cj W I10 03/22/2017, Helene-Cj W I25.1 ATHEROSCLEROTIC HEART DISEASE OF [place] CORONARY ARTERY 03/22/2017, Helene-Cj W I25.10 03/22/2017, Helene-Cj W I49.5 SICK SINUS SYNDROME 03/22/2017, Helene-Cj A I50.9 HEART FAILURE, UNSPECIFIED 03/22/2017, Helene-Cj W I95 HYPOTENSION 03/22/2017 Thapa, Helene-Cj W I95.9 03/22/2017 Philip Thapa W J44.9 CHRONIC OBSTRUCTIVE PULMONARY DISEASE, UNSPECIFIED 03/22/2017 Philip Thapa W M79.7 03/22/2017 Philip Thapa W N39.0 URINARY TRACT INFECTION, SITE NOT SPECIFIED 03/22/2017 Philip Thapa W R06.00 DYSPNEA, UNSPECIFIED 03/22/2017 Philip Thapa W R07.9 03/22/2017 Philip Thapa W R09.02 03/23/2017 RAVEN GRAMAJO MD Ot E03. 9 HYPOTHYROIDISM, UNSPECIFIED 03/23/2017 RAVEN GRAMAJO MD Ot E11. 9 TYPE 2 DIABETES MELLITUS WITHOUT COMPLIC 03/23/2017 RAVEN GRAMAJO MD Ot E66. 9 OBESITY, UNSPECIFIED 03/23/2017 RAVEN GRAMAJO MD Ot E86. 1 HYPOVOLEMIA 03/23/2017 RAVEN GRAMAJO MD Ot F32. 9 MAJOR DEPRESSIVE DISORDER, SINGLE EPISOD 03/23/2017 RAVEN GRAMAJO MD Ot F41. 9 ANXIETY DISORDER, UNSPECIFIED 03/23/2017 RAVEN GRAMAJO MD Ot G43.909 MIGRAINE, UNSP, NOT INTRACTABLE, WITHOUT 03/23/2017 RAVEN GRAMAJO MD Ot G47. 33 OBSTRUCTIVE SLEEP APNEA (ADULT) (PEDIATR 03/23/2017 RAVEN GRAMAJO MD Ot G89. 29 OTHER CHRONIC PAIN 03/23/2017 RAVEN GRAMAJO MD Ot I11. 0 HYPERTENSIVE HEART DISEASE WITH HEART FA 03/23/2017 RAVEN GRAMAJO MD Ot I25. 10 ATHSCL HEART DISEASE OF [place] CORONARY 03/23/2017 RAVEN GRAMAJO MD Ot I42. 9 CARDIOMYOPATHY, UNSPECIFIED 03/23/2017 RAVEN GRAMAJO MD Ot I48. 0 PAROXYSMAL ATRIAL FIBRILLATION 03/23/2017 RAVEN GRAMAJO MD Ot I50. 31 ACUTE DIASTOLIC (CONGESTIVE) HEART FAILU 03/23/2017 RAVEN GRAMAJO MD Ot J44. 9 CHRONIC OBSTRUCTIVE PULMONARY DISEASE, U 03/23/2017 RAVEN GRAMAJO MD Ot K21. 9 GASTRO-ESOPHAGEAL REFLUX DISEASE WITHOUT 03/23/2017 RAVEN GRAMAJO MD Ot K44. 9 DIAPHRAGMATIC HERNIA WITHOUT OBSTRUCTION 03/23/2017 RAVEN GRAMAJO MD, Ot M19. 91 PRIMARY OSTEOARTHRITIS, UNSPECIFIED SITE 03/23/2017 RAVEN GRAMAJO MD, Ot M54. 5 LOW BACK PAIN 03/23/2017 RAVEN GRAMAJO MD, Ot M79. 7 FIBROMYALGIA 03/23/2017 RAVEN GRAMAJO MD, Ot Z68. 43 BODY MASS INDEX (BMI) 50-59.9 , ADULT 03/23/2017 RAVEN GRAMAJO MD, Ot Z79. 4 SENIOR IT SECURITY ANALYST (CURRENT) USE OF INSULIN 03/23/2017 RAVEN GRAMAJO MD, Ot Z86. 73 PRSNL HX OF TIA (TIA), AND CEREB INFRC W 03/23/2017 RAVEN GRAMAJO MD, Ot Z95. 0 PRESENCE OF CARDIAC PACEMAKER 03/23/2017 RAVEN GRAMAJO MD, Ot Z95. 5 PRESENCE OF CORONARY ANGIOPLASTY IMPLANT 03/26/2017 W 428.33 ACU TE ON CHRONIC DIASTOLIC HEART FAILURE 03/26/2017 W 458.9 HYPO TENSION, UNSPECIFIED 03/26/2017 W I50.33 ACU TE ON CHRONIC DIASTOLIC (CONGESTIVE) HEART FAILURE 03/26/2017 W I95.9 HYPO TENSION, UNSPECIFIED 03/26/2017 W R41 OTHER SYMPTOMS AND SIGNS INVOLVING COGNITIVE FUNCTIONS AND AWARENESS 07/10/2017 SABRINA IGNACIO Ot E78.5 HYPERLIPIDEMIA, UNSPECIFIED 07/10/2017 SABRINA IGNACIO Ot I07.1 RHEUMATIC TRICUSPID INSUFFICIENCY 07/10/2017 SABRINA IGNACIO Ot I10 ESSENTIAL (PRIMARY) HYPERTENSION 07/10/2017 SABRINA IGNACIO Ot I25.10 ATHSCL HEART DISEASE OF [place] CORONARY 07/10/2017 SABRINA IGNACIO Ot R07.89 OTHER CHEST PAIN 07/23/2017 Ot V72.84 EXA M PRE- OPERATIVE NOS 07/23/2017 Ot 354.0 CARP AL TUNNEL SYNDROME 07/23/2017 Ot V72.83 EXA M PRE- OPERATIVE NEC 07/23/2017 Ot V74.8 SCRE EN-BACTERIAL DIS NEC 07/23/2017 Ot 354.0 CARP AL TUNNEL SYNDROME 07/23/2017 Ot V72.84 EXA M PRE- OPERATIVE NOS 07/23/2017 RAVEN GRAMAJO MD Ot 250. 00 DIAB MELIDA WO COMPL, TYPE II OR UNSPEC TY 07/23/2017 RAVEN GRAMAJO MD Ot 401. 9 HYPERTENSION NOS 07/23/2017 RAVEN GRAMAJO MD Ot 428. 0 CONGESTIVE HEART FAILURE NOS 07/23/2017 RAVEN GRAMAJO MD Ot 434. 91 CEREBRAL ART OCCLUSION NOS W CEREBRAL IN 07/23/2017 RAVEN GRAMAJO MD Ot 786. 05 SHORTNESS OF BREATH 07/23/2017 RAVEN GRAMAJO MD Ot 401. 9 HYPERTENSION NOS 07/23/2017 RAVEN GRAMAJO MD Ot 414. 00 CORON ATHEROSCLER NOS TYPE VESSEL, NATIV 07/23/2017 RAVEN GRAMAJO MD Ot 434. 91 CEREBRAL ART OCCLUSION NOS W CEREBRAL IN 07/23/2017 RAVEN GRAMAJO MD Ot 451. 19 DEEP PHLEBITIS-LEG NEC 07/23/2017 RAVEN GRAMAJO MD Ot 401. 9 HYPERTENSION NOS 07/23/2017 RAVEN GRAMAJO MD Ot 414. 00 CORON ATHEROSCLER NOS TYPE VESSEL, NATIV 07/23/2017 RAVEN GRAMAJO MD Ot V12. 51 HX-VENOUS THROMBOSIS EMBOLISM 07/23/2017 RAVEN GRAMAJO MD Ot V12. 54 PERSONAL HX OF TIA, CEREBRAL INFARCTION 07/23/2017 RAVEN GRAMAJO MD Ot 250. 00 DIAB MELIDA WO COMPL, TYPE II OR UNSPEC TY 07/23/2017 RAVEN GRAMAJO MD Ot 272. 4 HYPERLIPIDEMIA NEC/NOS 07/23/2017 RAVEN GRAMAJO MD Ot 278. 00 OBESITY, NOS 07/23/2017 RAVEN GRAMAJO MD Ot 327. 23 OBSTRUCTIVE SLEEP APNEA (ADULT) (PEDIATR 07/23/2017 RAVEN GRAMAJO MD Ot 401. 9 HYPERTENSION NOS 07/23/2017 RAVEN GRAMAJO MD Ot 414. 01 CORONARY ATHEROSCLEROSIS OF [place] CORON 07/23/2017 RAVEN GRAMAJO MD Ot 786. 50 CHEST PAIN NOS 07/23/2017 RAVEN GRAMAJO MD Ot 794. 30 ABN CARDIOVASC STUDY NOS 07/23/2017 RAVEN GRAMAJO MD Ot V12. 54 PERSONAL HX OF TIA, CEREBRAL INFARCTION 07/23/2017 RAVEN GRAMAJO MD Ot V15. 82 HISTORY OF TOBACCO USE 07/23/2017 RAVEN GRAMAJO MD Ot V45. 82 PERCUTANEOUS TRANSLUM CORON ANGIOPLASTY 07/23/2017 RAVEN GRAMAJO MD Ot V58. 69 OTH MED,LT,CURRENT USE 07/23/2017 RAVEN GRAMAJO MD Ot V85. 44 BODY MASS INDEX 60.0-69.9, ADULT 07/23/2017 RAVEN GRAMAJO MD Ot 272. 4 HYPERLIPIDEMIA NEC/NOS 07/23/2017 RAVEN GRAMAJO MD Ot 401. 9 HYPERTENSION NOS 07/23/2017 RAVEN GRAMAJO MD Ot 414. 9 CHR ISCHEMIC HRT DIS NOS 07/23/2017 RAVEN GRAMAJO MD Ot 428. 0 CONGESTIVE HEART FAILURE NOS 07/23/2017 RAVEN GRAMAJO MD Ot 786. 50 CHEST PAIN NOS 07/23/2017 FABI SCHMITT APRN Ot 428.0 CONGESTIVE HEART FAILURE NOS 07/23/2017 FABI SCHMITT APRN Ot 496 CHR AIRWAY OBSTRUCT NEC 07/23/2017 BINTA SPENCER, RAHUL Hoff Ot 427.81 SINOATRIAL NODE DYSFUNCT 07/23/2017 BINTA SPENCER, RAHUL Hoff Ot V72.63 PRE-PROCEDURAL LABORATORY EXAMINATION 07/23/2017 BINTA SPENCER, RAHUL Hoff Ot V74.8 SCREEN-BACTERIAL DIS NEC 07/23/2017 KODI SPENCER, GRACE Powell Ot 715. 35 LOC OSTEOARTH NOS-PELVIS 07/23/2017 Ot E78.5 HYPE RLIPIDEMIA, UNSPECIFIED 07/23/2017 Ot I10 ESSENT IAL (PRIMARY) HYPERTENSION 07/23/2017 Ot I25.10 ATH SCL HEART DISEASE OF [place] CORONARY 07/23/2017 Ot I50.9 HEAR T FAILURE, UNSPECIFIED 07/23/2017 Ot R07.9 CHES T PAIN, UNSPECIFIED 07/23/2017 Ot E78.2 MIXE D HYPERLIPIDEMIA 07/23/2017 Ot I10 ESSENT IAL (PRIMARY) HYPERTENSION 07/23/2017 Ot I25.10 ATH SCL HEART DISEASE OF [place] CORONARY 07/23/2017 Ot R06.02 AMANDEEP RTNESS OF BREATH 07/23/2017 SABRINA IGNACIO Ot E78.2 MIXED HYPERLIPIDEMIA 07/23/2017 SABRINA IGNACIO Ot I10 ESSENTIAL (PRIMARY) HYPERTENSION 07/23/2017 SABRINA IGNACIO Ot I25.10 ATHSCL HEART DISEASE OF [place] CORONARY 07/23/2017 SABRINA IGNACIO Ot R06.02 SHORTNESS OF BREATH 07/23/2017 SABRINA IGNACIO Ot E78.5 HYPERLIPIDEMIA, UNSPECIFIED 07/23/2017 SABRINA IGNACIO Ot I07.1 RHEUMATIC TRICUSPID INSUFFICIENCY 07/23/2017 SABRINA IGNACIO Ot I10 ESSENTIAL (PRIMARY) HYPERTENSION 07/23/2017 SABRINA IGNACIO Ot I25.10 ATHSCL HEART DISEASE OF [place] CORONARY 07/23/2017 SABRINA IGNACIO Ot R07.89 OTHER CHEST PAIN 07/23/2017 RAVEN GRAMAJO MD Ot E11. 9 TYPE 2 DIABETES MELLITUS WITHOUT COMPLIC 07/23/2017 RAVEN GRAMAJO MD Ot E66. 9 OBESITY, UNSPECIFIED 07/23/2017 RAVEN GRAMAJO MD Ot E78. 5 HYPERLIPIDEMIA, UNSPECIFIED 07/23/2017 RAVEN GRAMAJO MD Ot I25. 10 ATHSCL HEART DISEASE OF [place] CORONARY 07/23/2017 RAVEN GRAMAJO MD Ot I50. 9 HEART FAILURE, UNSPECIFIED 07/23/2017 RAVEN GRAMAJO MD Ot I65. 29 OCCLUSION AND STENOSIS OF UNSPECIFIED CA 07/23/2017 RAVEN GRAMAJO MD, Ot J44. 9 CHRONIC OBSTRUCTIVE PULMONARY DISEASE, U 07/23/2017 RAVEN GRAMAJO MD Ot Z79. 82 CUSTODIAL (CURRENT) USE OF ASPIRIN 07/23/2017 RAVEN GRAMAJO MD Ot Z79.899 OTHER CUSTODIAL (CURRENT) DRUG THERAPY 07/23/2017 RAVEN GRAMAJO MD Ot Z86. 73 PRSNL HX OF TIA (TIA), AND CEREB INFRC W 07/23/2017 RAVEN GRAMAJO MD Ot Z87.891 PERSONAL HISTORY OF NICOTINE DEPENDENCE 07/23/2017 RAVEN GRAMAJO MD, Ot Z88. 0 ALLERGY STATUS TO PENICILLIN 07/23/2017 RAVEN GRAMAJO MD Ot Z88. 1 ALLERGY STATUS TO OTHER ANTIBIOTIC AGENT 07/23/2017 RAVEN GRAMAJO MD, Ot Z88. 5 ALLERGY STATUS TO NARCOTIC AGENT STATUS 07/24/2017 RAVEN GRAMAJO MD Ot E11. 9 TYPE 2 DIABETES MELLITUS WITHOUT COMPLIC 07/24/2017 RAVEN GRAMAJO MD Ot E66. 9 OBESITY, UNSPECIFIED 07/24/2017 RAVEN GRAMAJO MD Ot E78. 5 HYPERLIPIDEMIA, UNSPECIFIED 07/24/2017 RAVEN GRAMAJO MD Ot I25. 10 ATHSCL HEART DISEASE OF [place] CORONARY 07/24/2017 RAVEN GRAMAJO MD Ot I50. 9 HEART FAILURE, UNSPECIFIED 07/24/2017 RAVEN GRAMAJO MD Ot I65. 29 OCCLUSION AND STENOSIS OF UNSPECIFIED CA 07/24/2017 RAVEN GRAMAJO MD, Ot J44. 9 CHRONIC OBSTRUCTIVE PULMONARY DISEASE, U 07/24/2017 RAVEN GRAMAJO MD, Ot Z79. 82 CUSTODIAL (CURRENT) USE OF ASPIRIN 07/24/2017 RAVEN GRAMAJO MD Ot Z79.899 OTHER SENIOR IT SECURITY ANALYST (CURRENT) DRUG THERAPY 07/24/2017 RAVEN GRAMAJO MD, Ot Z86. 73 PRSNL HX OF TIA (TIA), AND CEREB INFRC W 07/24/2017 RAVEN GRAMAJO MD Ot Z87.891 PERSONAL HISTORY OF NICOTINE DEPENDENCE 07/24/2017 RAVEN GRAMAJO MD Ot Z88. 0 ALLERGY STATUS TO PENICILLIN 07/24/2017 RAVEN GRAMAJO MD Ot Z88. 1 ALLERGY STATUS TO OTHER ANTIBIOTIC AGENT 07/24/2017 RAVEN GRAMAJO MD, Ot Z88. 5 ALLERGY STATUS TO NARCOTIC AGENT STATUS 08/05/2017 SABRINA IGNACIO Ot E78.5 HYPERLIPIDEMIA, UNSPECIFIED 08/05/2017 SABRINA IGNACIO Ot I07.1 RHEUMATIC TRICUSPID INSUFFICIENCY 08/05/2017 SABRINA IGNACIO Ot I10 ESSENTIAL (PRIMARY) HYPERTENSION 08/05/2017 SABRINA IGNACIO Ot I25.10 ATHSCL HEART DISEASE OF [place] CORONARY 08/05/2017 SABRINA IGNACIO Ot R07.89 OTHER CHEST PAIN 08/12/2017 W 250.00 FABRICE BETES MELLITUS WITHOUT MENTION OF COMPLICATION, TYPE II OR UNSPECIFIED TYPE, NOT STATED UNCONTROLLED 08/12/2017 W 338.4 SCUDDING INSPECTOR JAKE PAIN SYNDROME 08/12/2017 W 428.0 JAVIER ESTIVE HEART FAILURE, UNSPECIFIED 08/12/2017 W 715.30 OST EOARTHROSIS, LOCALIZED, NOT SPECIFIED WHETHER PRIMARY OR SECONDARY, INVOLVING UNSPECIFIED SITE 08/12/2017 W 715.36 OST EOARTHROSIS, LOCALIZED, NOT SPECIFIED WHETHER PRIMARY OR SECONDARY, INVOLVING LOWER LEG 08/12/2017 W 724.2 LUMBAGO 08/12/2017 W E11.9 TYPE 2 DIABETES MELLITUS WITHOUT COMPLICATIONS 08/12/2017 W G89.4 SCUDDING INSPECTOR JAKE PAIN SYNDROME 08/12/2017 W I50.9 HEAR T FAILURE, UNSPECIFIED 08/12/2017 W M17.9 OSTE OARTHRITIS OF KNEE, UNSPECIFIED 08/12/2017 W M19.90 UNS PECIFIED OSTEOARTHRITIS, UNSPECIFIED SITE 08/12/2017 W M54.5 LOW BACK PAIN 09/11/2017 W 250.80 FABRICE BETES MELLITUS WITH OTHER SPECIFIED MANIFESTATIONS, TYPE II OR UNSPECIFIED TYPE, NOT STATED UNCONTROLLED 09/11/2017 W 414.8 OTHE R SPECIFIED FORMS OF CHRONIC ISCHEMIC HEART DISEASE 09/11/2017 W 458.9 HYPO TENSION, UNSPECIFIED 09/11/2017 W 715.15 OST EOARTHROSIS, LOCALIZED, PRIMARY, INVOLVING PELVIC REGION AND THIGH 09/11/2017 W 722.71 INT ERVERTEBRAL DISC DISORDER WITH MYELOPATHY, CERVICAL REGION 09/11/2017 W 723.4 BRAC HIAL NEURITIS OR RADICULITIS NOS 09/11/2017 W 729.2 NEUR ALGIA, NEURITIS, AND RADICULITIS, UNSPECIFIED 09/11/2017 W 780.2 SYNC OPE AND COLLAPSE 09/11/2017 W 999.9 OTHE R AND UNSPECIFIED COMPLICATIONS OF MEDICAL CARE, NOT ELSEWHERE CLASSIFIED 09/11/2017 W E11.65 TYP E 2 DIABETES MELLITUS WITH HYPERGLYCEMIA 09/11/2017 W I25.9 SCUDDING INSPECTOR JAKE ISCHEMIC HEART DISEASE, UNSPECIFIED 09/11/2017 W I95.9 HYPO TENSION, UNSPECIFIED 09/11/2017 W M16.0 BILA TERAL PRIMARY OSTEOARTHRITIS OF HIP 09/11/2017 W M50.02 CER VICAL DISC DISORDER WITH MYELOPATHY, MID-CERVICAL REGION 09/11/2017 W M54.12 RAD ICULOPATHY, CERVICAL REGION 09/11/2017 W M79.2 NEUR ALGIA AND NEURITIS, UNSPECIFIED 09/11/2017 W R55 SYNCOP E AND COLLAPSE 09/11/2017 W T88.7 UNSP ECIFIED ADVERSE EFFECT OF DRUG OR MEDICAMENT 06/21/2018 Alena Dodge W 826.0 CLOSED FRACTURE OF ONE OR MORE PHALANGES OF FOOT 06/21/2018 Alena Dodge W 924.01 CONTUSION OF HIP 06/21/2018 Alena Dodge W 924.11 CONTUSION OF KNEE 06/21/2018 Alena Dodge W S70.01 XA CONTUSION OF RIGHT HIP, INITIAL ENCOUNTER 06/21/2018 Alena Dodge W S80.01 XA CONTUSION OF RIGHT KNEE, INITIAL ENCOUNTER 06/21/2018 Alena Dodge W S92.41 5A NONDISP FX OF PROXIMAL PHALANX OF LEFT GREAT TOE, INIT 07/07/2018 W 726.5 ENTH ESOPATHY OF HIP REGION 07/07/2018 W M76.31 TOMÁS OTIBIAL BAND SYNDROME, RIGHT LEG 07/07/2018 W M76.32 TOMÁS OTIBIAL BAND SYNDROME, LEFT LEG 07/07/2018 W S83.401D S PRAIN OF UNSPECIFIED COLLATERAL LIGAMENT OF RIGHT KNEE, SUBSEQUENT ENCOUNTER 07/07/2018 W S83.402D S PRAIN OF UNSPECIFIED COLLATERAL LIGAMENT OF LEFT KNEE, SUBSEQUENT ENCOUNTER 07/07/2018 W S92.415 NO NDISPLACED FRACTURE OF PROXIMAL PHALANX OF LEFT GREAT TOE 07/07/2018 W V58.89 ENC OUNTER FOR OTHER SPECIFIED AFTERCARE 09/22/2018 W 250.00 FABRICE BETES MELLITUS WITHOUT MENTION OF COMPLICATION, TYPE II OR UNSPECIFIED TYPE, NOT STATED UNCONTROLLED 09/22/2018 W 401.9 UNSP ECIFIED ESSENTIAL HYPERTENSION 09/22/2018 W 427.31 ATR IAL FIBRILLATION 09/22/2018 W E11.9 TYPE 2 DIABETES MELLITUS WITHOUT COMPLICATIONS 09/22/2018 W I10 ESSENT IAL (PRIMARY) HYPERTENSION 09/22/2018 W I48.91 UNS PECIFIED ATRIAL FIBRILLATION 09/24/2018 RAVEN GRAMAJO MD Ot 401. 9 HYPERTENSION NOS 09/24/2018 RAVEN GRAMAJO MD Ot 414. 00 CORON ATHEROSCLER NOS TYPE VESSEL, NATIV 09/24/2018 RAVEN GRAMAJO MD Ot 434. 91 CEREBRAL ART OCCLUSION NOS W CEREBRAL IN 09/24/2018 RAVEN GRAMAJO MD Ot 451. 19 DEEP PHLEBITIS-LEG NEC 09/24/2018 RAVEN GRAMAJO MD Ot 401. 9 HYPERTENSION NOS 09/24/2018 RAVEN GRAMAJO MD Ot 414. 00 CORON ATHEROSCLER NOS TYPE VESSEL, NATIV 09/24/2018 RAVEN GRAMAJO MD Ot V12. 51 HX-VENOUS THROMBOSIS EMBOLISM 09/24/2018 RAVEN GRAMAJO MD Ot V12. 54 PERSONAL HX OF TIA, CEREBRAL INFARCTION 09/24/2018 RAVEN GRAMAJO MD Ot 250. 00 DIAB MELIDA WO COMPL, TYPE II OR UNSPEC TY 09/24/2018 RAVEN GRAMAJO MD Ot 272. 4 HYPERLIPIDEMIA NEC/NOS 09/24/2018 RAVEN GRAMAJO MD Ot 278. 00 OBESITY, NOS 09/24/2018 RAVEN GRAMAJO MD Ot 327. 23 OBSTRUCTIVE SLEEP APNEA (ADULT) (PEDIATR 09/24/2018 RAVEN GRAMAJO MD Ot 401. 9 HYPERTENSION NOS 09/24/2018 RAVEN GRAMAJO MD Ot 414. 01 CORONARY ATHEROSCLEROSIS OF [place] CORON 09/24/2018 RAVEN GRAMAJO MD Ot 786. 50 CHEST PAIN NOS 09/24/2018 RAVEN GRAMAJO MD Ot 794. 30 ABN CARDIOVASC STUDY NOS 09/24/2018 RAVEN GRAMAJO MD Ot V12. 54 PERSONAL HX OF TIA, CEREBRAL INFARCTION 09/24/2018 RAVEN GRAMAJO MD Ot V15. 82 HISTORY OF TOBACCO USE 09/24/2018 RAVEN GRAMAJO MD Ot V45. 82 PERCUTANEOUS TRANSLUM CORON ANGIOPLASTY 09/24/2018 RAVEN GRAMAJO MD Ot V58. 69 OT MED,LT,CURRENT USE 09/24/2018 RAVEN GRAMAJO MD Ot V85. 44 BODY MASS INDEX 60.0-69.9, ADULT 09/24/2018 RAVEN GRAMAJO MD Ot 272. 4 HYPERLIPIDEMIA NEC/NOS 09/24/2018 RAVEN GRAMAJO MD Ot 401. 9 HYPERTENSION NOS 09/24/2018 RAVEN GRAMAJO MD Ot 414. 9 CHR ISCHEMIC HRT DIS NOS 09/24/2018 RAVEN GRAMAJO MD Ot 428. 0 CONGESTIVE HEART FAILURE NOS 09/24/2018 RAVEN GRAMAJO MD Ot 786. 50 CHEST PAIN NOS 09/24/2018 FABI SCHMITT APRN Ot 428.0 CONGESTIVE HEART FAILURE NOS 09/24/2018 FABI SCHMITT APRN Ot 496 CHR [employer] OBSTRUCT NEC 09/24/2018 BINTA SPNECER, RAHUL Hoff Ot 427.81 SINOATRIAL NODE DYSFUNCT 09/24/2018 BINTA SPENCER, RAHUL Hoff Ot V72.63 PRE-PROCEDURAL LABORATORY EXAMINATION 09/24/2018 BINTA SPENCER, RAHUL Hoff Ot V74.8 SCREEN-BACTERIAL DIS NEC 09/24/2018 KODI SPENCER, GRACE Powell Ot 715. 35 LOC OSTEOARTH NOS-PELVIS 09/24/2018 Ot E78.5 HYPE RLIPIDEMIA, UNSPECIFIED 09/24/2018 Ot I10 ESSENT IAL (PRIMARY) HYPERTENSION 09/24/2018 Ot I25.10 ATH SCL HEART DISEASE OF [place] CORONARY 09/24/2018 Ot I50.9 HEAR T FAILURE, UNSPECIFIED 09/24/2018 Ot R07.9 CHES T PAIN, UNSPECIFIED 09/24/2018 Ot E78.2 MIXE D HYPERLIPIDEMIA 09/24/2018 Ot I10 ESSENT IAL (PRIMARY) HYPERTENSION 09/24/2018 Ot I25.10 ATH SCL HEART DISEASE OF [place] CORONARY 09/24/2018 Ot R06.02 AMANDEEP RTNESS OF BREATH 09/24/2018 SABRINA IGNACIO Ot E78.2 MIXED HYPERLIPIDEMIA 09/24/2018 SABRINA IGNACIO Ot I10 ESSENTIAL (PRIMARY) HYPERTENSION 09/24/2018 SABRINA IGNACIO Ot I25.10 ATHSCL HEART DISEASE OF [place] CORONARY 09/24/2018 SABRINA IGNACIO Ot R06.02 SHORTNESS OF BREATH 09/24/2018 SABRINA IGNACIO Ot E78.5 HYPERLIPIDEMIA, UNSPECIFIED 09/24/2018 SABRINA IGNACIO Ot I07.1 RHEUMATIC TRICUSPID INSUFFICIENCY 09/24/2018 SABRINA IGNACIO Ot I10 ESSENTIAL (PRIMARY) HYPERTENSION 09/24/2018 SABRINA IGNACIO Ot I25.10 ATHSCL HEART DISEASE OF [place] CORONARY 09/24/2018 SABRINA IGNACIO Ot R07.89 OTHER CHEST PAIN 09/24/2018 JAREK DO, AMANDA K Ot E11.9 TYPE 2 DIABETES MELLITUS WITHOUT COMPLIC 09/24/2018 JAREK DO, AMANDA K Ot E66.01 MORBID (SEVERE) OBESITY DUE TO EXCESS CA 09/24/2018 JAREK DORICKA K Ot F32.9 MAJOR DEPRESSIVE DISORDER, SINGLE EPISOD 09/24/2018 JAREK DO AMANDA K Ot F41.9 ANXIETY DISORDER, UNSPECIFIED 09/24/2018 JAREK DO AMANDA K Ot G47.30 SLEEP APNEA, UNSPECIFIED 09/24/2018 JAREK DORICKA K Ot I11.0 HYPERTENSIVE HEART DISEASE WITH HEART FA 09/24/2018 JAREK DO AMANDA K Ot I25.10 ATHSCL HEART DISEASE OF [place] CORONARY 09/24/2018 JAREK AMANDA TURPIN Ot I25.2 OLD MYOCARDIAL INFARCTION 09/24/2018 JAREK DO AMANDA K Ot I42.9 CARDIOMYOPATHY, UNSPECIFIED 09/24/2018 JAREK DO AMANDA K Ot I48.2 CHRONIC ATRIAL FIBRILLATION 09/24/2018 JAREK DORICKA K Ot I50.9 HEART FAILURE, UNSPECIFIED 09/24/2018 JAREK DO AMANDA K Ot J44.9 CHRONIC OBSTRUCTIVE PULMONARY DISEASE, U 09/24/2018 JAREK DORICKA K Ot K21.9 GASTRO-ESOPHAGEAL REFLUX DISEASE WITHOUT 09/24/2018 JAREK DORICKA K Ot K58.9 IRRITABLE BOWEL SYNDROME WITHOUT DIARRHE 09/24/2018 JAREK DO AMANDA K Ot M79.7 FIBROMYALGIA 09/24/2018 JAREK RICK TURPINA K Ot R42 DIZZINESS AND GIDDINESS 09/24/2018 JAREK DORICKA K Ot R52 PAIN, UNSPECIFIED 09/24/2018 JAREK DO AMANDA K Ot Z68.43 BODY MASS INDEX (BMI) 50-59.9, ADULT 09/24/2018 JAREK RICK TURPINA K Ot Z79.4 SENIOR IT SECURITY ANALYST (CURRENT) USE OF INSULIN 09/24/2018 JAREK RICK TURPINA K Ot Z79.51 CUSTODIAL (CURRENT) USE OF INHALED STERO 09/24/2018 JAREK RICK TURPINA K Ot Z79.82 SENIOR IT SECURITY ANALYST (CURRENT) USE OF ASPIRIN 09/24/2018 JAREK RICK TURPINA K Ot Z82.49 FAMILY HX OF ISCHEM HEART DIS AND OTH DI 09/24/2018 AMANDA TILLEY DO Ot Z86.73 PRSNL HX OF TIA (TIA), AND CEREB INFRC W 09/24/2018 AMANDA TILLEY DO, Ot Z87.19 PERSONAL HISTORY OF OTHER DISEASES OF TH 09/24/2018 AMANDA TILLEY DO, Ot Z87.440 PERSONAL HISTORY OF URINARY (TRACT) INFE 09/24/2018 AMANDA TILLEY DO, Ot Z87.442 PERSONAL HISTORY OF URINARY CALCULI 09/24/2018 AMANDA TILLEY DO, Ot Z87.891 PERSONAL HISTORY OF NICOTINE DEPENDENCE 09/24/2018 AMANDA TILLEY DO Ot Z88.0 ALLERGY STATUS TO PENICILLIN 09/24/2018 AMANDA TILLEY DO, Ot Z88.5 ALLERGY STATUS TO NARCOTIC AGENT STATUS 09/24/2018 JAREK AMANDA TURPIN Ot Z88.8 ALLERGY STATUS TO OTH DRUG/MEDS/BIOL SUB 09/24/2018 AMANDA TILLEY DO Ot Z90.49 ACQUIRED ABSENCE OF OTHER SPECIFIED PART 09/24/2018 AMANDA TILLEY DO Ot Z90.710 ACQUIRED ABSENCE OF BOTH CERVIX AND UTER 09/24/2018 AMANDA TILLEY DO Ot Z91.041 RADIOGRAPHIC DYE ALLERGY STATUS 09/24/2018 AMANDA TILLEY DO Ot Z91.048 OTHER NONMEDICINAL SUBSTANCE ALLERGY STA 09/24/2018 AMANDA TILLEY DO Ot Z95.0 PRESENCE OF CARDIAC PACEMAKER 09/24/2018 AMANDA TILLEY DO Ot Z95.5 PRESENCE OF CORONARY ANGIOPLASTY IMPLANT 09/24/2018 AMANDA TILLEY DO Ot Z98.890 OTHER SPECIFIED POSTPROCEDURAL STATES 09/28/2018 AMANDA TILLEY DO Ot E11.9 TYPE 2 DIABETES MELLITUS WITHOUT COMPLIC 09/28/2018 AMANDA TILLEY DO Ot E66.01 MORBID (SEVERE) OBESITY DUE TO EXCESS CA 09/28/2018 AMANDA TILLEY DO Ot F32.9 MAJOR DEPRESSIVE DISORDER, SINGLE EPISOD 09/28/2018 AMANDA TILLEY DO Ot F41.9 ANXIETY DISORDER, UNSPECIFIED 09/28/2018 AMANDA TILLEY DO Ot G47.30 SLEEP APNEA, UNSPECIFIED 09/28/2018 AMANDA TILLEY DO Ot I11.0 HYPERTENSIVE HEART DISEASE WITH HEART FA 09/28/2018 JAREK TURPIN AMANDA K Ot I25.10 ATHSCL HEART DISEASE OF [place] CORONARY 09/28/2018 JAREK AMANDA Silvana Ot I25.2 OLD MYOCARDIAL INFARCTION 09/28/2018 JAREK AMANDA K Ot I42.9 CARDIOMYOPATHY, UNSPECIFIED 09/28/2018 JAREK AMANDA K Ot I48.2 CHRONIC ATRIAL FIBRILLATION 09/28/2018 JAREK AMANDA TURPIN Ot I50.9 HEART FAILURE, UNSPECIFIED 09/28/2018 JAREK DO AMANDA K Ot J44.9 CHRONIC OBSTRUCTIVE PULMONARY DISEASE, U 09/28/2018 JAREK DO AMANDA Silvana Ot K21.9 GASTRO-ESOPHAGEAL REFLUX DISEASE WITHOUT 09/28/2018 JAREK RICKA K Ot K58.9 IRRITABLE BOWEL SYNDROME WITHOUT DIARRHE 09/28/2018 JAREK RICKA Silvana Ot M79.7 FIBROMYALGIA 09/28/2018 JAREK AMANDA TURPIN Ot R42 DIZZINESS AND GIDDINESS 09/28/2018 [facility] R52 PAIN, UNSPECIFIED 09/28/2018 [facility] AMANDA K Ot Z68.43 BODY MASS INDEX (BMI) 50-59.9, ADULT 09/28/2018 JAREK AMANDA TURPIN Ot Z79.4 CUSTODIAL (CURRENT) USE OF INSULIN 09/28/2018 CROSBY AMANDA TURPIN Ot Z79.51 CUSTODIAL (CURRENT) USE OF INHALED STERO 09/28/2018 JAREK AMANDA TURPIN Ot Z79.82 CUSTODIAL (CURRENT) USE OF ASPIRIN 09/28/2018 AJREK AMANDA TURPIN Ot Z82.49 FAMILY HX OF ISCHEM HEART DIS AND OTH DI 09/28/2018 JAREK AMANDA TURPIN Ot Z86.73 PRSNL HX OF TIA (TIA), AND CEREB INFRC W 09/28/2018 JAREK AMANDA TURPIN Ot Z87.19 PERSONAL HISTORY OF OTHER DISEASES OF TH 09/28/2018 JAREK AMANDA TURPIN Ot Z87.440 PERSONAL HISTORY OF URINARY (TRACT) INFE 09/28/2018 AMANDA TILLEY DO Ot Z87.442 PERSONAL HISTORY OF URINARY CALCULI 09/28/2018 JAREK AMANDA TURPIN Ot Z87.891 PERSONAL HISTORY OF NICOTINE DEPENDENCE 09/28/2018 JAREK AMANDA Pina Ot Z88.0 ALLERGY STATUS TO PENICILLIN 09/28/2018 JAREK AMANDA K Ot Z88.5 ALLERGY STATUS TO NARCOTIC AGENT STATUS 09/28/2018 JAREK AMANDA Silvana Ot Z88.8 ALLERGY STATUS TO OTH DRUG/MEDS/BIOL SUB 09/28/2018 JAREK AMANDA Silvana Ot Z90.49 ACQUIRED ABSENCE OF OTHER SPECIFIED PART 09/28/2018 JAREK AMANDA Silavna Ot Z90.710 ACQUIRED ABSENCE OF BOTH CERVIX AND UTER 09/28/2018 JAREK AMANDA Silvana Ot Z91.041 RADIOGRAPHIC DYE ALLERGY STATUS 09/28/2018 JAREK AMANDA Silvana Ot Z91.048 OTHER NONMEDICINAL SUBSTANCE ALLERGY STA 09/28/2018 JAREK AMANDA Silvana Ot Z95.0 PRESENCE OF CARDIAC PACEMAKER 09/28/2018 CROSBY AMANDA TURPIN Ot Z95.5 PRESENCE OF CORONARY ANGIOPLASTY IMPLANT 09/28/2018 CROSBY AMANDA Ot Z98.890 OTHER SPECIFIED POSTPROCEDURAL STATES 09/30/2018 JAREK DO AMANDA K Ot E11.9 TYPE 2 DIABETES MELLITUS WITHOUT COMPLIC 09/30/2018 JAREK DO AMANDA Silvana Ot E66.01 MORBID (SEVERE) OBESITY DUE TO EXCESS CA 09/30/2018 AMANDA TILLEY DO Ot F32.9 MAJOR DEPRESSIVE DISORDER, SINGLE EPISOD 09/30/2018 JAREK AMANDA TURPIN Ot F41.9 ANXIETY DISORDER, UNSPECIFIED 09/30/2018 CROSBY AMANDA TURPIN Ot G47.30 SLEEP APNEA, UNSPECIFIED 09/30/2018 JAREK AMANDA TURPIN Ot I11.0 HYPERTENSIVE HEART DISEASE WITH HEART FA 09/30/2018 JAREK RICK TURPINA Silvana Ot I25.10 ATHSCL HEART DISEASE OF [place] CORONARY 09/30/2018 AMANDA TILLEY DO Ot I25.2 OLD MYOCARDIAL INFARCTION 09/30/2018 JAREK AMANDA TURPIN Ot I42.9 CARDIOMYOPATHY, UNSPECIFIED 09/30/2018 JAREK AMANDA TURPIN Ot I48.2 CHRONIC ATRIAL FIBRILLATION 09/30/2018 JAREK AMANDA TURPIN Ot I50.9 HEART FAILURE, UNSPECIFIED 09/30/2018 JAREK AMANDA TURPIN Ot J44.9 CHRONIC OBSTRUCTIVE PULMONARY DISEASE, U 09/30/2018 AMANDA TILLEY DO Ot K21.9 GASTRO-ESOPHAGEAL REFLUX DISEASE WITHOUT 09/30/2018 AMANDA TILLEY DO Ot K58.9 IRRITABLE BOWEL SYNDROME WITHOUT DIARRHE 09/30/2018 AMANDA TILLEY DO Ot M79.7 FIBROMYALGIA 09/30/2018 AMANDA TILLEY DO Ot R42 DIZZINESS AND GIDDINESS 09/30/2018 AMANDA TILLEY DO Ot R52 PAIN, UNSPECIFIED 09/30/2018 JAREK AMANDA TURPIN Ot Z68.43 BODY MASS INDEX (BMI) 50-59.9, ADULT 09/30/2018 AMANDA TILLEY DO Ot Z79.4 CUSTODIAL (CURRENT) USE OF INSULIN 09/30/2018 AMANDA TILLEY DO Ot Z79.51 SENIOR IT SECURITY ANALYST (CURRENT) USE OF INHALED STERO 09/30/2018 JAREK AMANDA TURPIN Ot Z79.82 SENIOR IT SECURITY ANALYST (CURRENT) USE OF ASPIRIN 09/30/2018 JAREK AMANDA TURPIN Ot Z82.49 FAMILY HX OF ISCHEM HEART DIS AND OTH DI 09/30/2018 AMANDA TILLEY DO Ot Z86.73 PRSNL HX OF TIA (TIA), AND CEREB INFRC W 09/30/2018 AMANDA TILLEY DO Ot Z87.19 PERSONAL HISTORY OF OTHER DISEASES OF TH 09/30/2018 AMANDA TILLEY DO Ot Z87.440 PERSONAL HISTORY OF URINARY (TRACT) INFE 09/30/2018 AMANDA TILLEY DO Ot Z87.442 PERSONAL HISTORY OF URINARY CALCULI 09/30/2018 AMANDA TILLEY DO Ot Z87.891 PERSONAL HISTORY OF NICOTINE DEPENDENCE 09/30/2018 AMANDA TILLEY DO Ot Z88.0 ALLERGY STATUS TO PENICILLIN 09/30/2018 AMANDA TILLEY DO Ot Z88.5 ALLERGY STATUS TO NARCOTIC AGENT STATUS 09/30/2018 AMANDA TILLEY DO Ot Z88.8 ALLERGY STATUS TO OTH DRUG/MEDS/BIOL SUB 09/30/2018 AMANDA TILLEY DO Ot Z90.49 ACQUIRED ABSENCE OF OTHER SPECIFIED PART 09/30/2018 AMANDA TILLEY DO Ot Z90.710 ACQUIRED ABSENCE OF BOTH CERVIX AND UTER 09/30/2018 AMANDA TILLEY DO Ot Z91.041 RADIOGRAPHIC DYE ALLERGY STATUS 09/30/2018 AMANDA TILLEY DO Ot Z91.048 OTHER NONMEDICINAL SUBSTANCE ALLERGY STA 09/30/2018 AMANDA TILLEY DO Ot Z95.0 PRESENCE OF CARDIAC PACEMAKER 09/30/2018 AMANDA TILLEY DO Ot Z95.5 PRESENCE OF CORONARY ANGIOPLASTY IMPLANT 09/30/2018 AMANDA TILLEY DO Ot Z98.890 OTHER SPECIFIED POSTPROCEDURAL STATES 10/01/2018 W 250.80 FABRICE BETES MELLITUS WITH OTHER SPECIFIED MANIFESTATIONS, TYPE II OR UNSPECIFIED TYPE, NOT STATED UNCONTROLLED 10/01/2018 W 309.0 ADJU STMENT DISORDER WITH DEPRESSED MOOD 10/01/2018 W E11.65 TYP E 2 DIABETES MELLITUS WITH HYPERGLYCEMIA 10/01/2018 W F43.21 ADJ USTMENT DISORDER WITH DEPRESSED MOOD 10/13/2018 W 250.80 FABRICE BETES MELLITUS WITH OTHER SPECIFIED MANIFESTATIONS, TYPE II OR UNSPECIFIED TYPE, NOT STATED UNCONTROLLED 10/13/2018 W 616.11 VAG INITIS AND VULVOVAGINITIS IN DISEASES CLASSIFIED ELSEWHERE 10/13/2018 W 698.3 LICH ENIFICATION AND LICHEN SIMPLEX CHRONICUS 10/13/2018 W E11.65 TYP E 2 DIABETES MELLITUS WITH HYPERGLYCEMIA 10/13/2018 W L28.0 LICH EN SIMPLEX CHRONICUS 10/13/2018 W N77.1 VAGI NITIS, VULVITIS AND VULVOVAGINITIS IN DISEASES CLASSIFIED ELSEWHERE 10/16/2018 RAVEN GRAMAJO MD Ot E78. 5 HYPERLIPIDEMIA, UNSPECIFIED 10/16/2018 RAVEN GRAMAJO MD Ot I11. 0 HYPERTENSIVE HEART DISEASE WITH HEART FA 10/16/2018 RAVEN GRAMAJO MD Ot I25. 10 ATHSCL HEART DISEASE OF [place] CORONARY 10/16/2018 RAVEN GRAMAJO MD Ot I50. 9 HEART FAILURE, UNSPECIFIED 10/16/2018 RAVEN GRAMAJO MD Ot R07. 89 OTHER CHEST PAIN 10/16/2018 RAVEN GRAMAJO MD Ot E78. 5 HYPERLIPIDEMIA, UNSPECIFIED 10/16/2018 RAVEN GRAMAJO MD Ot I11. 0 HYPERTENSIVE HEART DISEASE WITH HEART FA 10/16/2018 RAVEN GRAMAJO MD Ot I25. 10 ATHSCL HEART DISEASE OF [place] CORONARY 10/16/2018 RAVEN GRAMAJO MD Ot I50. 9 HEART FAILURE, UNSPECIFIED 10/16/2018 RAVEN GRAMAJO MD Ot R07. 89 OTHER CHEST PAIN 10/20/2018 BEBE JACKMAN MD, Ot E11.9 TYPE 2 DIABETES MELLITUS WITHOUT COMPLIC 10/20/2018 BEBE JACKMAN MD, Ot E66.01 MORBID (SEVERE) OBESITY DUE TO EXCESS CA 10/20/2018 BEBE JACKMAN MD Ot F17.210 NICOTINE DEPENDENCE, CIGARETTES, UNCOMPL 10/20/2018 BEBE JACKMAN MD, Ot F32.9 MAJOR DEPRESSIVE DISORDER, SINGLE EPISOD 10/20/2018 BEBE JACKMAN MD, Ot F41.9 ANXIETY DISORDER, UNSPECIFIED 10/20/2018 BEBE JACKMAN MD, Ot G47.30 SLEEP APNEA, UNSPECIFIED 10/20/2018 BEBE JACKMAN MD, Ot I10 ESSENTIAL (PRIMARY) HYPERTENSION 10/20/2018 BEBE JACKMAN MD, Ot I25.10 ATHSCL HEART DISEASE OF [place] CORONARY 10/20/2018 BEBE JACKMAN MD Ot I42.9 CARDIOMYOPATHY, UNSPECIFIED 10/20/2018 BEBE JACKMAN MD Ot I48.91 UNSPECIFIED ATRIAL FIBRILLATION 10/20/2018 BEBE JACKMAN MD, Ot J44.9 CHRONIC OBSTRUCTIVE PULMONARY DISEASE, U 10/20/2018 BEBE JACKMAN MD, Ot K21.9 GASTRO-ESOPHAGEAL REFLUX DISEASE WITHOUT 10/20/2018 BEBE JACKMAN MD, Ot K58.9 IRRITABLE BOWEL SYNDROME WITHOUT DIARRHE 10/20/2018 BEBE JACKMAN MD Ot M79.7 FIBROMYALGIA 10/20/2018 BEBE JACKMAN MD Ot R07.89 OTHER CHEST PAIN 10/20/2018 BEBE JACKMAN MD Ot Z68.42 BODY MASS INDEX (BMI) 45.0-49.9, ADULT 10/20/2018 BEBE JACKMAN MD Ot Z79.02 CUSTODIAL (CURRENT) USE OF ANTITHROMBOTI 10/20/2018 BEBE JACKMAN MD Ot Z79.4 CUSTODIAL (CURRENT) USE OF INSULIN 10/20/2018 BEBE JACKMAN MD Ot Z79.82 CUSTODIAL (CURRENT) USE OF ASPIRIN 10/20/2018 BEBE JACKMAN MD Ot Z82.49 FAMILY HX OF ISCHEM HEART DIS AND OTH DI 10/20/2018 BEBE JACKMAN MD Ot Z86.73 PRSNL HX OF TIA (TIA), AND CEREB INFRC W 10/20/2018 BEBE JACKMAN MD Ot Z87.440 PERSONAL HISTORY OF URINARY (TRACT) INFE 10/20/2018 BEBE JACKMAN MD, Ot Z87.442 PERSONAL HISTORY OF URINARY CALCULI 10/20/2018 BEBE JACKMAN MD Ot Z88.0 ALLERGY STATUS TO PENICILLIN 10/20/2018 BEBE JACKMAN MD, Ot Z88.1 ALLERGY STATUS TO OTHER ANTIBIOTIC AGENT 10/20/2018 BEBE JACKMAN MD, Ot Z88.5 ALLERGY STATUS TO NARCOTIC AGENT STATUS 10/20/2018 BEBE JACKMAN MD Ot Z90.49 ACQUIRED ABSENCE OF OTHER SPECIFIED PART 10/20/2018 BEBE JACKMAN MD Ot Z95.0 PRESENCE OF CARDIAC PACEMAKER 10/20/2018 BEBE JACKMAN MD Ot Z95.5 PRESENCE OF CORONARY ANGIOPLASTY IMPLANT 10/22/2018 W 250.80 FABRICE BETES MELLITUS WITH OTHER SPECIFIED MANIFESTATIONS, TYPE II OR UNSPECIFIED TYPE, NOT STATED UNCONTROLLED 10/22/2018 W 309.0 ADJU STMENT DISORDER WITH DEPRESSED MOOD 10/22/2018 W 786.5 CHES T PAIN 10/22/2018 W E11.65 TYP E 2 DIABETES MELLITUS WITH HYPERGLYCEMIA 10/22/2018 W F43.21 ADJ USTMENT DISORDER WITH DEPRESSED MOOD 10/22/2018 W R07.9 CHES T PAIN, UNSPECIFIED 10/26/2018 BEBE JACKMAN MD Ot E11.9 TYPE 2 DIABETES MELLITUS WITHOUT COMPLIC 10/26/2018 BEBE JACKMAN MD Ot E66.01 MORBID (SEVERE) OBESITY DUE TO EXCESS CA 10/26/2018 BEBE JACKMAN MD Ot F17.210 NICOTINE DEPENDENCE, CIGARETTES, UNCOMPL 10/26/2018 BEBE JACKMAN MD Ot F32.9 MAJOR DEPRESSIVE DISORDER, SINGLE EPISOD 10/26/2018 BEBE JACKMAN MD Ot F41.9 ANXIETY DISORDER, UNSPECIFIED 10/26/2018 BEBE JACKMAN MD Ot G47.30 SLEEP APNEA, UNSPECIFIED 10/26/2018 BEBE JACKMAN MD Ot I10 ESSENTIAL (PRIMARY) HYPERTENSION 10/26/2018 BEBE JACKMAN MD, Ot I25.10 ATHSCL HEART DISEASE OF [place] CORONARY 10/26/2018 BEBE JACKMAN MD Ot I42.9 CARDIOMYOPATHY, UNSPECIFIED 10/26/2018 BEBE JACKMAN MD Ot I48.91 UNSPECIFIED ATRIAL FIBRILLATION 10/26/2018 BEBE JACKMAN MD, Ot J44.9 CHRONIC OBSTRUCTIVE PULMONARY DISEASE, U 10/26/2018 BEBE JACKMAN MD, Ot K21.9 GASTRO-ESOPHAGEAL REFLUX DISEASE WITHOUT 10/26/2018 BEBE JACKMAN MD, Ot K58.9 IRRITABLE BOWEL SYNDROME WITHOUT DIARRHE 10/26/2018 BEBE JACKMAN MD Ot M79.7 FIBROMYALGIA 10/26/2018 BEBE JACKMAN MD Ot R07.89 OTHER CHEST PAIN 10/26/2018 BEBE JACKMAN MD, Ot Z68.42 BODY MASS INDEX (BMI) 45.0-49.9, ADULT 10/26/2018 BEBE JACKMAN MD Ot Z79.02 SENIOR IT SECURITY ANALYST (CURRENT) USE OF ANTITHROMBOTI 10/26/2018 BEBE JACKMAN MD Ot Z79.4 SENIOR IT SECURITY ANALYST (CURRENT) USE OF INSULIN 10/26/2018 BEBE JACKMAN MD Ot Z79.82 SENIOR IT SECURITY ANALYST (CURRENT) USE OF ASPIRIN 10/26/2018 BEBE JACKMAN MD Ot Z82.49 FAMILY HX OF ISCHEM HEART DIS AND OTH DI 10/26/2018 BEBE JACKMAN MD Ot Z86.73 PRSNL HX OF TIA (TIA), AND CEREB INFRC W 10/26/2018 BEBE JACKMAN MD, Ot Z87.440 PERSONAL HISTORY OF URINARY (TRACT) INFE 10/26/2018 BEBE JACKMAN MD Ot Z87.442 PERSONAL HISTORY OF URINARY CALCULI 10/26/2018 BEBE JACKMAN MD Ot Z88.0 ALLERGY STATUS TO PENICILLIN 10/26/2018 BEBE JACKMAN MD Ot Z88.1 ALLERGY STATUS TO OTHER ANTIBIOTIC AGENT 10/26/2018 BEBE JACKMAN MD Ot Z88.5 ALLERGY STATUS TO NARCOTIC AGENT STATUS 10/26/2018 BEBE JACKMAN MD, Ot Z90.49 ACQUIRED ABSENCE OF OTHER SPECIFIED PART 10/26/2018 BEBE JACKMAN MD, Ot Z95.0 PRESENCE OF CARDIAC PACEMAKER 10/26/2018 BEBE JACKMAN MD, Ot Z95.5 PRESENCE OF CORONARY ANGIOPLASTY IMPLANT 11/05/2018 RAVEN GRAMAJO MD, Ot E78. 5 HYPERLIPIDEMIA, UNSPECIFIED 11/05/2018 RAVEN GRAMAJO MD, Ot I11. 0 HYPERTENSIVE HEART DISEASE WITH HEART FA 11/05/2018 RAVEN GRAMAJO MD, Ot I25. 10 ATHSCL HEART DISEASE OF [place] CORONARY 11/05/2018 RAVEN GRAMAJO MD, Ot I50. 9 HEART FAILURE, UNSPECIFIED 11/05/2018 RAVEN GRAMAJO MD, Ot R07. 89 OTHER CHEST PAIN Procedures There is no data. Results Test Result Range Complete blood count (CBC) with automate d white blood cell (WBC) differential - 12/07/15 18:18 Blood leukocytes automated count (number/volume) 5.6 10*3/uL 4.3-11.0 Blood erythrocytes automated count (number/volume) 4.47 10*6/uL 4.35-5.85 Venous blood hemoglobin measurement (mass/volume) 11.8 g/dL 11.5-16.0 Blood hematocrit (volume fraction) 37 % 35-52 Automated erythrocyte mean corpuscular volume 83 [ foz_us] 80-99 Automated erythrocyte mean corpuscular h emoglobin (mass per erythrocyte) 26 pg 25-34 Automated erythrocyte mean corpuscular h emoglobin concentration measurement (mass/volume) 32 g/dL 32-36 Automated erythrocyte distribution width ratio 14. 1 % 10.0- 14.5 Automated blood platelet count [...] 10*3 1.0-4.0 Blood monocytes automated count (number/volume) 0. 5 10*3 0.0-1.0 Automated eosinophil count 0.2 10*3/uL 0 .0-0.3 Automated blood basophil count (count/volume) 0.0 10*3/uL 0.0-0.1 PT panel in platelet poor plasma by coag ulation assay - 12/07/15 18:18 Prothrombin time (PT) in platelet poor plasma by coagu lation assay 13.2 s 12.2-14.7 INR in platelet poor plasma or blood by coagulation as say 1.0 0.8-1.4 Activated partial thromboplastin time (a PTT) in platelet poor plasma bycoagulation assay - 12/07/15 18:18 Activated partial thromboplastin time (a PTT) in platelet poor plasma bycoagulation assay 33 s 24-35 Comprehensive metabolic panel - 12/07/15 18:18 Serum or plasma sodium measurement (moles/volume) 139 mmol/L 135-145 Serum or plasma potassium measurement (moles/volume) 4.1 mmol/L 3.6-5.0 Serum or plasma chloride measurement (moles/volume) 103 mmol/L 98-107 Carbon dioxide 29 mmol/L 21-32 Serum or plasma anion gap determination (moles/volume) 7 mmol/L 5-14 Serum or plasma urea nitrogen measurement (mass/volume ) 9 mg/dL 7-18 Serum or plasma creatinine measurement (mass/volume) 0.76 mg/dL 0.60-1.30 Serum or plasma urea nitrogen/creatinine mass ratio 12 NRG Serum or plasma creatinine measurement w ith calculation of estimated glomerular filtration rate > NRG Serum or plasma glucose measurement (mass/volume) 267 mg/dL 70-105 Serum or plasma calcium measurement (mass/volume) 9.0 mg/dL 8.5-10.1 Serum or plasma total bilirubin measurement (mass/volu me) 0.3 mg/dL 0.1-1.0 Serum or plasma alkaline phosphatase irina surement (enzymatic activity/volume) 89 U/L 40-136 Serum or plasma aspartate aminotransfera se measurement (enzymatic activity/volume) 13 U/L 5-34 Serum or plasma alanine aminotransferase measurement (enzymatic activity/volume) 6 U/L 0-55 Serum or plasma protein measurement (mass/volume) 5.8 g/dL 6.4-8.2 Serum or plasma albumin measurement (mass/volume) 3.3 g/dL 3.2-4.5 Magnesium - 12/07/15 18:18 Magnesium 1.9 mg/dL 1.8-2.4 Serum or plasma troponin i.cardiac measu rement (mass/volume) - 12/07/15 18:18 Serum or plasma troponin i.cardiac measurement (mass/v olume) < ng/mL <0.30 Myoglobin, serum - 12/07/15 18:18 Myoglobin, serum 20.5 ng/mL 10.0-92.0 Serum or plasma troponin i.cardiac measu rement (mass/volume) - 12/07/15 20:00 Serum or plasma troponin i.cardiac measurement (mass/v olume) < ng/mL <0.30 Automated blood complete blood count (he mogram) panel - 03/04/16 07:36 Blood leukocytes automated count (number/volume) 8.0 10*3/uL 4.3-11.0 Blood erythrocytes automated count (number/volume) 5.03 10*6/uL 4.35-5.85 Venous blood hemoglobin measurement (mass/volume) 13.4 g/dL 11.5-16.0 Blood hematocrit (volume fraction) 42 % 35-52 Automated erythrocyte mean corpuscular volume 83 [ foz_us] 80-99 Automated erythrocyte mean corpuscular h emoglobin (mass per erythrocyte) 27 pg 25-34 Automated erythrocyte mean corpuscular h emoglobin concentration measurement (mass/volume) 32 g/dL 32-36 Automated erythrocyte distribution width ratio 14. 5 % 10.0- 14.5 Automated blood platelet count (count/volume) 212 10*3/uL 130-400 Automated blood platelet mean volume measurement 10.1 [foz_us] 7.4-10.4 Complete urinalysis with reflex to cultu re - 03/04/16 07:36 Urine color determination YELLOW NRG Urine clarity determination CLEAR NR G Urine pH measurement by test strip 5 5-9 Specific gravity of urine by test strip 1.030 1.016-1.022 Urine protein assay by test strip, semi-quantitative 1+ NEGATIVE Urine glucose detection by automated test strip NE GATIVE NEGATIVE Erythrocytes detection in urine sediment by light micr oscopy 2+ NEGATIVE Urine ketones detection by automated test strip NE GATIVE NEGATIVE Urine nitrite detection by test strip NEGATIVE NEGATIVE Urine total bilirubin detection by test strip NEGA TIVE NEGATIVE Urine urobilinogen measurement by automated test strip (mass/volume) NORMAL NORMAL Urine leukocyte esterase detection by dipstick 3+ NEGATIVE Automated urine sediment erythrocyte cou nt by microscopy (number/high power field) [HPF] NRG Automated urine sediment leukocyte count by microscopy (number/high power field) [HPF] NRG Bacteria detection in urine sediment by light microsco py MODERATE NRG Squamous epithelial cells detection in u rine sediment by light microscopy 10-25 NRG Crystals detection in urine sediment by light microsco py PRESENT NRG Casts detection in urine sediment by light microscopy PRESENT NRG Mucus detection in urine sediment by light microscopy NEGATIVE NRG Complete urinalysis with reflex to culture YES NRG Amorphous sediment detection in urine sediment by ligh t microscopy FEW AZUCENA URATES NRG Hyaline casts detection in urine sediment by light katharina roscopy 2-5 NRG PT panel in platelet poor plasma by coag ulation assay - 03/04/16 07:36 Prothrombin time (PT) in platelet poor plasma by coagu lation assay 12.8 s 12.2-14.7 INR in platelet poor plasma or blood by coagulation as say 1.0 0.8-1.4 Activated partial thromboplastin time (a PTT) in platelet poor plasma bycoagulation assay - 03/04/16 07:36 Activated partial thromboplastin time (a PTT) in platelet poor plasma bycoagulation assay 29 s 24-35 Comprehensive metabolic panel - 03/04/16 07:36 Serum or plasma sodium measurement (moles/volume) 140 mmol/L 135-145 Serum or plasma potassium measurement (moles/volume) 4.0 mmol/L 3.6-5.0 Serum or plasma chloride measurement (moles/volume) 104 mmol/L 98-107 Carbon dioxide 24 mmol/L 21-32 Serum or plasma anion gap determination (moles/volume) 12 mmol/L 5-14 Serum or plasma urea nitrogen measurement (mass/volume ) 11 mg/dL 7-18 Serum or plasma creatinine measurement (mass/volume) 0.80 mg/dL 0.60-1.30 Serum or plasma urea nitrogen/creatinine mass ratio 14 NRG Serum or plasma creatinine measurement w ith calculation of estimated glomerular filtration rate > NRG Serum or plasma glucose measurement (mass/volume) 241 mg/dL 70-105 Serum or plasma calcium measurement (mass/volume) 8.9 mg/dL 8.5-10.1 Serum or plasma total bilirubin measurement (mass/volu me) 0.6 mg/dL 0.1-1.0 Serum or plasma alkaline phosphatase irina surement (enzymatic activity/volume) 73 U/L 40-136 Serum or plasma aspartate aminotransfera se measurement (enzymatic activity/volume) 12 U/L 5-34 Serum [...] Serum or plasma cholesterol in HDL measurement (mass/v olume) 57 mg/dL 40-60 Cholesterol in LDL [mass/volume] in serum or plasma by direct assay 85 mg/dL 1-129 Serum or plasma cholesterol in VLDL measurement (mass/ volume) 22 mg/dL 5-40 Bacterial urine culture - 03/04/16 07:36 Bacterial urine culture [id number] NRG COLONY COUNT 10,000/ML - 100,000/ML NRG FTX;REPORTABLE SEE COMMENTS NRG URINE CULTURE RESULTS SUGGEST RECOLLECTION NRG Methicillin resistant Staphylococcus aur eus (MRSA) screening culture - 03/04/16 07:36 Methicillin resistant Staphylococcus aureus (MRSA) scr eening culture NEG NRG Total T3 - 06/04/16 12:37 Total T3 1.03 ng/mL 0.58-1.59 Thyroid Stimulating Hormone - 06/04/16 1 2:37 TSH 0.29 mIU/mL 0.32-5.00 Complete urinalysis with reflex to cultu re - 09/14/16 18:55 Urine color determination YELLOW NRG Urine clarity determination CLEAR NR G Urine pH measurement by test strip 5 5-9 Specific gravity of urine by test strip 1.015 1.016-1.022 Urine protein assay by test strip, semi-quantitative 2+ NEGATIVE Urine glucose detection by automated test strip 4+ NEGATIVE Erythrocytes detection in urine sediment by light micr oscopy 3+ NEGATIVE Urine ketones detection by automated test strip NE GATIVE NEGATIVE Urine nitrite detection by test strip NEGATIVE NEGATIVE Urine total bilirubin detection by test strip NEGA TIVE NEGATIVE Urine urobilinogen measurement by automated test strip (mass/volume) NORMAL NORMAL Urine leukocyte esterase detection by dipstick 2+ NEGATIVE Automated urine sediment erythrocyte cou nt by microscopy (number/high power field) [HPF] NRG Automated urine sediment leukocyte count by microscopy (number/high power field) [HPF] NRG Bacteria detection in urine sediment by light microsco py FEW NRG Squamous epithelial cells detection in u rine sediment by light microscopy 10-25 NRG Crystals detection in urine sediment by light microsco py NONE NRG Casts detection in urine sediment by light microscopy NONE NRG Mucus detection in urine sediment by light microscopy NEGATIVE NRG Complete urinalysis with reflex to culture YES NRG Yeast detection in urine sediment by light microscopy FEW NRG Bacterial urine culture - 09/14/16 18:55 Bacterial urine culture [id number] NRG COLONY COUNT 10,000/ML - 100,000/ML NRG FTX;REPORTABLE SENSITIVITY REPORTED 09/16/16 7:15 NRG URINE CULTURE RESULTS PLUS NRG Bacterial susceptibility panel - 7 18:55 Gentamicin susceptibility test by minimum inhibitory c oncentration <= NRG Trimethoprim/sulfamethoxazole susceptibi lity test by minimum inhibitoryconcentration <= NRG Ampicillin susceptibility test by minimum inhibitory c oncentration <= NRG Tobramycin susceptibility test by minimum inhibitory c oncentration <= NRG Cefazolin susceptibility test by minimum inhibitory co ncentration <= NRG Ceftriaxone susceptibility test by minimum inhibitory concentration <= NRG Ampicillin/sulbactam susceptibility test by minimum inhibitory concentration <= NRG Piperacillin/tazobactam susceptibility t est by minimum inhibitory concentration <= NRG Ciprofloxacin susceptibility test by minimum inhibitor y concentration <= NRG Meropenem susceptibility test by minimum inhibitory co ncentration <= NRG Nitrofurantoin susceptibility test by mi nimum inhibitory concentration <= NRG Aztreonam susceptibility test by minimum inhibitory co ncentration <= NRG Extended spectrum beta lactamase (ESBL) producing bacteria susceptibility test by minimum inhibitory concentration - NRG Complete blood count (CBC) with automate d white blood cell (WBC) differential - 09/14/16 19:10 Blood leukocytes automated count (number/volume) 8.1 10*3/uL 4.3-11.0 Blood erythrocytes automated count (number/volume) 5.50 10*6/uL 4.35-5.85 Venous blood hemoglobin measurement (mass/volume) 15.1 g/dL 11.5-16.0 Blood hematocrit (volume fraction) 45 % 35-52 Automated erythrocyte mean corpuscular volume 82 [ foz_us] 80-99 Automated erythrocyte mean corpuscular h emoglobin (mass per erythrocyte) 28 pg 25-34 Automated erythrocyte mean corpuscular h emoglobin concentration measurement (mass/volume) 33 g/dL 32-36 Automated erythrocyte distribution width ratio 14. 2 % 10.0- 14.5 Automated blood platelet count [...] 10*3 1.0-4.0 Blood monocytes automated count (number/volume) 0. 9 10*3 0.0-1.0 Automated eosinophil count 0.1 10*3/uL 0 .0-0.3 Automated blood basophil count (count/volume) 0.0 10*3/uL 0.0-0.1 Comprehensive metabolic panel - 09/14/16 19:10 Serum or plasma sodium measurement (moles/volume) 138 mmol/L 135-145 Serum or plasma potassium measurement (moles/volume) 2.9 mmol/L 3.6-5.0 Serum or plasma chloride measurement (moles/volume) 100 mmol/L 98-107 Carbon dioxide 23 mmol/L 21-32 Serum or plasma anion gap determination (moles/volume) 15 mmol/L 5-14 Serum or plasma urea nitrogen measurement (mass/volume ) 9 mg/dL 7-18 Serum or plasma creatinine measurement (mass/volume) 0.84 mg/dL 0.60-1.30 Serum or plasma urea nitrogen/creatinine mass ratio 11 NRG Serum or plasma creatinine measurement w ith calculation of estimated glomerular filtration rate > NRG Serum or plasma glucose measurement (mass/volume) 436 mg/dL 70-105 Serum or plasma calcium measurement (mass/volume) 9.4 mg/dL 8.5-10.1 Serum or plasma total bilirubin measurement (mass/volu me) 0.7 mg/dL 0.1-1.0 Serum or plasma alkaline phosphatase irina surement (enzymatic activity/volume) 91 U/L 40-136 Serum or plasma aspartate aminotransfera se measurement (enzymatic activity/volume) 11 U/L 5-34 Serum or plasma alanine aminotransferase measurement (enzymatic activity/volume) 12 U/L 0-55 Serum or plasma protein measurement (mass/volume) 7.0 g/dL 6.4-8.2 Serum or plasma albumin measurement (mass/volume) 3.8 g/dL 3.2-4.5 Magnesium - 09/14/16 19:10 Magnesium 1.8 mg/dL 1.8-2.4 Serum or plasma troponin i.cardiac measu rement (mass/volume) - 09/14/16 19:10 Serum or plasma troponin i.cardiac measurement (mass/v olume) < ng/mL <0.30 Lipase - 09/14/16 19:10 Lipase 17 U/L 8-78 Serum or plasma lithium measurement (mol es/volume) - 09/14/16 19:10 BNP level 94.6 pg/mL <100.0 Capillary blood glucose measurement by g lucometer (mass/volume) - 09/14/16 22:34 Capillary blood glucose measurement by glucometer (mas s/volume) 350 mg/dL 70-110 Whole blood basic metabolic panel - 07/29 05:52 Serum or plasma sodium measurement (moles/volume) 139 mmol/L 135-145 Serum or plasma potassium measurement (moles/volume) 3.5 mmol/L 3.6-5.0 Serum or plasma chloride measurement (moles/volume) 101 mmol/L 98-107 Carbon dioxide 26 mmol/L 21-32 Serum or plasma anion gap determination (moles/volume) 12 mmol/L 5-14 Serum or plasma urea nitrogen measurement (mass/volume ) 10 mg/dL 7-18 Serum or plasma creatinine measurement (mass/volume) 0.82 mg/dL 0.60-1.30 Serum or plasma urea nitrogen/creatinine mass ratio 12 NRG Serum or plasma creatinine measurement w ith calculation of estimated glomerular filtration rate > NRG Serum or plasma glucose measurement (mass/volume) 332 mg/dL 70-105 Serum or plasma calcium measurement (mass/volume) 9.2 mg/dL 8.5-10.1 Capillary blood glucose measurement by g lucometer (mass/volume) - 09/15/16 10:27 Capillary blood glucose measurement by glucometer (mas s/volume) 352 mg/dL 70-110 Capillary blood glucose measurement by g lucometer (mass/volume) - 09/15/16 16:38 Capillary blood glucose measurement by glucometer (mas s/volume) 151 mg/dL 70-110 Capillary blood glucose measurement by g lucometer (mass/volume) - 09/15/16 20:30 Capillary blood glucose measurement by glucometer (mas s/volume) 93 mg/dL 70-110 Complete blood count (CBC) with automate d white blood cell (WBC) differential - 09/16/16 05:55 Blood leukocytes automated count (number/volume) 6.0 10*3/uL 4.3-11.0 Blood erythrocytes automated count (number/volume) 5.09 10*6/uL 4.35-5.85 Venous blood hemoglobin measurement (mass/volume) 14.1 g/dL 11.5-16.0 Blood hematocrit (volume fraction) 43 % 35-52 Automated erythrocyte mean corpuscular volume 84 [ foz_us] 80-99 Automated erythrocyte mean corpuscular h emoglobin (mass per erythrocyte) 28 pg 25-34 Automated erythrocyte mean corpuscular h emoglobin concentration measurement (mass/volume) 33 g/dL 32-36 Automated erythrocyte distribution width ratio 14. 4 % 10.0- 14.5 Automated blood platelet count [...] 10*3 1.0-4.0 Blood monocytes automated count (number/volume) 0. 5 10*3 0.0-1.0 Automated eosinophil count 0.2 10*3/uL 0 .0-0.3 Automated blood basophil count (count/volume) 0.0 10*3/uL 0.0-0.1 Comprehensive metabolic panel - 09/16/16 05:55 Serum or plasma sodium measurement (moles/volume) 137 mmol/L 135-145 Serum or plasma potassium measurement (moles/volume) 3.8 mmol/L 3.6-5.0 Serum or plasma chloride measurement (moles/volume) 101 mmol/L 98-107 Carbon dioxide 25 mmol/L 21-32 Serum or plasma anion gap determination (moles/volume) 11 mmol/L 5-14 Serum or plasma urea nitrogen measurement (mass/volume ) 15 mg/dL 7-18 Serum or plasma creatinine measurement (mass/volume) 0.83 mg/dL 0.60-1.30 Serum or plasma urea nitrogen/creatinine mass ratio 18 NRG Serum or plasma creatinine measurement w ith calculation of estimated glomerular filtration rate > NRG Serum or plasma glucose measurement (mass/volume) 407 mg/dL 70-105 Serum or plasma calcium measurement (mass/volume) 9.0 mg/dL 8.5-10.1 Serum or plasma total bilirubin measurement (mass/volu me) 0.5 mg/dL 0.1-1.0 Serum or plasma alkaline phosphatase irina surement (enzymatic activity/volume) 81 U/L 40-136 Serum or plasma aspartate aminotransfera se measurement (enzymatic activity/volume) 14 U/L 5-34 Serum or plasma alanine aminotransferase measurement (enzymatic activity/volume) 11 U/L 0-55 Serum or plasma protein measurement (mass/volume) 6.5 g/dL 6.4-8.2 Serum or plasma albumin measurement (mass/volume) 3.5 g/dL 3.2-4.5 Capillary blood glucose measurement by g lucometer (mass/volume) - 09/16/16 11:15 Capillary blood glucose measurement by glucometer (mas s/volume) 212 mg/dL 70-110 Urinalysis - 09/18/16 17:21 Icotest N/A Negative Urine Volume Urine Volume Sufficient (10mL) Urine Yeast Yeast Present Urine-Appearance Slightly Cloudy Clear Urine-Bacteria Trace Urine-Bilirubin Negative Negative Urine-Blood Trace-lysed Negative Urine-Color Yellow Colorless-Lt. [place] ow Urine-Epithelial Cells 5-10/HPF Urine-Glucose 2+ Negative Urine-Ketones Negative Negative Urine-Leukocytes Negative Negative Urine-Nitrite Negative Negative Urine-Other Culture to follow Urine-pH 6.0 5-8.5 Urine-Protein Negative Negative Urine-RBC Rare/HPF Urine-Specific [place] 1.020 1.000-1 .030 Urine-WBC Nothing Seen on Microscopic Urobilinogen 0.2 E.U./dL 0.2-1.0 Urine Culture - 09/18/16 17:21 FINAL CULTURE RESULTS 10,000-20,000 Gram Pos itive Mixed Maribel [id number] Skin Contaminant MEDIA PLATED Setup at 17:25 [...] Negative Urine-Blood 2+ Negative Urine-Color Yellow Colorless-Lt. [place] ow Urine-Epithelial Cells 10-20/HPF Urine-Glucose 1+ Negative Urine-Ketones 2+ Negative Urine-Leukocytes Negative Negative Urine-Nitrite Negative Negative Urine-Other Culture to follow - Cath Sample Urine-pH 5.5 5-8.5 Urine-Protein Negative Negative Urine-RBC 10-20/HPF Urine-Specific [place] 1.025 1.000-1 .030 Urine-WBC Rare/HPF Urobilinogen 0.2 E.U./dL 0.2-1.0 Urine [...] Setup at 14:33 on 03/22/2017 CULTURE SOURCE [id number] Lactic Acid - 03/22/17 13:15 Lactic Acid 9.7 mg/dL 4.5-19.8 Blood Culture - 03/22/17 13:35 PRELIM CULTURE RESULTS Blood Culture Negativ e, No Growth Day 1 FINAL CULTURE RESULTS Blood Culture Negative , No Growth Day 5 MEDIA PLATED Setup at 19:49 on 03/22/2017X [id number] Culture Media Position C49 CULTURE SOURCE 1 Blood Culture - 03/22/17 13:45 PRELIM CULTURE RESULTS Blood Culture Negativ e, No Growth Day 1 FINAL CULTURE RESULTS Blood Culture Negative , No Growth Day 5 MEDIA PLATED Setup at 19:48 on 03/22/2017X [id number] Culture Media Position c44 CULTURE SOURCE lt arm Automated blood complete blood count (he mogram) panel - 03/22/17 16:17 Blood leukocytes automated count (number/volume) 4.8 10*3/uL 4.3-11.0 Blood erythrocytes automated count (number/volume) 4.22 10*6/uL 4.35-5.85 Venous blood hemoglobin measurement (mass/volume) 11.6 g/dL 11.5-16.0 Blood hematocrit (volume fraction) 37 % 35-52 Automated erythrocyte mean corpuscular volume 87 [ foz_us] 80-99 Automated erythrocyte mean corpuscular h emoglobin (mass per erythrocyte) 28 pg 25-34 Automated erythrocyte mean corpuscular h emoglobin concentration measurement (mass/volume) 32 g/dL 32-36 Automated erythrocyte distribution width ratio 14. 2 % 10.0- 14.5 Automated blood platelet count (count/volume) 156 10*3/uL 130-400 Automated blood platelet mean volume measurement 10.1 [foz_us] 7.4-10.4 PT panel in platelet poor plasma by coag ulation assay - 03/22/17 16:17 Prothrombin time (PT) in platelet poor plasma by coagu lation assay 13.9 s 12.2-14.7 INR in platelet poor plasma or blood by coagulation as say 1.1 0.8-1.4 Activated partial thromboplastin time (a PTT) in platelet poor plasma bycoagulation assay - 03/22/17 16:17 Activated partial thromboplastin time (a PTT) in platelet poor plasma bycoagulation assay 38 s 24-35 Comprehensive metabolic panel - 03/22/17 16:17 Serum or plasma sodium measurement (moles/volume) 138 mmol/L 135-145 Serum or plasma potassium measurement (moles/volume) 3.5 mmol/L 3.6-5.0 Serum or plasma chloride measurement (moles/volume) 95 mmol/L 98-107 Carbon dioxide 31 mmol/L 21-32 Serum or plasma anion gap determination (moles/volume) 12 mmol/L 5-14 Serum or plasma urea nitrogen measurement (mass/volume ) 19 mg/dL 7-18 Serum or plasma creatinine measurement (mass/volume) 1.08 mg/dL 0.60-1.30 Serum or plasma urea nitrogen/creatinine mass ratio 18 NRG Serum or plasma creatinine measurement w ith calculation of estimated glomerular filtration rate 51 NRG Serum or plasma glucose measurement (mass/volume) 245 mg/dL 70-105 Serum or plasma calcium measurement (mass/volume) 8.8 mg/dL 8.5-10.1 Serum or plasma total bilirubin measurement (mass/volu me) 1.1 mg/dL 0.1-1.0 Serum or plasma alkaline phosphatase irina surement (enzymatic activity/volume) 72 U/L 40-136 Serum or plasma aspartate aminotransfera se measurement (enzymatic activity/volume) 13 U/L 5-34 Serum or plasma alanine aminotransferase measurement (enzymatic activity/volume) 8 U/L 0-55 Serum or plasma protein measurement (mass/volume) 6.3 g/dL 6.4-8.2 Serum or plasma albumin measurement (mass/volume) 3.4 g/dL 3.2-4.5 Magnesium - 03/22/17 16:17 Magnesium 1.3 mg/dL 1.8-2.4 Serum or plasma troponin i.cardiac measu rement (mass/volume) - 03/22/17 16:17 Serum or plasma troponin i.cardiac measurement (mass/v olume) < ng/mL <0.30 Serum or plasma lithium measurement (mol es/volume) - 03/22/17 16:17 BNP level 261.5 pg/mL <100.0 Capillary blood glucose measurement by g lucometer (mass/volume) - 03/22/17 20:56 Capillary blood glucose measurement by glucometer (mas s/volume) 243 mg/dL 70-110 Complete blood count (CBC) with automate d white blood cell (WBC) differential - 03/23/17 04:50 Blood leukocytes automated count (number/volume) 4.8 10*3/uL 4.3-11.0 Blood erythrocytes automated count (number/volume) 3.86 10*6/uL 4.35-5.85 Venous blood hemoglobin measurement (mass/volume) 10.9 g/dL 11.5-16.0 Blood hematocrit (volume fraction) 34 % 35-52 Automated erythrocyte mean corpuscular volume 87 [ foz_us] 80-99 Automated erythrocyte mean corpuscular h emoglobin (mass per erythrocyte) 28 pg 25-34 Automated erythrocyte mean corpuscular h emoglobin concentration measurement (mass/volume) 32 g/dL 32-36 Automated erythrocyte distribution width ratio 14. 4 % 10.0- 14.5 Automated blood platelet count [...] 10*3 1.0-4.0 Blood monocytes automated count (number/volume) 0. 5 10*3 0.0-1.0 Automated eosinophil count 0.1 10*3/uL 0 .0-0.3 Automated blood basophil count (count/volume) 0.0 10*3/uL 0.0-0.1 Comprehensive metabolic panel - 03/23/17 04:50 Serum or plasma sodium measurement (moles/volume) 138 mmol/L 135-145 Serum or plasma potassium measurement (moles/volume) 3.7 mmol/L 3.6-5.0 Serum or plasma chloride measurement (moles/volume) 105 mmol/L 98-107 Carbon dioxide 23 mmol/L 21-32 Serum or plasma anion gap determination (moles/volume) 10 mmol/L 5-14 Serum or plasma urea nitrogen measurement (mass/volume ) 14 mg/dL 7-18 Serum or plasma creatinine measurement (mass/volume) 0.72 mg/dL 0.60-1.30 Serum or plasma urea nitrogen/creatinine mass ratio 19 NRG Serum or plasma creatinine measurement w ith calculation of estimated glomerular filtration rate > NRG Serum or plasma glucose measurement (mass/volume) 289 mg/dL 70-105 Serum or plasma calcium measurement (mass/volume) 6.6 mg/dL 8.5-10.1 Serum or plasma total bilirubin measurement (mass/volu me) 0.6 mg/dL 0.1-1.0 Serum or plasma alkaline phosphatase irina surement (enzymatic activity/volume) 51 U/L 40-136 Serum or plasma aspartate aminotransfera se measurement (enzymatic activity/volume) 18 U/L 5-34 Serum or plasma alanine aminotransferase measurement (enzymatic activity/volume) < U/L 0-55 Serum or plasma protein measurement (mass/volume) 4.8 g/dL 6.4-8.2 Serum or plasma albumin measurement (mass/volume) 2.5 g/dL 3.2-4.5 Serum or plasma phosphate measurement (m ass/volume) - 03/23/17 04:50 Serum or plasma phosphate measurement (mass/volume) 2.7 mg/dL 2.3-4.7 Magnesium - 03/23/17 04:50 Magnesium 2.4 mg/dL 1.8-2.4 Serum or plasma troponin i.cardiac measu rement (mass/volume) - 03/23/17 04:50 Serum or plasma troponin i.cardiac measurement (mass/v olume) < ng/mL <0.30 Serum or plasma lithium measurement (mol es/volume) - 03/23/17 04:50 BNP level 129.6 pg/mL <100.0 Capillary blood glucose measurement by g lucometer (mass/volume) - 03/23/17 11:18 Capillary blood glucose measurement by glucometer (mas s/volume) 347 mg/dL 70-110 Automated blood complete blood count ( mogram) panel - 07/23/17 07:24 Blood leukocytes automated count (number/volume) 6.0 10*3/uL 4.3-11.0 Blood erythrocytes automated count (number/volume) 4.49 10*6/uL 4.35-5.85 Venous blood hemoglobin measurement (mass/volume) 12.1 g/dL 11.5-16.0 Blood hematocrit (volume fraction) 38 % 35-52 Automated erythrocyte mean corpuscular volume 84 [ foz_us] 80-99 Automated erythrocyte mean corpuscular h emoglobin (mass per erythrocyte) 27 pg 25-34 Automated erythrocyte mean corpuscular h emoglobin concentration measurement (mass/volume) 32 g/dL 32-36 Automated erythrocyte distribution width ratio 13. 6 % 10.0- 14.5 Automated blood platelet count (count/volume) 183 10*3/uL 130-400 Automated blood platelet mean volume measurement 10.3 [foz_us] 7.4-10.4 Complete urinalysis with reflex to cultu re - 07/23/17 07:24 Urine color determination YELLOW NRG Urine clarity determination SLIGHTLY CLOUDY NRG Urine pH measurement by test strip 6.5 5-9 Specific gravity of urine by test strip 1.020 1.016-1.022 Urine protein assay by test strip, semi-quantitative 1+ NEGATIVE Urine glucose detection by automated test strip 4+ NEGATIVE Erythrocytes detection in urine sediment by light micr oscopy 3+ NEGATIVE Urine ketones detection by automated test strip NE GATIVE NEGATIVE Urine nitrite detection by test strip NEGATIVE NEGATIVE Urine total bilirubin detection by test strip NEGA TIVE NEGATIVE Urine urobilinogen measurement by automated test strip (mass/volume) 4 mg/dL NORMAL Urine leukocyte esterase detection by dipstick 1+ NEGATIVE Automated urine sediment erythrocyte cou nt by microscopy (number/high power field) [HPF] NRG Automated urine sediment leukocyte count by microscopy (number/high power field) [HPF] NRG Bacteria detection in urine sediment by light microsco py FEW NRG Squamous epithelial cells detection in u rine sediment by light microscopy 10-25 NRG Crystals detection in urine sediment by light microsco py NONE NRG Casts detection in urine sediment by light microscopy NONE NRG Mucus detection in urine sediment by light microscopy SMALL NRG Complete urinalysis with reflex to culture NO NRG PT panel in platelet poor plasma by coag ulation assay - 07/23/17 07:24 Prothrombin time (PT) in platelet poor plasma by coagu lation assay 14.1 s 12.2-14.7 INR in platelet poor plasma or blood by coagulation as say 1.1 0.8-1.4 Activated partial thromboplastin time (a PTT) in platelet poor plasma bycoagulation assay - 07/23/17 07:24 Activated partial thromboplastin time (a PTT) in platelet poor plasma bycoagulation assay 31 s 24-35 Comprehensive metabolic panel - 07/23/17 07:24 Serum or plasma sodium measurement (moles/volume) 139 mmol/L 135-145 Serum or plasma potassium measurement (moles/volume) 3.9 mmol/L 3.6-5.0 Serum or plasma chloride measurement (moles/volume) 101 mmol/L 98-107 Carbon dioxide 27 mmol/L 21-32 Serum or plasma anion gap determination (moles/volume) 11 mmol/L 5-14 Serum or plasma urea nitrogen measurement (mass/volume ) 10 mg/dL 7-18 Serum or plasma creatinine measurement (mass/volume) 0.73 mg/dL 0.60-1.30 Serum or plasma urea nitrogen/creatinine mass ratio 14 NRG Serum or plasma creatinine measurement w ith calculation of estimated glomerular filtration rate > NRG Serum or plasma glucose measurement (mass/volume) 295 mg/dL 70-105 Serum or plasma calcium measurement (mass/volume) 8.9 mg/dL 8.5-10.1 Serum or plasma total bilirubin measurement (mass/volu me) 0.8 mg/dL 0.1-1.0 Serum or plasma alkaline phosphatase irina surement (enzymatic activity/volume) 89 U/L 40-136 Serum or plasma aspartate aminotransfera se measurement (enzymatic activity/volume) 12 U/L 5-34 Serum [...] Serum or plasma cholesterol in HDL measurement (mass/v olume) 44 mg/dL 40-60 Cholesterol in LDL [mass/volume] in serum or plasma by direct assay 86 mg/dL 1-129 Serum or plasma cholesterol in VLDL measurement (mass/ volume) 15 mg/dL 5-40 Methicillin resistant Staphylococcus aur eus (MRSA) screening culture - 07/23/17 07:24 Methicillin resistant Staphylococcus aureus (MRSA) scr eening culture NEG NRG Thyroid Stimulating Hormone - 08/12/17 1 7:20 TSH 0.09 mIU/mL 0.32-5.00 Urinalysis - 08/19/18 17:41 Icotest N/A Negative Urine Volume Urine Volume Sufficient (10mL) Urine Yeast No Yeast present Urine-Appearance Clear Clear Urine-Bacteria Negative Urine-Bilirubin Negative Negative Urine-Blood 1+ Negative Urine-Color Yellow Colorless-Lt. [place] ow Urine-Epithelial Cells 0-5/HPF Urine-Glucose Negative Negative Urine-Ketones Negative Negative Urine-Leukocytes 1+ Negative Urine-Mucus 1+ Urine-Nitrite Negative Negative Urine-Other Urine Saved if Culture Need ed (48hrs from time of collection) Urine-pH 7.0 5-8.5 Urine-Protein Negative Negative Urine-RBC Negative Urine-Specific [place] 1.010 1.000-1 .030 Urine-WBC Rare/HPF Urobilinogen 0.2 E.U./dL 0.2-1.0 Urine Culture - 08/19/18 17:41 PRELIM CULTURE RESULTS 20,000-50,000 Gram Po sitive Mixed Maribel FINAL CULTURE RESULTS 20,000-50,000 Gram Pos itive Mixed Maribel [id number] Skin Contaminant [id number] Further Workup done MEDIA PLATED Setup at [...] 0.7 mg/dL 0.2-1.2 TP 6.1 g/dL 6.0-8.3 Complete urinalysis with reflex to cultu re - 09/24/18 17:05 Urine color determination YELLOW NRG Urine clarity determination CLEAR NR G Urine pH measurement by test strip 6 5-9 Specific gravity of urine by test strip 1.015 1.016-1.022 Urine protein assay by test strip, semi-quantitative NEGATIVE NEGATIVE Urine glucose detection by automated test strip 4+ NEGATIVE Erythrocytes detection in urine sediment by light micr oscopy 2+ NEGATIVE Urine ketones detection by automated test strip NE GATIVE NEGATIVE Urine nitrite detection by test strip NEGATIVE NEGATIVE Urine total bilirubin detection by test strip NEGA TIVE NEGATIVE Urine urobilinogen measurement by automated test strip (mass/volume) NORMAL NORMAL Urine leukocyte esterase detection by dipstick NEG ATIVE NEGATIVE Automated urine sediment erythrocyte cou nt by microscopy (number/high power field) NONE NRG Automated urine sediment leukocyte count by microscopy (number/high power field) RARE NRG Bacteria detection in urine sediment by light microsco py TRACE NRG Squamous epithelial cells detection in u rine sediment by light microscopy 0-2 NRG Crystals detection in urine sediment by light microsco py NONE NRG Casts detection in urine sediment by light microscopy NONE NRG Mucus detection in urine sediment by light microscopy NEGATIVE NRG Complete urinalysis with reflex to culture NO NRG Urine drug screening test - 09/24/18 17: 05 Urine phencyclidine detection by screening method NEGATIVE NEGATIVE Urine benzodiazepines detection by screening method NEGATIVE NEGATIVE Urine cocaine detection NEGATIVE NEGATI VE Urine amphetamines detection by screening method P OSITIVE NEGATIVE Urine methamphetamine detection by screening method NEGATIVE NEGATIVE Urine cannabinoids detection by screening method N EGATIVE NEGATIVE Urine opiates detection by screening method NEGATI VE NEGATIVE Urine barbiturates detection NEGATIVE N EGATIVE Screening urine tricyclic antidepressants detection NEGATIVE NEGATIVE Urine methadone detection by screening method NEGA TIVE NEGATIVE Urine oxycodone detection POSITIVE NEGA TIVE Urine propoxyphene detection NEGATIVE N EGATIVE Capillary blood glucose measurement by g lucometer (mass/volume) - 09/24/18 19:21 Capillary blood glucose measurement by glucometer (mas s/volume) 186 mg/dL 70-110 Complete blood count (CBC) with automate d white blood cell (WBC) differential - 09/24/18 19:25 Blood leukocytes automated count (number/volume) 7.6 10*3/uL 4.3-11.0 Blood erythrocytes automated count (number/volume) 5.16 10*6/uL 4.35-5.85 Venous blood hemoglobin measurement (mass/volume) 13.8 g/dL 11.5-16.0 Blood hematocrit (volume fraction) 42 % 35-52 Automated erythrocyte mean corpuscular volume 82 [ foz_us] 80-99 Automated erythrocyte mean corpuscular h emoglobin (mass per erythrocyte) 27 pg 25-34 Automated erythrocyte mean corpuscular h emoglobin concentration measurement (mass/volume) 33 g/dL 32-36 Automated erythrocyte distribution width ratio 14. 1 % 10.0- 14.5 Automated blood platelet count (count/volume) 185 10*3/uL 130-400 Automated blood platelet mean volume measurement 10.7 [foz_us] 7.4-10.4 Automated blood neutrophils/100 leukocytes 70 % 42-75 Automated blood lymphocytes/100 leukocytes 20 % 12-44 Blood monocytes/100 leukocytes 8 % 0-12 Automated blood eosinophils/100 leukocytes 2 % 0-10 Automated blood basophils/100 leukocytes 0 % 0-10 Blood neutrophils automated count (number/volume) 5.3 10*3 1.8-7.8 Blood lymphocytes automated count (number/volume) 1.5 10*3 1.0-4.0 Blood monocytes automated count (number/volume) 0. 6 10*3 0.0-1.0 Automated eosinophil count 0.1 10*3/uL 0 .0-0.3 Automated blood basophil count (count/volume) 0.0 10*3/uL 0.0-0.1 PT panel in platelet poor plasma by coag ulation assay - 09/24/18 19:25 Prothrombin time (PT) in platelet poor plasma by coagu lation assay 13.6 s 12.2-14.7 INR in platelet poor plasma or blood by coagulation as say 1.0 0.8-1.4 Activated partial thromboplastin time (a PTT) in platelet poor plasma bycoagulation assay - 09/24/18 19:25 Activated partial thromboplastin time (a PTT) in platelet poor plasma bycoagulation assay 26 s 24-35 Comprehensive metabolic panel - 09/24/18 19:25 Serum or plasma sodium measurement (moles/volume) 145 mmol/L 135-145 Serum or plasma potassium measurement (moles/volume) 3.5 mmol/L 3.6-5.0 Serum or plasma chloride measurement (moles/volume) 103 mmol/L 98-107 Carbon dioxide 31 mmol/L 21-32 Serum or plasma anion gap determination (moles/volume) 11 mmol/L 5-14 Serum or plasma urea nitrogen measurement (mass/volume ) 10 mg/dL 7-18 Serum or plasma creatinine measurement (mass/volume) 0.81 mg/dL 0.60-1.30 Serum or plasma urea nitrogen/creatinine mass ratio 12 NRG Serum or plasma creatinine measurement w ith calculation of estimated glomerular filtration rate > NRG Serum or plasma glucose measurement (mass/volume) 195 mg/dL 70-105 Serum or plasma calcium measurement (mass/volume) 9.3 mg/dL 8.5-10.1 Serum or plasma total bilirubin measurement (mass/volu me) 0.4 mg/dL 0.1-1.0 Serum or plasma alkaline phosphatase irina surement (enzymatic activity/volume) 97 U/L 40-136 Serum or plasma aspartate aminotransfera se measurement (enzymatic activity/volume) 10 U/L 5-34 Serum or plasma alanine aminotransferase measurement (enzymatic activity/volume) 8 U/L 0-55 Serum or plasma protein measurement (mass/volume) 6.3 g/dL 6.4-8.2 Serum or plasma albumin measurement (mass/volume) 3.5 g/dL 3.2-4.5 CALCIUM CORRECTED 9.7 mg/dL 8.5-10.1 Magnesium - 09/24/18 19:25 Magnesium 1.9 mg/dL 1.8-2.4 Serum or plasma creatine kinase measurem ent (enzymatic activity/volume) - 09/24/18 19:25 Serum or plasma creatine kinase measurem ent (enzymatic activity/volume) 30 U/L 29-168 Serum or plasma creatine kinase MB measu rement (enzymatic activity/volume) - 09/24/18 19:25 Serum or plasma creatine kinase MB measu rement (enzymatic activity/volume) 1.2 ng/mL <6.6 Serum or plasma lithium measurement (mol es/volume) - 09/24/18 19:25 BNP level 74.1 pg/mL <100.0 Serum or plasma troponin i.cardiac measu rement (mass/volume) - 09/24/18 19:25 Serum or plasma troponin i.cardiac measurement (mass/v olume) < ng/mL <0.028 Serum or plasma thyroxine (T4) free lacy urement (mass/volume) - 09/24/18 19:25 Serum or plasma thyroxine (T4) free measurement (mass/ volume) 1.01 ng/dL 0.70-1.48 Serum or plasma thyrotropin measurement by detection limit <=0.05 miu/l (units/volume) - 09/24/18 19:25 Serum or plasma thyrotropin measurement by detection limit <=0.05 miu/l (units/volume) 0.28 u[iU]/mL 0.35-4.94 Serum or plasma ethanol measurement (mas s/volume) - 09/24/18 19:25 Serum or plasma ethanol measurement (mass/volume) < mg/dL <10 Complete blood count (CBC) with automate d white blood cell (WBC) differential - 10/20/18 10:13 Blood leukocytes automated count (number/volume) 9.9 10*3/uL 4.3-11.0 Blood erythrocytes automated count (number/volume) 5.13 10*6/uL 4.35-5.85 Venous blood hemoglobin measurement (mass/volume) 13.9 g/dL 11.5-16.0 Blood hematocrit (volume fraction) 43 % 35-52 Automated erythrocyte mean corpuscular volume 83 [ foz_us] 80-99 Automated erythrocyte mean corpuscular h emoglobin (mass per erythrocyte) 27 pg 25-34 Automated erythrocyte mean corpuscular h emoglobin concentration measurement (mass/volume) 33 g/dL 32-36 Automated erythrocyte distribution width ratio 14. 2 % 10.0- 14.5 Automated blood platelet count (count/volume) 190 10*3/uL 130-400 Automated blood platelet mean volume measurement 9.9 [foz_us] 7.4-10.4 Automated blood neutrophils/100 leukocytes 77 % 42-75 Automated blood lymphocytes/100 leukocytes 14 % 12-44 Blood monocytes/100 leukocytes 7 % 0-12 Automated blood eosinophils/100 leukocytes 1 % 0-10 Automated blood basophils/100 leukocytes 0 % 0-10 Blood neutrophils automated count (number/volume) 7.7 10*3 1.8-7.8 Blood lymphocytes automated count (number/volume) 1.4 10*3 1.0-4.0 Blood monocytes automated count (number/volume) 0. 7 10*3 0.0-1.0 Automated eosinophil count 0.1 10*3/uL 0 .0-0.3 Automated blood basophil count (count/volume) 0.0 10*3/uL 0.0-0.1 PT panel in platelet poor plasma by coag ulation assay - 10/20/18 10:13 Prothrombin time (PT) in platelet poor plasma by coagu lation assay 13.8 s 12.2-14.7 INR in platelet poor plasma or blood by coagulation as say 1.0 0.8-1.4 Activated partial thromboplastin time (a PTT) in platelet poor plasma bycoagulation assay - 10/20/18 10:13 Activated partial thromboplastin time (a PTT) in platelet poor plasma bycoagulation assay 26 s 24-35 Comprehensive metabolic panel - 10/20/18 10:13 Serum or plasma sodium measurement (moles/volume) 138 mmol/L 135-145 Serum or plasma potassium measurement (moles/volume) 3.9 mmol/L 3.6-5.0 Serum or plasma chloride measurement (moles/volume) 103 mmol/L 98-107 Carbon dioxide 22 mmol/L 21-32 Serum or plasma anion gap determination (moles/volume) 13 mmol/L 5-14 Serum or plasma urea nitrogen measurement (mass/volume ) 13 mg/dL 7-18 Serum or plasma creatinine measurement (mass/volume) 0.79 mg/dL 0.60-1.30 Serum or plasma urea nitrogen/creatinine mass ratio 16 NRG Serum or plasma creatinine measurement w ith calculation of estimated glomerular filtration rate > NRG Serum or plasma glucose measurement (mass/volume) 324 mg/dL 70-105 Serum or plasma calcium measurement (mass/volume) 9.1 mg/dL 8.5-10.1 Serum or plasma total bilirubin measurement (mass/volu me) 0.3 mg/dL 0.1-1.0 Serum or plasma alkaline phosphatase irina surement (enzymatic activity/volume) 114 U/L 40-136 Serum or plasma aspartate aminotransfera se measurement (enzymatic activity/volume) 17 U/L 5-34 Serum or plasma alanine aminotransferase measurement (enzymatic activity/volume) 12 U/L 0-55 Serum or plasma protein measurement (mass/volume) 6.5 g/dL 6.4-8.2 Serum or plasma albumin measurement (mass/volume) 3.4 g/dL 3.2-4.5 CALCIUM CORRECTED 9.6 mg/dL 8.5-10.1 Magnesium - 10/20/18 10:13 Magnesium 2.0 mg/dL 1.8-2.4 Serum or plasma troponin i.cardiac measu rement (mass/volume) - 10/20/18 10:13 Serum or plasma troponin i.cardiac measurement (mass/v olume) < ng/mL <0.028 Myoglobin, serum - 10/20/18 10:13 Myoglobin, serum 41.7 ng/mL 10.0-92.0 Lipase - 10/20/18 10:13 Lipase 13 U/L 8-78 Serum or plasma troponin i.cardiac measu rement (mass/volume) - 10/20/18 12:30 Serum or plasma troponin i.cardiac measurement (mass/v olume) < ng/mL <0.028 Capillary blood glucose measurement by g lucometer (mass/volume) - 09/23/19 15:43 Capillary blood glucose measurement by glucometer (mas s/volume) 135 mg/dL 70-110 Complete blood count (CBC) with automate d white blood cell (WBC) differential - 09/23/19 15:52 Blood leukocytes automated count (number/volume) 9.9 10*3/uL 4.3-11.0 Blood erythrocytes automated count (number/volume) 5.44 10*6/uL 4.35-5.85 Venous blood hemoglobin measurement (mass/volume) 14.5 g/dL 11.5-16.0 Blood hematocrit (volume fraction) 45 % 35-52 Automated erythrocyte mean corpuscular volume 83 [ foz_us] 80-99 Automated erythrocyte mean corpuscular h emoglobin (mass per erythrocyte) 27 pg 25-34 Automated erythrocyte mean corpuscular h emoglobin concentration measurement (mass/volume) 32 g/dL 32-36 Automated erythrocyte distribution width ratio 15. 8 % 10.0- 14.5 Automated blood platelet count (count/volume) 205 10*3/uL 130-400 Automated blood platelet mean volume measurement 10.0 [foz_us] 7.4-10.4 Automated blood neutrophils/100 leukocytes 68 % 42-75 Automated blood lymphocytes/100 leukocytes 23 % 12-44 Blood monocytes/100 leukocytes 7 % 0-12 Automated blood eosinophils/100 leukocytes 2 % 0-10 Automated blood basophils/100 leukocytes 0 % 0-10 Blood neutrophils automated count (number/volume) 6.8 10*3 1.8-7.8 Blood lymphocytes automated count (number/volume) 2.3 10*3 1.0-4.0 Blood monocytes automated count (number/volume) 0. 7 10*3 0.0-1.0 Automated eosinophil count 0.2 10*3/uL 0 .0-0.3 Automated blood basophil count (count/volume) 0.0 10*3/uL 0.0-0.1 Comprehensive metabolic panel - 09/23/19 15:52 Serum or plasma sodium measurement (moles/volume) 139 mmol/L 135-145 Serum or plasma potassium measurement (moles/volume) 4.0 mmol/L 3.6-5.0 Serum or plasma chloride measurement (moles/volume) 104 mmol/L 98-107 Carbon dioxide 29 mmol/L 21-32 Serum or plasma anion gap determination (moles/volume) 6 mmol/L 5-14 Serum or plasma urea nitrogen measurement (mass/volume ) 10 mg/dL 7-18 Serum or plasma creatinine measurement (mass/volume) 0.67 mg/dL 0.60-1.30 Serum or plasma urea nitrogen/creatinine mass ratio 15 NRG Serum or plasma creatinine measurement w ith calculation of estimated glomerular filtration rate > NRG Serum or plasma glucose measurement (mass/volume) 132 mg/dL 70-105 Serum or plasma calcium measurement (mass/volume) 8.8 mg/dL 8.5-10.1 Serum or plasma total bilirubin measurement (mass/volu me) 0.4 mg/dL 0.1-1.0 Serum or plasma alkaline phosphatase irina surement (enzymatic activity/volume) 89 U/L 40-136 Serum or plasma aspartate aminotransfera se measurement (enzymatic activity/volume) 9 U/L 5-34 Serum or plasma alanine aminotransferase measurement (enzymatic activity/volume) 7 U/L 0-55 Serum or plasma protein measurement (mass/volume) 6.3 g/dL 6.4-8.2 Serum or plasma albumin measurement (mass/volume) 3.1 g/dL 3.2-4.5 CALCIUM CORRECTED 9.5 mg/dL 8.5-10.1 Serum or plasma troponin i.cardiac measu rement (mass/volume) - 09/23/19 15:52 Serum or plasma troponin i.cardiac measurement (mass/v olume) < ng/mL <0.028 PT panel in platelet poor plasma by coag ulation assay - 09/23/19 15:52 Prothrombin time (PT) in platelet poor plasma by coagu lation assay 14.7 s 12.2-14.7 INR in platelet poor plasma or blood by coagulation as say 1.1 0.8-1.4 Activated partial thromboplastin time (a PTT) in platelet poor plasma bycoagulation assay - 09/23/19 15:52 Activated partial thromboplastin time (a PTT) in platelet poor plasma bycoagulation assay 36 s 24-35 Fibrin D-dimer FEU measurement in platel et poor plasma (mass/volume) - 09/23/19 15:52 Fibrin D-dimer FEU measurement in platelet poor plasma (mass/volume) 0.26 ug/mL 0.00-0.49 Complete urinalysis with reflex to cultu re - 09/23/19 16:10 Urine color determination YELLOW NRG Urine clarity determination SL CLOUDY N RG Urine pH measurement by test strip 7.0 5-9 Specific gravity of urine by test strip 1.015 1.016-1.022 Urine protein assay by test strip, semi-quantitative NEGATIVE NEGATIVE Urine glucose detection by automated test strip 3+ NEGATIVE Erythrocytes detection in urine sediment by light micr oscopy TRACE-L NEGATIVE Urine ketones detection by automated test strip NE GATIVE NEGATIVE Urine nitrite detection by test strip NEGATIVE NEGATIVE Urine total bilirubin detection by test strip NEGA TIVE NEGATIVE Urine urobilinogen measurement by automated test strip (mass/volume) 1.0 mg/dL < = 1.0 Urine leukocyte esterase detection by dipstick NEG ATIVE NEGATIVE Automated urine sediment erythrocyte cou nt by microscopy (number/high power field) NONE NRG Automated urine sediment leukocyte count by microscopy (number/high power field) NONE NRG Bacteria detection in urine sediment by light microsco py NEGATIVE NRG Squamous epithelial cells detection in u rine sediment by light microscopy 5-10 NRG Crystals detection in urine sediment by light microsco py NONE NRG Casts detection in urine sediment by light microscopy NONE NRG Mucus detection in urine sediment by light microscopy NEGATIVE NRG Complete urinalysis with reflex to culture NO NRG Encounters ACCT No. Visit Date/Time Discharge Status Pt. Type Provider Facility Loc./Unit Complaint [id number] 09/03/2019 14:45:00 09/03/2019 23:59 :00 DIS Outpatient Singh, Trudy [id number] 07/30/2019 14:28:00 07/30/2019 23:59 :00 DIS Outpatient Singh, Trudy [id number] 07/23/2019 09:10:00 07/23/2019 23:59 :00 DIS Outpatient Singh, Trudy [id number] 06/23/2019 14:07:00 06/23/2019 23:59 :00 DIS Outpatient Singh, Trudy [id number] 03/25/2019 08:56:00 03/25/2019 23:59 :00 DIS Outpatient Singh, Trudy [id number] 03/08/2019 15:06:00 03/08/2019 23:59: 00 DIS Outpatient Singh, Trudy [id number] 03/02/2019 11:18:00 03/02/2019 23:59: 00 DIS Outpatient Singh, Trudy [id number] 02/18/2019 13:43:00 02/18/2019 23:59: 00 DIS Outpatient Singh, Trudy [id number] 01/29/2019 15:32:00 01/29/2019 23:59: 00 DIS Outpatient Singh, Trudy [id number] 09/22/2018 13:23:00 09/22/2018 23:59: 00 DIS Outpatient Philip Thapa [id number] 08/19/2018 17:32:00 08/19/2018 23:59: 00 DIS Outpatient Philip Thapa [id number] 06/21/2018 18:00:00 06/21/2018 20:15: 00 DIS Outpatient Alena Dodge [facility] [id number] 08/12/2017 17:18:00 08/12/2017 23:59: 00 DIS Outpatient Philip Thapa [id number] 03/21/2017 10:23:00 03/22/2017 15:25: 00 DIS Inpatient Tyler ThapaCj [facility] MED-SURG [id number] 03/19/2017 16:54:00 03/19/2017 23:59: 00 DIS Outpatient Philip Thapa [id number] 11/01/2016 12:37:00 11/01/2016 12:51: 00 DIS Outpatient Philip Thapa [id number] 09/18/2016 17:20:00 09/18/2016 23:59: 00 DIS Outpatient Philip Thapa [id number] 06/11/2016 17:05:00 06/11/2016 19:52: 00 DIS Outpatient Davey [facility] ER [id number] 06/04/2016 12:36:00 06/04/2016 23:59: 00 DIS Outpatient Philip Thapa [id number] 01/18/2019 17:56:25 Document Registration [id number] 10/22/2018 08:40:00 Document Registration [id number] 10/13/2018 15:49:00 Document Registration [id number] 10/01/2018 13:02:00 Document Registration [id number] 09/22/2018 09:47:00 Document Registration [id number] 07/07/2018 10:17:00 Document Registration [id number] 09/11/2017 13:16:00 Document Registration [id number] 08/12/2017 13:50:00 Document Registration [id number] 03/26/2017 13:56:00 Document Registration [id number] 11/01/2016 12:04:50 Document Registration [id number] 06/11/2016 18:24:52 Document Registration [id number] 11/25/2014 03:39:47 ACT Document Registration [id number] 10/20/2018 09:52:00 13:47:00 DIS Emergency BEBE JACKMAN MD [facility] ER CHEST PAIN [id number] 10/12/2018 10:20:00 23:59:59 CLS Outpatient RAVEN GRAMAJO MD [facility] CARD ANTERIOR CHEST WALL MAIKOL N [id number] 09/24/2018 18:24:00 019 22:45:00 DIS Emergency JAREK TURPIN, AMANDA Pina Vi [facility] ER DIZZY [id number] 07/23/2017 06:44:00 018 14:00:00 DIS Outpatient RAVEN GRAMAJO MD [facility] CATH LEFT HEART CATH [id number] 07/09/2017 10:21:00 018 23:59:59 CLS Outpatient NERI IGNACIO [facility] CARD R07.89 CHES T PAIN [id number] 06/24/2017 09:53:00 018 23:59:59 CLS Preadmit SABRINA IGNACIO [facility] CARD R07.89 CHEST P AIN [id number] 03/22/2017 15:57:00 017 14:42:00 DIS Inpatient RAVEN GRAMAJO MD [facility] ICU HYPERTENSION [id number] 10/24/2016 21:05:00 017 06:48:00 DIS Outpatient ALANIS SPENCER, PHILIP [facility] SLEEP RY,SNORING [id number] 09/14/2016 22:32:00 017 13:20:00 DIS Inpatient JASSI SPENCER, YOVANY Herrera [facility] 4TH DIZZY;ABD PAIN,UTI,UNCONTROLLED IDDM [id number] 03/04/2016 06:50:00 016 13:34:00 DIS Outpatient RAVEN GRAMAJO MD [facility] CATH ABN STRESS TEST,CP,CAD, HTN [id number] 02/28/2016 07:05:00 016 23:59:59 CLS Outpatient NERI IGNACIO [facility] CARD ESSENTIAL H TN,HLP,SOB [id number] 12/07/2015 17:32:00 016 21:32:00 DIS Emergency BEBE JACKMAN MD [facility] ER L SIDED WEAKNES S [id number] 05/28/2015 13:55:00 016 16:37:00 DIS Emergency HECTOR ARAIZA APRN [facility] ER FALL [id number] 11/24/2014 17:09:00 015 21:21:00 DIS Emergency TOMMIE GUERIN DO [facility] ER CP [id number] 11/09/2014 18:20:00 14:10:00 DIS Inpatient CASIMIRO ASCENCIO MD [facility] SURGICAL GENERALIZED WEAKNESS [id number] 10/28/2014 08:40:00 09:55:00 DIS Outpatient GRACE MARIEE MD [facility] CARD HIP OSTEOARTHRITIS [id number] 10/27/2014 16:02:00 23:59:59 CLS Outpatient GRACE MARIEE MD [facility] RAD CHRONIC L HIP PAIN [id number] 10/07/2014 06:00:00 10:50:00 DIS Outpatient RAHUL JUDD MD [facility] SDC SICK SINUS SYNDROME; S YNCOPE [id number] 10/03/2014 15:21:00 23:59:59 CLS Outpatient RAHUL JUDD MD [facility] PREOP SICK SINUS SYNDROME; S YNCOPE [id number] 09/29/2014 15:00:00 23:59:59 CLS Preadmit PASTORA BUITRAGO MD [facility] PULM COPD CHF [id number] 09/26/2014 13:00:00 23:59:59 CLS Outpatient FABI SCHMITT APRN [facility] RT COPD,CHF [id number] 09/15/2014 11:29:00 23:59:59 CLS Outpatient RAVEN GRAMAJO MD [facility] CARD CP,HTN,CHF [id number] 08/28/2014 20:50:00 18:00:00 DIS Inpatient COOPER FULTON DO [facility] CSD CHEST PAIN;EXAC ERBATION OF L SIDED WEAKNESS;UTI [id number] 08/03/2014 23:08:00 12:21:00 DIS Inpatient RAVEN GRAMAJO MD [facility] CSD BRADYCARDIA;AMS;NEAR SY NCOPE [id number] 05/18/2014 08:37:00 23:59:59 CLS Outpatient RAVEN GRAMAJO MD [facility] CATH CP,ABNORMAL STRESS, CAD,HTN,IDDM,HLP [id number] 05/16/2014 07:58:00 23:59:59 CLS Outpatient RAVEN GRAMAJO MD [facility] CARD CAD,CVA,HTN [id number] 05/12/2014 11:08:00 23:59:59 CLS Outpatient RAVEN GRAMAJO MD [facility] CARD CAD,CVA,HTN [id number] 03/24/2013 06:46:00 013 09:39:00 DIS Outpatient RAVEN GRAMAJO MD [facility] CATH ABN STRES,HTN,CHF,OBESI TY [id number] 03/17/2013 07:49:00 23:59:59 CLS Outpatient RAVEN GRAMAJO MD [facility] RAD SOB,HTN,CVA,CHF [id number] 03/10/2013 07:23:00 013 10:30:00 DIS Outpatient RAVEN GRAMAJO MD [facility] CATH CVA,CHF,COPD [id number] 02/19/2013 10:27:00 013 15:25:00 DIS Inpatient RAMON FUNES MD [facility] 4TH CVA W/L SIDE WEAKNESS H TN DDM [id number] 01/23/2013 13:07:00 013 14:00:00 DIS Inpatient BONNIE JOY DO, V [facility] 4TH TIA POSSIBLE CVA [id number] 01/04/2013 11:02:00 09/23/2 013 16:25:00 DIS Emergency AMANDA TILLEY DO [facility] ER BACK PAIN [id number] 09/23/2019 15:49:00 Document Registration [id number] 02/14/2016 07:55:00 Document Registration [id number] 01/23/2015 08:08:00 Document Registration [id number] 04/28/2014 10:11:00 Document Registration [id number] 05/20/2012 07:54:00 Document Registration [id number] 05/15/2012 08:05:00 Document Registration [id number] 04/29/2012 06:59:00 Document Registration [id number] 04/28/2012 14:36:00 Document Registration [id number] 03/27/2012 10:19:00 Document Registration [id number] 03/25/2012 07:21:00 Document Registration [id number] 12/19/2011 10:55:00 Document Registration [id number] 06/17/2011 08:16:00 Document Registration [id number] 09/05/2010 05:37:00 Document Registration [id number] 08/31/2010 09:56:00 Document Registration [id number] 07/09/2010 05:40:00 Document Registration [id number] 07/05/2010 07:52:00 Document Registration [id number] 10/04/2009 15:34:00 Document Registration [id number] 10/04/2009 05:40:00 Document Registration [id number] 09/28/2009 09:51:00 Document Registration [id number] 03/02/2009 14:53:00 Document Registration
[2019-09-23] MEDS ORDERED: MELATONIN 3 MG TABLET PO PRN (20:00)
[2019-09-23] MEDS ORDERED: ALPRAZolam 0.25 MG (XANAX) TAB PO PRN (20:00)
[2019-09-23] MEDS ORDERED: LOPERAMIDE 2 MG (IMODIUM) TABLET PO PRN (20:00)
[2019-09-23] MEDS ORDERED: ONDANSETRON 4 MG (ZOFRAN) ORAL DISSOLVE TAB PO PRN (20:00)
[2019-09-23] MEDS ORDERED: diphenhydrAMINE 25 MG TAB (BENADRYL) PO PRN (20:00)
[2019-09-23] MEDS ORDERED: BISACODYL 10 MG SUPP (DULCOLAX) PR PRN (20:00)
[2019-09-23] MEDS ORDERED: ONDANSETRON 4 MG/2 ML (SDV) Z0FRAN IVP PRN (20:00)
[2019-09-23] MEDS ORDERED: ACETAMINOPHEN 500 MG TAB (TYLENOL) PO PRN (20:00)
[2019-09-23] MEDS ORDERED: CALCIUM CARBONATE 500 MG (TUMS) TAB.CHEW PO PRN (20:00)
[2019-09-23] MEDS ORDERED: DOCUSATE SODIUM 100 MG (COLACE) CAP PO PRN (20:00)
[2019-09-23] MEDS ORDERED: ACETAMINOPHEN 325 MG TABLET PO PRN (20:15)
[2019-09-23] MEDS: APIXABAN 5 MG (ELIQUIS) TABLET PO SCH (21:01)
[2019-09-23] MEDS: NS IV 1000 ML 1,000 ML IV SCH (21:01)
[2019-09-23] MEDS: SENNA W/DOCUSATE (SENOKOT S) TABLET PO SCH (21:01)
[2019-09-23] MEDS: fentaNYL INJECTION 100 MCG/2 ML AMP IVP PRN (21:21)
[2019-09-24] VITALS (14 sets, daily range): BP systolic 109–165; BP diastolic 68–102
[2019-09-24] MEDS: fentaNYL INJECTION 100 MCG/2 ML AMP IVP PRN ×2 (05:17→10:37)
[2019-09-24 05:18] LABS: BASOPHILS % (AUTO) 0 % (0-10); EOSINOPHILS # (AUTO) 0.2 10^3/uL (0.0-0.3); EOSINOPHILS % (AUTO) 2 % (0-10); HEMATOCRIT 46 % (35-52); HEMOGLOBIN 14.6 G/DL (11.5-16.0); LYMPHOCYTES # (AUTO) 3.4 X 10^3 (1.0-4.0); LYMPHOCYTES % (AUTO) 33 % (12-44); MEAN CORPUSCULAR HEMOGLOBIN 26 PG (25-34); MEAN CORPUSCULAR HGB CONC 32 G/DL (32-36); MEAN CORPUSCULAR VOLUME 83 FL (80-99); MEAN PLATELET VOLUME 10.1 FL (7.4-10.4); MONOCYTES # (AUTO) 0.8 X 10^3 (0.0-1.0); MONOCYTES % (AUTO) 8 % (0-12); NEUTROPHILS # (AUTO) 5.8 X 10^3 (1.8-7.8); NEUTROPHILS % (AUTO) 57 % (42-75); PLATELET COUNT 209 10^3/uL (130-400); WHITE BLOOD COUNT 10.2 10^3/uL (4.3-11.0)
[2019-09-24 05:29] LABS: ALBUMIN 3.1 GM/DL (3.2-4.5); CHLORIDE 105 MMOL/L (98-107); POTASSIUM 3.9 MMOL/L (3.6-5.0); SODIUM 142 MMOL/L (135-145)
[2019-09-24 05:30] LABS: CALCIUM 8.6 MG/DL (8.5-10.1)
[2019-09-24 05:31] LABS: TRIGLYCERIDES 93 MG/DL (<150); VLDL CHOLESTEROL 19 MG/DL (5-40)
[2019-09-24 05:32] LABS: TOTAL PROTEIN 6.3 GM/DL (6.4-8.2)
[2019-09-24 05:33] LABS: CARBON DIOXIDE 29 MMOL/L (21-32)
[2019-09-24 05:34] LABS: BILIRUBIN,TOTAL 0.5 MG/DL (0.1-1.0)
[2019-09-24 05:35] LABS: ALKALINE PHOSPHATASE 85 U/L (40-136); CREATININE SERUM 0.61 MG/DL (0.60-1.30); GFR ESTIMATED > 60
[2019-09-24 05:36] LABS: CHOLESTEROL 169 MG/DL (< 200)
[2019-09-24 05:37] LABS: BUN/CREATININE RATIO 15
[2019-09-24 05:38] LABS: ALANINE AMINOTRANSFERASE 18 U/L (0-55); HDL CHOLESTEROL 38 MG/DL (40-60)
[2019-09-24 05:49] LABS: GLUCOSE 48 MG/DL (70-105)
[2019-09-24] MEDS: APIXABAN 5 MG (ELIQUIS) TABLET PO SCH (07:34)
[2019-09-24] MEDS: SENNA W/DOCUSATE (SENOKOT S) TABLET PO SCH ×2 (07:34→07:40)
[2019-09-24] MEDS ORDERED: ASPIRIN E.C. 81 MG (ECOTRIN) TAB PO SCH (09:00)
[2019-09-24] MEDS: NS IV 1000 ML 1,000 ML IV SCH (10:37)
[2019-09-24] MEDS ORDERED: MULT-1136 PO (11:27)
[2019-09-24] MEDS ORDERED: INSU100I10 SQ (11:27)
[2019-09-24] MEDS ORDERED: C,E,1CAP PO (11:27)
[2019-09-24] MEDS ORDERED: APIX5TAB PO (11:27)
[2019-09-24] MEDS ORDERED: TIZA4TAB4 PO (11:27)
[2019-09-24] MEDS ORDERED: PROP10TA8 PO (11:27)
[2019-09-24] MEDS ORDERED: MONT10TA26 PO (11:27)
[2019-09-24] MEDS ORDERED: AMIT25TA9 PO (11:27)
[2019-09-24] MEDS ORDERED: OXYC5TAB96 PO (11:27)
[2019-09-24] MEDS ORDERED: FLUT16SP22 NSEACH (11:27)
[2019-09-24] MEDS ORDERED: INSU100I10 SC (11:27)
[2019-09-24] MEDS ORDERED: QUET50TA55 PO (11:27)
[2019-09-24] MEDS ORDERED: DULO60CA59 PO (11:27)
[2019-09-24] MEDS ORDERED: ROFL500T PO (11:27)
[2019-09-24] MEDS ORDERED: PRAV10TA PO (11:27)
[2019-09-24] MEDS ORDERED: NYST1000 PO (11:27)
[2019-09-24] MEDS ORDERED: BUDE10.2 PO (11:27)
[2019-09-24] MEDS ORDERED: MIRA25TA PO (11:27)
[2019-09-24] MEDS ORDERED: EMPA25TA PO (11:27)
[2019-09-24] MEDS ORDERED: GABA300C PO (11:31)
--- NOTE | 2019-09-24 11:32 | NUR ---
SPOKE WITH THE PT, WENT THRU THE EXT MED HISTORY AND HAD [facility] SEND OVER A RECENT FILL LIST TO COMPLETE THE MED REC THE FOLLOWING MEDICATIONS WERE FILLED ON 09-10-2019 (THEY ARENT ON THE EXT MED HISTORY) LANTUS SOLOSTAR #10 PENS MONTELUKAST 10MG #30/30DS ELIQUIS 5MG #60/30DS JARDIANCE 25MG #30/30DS QUETIAPINE 50MG #30/30DS FLONASE SPRAY #1 TIZANIDINE 4MG #90/30DS GABAPENTIN 300MG #180/30DS PRAVASTATIN 10MG #30/30DS SYMBICORT 160/4.5MG #1/30DS LORAZEPAM 1 MG IS SHOWN ON THE EXT MED HISTORY BUT THE PT SAID THIS MEDICATION HAS BEEN DISCONTINUED OTC MEDS: IRVIN HAGER
--- NOTE | 2019-09-24 12:35 | Consultation-Cardiology ---
HPI-Cardiology Cardiology Consultation: Date of Consultation 09/24/19 Date of Admission Attending Physician Yolanda Julio DO Admitting Physician Raj Ramires MD Consulting Physician Sharon SILVESTRE MD HPI: Time Seen by a Provider: 11:30 Chief Complaint: Chest pain This is a 64-year-old lady with previous history of mild CAD with coronary angiography done by Dr. Mcfadden in July 2017 which showed mild to moderate CAD. Echocardiogram done in July 2017 showed normal LV function with no significant valvular heart disease. She presented with left-sided chest pain. She is also had a previous history of stroke on the left side. Likely worsening of the stroke was also noted. Reproducible chest discomfort. She has history of diabetes and atrial fibrillation on oral anticoagulation. She denies active smoking. Family history is not pertinent. Review of Systems-Cardiology Review of Systems Constitutional: As described under HPI; No As described under HPI, No no symptoms reported, No chills, No fever, No lightheadedness Eyes: No As described under HPI, No no symptoms reported, No blindness, No blurred vision, No contact lenses, No drainage, No decreased acuity, No foreign body sensation, No pain, No vision change Ears/Nose/Throat: No As described under HPI, No no symptoms reported, No chronic hearing loss, No ear discharge, No ear pain, No nasal drainage, No ulcerations Respiratory: No no symptoms reported; As described under HPI; No As described under HPI, No cough, No orthopnea, No shortness of breath, No SOB with excertion Cardiovascular: No no symptoms reported; As described under HPI; No As described under HPI; chest pain; No edema, No irregular heart rate, No lightheadedness, No palpitations Gastrointestinal: No no symptoms reported, No As described under HPI, No abdomen distended, No abdominal pain, No blood streaked bowels, No constipation, No diarrhea, No nausea, No vomiting, No stool coloration changes Genitourinary: No As described under HPI, No burning, No dysuria, No discharge, No frequency, No flank pain, No hematuria, No urgency : Yes : No Skin: No rash, No skin related problems, No ulcerations Psychiatric/Neurological: No anxiety, No depression, No seizure, No focal weakness, No syncope Hematologic: No bleeding abnormalities [id number] Hx Patient Social History Alcohol Use: Denies Use Recreational Drug Use: No Smoking Status: Current Everyday Smoker Former smoker/When Quit: Apr 14, 1985 Type Used: Cigarettes Recent Foreign Travel: No Recent Infectious Disease Expo: No Hospitalization with Isolation: Denies Immunizations Up To Date Tetanus Booster (TDap): Less than 5yrs Date of Pneumonia Vaccine: Jan 25, 2013 Date of Influenza Vaccine: Feb 06, 2019 Past Medical History PMH As described under Assessment. Family Medical History Family History: Alcoholism 03 FATHER, , Onset: - 09 BROTHER, Onset:s - Cataract 03 FATHER, 09 SISTER Dementia 03 FATHER, Family history: Alzheimer's disease 03 FATHER, Family history: Arthritis 03 FATHER, 03 MOTHER 09 BROTHER 09 SISTER Family history: Asthma 03 MOTHER 09 BROTHER 09 SISTER Family history: Cardiovascular disease Family history: Diabetes mellitus 03 MOTHER 09 SISTER Family history: Hypertension 03 FATHER, 03 MOTHER 09 BROTHER 09 SISTER Heart disease 03 FATHER, 03 MOTHER History of - anemia 09 SISTER History of - respiratory disease 03 FATHER, ( OF PNEUMONIA) 09 BROTHER 09 SISTER History of drug abuse 09 BROTHER Hypercholesterolemia 09 BROTHER 09 SISTER Infertile 09 SISTER Kidney disease 03 FATHER, (KIDNEY STONES) Myocardial infarction 03 FATHER, Parkinson's disease 03 FATHER, Psychotic disorder 09 BROTHER (BIPOLAR) 09 SISTER (BIPOLAR) Stroke 03 FATHER, 03 MOTHER No Family History of: Abdominal aortic aneurysm Anibal's disease Aphasia Cancer Cancer of colon Congenital heart disease Congestive heart failure Cystic fibrosis Dysphagia Family history: Breast disease Family history: Coronary thrombosis Family history: Gastrointestinal disease Family history: Glaucoma Family history: Thyroid disorder Human immunodeficiency virus (HIV) seropositivity Malignant neoplasm of lung Prostate cancer Seizure disorder Tuberculosis Visual impairment Allergies and Home Medications Allergies Coded Allergies: morphine (Unverified Allergy, Mild, HIVES, ITCHING; TAKES LORTAB AT HOME, 12/07/15) Fish Containing Products (Unverified Allergy, Unknown, 12/07/15) FROM UNCODED ALLERGIES "SEAFOOD" Penicillins (Unverified Allergy, Unknown, 12/07/15) erythromycin base (Verified Allergy, Unknown, 12/07/15) shellfish derived (Unverified Allergy, Unknown, 12/07/15) FROM UNCODED ALLERGIES "SEAFOOD" Uncoded Allergies: SILK TAPE (Allergy, Unknown, 02/26/06) Home Medications Amitriptyline HCl 25 Mg Tablet, 25 MG PO HS, (Reported) Apixaban 5 Mg Tablet, 5 MG PO BID, (Reported) Aspirin 325 Mg Tablet, 325 MG PO DAILY Prescribed by: RENUKA PERES on 09/24/19 1351 Atorvastatin Calcium 40 Mg Tablet, 40 MG PO HS Prescribed by: RENUKA PERES on 09/24/19 1351 Budesonide/Formoterol Fumarate 10.2 Gm Hfa.aer.ad, 2 PUFF PO BID, (Reported) C,E,Zinc,Copper 11/Dxlwa9k/Lut 1 Each Capsule, 1 EACH PO DAILY, (Reported) Duloxetine HCl 60 Mg Capsule.dr, 60 MG PO BID, (Reported) Empagliflozin 25 Mg Tablet, 25 MG PO DAILY, (Reported) Fluticasone Propionate 16 Gm [place].susp, 2 SPRAYS NSEACH BID, (Reported) Gabapentin 300 Mg Capsule, 300-600 MG PO TID, (Reported) TAKES 1 TO 2 (300MG) CAPS TWICE DAILY Insulin Glargine,Hum.rec.anlog 100 Unit/1 Ml Insuln.pen, 60 UNITS SC DAILY, (Reported) Insulin Glargine,Hum.rec.anlog 100 Unit/1 Ml Insuln.pen, 15 UNIT SQ HS, (Reported) Mirabegron 25 Mg Tab.er.24h, 25 MG PO BID, (Reported) Montelukast Sodium 10 Mg Tablet, 10 MG PO DAILY, (Reported) Multivitamin 1 Each Tablet, 1 EACH PO DAILY, (Reported) Nystatin 100,000 Unit/1 Ml Oral.susp, 5 ML PO QID, (Reported) SWISH AND SWALLOW Oxycodone HCl 5 Mg Tablet, 5 MG PO TID, (Reported) Propranolol HCl 10 Mg Tablet, 5 MG PO BID, (Reported) TAKES OF A 10MG TO EQUAL 5MG TWICE DAILY Quetiapine Fumarate 50 Mg Tablet, 50 MG PO HS, (Reported) Roflumilast 500 Mcg Tablet, 500 MCG PO DAILY, (Reported) Tizanidine HCl 4 Mg Tablet, 4 MG PO TID PRN for MUSCLE SPASMS, (Reported) Patient Home Medication List Home Medication List Reviewed: Yes Physical Exam-Cardiology Physical Exam Vital Signs/I&O Capillary Refill : Less Than 3 Seconds Constitutional: appears stated age, AAO x 3; No apparent distress; well- developed, well-nourished HEENT: PERRL; No discharge; hearing is well preserved, oral hygience is good; No ulceration, No xanthelasmas are seen Neck: No carotid bruit; carotid pulses are 2 + bilaterally Respiratory: chest is bilaterally symmetric, lungs clear to percussion Cardiovascular: irregularly irregular, S1 and S2 Gastrointestinal: soft, audible bowel sounds; No spleenomegaly Rectal: deferred Extremities: normal range of motion, non-tender, normal inspection; No clubbing, No cyanosis; no lower extremity edema bilateral; No significant edema Neurologic/Psychiatric: no motor/sensory deficits, alert, normal mood/affect, oriented x 3, power is 5/5 both on sides Skin: normal color, warm/dry; No rash, No ulcerations Data Review Labs ECG Impression ECG Initial ECG Impression: Atrial Fibrillation A/P-Cardiology Assessment/Admission Diagnosis Possible worsening stroke, Chest pain, History of mild to moderate CAD, Persistent atrial fibrillation, Diabetes, Plan Possible worsening stroke, or to the primary team. Chest pain, bone and negative. EKG does not show any acute ST-T wave abnormalities. Patient can be discharged to follow-up with Dr. Mcfadden as an outpatient. Previous coronary angiography done 2 years ago showed mild CAD. Therefore we'll defer to Dr. Mcfadden as an outpatient for likely nuclear stress test. History of mild to moderate CAD, no active issues. A CS has been ruled out. Persistent atrial fibrillation, and tinea Eliquis therapy. Diabetes, deferred to the primary team. Thank you for your consultation. Please call me if you have any questions. Ney Silvestre MD, FACP, FACC, FSCAI, FHRS, CCDS Interventional Cardiology Cardiac Electrophysiology Vascular Medicine and Endovascular Interventions Clinical Quality Measures DVT/VTE Risk/Contraindication: Risk Factor Score Per Nursin RFS Level Per Nursing on Admit: 4+=Very High Contraindications-Pharm: Other *list below* Other: on Sharon Llamas MD Sep 24, 2019 12:35
--- NOTE | 2019-09-24 13:26 | NUR ---
RD ASSESSMENT PMHx: COPD; afib; CAD; HTN; stroke; chronic-UTI; GERD; diverticulosis; hiatal hernia; fibromyalgia; DM; morbid obesity PT INTERACTION: Pt was awake and pleasant during nutrition assessment. Pt states current appetite is "so-so" and has been for the past month. Pt states following a regular diet, "but I avoid sugar because I'm a diabetic. I can't stand diet Coke, so I drink regular Coke." Pt states some issues with swallowing food. Pt states some recent issues with nausea and vomiting. Pt states no recent issues with constipation or diarrhea, and last BM was 09/21. Not pt currently on bowel regimen of senna BID, per chart review. Pt states recent wt loss "of about 1#/month." Note unable to determine recent wt hx, per chart review. Pt states current DM management is "poor." Note unable to determine recent HbA1c, per chart review. ABNORMAL NUTRITION-RELATED LAB VALUES LOW: glu 48; Pro 6.3; alb 3.1; HDL 38 HIGH: Est. kcal needs: 5713-7572 kcal | 25-30 kcal/kg IBW, based on IBW of 54.5 kg (120#) Est. Pro needs: 55-65 g Pro | 1.0-1.2 g Pro/kg IBW, based on IBW of 54.5 kg (120#) PES STATEMENT: Inadequate oral intake (NI-2.1) related to loss of appetite | nausea | vomiting as evidenced by pt interview INTERVENTION: Continue with current diet order of CHO 60g/m 3snack diet. Offered and provided diet education on DM management. Discussed portion control, fiber, CHO counting, and CHO amounts in common foods in her diet. Pt verbalized understanding of material presented. Will continue to follow and reassess as pt needs, intake, and status change. MONITOR/EVALUATE: PO Intake; Plan of Care; Hydration Status; Weight Status; Lab Values Fátima Dudley, MS, RD, LD
[2019-09-24] MEDS ORDERED: ASPI-808 PO (13:51)
[2019-09-24] MEDS ORDERED: ATOR40TA PO (13:51)
--- NOTE | 2019-09-24 14:20 | Discharge Summary ---
Discharge Summary Hospital Course Was the Problem List Reviewed?: Yes Hospital Course Date of Admission: Sep 23, 2019 at 19:31 Admission Diagnosis : Chest pain Family Physician/Provider: Raj Thapa MD Date of Discharge: 09/24/19 Discharge Diagnosis: TIA Hospital Course: Destiney Pimentel is a 64 year old female presented with chest pain, slurred speech, and left-sided weakness. cardiology was consulted and assisted with her care. She underwent serial troponin testing and EKG testing which remained normal. She underwent CT scan which revealed no acute abnormalities. Her CTA was essentially normal. Her weakness and slurred speech resolved. She returned to her baseline prior to discharge which involves residual left-sided weakness from a prior CVA. She was started on aspirin and she was changed to a high intensity statin. She should follow-up with her primary care physician. Labs and Pending Lab Test: Laboratory Tests 09/23/19 15:43: Glucometer 135H 09/23/19 15:52: White Blood Count 9.9, Red Blood Count 5.44, Hemoglobin 14.5, Hematocrit 45, Mean Corpuscular Volume 83, Mean Corpuscular Hemoglobin 27, Mean Corpuscular Hemoglobin Concent 32, Red Cell Distribution Width 15.8H, Platelet Count 205, Mean Platelet Volume 10.0, Neutrophils (%) (Auto) 68, Lymphocytes (%) (Auto) 23, Monocytes (%) (Auto) 7, Eosinophils (%) (Auto) 2, Basophils (%) (Auto) 0, Neutrophils # (Auto) 6.8, Lymphocytes # (Auto) 2.3, Monocytes # (Auto) 0.7, Eosinophils # (Auto) 0.2, Basophils # (Auto) 0.0, Prothrombin Time 14.7, INR Comment 1.1, Activated Partial Thromboplast Time 36H, D-Dimer 0.26, Sodium Level 139, Potassium Level 4.0, Chloride Level 104, Carbon Dioxide Level 29, Anion Gap 6, Blood Urea Nitrogen 10, Creatinine 0.67, Estimat Glomerular Filtration Rate > 60, BUN/Creatinine Ratio 15, Glucose Level 132H, Calcium Level 8.8, Corrected Calcium 9.5, Total Bilirubin 0.4, Aspartate Amino Transf (AST/SGOT) 9, Alanine Aminotransferase (ALT/SGPT) 7, Alkaline Phosphatase 89, Troponin I < 0.028, Total Protein 6.3L, Albumin 3.1L 6/11/20 16:10: Urine Color YELLOW, Urine Clarity SL CLOUDY, Urine pH 7.0, Urine Specific [place] 1.015L, Urine Protein NEGATIVE, Urine Glucose (UA) 3+H, Urine Ketones NEGATIVE, Urine Nitrite NEGATIVE, Urine Bilirubin NEGATIVE, Urine Urobilinogen 1.0, Urine Leukocyte Esterase NEGATIVE, Urine RBC (Auto) TRACE-L, Urine RBC NONE , Urine WBC NONE, Urine Squamous Epithelial Cells 5-10, Urine Crystals NONE, Urine Bacteria NEGATIVE, Urine Casts NONE, Urine Mucus NEGATIVE, Urine Culture Indicated NO 09/23/19 20:48: Glucometer 61L 09/23/19 23:30: Glucometer 156H 09/24/19 01:00: Troponin I < 0.028 09/24/19 05:10: Troponin I < 0.028, White Blood Count 10.2, Red Blood Count 5.55, Hemoglobin 14.6, Hematocrit 46, Mean Corpuscular Volume 83, Mean Corpuscular Hemoglobin 26, Mean Corpuscular Hemoglobin Concent 32, Red Cell Distribution Width 16.0H, Platelet Count 209, Mean Platelet Volume 10.1, Neutrophils (%) (Auto) 57, Lymphocytes (%) (Auto) 33, Monocytes (%) (Auto) 8, Eosinophils (%) (Auto) 2, Basophils (%) (Auto) 0, Neutrophils # (Auto) 5.8, Lymphocytes # (Auto) 3.4, Monocytes # (Auto) 0.8, Eosinophils # (Auto) 0.2, Basophils # (Auto) 0.0, Sodium Level 142, Potassium Level 3.9, Chloride Level 105, Carbon Dioxide Level 29, Anion Gap 8, Blood Urea Nitrogen 9, Creatinine 0.61, Estimat Glomerular Filtration Rate > 60, BUN/Creatinine Ratio 15, Glucose Level 48*L, Calcium Level 8.6, Corrected Calcium 9.3, Total Bilirubin 0.5, Aspartate Amino Transf (AST/SGOT) 11, Alanine Aminotransferase (ALT/SGPT) 18, Alkaline Phosphatase 85, Total Protein 6.3L, Albumin 3.1L, Triglycerides Level 93, Cholesterol Level 169, LDL Cholesterol Direct 129, VLDL Cholesterol 19, HDL Cholesterol 38L 09/24/19 06:15: Glucometer 94 09/24/19 12:11: Glucometer 169H Home Meds Active Lipitor (Atorvastatin Calcium) 40 Mg Tablet 40 Mg PO HS 30 Days Aspirin 325 Mg Tablet 325 Mg PO DAILY 30 Days Reported Neurontin (Gabapentin) 300 Mg Capsule 300-600 Mg PO TID TAKES 1 TO 2 (300MG) CAPS TWICE DAILY Multivitamin 1 Each Tablet 1 Each PO DAILY Ocuvite Adult 50 Plus Softgel (C,E,Zinc,Copper 11/Qnbzc9h/Lut) 1 Each Capsule 1 Each PO DAILY Jardiance (Empagliflozin) 25 Mg Tablet 25 Mg PO DAILY Eliquis (Apixaban) 5 Mg Tablet 5 Mg PO BID Lantus Solostar (Insulin Glargine,Hum.rec.anlog) 100 Unit/1 Ml Insuln.pen 15 Unit SQ HS Lantus Solostar (Insulin Glargine,Hum.rec.anlog) 100 Unit/1 Ml Insuln.pen 60 Units SC DAILY Symbicort 160-4.5 Mcg Inhaler (Budesonide/Formoterol Fumarate) 10.2 Gm Hfa.aer.ad 2 Puff PO BID Quetiapine Fumarate 50 Mg Tablet 50 Mg PO HS Montelukast Sodium 10 Mg Tablet 10 Mg PO DAILY Tizanidine HCl 4 Mg Tablet 4 Mg PO TID PRN Fluticasone Propionate 16 Gm [place].susp 2 Sprays NSEACH BID Pravastatin Sodium 10 Mg Tablet 10 Mg PO HS Oxycodone IR (Oxycodone HCl) 5 Mg Tablet 5 Mg PO TID Daliresp (Roflumilast) 500 Mcg Tablet 500 Mcg PO DAILY Duloxetine HCl 60 Mg Capsule.dr 60 Mg PO BID Amitriptyline HCl 25 Mg Tablet 25 Mg PO HS Propranolol HCl 10 Mg Tablet 5 Mg PO BID TAKES OF A 10MG TO EQUAL 5MG TWICE DAILY Myrbetriq (Mirabegron) 25 Mg Tab.er.24h 25 Mg PO BID Nystatin 100,000 Unit/1 Ml Oral.susp 5 Ml PO QID SWISH AND SWALLOW Assessment/Pt Instructions take medications as prescribed. Follow-up with your primary care physician. Follow up with cardiology. Discharge Planning: <30 minutes discharge planning Discharge Instructions Discharge Diet: No Restrictions Activity as Tolerated: Yes Pneumonia Vaccine Order Indica: Yes Consultations Cardiology Discharge Physical Examination Vital Signs Vital Signs Date Time Temp Pulse Resp B/P (MAP) Pulse Ox O2 Delivery O2 Flow Rate FiO2 09/24/19 12:12 36.4 09/24/19 12:00 Room Air 09/24/19 12:00 99 10 144/68 (93) 95 09/24/19 05:00 2.00 General Appearance: No Apparent Distress, WD/WN Respiratory: Lungs Clear, Normal Breath Sounds, No Respiratory Distress Cardiovascular: Regular Rate, Rhythm, No Edema, No Murmur Gastrointestinal: Normal Bowel Sounds, Non Tender, Soft Extremity: Normal Inspection, Non Tender, No Pedal Edema Skin: Normal Color, Warm/Dry Neurologic/Psychiatric: Alert, Oriented x3, Normal Mood/Affect, Motor Weakness Allergies: Coded Allergies: morphine (Unverified Allergy, Mild, HIVES, ITCHING; TAKES LORTAB AT HOME, 12/07/15) Fish Containing Products (Unverified Allergy, Unknown, 12/07/15) FROM UNCODED ALLERGIES "SEAFOOD" Penicillins (Unverified Allergy, Unknown, 12/07/15) erythromycin base (Verified Allergy, Unknown, 12/07/15) shellfish derived (Unverified Allergy, Unknown, 12/07/15) FROM UNCODED ALLERGIES "SEAFOOD" Uncoded Allergies: SILK TAPE (Allergy, Unknown, 02/26/06) Copy Copies To 1: RAJ THAPA MD Discharge Summary Date of Admission Sep 23, 2019 at 19:31 Date of Discharge Discharge Date: Sep 24, 2019 Discharge Time: 14:10 Admission Diagnosis Chest pain Consults/Procedures Consulations Cardiology Discharge Diagnosis (1) TIA (transient ischemic attack) Status: Acute Clinical Quality Measures DVT/VTE Risk/Contraindication: Risk Factor Score Per Nursin RFS Level Per Nursing on Admit: 4+=Very High Contraindications-Pharm: Other *list below* Other: on RENUKA Briggs MD Sep 24, 2019 14:19
--- NOTE | 2019-09-24 16:32 | NUR ---
SEVERO BRUNO demonstrates understanding of discharge instructions and accurately returns instructions upon questioning. Copy of Post-Discharge Instructions and Medication Discharge Instructions given to patient. SEVERO BRUNO is able to manage continuing needs after discharge. Patients belongings returned to patient. Skin dry and intact; no breakdown noted. Patient discharged from [facility]- on 09/24/2019 at 1550 . SEVERO BRUNO left floor via wheelchair, accompanied by MARY.
== END 2019-09-24 15:50 | disposition home or self-care (01) ==
LOC: EDUNIT# 15:12 → ER 15:13 → ICU 19:31
PROVIDERS: ADMIT Internal Medicine; ATTEND Internal Medicine
DX: G45.9 Transient cerebral ischemic attack, unspecified (principal); I25.10 Atherosclerotic heart disease of native coronary artery without angina pectoris; I42.9 Cardiomyopathy, unspecified; I48.91 Unspecified atrial fibrillation; J44.9 Chronic obstructive pulmonary disease, unspecified; G47.30 Sleep apnea, unspecified; I10 Essential (primary) hypertension; E11.9 Type 2 diabetes mellitus without complications; K21.9 Gastro-esophageal reflux disease without esophagitis; M19.90 Unspecified osteoarthritis, unspecified site; M79.7 Fibromyalgia; G89.29 Other chronic pain; M54.9 Dorsalgia, unspecified; F41.9 Anxiety disorder, unspecified; F17.210 Nicotine dependence, cigarettes, uncomplicated; F32.9 Major depressive disorder, single episode, unspecified; Z90.89 Acquired absence of other organs; Z90.710 Acquired absence of both cervix and uterus; Z79.01 Long term (current) use of anticoagulants; Z88.5 Allergy status to narcotic agent; Z88.0 Allergy status to penicillin; Z88.1 Allergy status to other antibiotic agents; Z91.013 Allergy to seafood; Z79.82 Long term (current) use of aspirin; Z79.4 Long term (current) use of insulin
CPT/HCPCS: 36415; 36556; 51702; 70450; 70496; 70498; 71045; 80053; 80061; 81000; 82962; 84484; 85025; 85379; 85610; 85730; 93005; 93041; 93306

== ENCOUNTER → 2019-12-17 | Outpatient (CLI) | payer MEDICARE, MEDICAID ==
[~2019-12-17] MED LIST changes: +AMIT25TA9 PO; +APIX5TAB PO; +ASPI-808 PO; +ATOR40TA PO; +BUDE10.2 PO; +C,E,1CAP PO; +DULO60CA59 PO; +EMPA25TA PO; +FLUT16SP22 NSEACH; +GABA300C PO; +INSU100I10 SC; +INSU100I10 SQ; +MIRA25TA PO; +MONT10TA26 PO; +MULT-1136 PO; +NYST1000 PO; +OXYC5TAB96 PO; +PROP10TA8 PO; +QUET50TA55 PO; +TIZA4TAB4 PO
--- NOTE | 2019-12-17 10:36 | Diagnostic Imaging Report ---
INDICATION: Pacemaker lead malfunction. Comparison with 09/23/2019. FINDINGS: The lungs are well-aerated and clear. There is Port-A-Cath on the right overlying the upper right chest. Pacemaker on the left with dual leads. The leads appear unchanged in position without evidence of disruption. The heart is not enlarged. There is no pulmonary edema. No pneumothorax or pleural effusion. No bony abnormalities. IMPRESSION: No acute changes are noted. Heart size has decreased since previous exam. No evidence of congestive failure. Dictated by: Dictated on workstation # [id number]
== END ==
LOC: RAD 09:20
PROVIDERS: ATTEND Internal Medicine Cardiovascular Disease
DX: T82.110A Breakdown (mechanical) of cardiac electrode, initial encounter (principal)
CPT/HCPCS: 71046

== ENCOUNTER 2020-01-08 18:44 | Emergency (ER) | payer MEDICARE, MEDICAID ==
[~2020-01-08] VITALS: Ht 165.1 cm; Wt 118.1 kg
[~2020-01-08 18:44] MED LIST changes: +OXC5T PO; -OXYC5TAB96 PO
--- NOTE | 2020-01-08 18:56 | ED General ---
General Chief Complaint: Neurological Problems Stated Complaint: CONFUSION Source of Information: Patient Exam Limitations: No Limitations History of Present Illness Date Seen by Provider: Jan 08, 2020 Time Seen by Provider: 18:54 Initial Comments To ER by EMS from home with reports of confusion that began about 5:30 while eating dinner. No other symptoms. Patient is alert on arrival to ER, states that she thinks she is just tired. She does report a left-sided headache. No nausea no vomiting no fevers. No injury. Timing/Duration: 1 Hour Severity: Moderate Associated Systoms: Headaches Allergies and Home Medications Allergies Coded Allergies: morphine (Unverified Allergy, Mild, HIVES, ITCHING; TAKES LORTAB AT HOME, 12/07/15) Fish Containing Products (Unverified Allergy, Unknown, 12/07/15) FROM UNCODED ALLERGIES "SEAFOOD" Penicillins (Unverified Allergy, Unknown, 12/07/15) erythromycin base (Verified Allergy, Unknown, 12/07/15) shellfish derived (Unverified Allergy, Unknown, 12/07/15) FROM UNCODED ALLERGIES "SEAFOOD" Uncoded Allergies: SILK TAPE (Allergy, Unknown, 02/26/06) Home Medications Amitriptyline HCl 25 Mg Tablet, 25 MG PO HS, (Reported) Apixaban 5 Mg Tablet, 5 MG PO BID, (Reported) Aspirin 325 Mg Tablet, 325 MG PO DAILY Prescribed by: RENUKA PERES on 09/24/19 1351 Atorvastatin Calcium 40 Mg Tablet, 40 MG PO HS Prescribed by: RENUKA PERES on 09/24/19 1351 Budesonide/Formoterol Fumarate 10.2 Gm Hfa.aer.ad, 2 PUFF PO BID, (Reported) C,E,Zinc,Copper 11/Vkmub7a/Lut 1 Each Capsule, 1 EACH PO DAILY, (Reported) Duloxetine HCl 60 Mg Capsule.dr, 60 MG PO BID, (Reported) Empagliflozin 25 Mg Tablet, 25 MG PO DAILY, (Reported) Fluticasone Propionate 16 Gm Cora.susp, 2 SPRAYS NSEACH BID, (Reported) Gabapentin 300 Mg Capsule, 300-600 MG PO TID, (Reported) TAKES 1 TO 2 (300MG) CAPS TWICE DAILY Insulin Glargine,Hum.rec.anlog 100 Unit/1 Ml Insuln.pen, 60 UNITS SC DAILY, (Reported) Insulin Glargine,Hum.rec.anlog 100 Unit/1 Ml Insuln.pen, 15 UNIT SQ HS, (Reported) Mirabegron 25 Mg Tab.er.24h, 25 MG PO BID, (Reported) Montelukast Sodium 10 Mg Tablet, 10 MG PO DAILY, (Reported) Multivitamin 1 Each Tablet, 1 EACH PO DAILY, (Reported) Nystatin 100,000 Unit/1 Ml Oral.susp, 5 ML PO QID, (Reported) SWISH AND SWALLOW Oxycodone HCl 5 Mg Tablet, 5 MG PO TID, (Reported) Propranolol HCl 10 Mg Tablet, 5 MG PO BID, (Reported) TAKES OF A 10MG TO EQUAL 5MG TWICE DAILY Quetiapine Fumarate 50 Mg Tablet, 50 MG PO HS, (Reported) Roflumilast 500 Mcg Tablet, 500 MCG PO DAILY, (Reported) Tizanidine HCl 4 Mg Tablet, 4 MG PO TID PRN for MUSCLE SPASMS, (Reported) Patient Home Medication List Home Medication List Reviewed: Yes Review of Systems Review of Systems Constitutional: see HPI EENTM: see HPI Respiratory: no symptoms reported Cardiovascular: no symptoms reported Genitourinary: no symptoms reported Musculoskeletal: no symptoms reported Skin: no symptoms reported Psychiatric/Neurological: See HPI, Headache Hematologic/Lymphatic: No Symptoms Reported Immunological/Allergic: no symptoms reported Past Heruzft-Uwnlqo-Sxxikz Hx Patient Social History Type Used: Cigarettes Former Smoker, Quit: Jul 23, 1985 Recent Hopitalizations: No Immunizations Up To Date Tetanus Booster (TDap): Less than 5yrs PED Vaccines UTD: No Date of Pneumonia Vaccine: Jan 25, 2013 Date of Influenza Vaccine: Feb 06, 2019 Seasonal Allergies Seasonal Allergies: No Past Medical History Surgeries: Yes Abdominal, Appendectomy, Cardiac, Section, Coronary Stent, Gallbladder, 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, Orthopedic, Pacemaker Respiratory: Yes Asthma, Sleep Apnea, COPD Currently Using CPAP: Yes Currently Using BIPAP: No Cardiac: Yes Atrial Fibrillation, Cardiomyopathy, Coronary Artery Disease, Hypertension Neurological: Yes (LEFT SIDE AFFECTED, MINIMAL RESIDUAL WEAKNESS/PARESTHESIAS) Stroke, TIA Reproductive Disorders: Yes Female Reproductive Disorders: Menstrual Problems 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: 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, Menopausal Sexually Transmitted Disease: No HIV/AIDS: No Genitourinary: Yes (Overactive bladder, weak bladder, weak stream) Bladder Infection, Kidney Stones, UTI-Chronic Gastrointestinal: Yes (Esophageal spams ) Gastroesophageal Reflux, Chronic Constipation, Diverticulosis, Hiatal Hernia, Irritable Bowel Musculoskeletal: Yes Degenerate Disk Disease, Arthritis, Fibromyalgia, Chronic Back Pain Endocrine: Yes (MORBID OBESITY) Diabetes, Insulin dep HEENT: Yes Cataract, Macular Degeneration Loss of Vision: Denies Hearing Impairment: Denies Cancer: No Psychosocial: Yes Anxiety, Depression Integumentary: No Blood Disorders: No Adverse Reaction/Blood Tranf: No Family Medical History Alcoholism 03 FATHER, , Onset:15's - 20 09 BROTHER, Onset:20's - 25 Cataract 03 FATHER, 09 SISTER Dementia 03 FATHER, Family history: Alzheimer's disease 03 FATHER, Family history: Arthritis 03 FATHER, 03 MOTHER 09 BROTHER 09 SISTER Family history: Asthma 03 MOTHER 09 BROTHER 09 SISTER Family history: Cardiovascular disease Family history: Diabetes mellitus 03 MOTHER 09 SISTER Family history: Hypertension 03 FATHER, 03 MOTHER 09 BROTHER 09 SISTER Heart disease 03 FATHER, 03 MOTHER History of - anemia 09 SISTER History of - respiratory disease 03 FATHER, ( OF PNEUMONIA) 09 BROTHER 09 SISTER History of drug abuse 09 BROTHER Hypercholesterolemia 09 BROTHER 09 SISTER Infertile 09 SISTER Kidney disease 03 FATHER, (KIDNEY STONES) Myocardial infarction 03 FATHER, Parkinson's disease 03 FATHER, Psychotic disorder 09 BROTHER (BIPOLAR) 09 SISTER (BIPOLAR) Stroke 03 FATHER, 03 MOTHER No Family History of: Abdominal aortic aneurysm [place]'s disease Aphasia Cancer Cancer of colon Congenital heart disease Congestive heart failure Cystic fibrosis Dysphagia Family history: Breast disease Family history: Coronary thrombosis Family history: Gastrointestinal disease Family history: Glaucoma Family history: Thyroid disorder Human immunodeficiency virus (HIV) seropositivity Malignant neoplasm of lung Prostate cancer Seizure disorder Tuberculosis Visual impairment Physical Exam Vital Signs Vital Signs - First Documented 01/08/20 18:44 Temp 36.8 Pulse 118 Resp 18 B/P (MAP) 149/102 (118) Capillary Refill : Height, Weight, BMI Height: 5'4.00" Weight: 282lbs. 0.0oz. 127.795325eq; 47.85 BMI Method:Stated General Appearance: No Apparent Distress, WD/WN, Other (arrival patient is talking in a rather juvenile manner, states "I have headache, I no feel good, I tired") Eyes: Bilateral Eye Normal Inspection, Bilateral Eye PERRL, Bilateral Eye EOMI Neck: Full Range of Motion, Normal Inspection Respiratory: Lungs Clear, Normal Breath Sounds, No Accessory Muscle Use, No Respiratory Distress Gastrointestinal: Normal Bowel Sounds, Non Tender, Soft Extremity: Normal Capillary Refill, Normal Inspection Neurologic/Psychiatric: Alert, Oriented x3 Skin: Normal Color, Warm/Dry Focused Exam Lactate Level 01/08/20 20:05: Lactic Acid Level 0.90 Lactic Acid Level Laboratory Tests Test 01/08/20 20:05 Lactic Acid Level 0.90 MMOL/L (0.50-2.00) Progress/Results/Core Measures Suspected Sepsis SIRS Temperature: Pulse: Respiratory Rate: Laboratory Tests 01/08/20 19:15: White Blood Count 4.9 Blood Pressure / Mean: 01/08/20 20:05: Lactic Acid Level 0.90 Laboratory Tests 01/08/20 19:15: Creatinine 0.68, INR Comment 1.0, Platelet Count 163, Total Bilirubin 0.4 Results/Orders Lab Results Laboratory Tests Test 01/08/20 19:15 01/08/20 20:05 01/08/20 20:47 Range/Units White Blood Count 4.9 4.3-11.0 10^3/uL Red Blood Count 5.38 H 3.80-5.11 10^6/uL Hemoglobin 14.5 11.5-16.0 g/dL Hematocrit 46 35-52 % Mean Corpuscular Volume 86 80-99 fL Mean Corpuscular Hemoglobin 27 25-34 pg Mean Corpuscular Hemoglobin Concent 31 L 32-36 g/dL Red Cell Distribution Width 14.3 10.0-14.5 % Platelet Count 163 130-400 10^3/uL Mean Platelet Volume 10.4 9.0-12.2 fL Immature Granulocyte % (Auto) 0 % Neutrophils (%) (Auto) 53 42-75 % Lymphocytes (%) (Auto) 39 12-44 % Monocytes (%) (Auto) 5 0-12 % Eosinophils (%) (Auto) 2 0-10 % Basophils (%) (Auto) 0 0-10 % Neutrophils # (Auto) 2.6 1.8-7.8 10^3/uL Lymphocytes # (Auto) 1.9 1.0-4.0 10^3/uL Monocytes # (Auto) 0.3 0.0-1.0 10^3/uL Eosinophils # (Auto) 0.1 0.0-0.3 10^3/uL Basophils # (Auto) 0.0 0.0-0.1 10^3/uL Immature Granulocyte # (Auto) 0.0 0.0-0.1 10^3/uL Prothrombin Time 13.7 12.2-14.7 SEC INR Comment 1.0 0.8-1.4 Activated Partial Thromboplast Time 50 H 24-35 SEC Sodium Level 140 135-145 MMOL/L Potassium Level 3.6 3.6-5.0 MMOL/L Chloride Level 104 98-107 MMOL/L Carbon Dioxide Level 27 21-32 MMOL/L Anion Gap 9 5-14 MMOL/L Blood Urea Nitrogen 10 7-18 MG/DL Creatinine 0.68 0.60-1.30 MG/DL Estimat Glomerular Filtration Rate > 60 BUN/Creatinine Ratio 15 Glucose Level 171 H 70-105 MG/DL Calcium Level 8.5 8.5-10.1 MG/DL Corrected Calcium 9.1 8.5-10.1 MG/DL Total Bilirubin 0.4 0.1-1.0 MG/DL Aspartate Amino Transf (AST/SGOT) 13 5-34 U/L Alanine Aminotransferase (ALT/SGPT) 11 0-55 U/L Alkaline Phosphatase 90 40-136 U/L Total Protein 6.4 6.4-8.2 GM/DL Albumin 3.2 3.2-4.5 GM/DL Lactic Acid Level 0.90 0.50-2.00 MMOL/L My Orders Orders - [employer] Cbc With Automated Diff (01/08/20 18:48) Comprehensive Metabolic Panel (01/08/20 18:48) Blood Culture (01/08/20 18:48) Sputum Culture (01/08/20 18:48) Urinalysis (01/08/20 18:48) Urine Culture (01/08/20 18:48) Protime With Inr (01/08/20 18:48) Partial Thromboplastin Time (01/08/20 18:48) Chest 1 View, Ap/Pa Only (01/08/20 18:48) Ed Iv/Invasive Line Start (01/08/20 18:48) Ed Iv/Invasive Line Start (01/08/20 18:48) O2 (01/08/20 18:48) Lactic Acid Analyzer (01/08/20 18:48) Ct Head Wo (01/08/20 18:48) Vital Signs Adult Sepsis Patie Q15M (01/08/20 18:48) Remove Rings In Anticipation O (01/08/20 18:48) Ns Iv 1000 Ml (Sodium Chloride 0.9%) (01/08/20 19:00) Ketorolac Injection (Toradol Injection) (01/08/20 19:00) Tramadol Tablet (Ultram Tablet) (01/08/20 20:45) Medications Given in ED Current Medications Medications Dose Ordered Sig/Fernanda Route Start Time Stop Time Status Last Admin Dose Admin Ketorolac Tromethamine 15 mg ONCE ONCE IVP 01/08/20 19:00 01/08/20 19:01 DC 01/08/20 19:29 15 MG Tramadol HCl 50 mg ONCE ONCE PO 01/08/20 20:45 01/08/20 20:46 DC 01/08/20 20:54 50 MG Vital Signs/I&O 01/08/20 18:44 Temp 36.8 Pulse 118 Resp 18 B/P (MAP) 149/102 (118) Capillary Refill : Diagnostic Imaging Diagonstic Imaging: Xray Comments NAME: SEVERO BRUNO Scality REC#: [id number] PT STATUS: REG ER : 1955 PHYSICIAN: HECTOR ARAIZA APRN ADMIT DATE: 01/08/20/ER Draft Date of Exam:01/08/20 CHEST 1 VIEW, AP/PA ONLY HISTORY: Sepsis, altered mental status. COMPARISON: 12/17/2019. TECHNIQUE: Frontal view of the chest. FINDINGS: Lung volumes are normal. No focal consolidation is seen. There is no pleural effusion or pneumothorax. The cardiac silhouette is stable in size. The left-sided pacemaker leads appear unchanged in position. There is a right Port-A-Cath line which projects over the SVC, stable since the prior study. IMPRESSION: No acute pulmonary abnormality is seen. Dictated on workstation # [id number] Dict: 01/08/201948 Trans: 01/08/201950 [facility] [id number] Interpreted by: JENNIFER MOTA MD Electronically signed by: NAME: SEVERO BRUNO Scality REC#: [id number] PT STATUS: REG ER : 1955 PHYSICIAN: HECTOR ARAIZA APRN ADMIT DATE: 01/08/20/ER Draft Date of Exam:01/08/20 CT HEAD WO PROCEDURE: CT head without contrast. TECHNIQUE: Multiple contiguous axial images were obtained through the brain without the use of intravenous contrast. Auto Exposure Controls were utilized during the CT exam to meet ALARA standards for radiation dose reduction. INDICATION: Confusion, altered mental status. COMPARISON: 09/23/2019. FINDINGS: The ventricles and cortical sulci are age-appropriate. There is a small old lacunar infarct in the left centrum semiovale. There is no midline shift or mass effect. There are small areas of hypodensity in the basal ganglia, bilaterally, which may represent old lacunar infarcts or prominent perivascular spaces. No acute intracranial hemorrhage is seen. The calvarium appears intact. Paranasal sinuses are clear. IMPRESSION: No acute intracranial hemorrhage or CT evidence of acute territorial ischemia. Dictated on workstation # [id number] Dict: 01/08/201946 Trans: 01/08/20 1950 [facility] [id number] Interpreted by: JENNIFER MOTA MD Electronically signed by: Departure Impression Primary Impression: Headache Qualified Codes: R51 - Headache Disposition: 01 HOME, SELF-CARE Condition: Stable Departure-Patient Inst. Decision time for Depature: 21:18 Referrals: NO,LOCAL PHYSICIAN (PCP/Family) Primary Care Physician Patient Instructions: Headache, Adult Add. Discharge Instructions: 1. Return to ER for any concerns 2. Follow-up with her doctor next week 3. All discharge instructions reviewed with patient and/or family. Voiced understanding. HETCOR ARAIZA APRN Jan 08, 2020 18:55
[2020-01-08] MEDS ORDERED: NS IV 1000 ML 1,000 ML IV SCH (19:00)
[2020-01-08] MEDS ORDERED: KETOROLAC 30 MG/ML VIAL IVP ONE (19:00)
--- NOTE | 2020-01-08 19:03 | NUR ---
REPORT TO HALLEY
--- NOTE | 2020-01-08 19:03 | NUR ---
REPORT TO HALLEY STOVALL
--- NOTE | 2020-01-08 19:15 | NUR ---
Pt is A&Ox4 but slow to respond. Pt moves all extremities well and is able to scoot herself up into the bed well. Pt states that she thinks she is overly tired.
[2020-01-08 19:29] LABS: BASOPHILS % (AUTO) 0 % (0-10); EOSINOPHILS # (AUTO) 0.1 10^3/uL (0.0-0.3); EOSINOPHILS % (AUTO) 2 % (0-10); HEMATOCRIT 46 % (35-52); HEMOGLOBIN 14.5 g/dL (11.5-16.0); LYMPHOCYTES # (AUTO) 1.9 10^3/uL (1.0-4.0); LYMPHOCYTES % (AUTO) 39 % (12-44); MEAN CORPUSCULAR HEMOGLOBIN 27 pg (25-34); MEAN CORPUSCULAR HGB CONC 31 g/dL (32-36); MEAN CORPUSCULAR VOLUME 86 fL (80-99); MEAN PLATELET VOLUME 10.4 fL (9.0-12.2); MONOCYTES # (AUTO) 0.3 10^3/uL (0.0-1.0); MONOCYTES % (AUTO) 5 % (0-12); NEUTROPHILS # (AUTO) 2.6 10^3/uL (1.8-7.8); NEUTROPHILS % (AUTO) 53 % (42-75); PLATELET COUNT 163 10^3/uL (130-400); WHITE BLOOD COUNT 4.9 10^3/uL (4.3-11.0)
[2020-01-08 19:45] LABS: ALBUMIN 3.2 GM/DL (3.2-4.5)
[2020-01-08 19:47] LABS: CALCIUM 8.5 MG/DL (8.5-10.1)
[2020-01-08 19:48] LABS: GLUCOSE 171 MG/DL (70-105); TOTAL PROTEIN 6.4 GM/DL (6.4-8.2)
[2020-01-08 19:49] LABS: CARBON DIOXIDE 27 MMOL/L (21-32)
[2020-01-08 19:50] LABS: BILIRUBIN,TOTAL 0.4 MG/DL (0.1-1.0)
--- NOTE | 2020-01-08 19:50 | Diagnostic Imaging Report ---
PROCEDURE: CT head without contrast. TECHNIQUE: Multiple contiguous axial images were obtained through the brain without the use of intravenous contrast. Auto Exposure Controls were utilized during the CT exam to meet ALARA standards for radiation dose reduction. INDICATION: Confusion, altered mental status. COMPARISON: 09/23/2019. FINDINGS: The ventricles and cortical sulci are age-appropriate. There is a small old lacunar infarct in the left centrum semiovale. There is no midline shift or mass effect. There are small areas of hypodensity in the basal ganglia, bilaterally, which may represent old lacunar infarcts or prominent perivascular spaces. No acute intracranial hemorrhage is seen. The calvarium appears intact. Paranasal sinuses are clear. IMPRESSION: No acute intracranial hemorrhage or CT evidence of acute territorial ischemia. Dictated by: Dictated on workstation # [id number]
[2020-01-08 19:51] LABS: ALKALINE PHOSPHATASE 90 U/L (40-136); CREATININE SERUM 0.68 MG/DL (0.60-1.30); GFR ESTIMATED > 60
[2020-01-08 19:52] LABS: BUN/CREATININE RATIO 15
--- NOTE | 2020-01-08 19:52 | Diagnostic Imaging Report ---
HISTORY: Sepsis, altered mental status. COMPARISON: 12/17/2019. TECHNIQUE: Frontal view of the chest. FINDINGS: Lung volumes are normal. No focal consolidation is seen. There is no pleural effusion or pneumothorax. The cardiac silhouette is stable in size. The left-sided pacemaker leads appear unchanged in position. There is a right Port-A-Cath line which projects over the SVC, stable since the prior study. IMPRESSION: No acute pulmonary abnormality is seen. Dictated by: Dictated on workstation # [id number]
[2020-01-08 19:54] LABS: ALANINE AMINOTRANSFERASE 11 U/L (0-55)
[2020-01-08 19:55] LABS: PROTHROMBIN TIME PATIENT 13.7 SEC (12.2-14.7)
--- NOTE | 2020-01-08 20:30 | NUR ---
Pt reports she is feeling better.
[2020-01-08 20:33] LABS: CHLORIDE 104 MMOL/L (98-107); POTASSIUM 3.6 MMOL/L (3.6-5.0); SODIUM 140 MMOL/L (135-145)
[2020-01-08 20:53] LABS: BILIRUBIN,URINE NEGATIVE (NEGATIVE); CLARITY,URINE CLEAR; COLOR,URINE YELLOW; GLUCOSE, URINE (UA) 3+ (NEGATIVE); KETONES,URINE NEGATIVE (NEGATIVE); LEUKOCYTE ESTERASE ,URINE NEGATIVE (NEGATIVE); NITRITE,URINE NEGATIVE (NEGATIVE); PH,URINE 5.5 (5-9); PROTEIN,URINE NEGATIVE (NEGATIVE)
[2020-01-08 21:28] LABS: BACTERIA,URINE NEGATIVE /HPF; RBC,URINE 0-2 /HPF; SQUAMOUS EPITHELIAL CELL,UR 0-2 /HPF
--- NOTE | 2020-01-08 21:40 | NUR ---
Pt to ambulated to w/c without incident. Pt reports she feels much better; pt assisted to her families car and family updated on pt condition.
[2020-01-08 21:49] VITALS: BP 149/102
== END 2020-01-08 21:50 | disposition home or self-care (01) ==
LOC: EDUNIT# 18:44 → ER 18:47
DX: R51 Headache (principal); E66.01 Morbid (severe) obesity due to excess calories; F41.9 Anxiety disorder, unspecified; F32.9 Major depressive disorder, single episode, unspecified; E11.9 Type 2 diabetes mellitus without complications; K21.9 Gastro-esophageal reflux disease without esophagitis; J45.909 Unspecified asthma, uncomplicated; G89.29 Other chronic pain; M54.9 Dorsalgia, unspecified; Z82.49 Family history of ischemic heart disease and other diseases of the circulatory system; Z82.61 Family history of arthritis; Z83.3 Family history of diabetes mellitus; Z95.5 Presence of coronary angioplasty implant and graft; Z95.0 Presence of cardiac pacemaker; Z86.73 Personal history of transient ischemic attack (TIA), and cerebral infarction without residual deficits; Z68.42 Body mass index [BMI] 45.0-49.9, adult; Z87.891 Personal history of nicotine dependence; Z88.5 Allergy status to narcotic agent; Z88.0 Allergy status to penicillin; Z88.1 Allergy status to other antibiotic agents; Z79.01 Long term (current) use of anticoagulants; Z79.82 Long term (current) use of aspirin; Z79.4 Long term (current) use of insulin; Z79.891 Long term (current) use of opiate analgesic
CPT/HCPCS: 36415; 70450; 71045; 80053; 81000; 83605; 85025; 85610; 85730; 87040; 87077; 87088

== ENCOUNTER → 2020-05-05 | Outpatient (CLI) | payer MEDICARE, MEDICAID ==
[~2020-05-05] MED LIST changes: -MONT10TA26 PO; +MONT10TA97 PO
--- NOTE | 2020-05-05 12:31 | Diagnostic Imaging Report ---
INDICATION: Sick sinus syndrome evaluate pacemaker atrial lead position. COMPARISON: 01/08/2020 FINDINGS: Frontal and lateral views of the chest demonstrate normal heart size and pulmonary vascularity. Left-sided dual-lead pacemaker is noted. The lungs are clear. There are no signs of infiltrate, pleural effusions or pneumothoraces. The visualized osseous structures show no acute abnormalities. IMPRESSION: 1. No acute process. No signs of infiltrates, effusions or pneumothoraces. Dictated by: Dictated on workstation # [id number]
== END ==
LOC: CARD 11:51
PROVIDERS: ATTEND Physician Assistant
DX: I25.10 Atherosclerotic heart disease of native coronary artery without angina pectoris (principal); I49.5 Sick sinus syndrome; I51.7 Cardiomegaly
CPT/HCPCS: 71046; 93306

== ENCOUNTER 2021-08-15 23:19 | Emergency (ER) | payer MEDICAID, MEDICARE ==
[~2021-08-15] VITALS: Ht 162 cm; Wt 125.0 kg
[~2021-08-15 23:19] MED LIST changes: +LISI10TA25 PO; -LISI2.5T PO; +LISI2.5T13 PO; +MONT-40 PO; -MONT10TA97 PO; -POTA10TA36 PO; +POTA10TA37 PO; +QUET50TA23 PO; -QUET50TA55 PO; +SERT-413 PO; -SERT50TA9 PO; +TIZA-186 PO; -TIZA4TAB4 PO
[2021-08-15] MEDS ORDERED: fentaNYL INJ 100 MCG/2 ML AMP IM ONE (23:45)
--- NOTE | 2021-08-15 23:45 | ED Fall/Injury ---
General Chief Complaint: Trauma-Non Activation Stated Complaint: FALL Nursing Triage Note: BROUGHT IN BY [facility] S/P FALL FROM STANDING POSITION. PT REPORTS TRIPPING OVER PET. C/O RIGHT HIP/ARM PAIN. DENIES LOC. C-COLLAR IN PLACE BY EMS. Source: patient Exam Limitations: no limitations History of Present Illness Date Seen by Provider: August 15, 2021 Time Seen by Provider: 23:22 Initial Comments Patient to the ER via EMS from home with chief complaint that she was getting some ice and her dog got tangled between her legs and she stepped backwards falling over onto her right back and flank of her hip elbow and shoulder. She is having pain in her shoulder elbow and hip on the right side. She had a rotator cuff repair to her right shoulder by Dr. RHODES years ago. She has a history of back pain for which she uses oxycodone twice a day. She has not taken her evening dose yet. She says her pain in her low back is worse than normal and she is having some pain in her right lateral neck radiating down to her right shoulder. No loss of consciousness. She is on Eliquis. EMS put her on a c-collar. Allergies and Home Medications Allergies Coded Allergies: morphine (Unverified Allergy, Mild, HIVES, ITCHING; TAKES LORTAB AT HOME, 12/07/15) Fish Containing Products (Unverified Allergy, Unknown, 12/07/15) FROM UNCODED ALLERGIES "SEAFOOD" Penicillins (Unverified Allergy, Unknown, 12/07/15) erythromycin base (Verified Allergy, Unknown, 12/07/15) shellfish derived (Unverified Allergy, Unknown, 12/07/15) FROM UNCODED ALLERGIES "SEAFOOD" Uncoded Allergies: SILK TAPE (Allergy, Unknown, 02/26/06) Patient Home Medication List Home Medication List Reviewed: Yes Amitriptyline HCl (Amitriptyline HCl) 25 Mg Tablet, 25 MG PO HS, (Reported) Entered as Reported by: ALEXANDRA FOSTER on 09/24/19 112 Apixaban (Eliquis) 5 Mg Tablet, 5 MG PO BID, (Reported) Entered as Reported by: ALEXANDRA FOSTER on 09/24/19 1127 Aspirin (Aspirin) 325 Mg Tablet, 325 MG PO DAILY Prescribed by: RENUKA PERES on 09/24/19 1351 Atorvastatin Calcium (Lipitor) 40 Mg Tablet, 40 MG PO HS Prescribed by: RENUKA PERES on 09/24/19 1351 Budesonide/Formoterol Fumarate (Symbicort 160-4.5 Mcg Inhaler) 10.2 Gm Hfa.aer.ad, 2 PUFF PO BID, (Reported) Entered as Reported by: ALEXANDRA FOSTER on 09/24/191126 C,E,Zinc,Copper 11/Yureo0p/Lut (Ocuvite Adult 50 Plus Softgel) 1 Each Capsule, 1 EACH PO DAILY, (Reported) Entered as Reported by: ALEXANDRA FOSTER on 09/24/191126 Duloxetine HCl (Duloxetine HCl) 60 Mg Capsule.dr, 60 MG PO BID, (Reported) Entered as Reported by: ALEXANDRA FOSTER on 09/24/191126 Empagliflozin (Jardiance) 25 Mg Tablet, 25 MG PO DAILY, (Reported) Entered as Reported by: ALEXANDRA FOSTER on 09/24/191126 Fluticasone Propionate (Fluticasone Propionate) 16 Gm Seth.susp, 2 SPRAYS NSEACH BID, (Reported) Entered as Reported by: ALEXANDRA FOSTER on 09/24/191126 Gabapentin (Neurontin) 300 Mg Capsule, 300-600 MG PO TID, (Reported) Entered as Reported by: ALEXANDRA FOTSER on 09/24/19 113 Insulin Glargine,Hum.rec.anlog (Lantus Solostar) 100 Unit/1 Ml Insuln.pen, 60 UNITS SC DAILY, (Reported) Entered as Reported by: ALEXANDRA FOSTER on 09/24/191126 Insulin Glargine,Hum.rec.anlog (Lantus Solostar) 100 Unit/1 Ml Insuln.pen, 15 UNIT SQ HS, (Reported) Entered as Reported by: ALEXANDRA FOSTER on 09/24/191126 Mirabegron (Myrbetriq) 25 Mg Tab.er.24h, 25 MG PO BID, (Reported) Entered as Reported by: ALEXANDRA FOSTER on 09/24/191126 Montelukast Sodium (Montelukast Sodium) 10 Mg Tablet, 10 MG PO DAILY, (Reported) Entered as Reported by: ALEXANDRA FOSTER on 09/24/191126 Multivitamin (Multivitamin) 1 Each Tablet, 1 EACH PO DAILY, (Reported) Entered as Reported by: ALEXANDRA FOSTER on 09/24/191126 Nystatin (Nystatin) 100,000 Unit/1 Ml Oral.susp, 5 ML PO QID, (Reported) Entered as Reported by: ALEXANDRA FOSTER on 09/24/191126 Oxycodone Hcl (Oxyir Tablet) 5 Mg Tablet, 5 MG PO TID, (Reported) Entered as Reported by: ALEXANDRA FOSTER on 09/24/191126 Propranolol HCl (Propranolol HCl) 10 Mg Tablet, 5 MG PO BID, (Reported) Entered as Reported by: ALEXANDRA FOSTER on 09/24/191126 Quetiapine Fumarate (Quetiapine Fumarate) 50 Mg Tablet, 50 MG PO HS, (Reported) Entered as Reported by: ALEXANDRA FOSTER on 09/24/191126 Roflumilast (Daliresp) 500 Mcg Tablet, 500 MCG PO DAILY, (Reported) Entered as Reported by: ALEXANDRA FOSTER on 09/24/191126 Tizanidine HCl (Tizanidine HCl) 4 Mg Tablet, 4 MG PO TID PRN for MUSCLE SPASMS, (Reported) Entered as Reported by: ALEXANDRA FOSTER on 09/24/191126 Review of Systems Review of Systems Constitutional: No chills, No fever Eyes: Denies Blindness, Denies Blurred Vision Ears, Nose, Mouth, Throat: denies ear pain, denies ear discharge Respiratory: No cough, No short of breath Cardiovascular: No chest pain, No edema Gastrointestinal: No abdominal pain, No nausea Genitourinary: No discharge, No dysuria Musculoskeletal: No back pain, No joint pain Skin: No pruritus, No rash All Other Systems Reviewed Negative Unless Noted: Yes Past Yqbdvcf-Ilydzi-Vttqmr Hx Patient Social History Tobacco Use?: No Smoking Status: Former Smoker Substance use?: No Alcohol Use?: No Pt feels they are or have been: No Immunizations Up To Date Tetanus Booster (TDap): Less than 5yrs PED Vaccines UTD: No Seasonal Allergies Seasonal Allergies: No Past Medical History Surgeries: Yes Abdominal, Appendectomy, Cardiac, Section, Coronary Stent, Gallbladder, 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, Orthopedic, Pacemaker Respiratory: Yes Asthma, Sleep Apnea, COPD Currently Using CPAP: Yes Currently Using BIPAP: No Cardiac: Yes Atrial Fibrillation, Cardiomyopathy, Coronary Artery Disease, Hypertension Neurological: Yes (LEFT SIDE AFFECTED, MINIMAL RESIDUAL WEAKNESS/PARESTHESIAS) Stroke, TIA Reproductive Disorders: Yes Female Reproductive Disorders: Menstrual Problems [employer] History: 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, Menopausal Sexually Transmitted Disease: No HIV/AIDS: No Genitourinary: Yes (Overactive bladder, weak bladder, weak stream) Bladder Infection, Kidney Stones, UTI-Chronic Gastrointestinal: Yes (Esophageal spams ) Gastroesophageal Reflux, Chronic Constipation, Diverticulosis, Hiatal Hernia, Irritable Bowel Musculoskeletal: Yes Degenerate Disk Disease, Arthritis, Fibromyalgia, Chronic Back Pain Endocrine: Yes (MORBID OBESITY) Diabetes, Insulin dep HEENT: Yes Cataract, Macular Degeneration Loss of Vision: Denies Hearing Impairment: Denies Cancer: No Psychosocial: Yes Anxiety, Depression Integumentary: No Blood Disorders: No Adverse Reaction/Blood Tranf: No Family Medical History Alcoholism 03 FATHER, , Onset:15's - 20 09 BROTHER, Onset:20's - 25 Cataract 03 FATHER, 09 SISTER Dementia 03 FATHER, Family history: Alzheimer's disease 03 FATHER, Family history: Arthritis 03 FATHER, 03 MOTHER 09 BROTHER 09 SISTER Family history: Asthma 03 MOTHER 09 BROTHER 09 SISTER Family history: Cardiovascular disease Family history: Diabetes mellitus 03 MOTHER 09 SISTER Family history: Hypertension 03 FATHER, 03 MOTHER 09 BROTHER 09 SISTER Heart disease 03 FATHER, 03 MOTHER History of - anemia 09 SISTER History of - respiratory disease 03 FATHER, ( OF PNEUMONIA) 09 BROTHER 09 SISTER History of drug abuse 09 BROTHER Hypercholesterolemia 09 BROTHER 09 SISTER Infertile 09 SISTER Kidney disease 03 FATHER, (KIDNEY STONES) Myocardial infarction 03 FATHER, Parkinson's disease 03 FATHER, Psychotic disorder 09 BROTHER (BIPOLAR) 09 SISTER (BIPOLAR) Stroke 03 FATHER, 03 MOTHER No Family History of: Abdominal aortic aneurysm [place]'s disease Aphasia Cancer Cancer of colon Congenital heart disease Congestive heart failure Cystic fibrosis Dysphagia Family history: Breast disease Family history: Coronary thrombosis Family history: Gastrointestinal disease Family history: Glaucoma Family history: Thyroid disorder Human immunodeficiency virus (HIV) seropositivity Malignant neoplasm of lung Prostate cancer Seizure disorder Tuberculosis Visual impairment Physical Exam Vital Signs Vital Signs - First Documented 08/15/21 23:23 Temp 36.8 Pulse 89 Resp 18 B/P (MAP) 147/87 (107) Pulse Ox 96 O2 Delivery Room Air Capillary Refill : Less Than 3 Seconds Height, Weight, BMI Height: 5'4.00" Weight: 282lbs. 0.0oz. 127.394572xp; 47.00 BMI Method:Stated General Appearance: mild distress, obese HEENT: PERRL/EOMI, TMs normal (Negative for hemotympanum or diane sign), pharynx normal Neck: full range of motion, supple, normal inspection (C-collar in place), tender lateral (Right side) Cardiovascular: normal peripheral pulses, regular rate, rhythm Respiratory: lungs clear, normal breath sounds, no respiratory distress, no accessory muscle use Gastrointestinal: normal bowel sounds, non tender, soft Extremities: normal range of motion, normal capillary refill, other (Right shoulder tender anteriorly in the glenohumeral joint, right elbow on the radial side proximally is tender to palpation without deformity or crepitus. Right hip tender over the greater trochanter. No shortening or rotation.) Neurologic/Psychiatric: alert, normal mood/affect, oriented x 3 Skin: normal color, warm/dry Zafar Coma Score Best Eye Response: (4) Open Spontaneously Best Verbal Response: (5) Oriented Best Motor Response: (6) Obeys Commands Zafar Total: 15 Progress/Results/Core Measures Results/Orders My Orders Orders - ILANA VU Fentanyl Inj (Sublimaze Injection) (08/15/21 23:45) Ct Head/Cervical Spine Wo (08/15/21 23:37) Ct Thoracic/Lumbar Spine Wo (08/15/21 23:37) Shoulder, Right, 3 Views (08/16/21 00:01) Elbow, Right, 3 Views (08/16/21 00:01) Hip, Right, 2 Views (08/16/21 00:01) Oxycodone/Acet 10/325mg Tablet (Percocet (08/16/21 01:45) Orphenadrine Inj (Ed Only) (Norflex Inje (08/16/21 01:45) Medications Given in ED Vital Signs/I&O 08/15/21 08/16/21 23:23 01:58 Temp 36.8 36.5 Pulse 89 78 Resp 18 16 B/P (MAP) 147/87 (107) 127/90 Pulse Ox 96 98 O2 Delivery Room Air Room Air Blood Pressure Mean: 107 Progress Progress Note #1: Time: 23:[address] of the head, cervical thoracic and lumbar spine. X-rays of the right shoulder, right elbow and right hips. 75 mcg IM fentanyl. Progress Note #2: Time: 01:42 Progress Note Patient's pain started to come back. She typically takes 10 mg oxycodone in the evening so we are going to give her 30 mg IM Norflex and 2 tablets of the Percocet tens. Her c-collar is cleared at 0140 radiologically and clinically. She is got a call for her grandson to come give her a ride before we give her the shot of Norflex. Diagnostic Imaging Diagonstic Imaging: CT Plain Films/CT/US/NM/MRI: c-spine, head Comments No acute intracranial hemorrhage, mass-effect, midline shift or tumor. No calvarial fracture. No C-spine malalignment, subluxation or fracture. [facility] [place], [place] NAME: SYEDLADONNASEVERO [facility] REC#: [id number] PT STATUS: DEP ER : 1955 PHYSICIAN: ILANA VU MD ADMIT DATE: 08/15/21/ER Signed Date of Exam:08/15/21 CT HEAD/CERVICAL SPINE WO PROCEDURE: CT head and CT cervical spine without contrast. TECHNIQUE: Multiple contiguous axial images were obtained through the brain and cervical spine without the use of intravenous contrast. Sagittal and coronal reformations through the cervical spine were then performed. Auto Exposure Controls were utilized during the CT exam to meet ALARA standards for radiation dose reduction. INDICATION: 66-year-old female injured in fall presents with headache and neck pain. COMPARISONS: 01/08/2020. CT head without contrast: FINDINGS: Midline structures are not displaced. There are some mild senescent changes in the brain with mild atrophy. Some background chronic areas of microvascular change seen. There is focal gliosis in the deep white matter left posterior fundal region associated with previous lacunar size infarct. Bolanos-white differentiation is maintained and there is no sulcal effacement. There are no abnormal extra-axial fluid collections or hemorrhage. Basilar cisterns appear normal. Sinuses, orbits and mastoid air cells are unremarkable. Bone windows show no calvarial changes. IMPRESSION: Senescent brain with some background chronic areas of microvascular ischemic change. There is an old lacunar infarct in the left posterior frontal region deep white matter. There is also small vessel disease in the leslie. Overall no acute findings identified by nonenhanced CT criteria. If symptoms warrant or persist, an MRI may be of further value. CT cervical spine with reconstructions: FINDINGS: Axial images in sagittal and coronal reconstructions of the cervical spine demonstrate age appropriate cervical spondylosis with multilevel hypertrophic facet changes. Cervical vertebral bodies otherwise appear well aligned, vertebral body heights appear well-maintained. Prevertebral soft tissue as well as the relationship of the dens to lateral mass of C1 is grossly normal. Parapharyngeal and paraspinous soft tissues are also unremarkable. Lung apices are clear. Superior mediastinum is grossly unremarkable. There is some calcific atherosclerosis in carotid bifurcations. IMPRESSION: 1. Age appropriate cervical spondylosis but no definite evidence of acute fracture or subluxation seen. 2. Bilateral carotid bifurcation disease with calcific atherosclerosis. Agree with George report. Dictated by: Dictated on workstation # [id number] Dict: 08/16/21529 Trans: 08/16/21 [phone] Interpreted by: SHANTI MICHEL MD Electronically signed by: SHANTI MICHEL MD 08/16/21 1206 Reviewed: Reviewed Roderick Capps Study, Reviewed by Hi Diagonstic Imaging: CT Plain Films/CT/US/NM/MRI: other (Thoracolumbar spine) Comments No acute fracture or subluxation of the thoracic or lumbar spine. Chronic findings noted. [facility] [place] [place] NAME: HORACIOYOONSEVERO [facility] REC#: [id number] PT STATUS: DEP ER : 1955 PHYSICIAN: ILANA VU MD ADMIT DATE: 08/15/21/ER Signed Date of Exam:08/15/21 CT THORACIC/LUMBAR SPINE WO PROCEDURE: CT thoracic and lumbar spine without contrast. TECHNIQUE: Multiple contiguous axial images were obtained through the thoracic and lumbar spine without the use of intravenous contrast. Sagittal and coronal reformations were then performed. All CT scans use one or more of the following dose optimizing techniques: automated exposure control, MA and/or KvP adjustment based on a patient size and exam type, or iterative reconstruction. INDICATION: Fall, back pain. COMPARISON: None FINDINGS: Alignment of thoracic lumbar column is normal. There is no subluxation or fracture. Posterior elements and central canal grossly normal. There is no paraspinous mass. Postoperative changes seen involving the L4-L5 and L5-S1 posterior elements. The visualized SI joints are symmetric. There is no osseous lesion. IMPRESSION: No traumatic malalignment or fracture. Agree with preliminary report. Dictated by: Dictated on workstation # [id number] Dict: 08/16/21622 Trans: 08/16/21922 [id number] Interpreted by: SHEREE GONZALEZ Electronically signed by: SHEREE GONZALEZ 08/16/21922 Reviewed: Reviewed Roderick Castro, Reviewed by Me Diagonstic Imaging: Xray Plain Films/CT/US/NM/MRI: other (Right shoe) Comments No acute osseous abnormalities. Prior hardware seen. [facility] [place] NAME: SEVERO BRUNO [employer] REC#: [id number] PT STATUS: DEP ER : 1955 PHYSICIAN: ILANA VU MD ADMIT DATE: 08/15/21/ER Signed Date of Exam:08/16/21 SHOULDER, RIGHT, 3 VIEWS INDICATION: Fall, shoulder pain. FINDINGS: 3 views of the right shoulder demonstrate anchor devices in the humeral head. There is no overt fracture or dislocation. Degenerative joint disease is present. No osseous lesion. IMPRESSION: No fracture or dislocation. Dictated by: Dictated on workstation # [id number] Dict: 08/16/21624 Trans: 08/16/21920 [id number] Interpreted by: SHEREE GONZALEZ Electronically signed by: SHEREE GONZALEZ 08/16/21920 Reviewed: Reviewed by Me Diagonstic Imaging: Xray Plain Films/CT/US/NM/MRI: elbow (Right) Comments No acute osseous abnormalities. [facility] [place] NAME: SEVERO BRUNO [employer] REC#: [id number] PT STATUS: DEP ER : 1955 PHYSICIAN: ILANA VU MD ADMIT DATE: 08/15/21/ER Signed Date of Exam:08/16/21 ELBOW, RIGHT, 3 VIEWS INDICATION: Fall, right elbow pain FINDINGS: 3 views the right elbow demonstrate no fracture or dislocation. Articular surfaces are normal. No joint effusion. IMPRESSION: Negative right elbow. Dictated by: Dictated on workstation # [id number] Dict: 08/16/21625 Trans: 08/16/21922 [facility] [id number] Interpreted by: SHEREE GONZALEZ Electronically signed by: SHEREE GONZALEZ 08/16/21922 Reviewed: Reviewed by Me Diagonstic Imaging: Xray Plain Films/CT/US/NM/MRI: hip (Right) Comments No acute osseous abnormality. [facility] [place] [place] NAME: SEVERO BRUNO [facility] REC#: [id number] PT STATUS: DEP ER : 1955 PHYSICIAN: ILANA VU MD ADMIT DATE: 08/15/21/ER Signed Date of Exam:08/16/21 HIP, RIGHT, 2 VIEWS INDICATION: Right hip pain. FINDINGS: 2 views of the right hip demonstrate no fracture or dislocation. Articular surfaces are age-appropriate. IMPRESSION: Negative right hip. Dictated by: Dictated on workstation # [id number] Dict: 08/16/21623 Trans: 08/16/21922 [id number] Interpreted by: SHEREE GONZALEZ Electronically signed by: SHEREE GONZALEZ 08/16/21922 Reviewed: Reviewed by Me Departure Impression Primary Impression: Fall Qualified Codes: W19.XXXA - Unspecified fall, initial encounter Additional Impressions: Right anterior shoulder pain Right elbow pain Right hip pain Disposition: 01 HOME, SELF-CARE Condition: Stable Departure-Patient Inst. Decision time for Depature: 01:43 Referrals: NO,LOCAL PHYSICIAN (PCP) Primary Care Physician ZAY RHODES MD Patient Instructions: Contusion (DC), Hip Pain Add. Discharge Instructions: Resume taking your pain medicines and muscle relaxants as prescribed. Tylenol 650 mg every 8 hours as needed for pain. Topical creams such as icy hot, Biofreeze, capsaicin oil, lidocaine patches as needed for pain. Ice 20 minutes on every 2 hours for the first 2 to 3 days. Heat as needed for pain in between ice. Follow-up with Dr. Rhodes if you are not seeing some improvement in 1 to 2 weeks. You could also follow-up with physical therapy by calling [phone] for an appointment. Return to the ER for numbness between your legs, loss of control of bowel or bladder, weakness in your legs that results in falls, chest pain, shortness of air or other worrisome symptoms. All discharge instructions reviewed with patient and/or family. Voiced understanding. ILANA VU August 15, 2021 23:45
[2021-08-16] MEDS ORDERED: oxyCODONE/APAP 10/325MG (PERCOCET 10) TABLET PO ONE (01:45)
[2021-08-16] MEDS ORDERED: ORPHENADRINE 60 MG/2 ML (NORFLEX) AMP (ED ONLY) IM ONE (01:45)
[2021-08-16 01:58] VITALS: BP 127/90
--- NOTE | 2021-08-16 06:26 | Diagnostic Imaging Report ---
INDICATION: Right hip pain. FINDINGS: 2 views of the right hip demonstrate no fracture or dislocation. Articular surfaces are age-appropriate. IMPRESSION: Negative right hip. Dictated by: Dictated on workstation # [id number]
--- NOTE | 2021-08-16 06:27 | Diagnostic Imaging Report ---
PROCEDURE: CT thoracic and lumbar spine without contrast. TECHNIQUE: Multiple contiguous axial images were obtained through the thoracic and lumbar spine without the use of intravenous contrast. Sagittal and coronal reformations were then performed. All CT scans use one or more of the following dose optimizing techniques: automated exposure control, MA and/or KvP adjustment based on a patient size and exam type, or iterative reconstruction. INDICATION: Fall, back pain. COMPARISON: None FINDINGS: Alignment of thoracic lumbar column is normal. There is no subluxation or fracture. Posterior elements and central canal grossly normal. There is no paraspinous mass. Postoperative changes seen involving the L4-L5 and L5-S1 posterior elements. The visualized SI joints are symmetric. There is no osseous lesion. IMPRESSION: No traumatic malalignment or fracture. Agree with preliminary report. Dictated by: Dictated on workstation # [id number]
--- NOTE | 2021-08-16 06:28 | Diagnostic Imaging Report ---
INDICATION: Fall, shoulder pain. FINDINGS: 3 views of the right shoulder demonstrate anchor devices in the humeral head. There is no overt fracture or dislocation. Degenerative joint disease is present. No osseous lesion. IMPRESSION: No fracture or dislocation. Dictated by: Dictated on workstation # [id number]
--- NOTE | 2021-08-16 06:32 | Diagnostic Imaging Report ---
INDICATION: Fall, right elbow pain FINDINGS: 3 views the right elbow demonstrate no fracture or dislocation. Articular surfaces are normal. No joint effusion. IMPRESSION: Negative right elbow. Dictated by: Dictated on workstation # [id number]
--- NOTE | 2021-08-16 06:47 | Diagnostic Imaging Report ---
PROCEDURE: CT head and CT cervical spine without contrast. TECHNIQUE: Multiple contiguous axial images were obtained through the brain and cervical spine without the use of intravenous contrast. Sagittal and coronal reformations through the cervical spine were then performed. Auto Exposure Controls were utilized during the CT exam to meet ALARA standards for radiation dose reduction. INDICATION: 66-year-old female injured in fall presents with headache and neck pain. COMPARISONS: 01/08/2020. CT head without contrast: FINDINGS: Midline structures are not displaced. There are some mild senescent changes in the brain with mild atrophy. Some background chronic areas of microvascular change seen. There is focal gliosis in the deep white matter left posterior fundal region associated with previous lacunar size infarct. Bolanos-white differentiation is maintained and there is no sulcal effacement. There are no abnormal extra-axial fluid collections or hemorrhage. Basilar cisterns appear normal. Sinuses, orbits and mastoid air cells are unremarkable. Bone windows show no calvarial changes. IMPRESSION: Senescent brain with some background chronic areas of microvascular ischemic change. There is an old lacunar infarct in the left posterior frontal region deep white matter. There is also small vessel disease in the leslie. Overall no acute findings identified by nonenhanced CT criteria. If symptoms warrant or persist, an MRI may be of further value. CT cervical spine with reconstructions: FINDINGS: Axial images in sagittal and coronal reconstructions of the cervical spine demonstrate age appropriate cervical spondylosis with multilevel hypertrophic facet changes. Cervical vertebral bodies otherwise appear well aligned, vertebral body heights appear well-maintained. Prevertebral soft tissue as well as the relationship of the dens to lateral mass of C1 is grossly normal. Parapharyngeal and paraspinous soft tissues are also unremarkable. Lung apices are clear. Superior mediastinum is grossly unremarkable. There is some calcific atherosclerosis in carotid bifurcations. IMPRESSION: 1. Age appropriate cervical spondylosis but no definite evidence of acute fracture or subluxation seen. 2. Bilateral carotid bifurcation disease with calcific atherosclerosis. Agree with [employer] report. Dictated by: Dictated on workstation # [id number]
== END 2021-08-16 01:58 | disposition home or self-care (01) ==
LOC: EDUNIT# 23:19 → ER 23:22
DX: M25.511 Pain in right shoulder (principal); M25.521 Pain in right elbow; M25.551 Pain in right hip; G89.29 Other chronic pain; M54.50 Low back pain, unspecified; E11.9 Type 2 diabetes mellitus without complications; E66.01 Morbid (severe) obesity due to excess calories; Z79.891 Long term (current) use of opiate analgesic; Z87.891 Personal history of nicotine dependence; Z79.4 Long term (current) use of insulin; Z79.01 Long term (current) use of anticoagulants; W54.8XXA Other contact with dog, initial encounter; W01.10XA Fall on same level from slipping, tripping and stumbling with subsequent striking against unspecified object, initial encounter
CPT/HCPCS: 70450; 72125; 72128; 72131; 73030; 73080; 73502

== ENCOUNTER 2021-11-29 14:35 | Inpatient (IN) | payer MEDICARE ==
[~2021-11-29] VITALS: Ht 162 cm; Wt 111.2 kg
[2021-11-29 15:26] LABS: BASOPHILS % (AUTO) 0 % (0-10); EOSINOPHILS # (AUTO) 0.1 10^3/uL (0.0-0.3); EOSINOPHILS % (AUTO) 1 % (0-10); HEMATOCRIT 39 % (35-52); HEMOGLOBIN 12.3 g/dL (11.5-16.0); LYMPHOCYTES % (AUTO) 24 % (12-44); MEAN CORPUSCULAR HEMOGLOBIN 27 pg (25-34); MEAN CORPUSCULAR HGB CONC 32 g/dL (32-36); MEAN CORPUSCULAR VOLUME 84 fL (80-99); MEAN PLATELET VOLUME 11.3 fL (9.0-12.2); MONOCYTES # (AUTO) 0.6 X 10^3 (0.0-1.0); MONOCYTES % (AUTO) 7 % (0-12); NEUTROPHILS # (AUTO) 5.7 X 10^3 (1.8-7.8); NEUTROPHILS % (AUTO) 67 % (42-75); PLATELET COUNT 122 10^3/uL (130-400); WHITE BLOOD COUNT 8.4 10^3/uL (4.3-11.0)
[2021-11-29 15:29] LABS: ALBUMIN 2.8 GM/DL (3.2-4.5); POTASSIUM 3.8 MMOL/L (3.6-5.0)
[2021-11-29 15:30] LABS: CALCIUM 8.3 MG/DL (8.5-10.1)
[2021-11-29 15:32] LABS: TOTAL PROTEIN 5.6 GM/DL (6.4-8.2)
[2021-11-29 15:33] LABS: BILIRUBIN,TOTAL 0.3 MG/DL (0.1-1.0); INR 1.1 (0.8-1.4); PROTHROMBIN TIME PATIENT 14.4 SEC (12.2-14.7)
[2021-11-29 15:35] LABS: CREATININE SERUM 0.7 MG/DL (0.60-1.30)
--- NOTE | 2021-11-29 15:50 | Diagnostic Imaging Report ---
INDICATION: Dyspnea, hypoxia. TECHNIQUE: Frontal chest obtained at 03:24 p.m. and compared to 05/05/2020. FINDINGS: There is cardiomegaly and central vascular congestion with borderline edema. There is no consolidation or pneumothorax or pleural fluid. Pacemaker is unchanged. Port-A-Cath is unchanged. IMPRESSION: Cardiomegaly and central vascular congestion with mild interstitial edema. No overt consolidation or pleural fluid. Dictated by: Dictated on workstation # [id number]
[2021-11-29 16:00] LABS: BILIRUBIN,URINE NEGATIVE (NEGATIVE); CLARITY,URINE CLEAR; COLOR,URINE YELLOW; GLUCOSE, URINE (UA) NEGATIVE (NEGATIVE); KETONES,URINE NEGATIVE (NEGATIVE); LEUKOCYTE ESTERASE ,URINE 1+ (NEGATIVE); NITRITE,URINE POSITIVE (NEGATIVE); PH,URINE 5.5 (5-9); PROTEIN,URINE NEGATIVE (NEGATIVE)
[2021-11-29 16:07] LABS: BACTERIA,URINE LARGE /HPF
[2021-11-29 16:08] LABS: YEAST,URINE FEW /HPF
--- NOTE | 2021-11-29 16:21 | ED Dyspnea ---
General Chief Complaint: General Problems/Pain Stated Complaint: HYPOXIC Nursing Triage Note: PT TO ED BY EMS FROM HOME WITH C/O HYPOXIA, INCREASED WEAKNESS, SOB, AND LIGHT HEADEDNESS. EMS REPORTS PT WAS DC FROM ON FRIDAY AFTER HAVING A WATCHMAN PLACED FRI. REPORTS PT WAS INSTRUCTED TO WEAR O2 AT NIGHT, BUT PT DOES NOT HAVE O2 CONCENTRATOR YET. EMS REPORTS FAMILY FOUND PT VERY WEAK AND CYANOTIC IN BED THIS MORNING. PT DENIES FEVER, N/V/D, DIFFICULTY URINATING. PT REPORTS SHE FELT WEAK LAST NIGHT, BUT THOUGHT IT WAS RELATED TO TRAVELING HOME. EMS REPORTS PT O2 91% RA UPON ARRIVAL, 100% ON 2 L NC. Source of Information: Patient, EMS Exam Limitations: No Limitations History of Present Illness Date Seen by Provider: Nov 29, 2021 Time Seen by Provider: 14:38 Initial Comments 66-year-old female presents emergency department today for reported hypoxia. She was discharged from [facility] ago after she had a watchman device placed for atrial fibrillation. Family reportedly found her hypoxic at home. On EMSs arrival they state she had an oxygen saturation in the mid 70s. They placed her on 2 L of oxygen via nasal cannula with improvement up into the mid 90s. On arrival she states she is feeling slightly more short of breath than normal. She deftly endorses increased weakness and some lightheadedness. She tells me she is normally able to ambulate on her own with a cane or walker but she was unable to get out of her bed on her own today and had to have her chemical instrumentation officer help her out of bed and ambulate with her. She denies any focal weakness. No fevers or chills. She has no change in her chronic cough. No abdominal pain. Allergies and Home Medications Allergies Coded Allergies: morphine (Unverified Allergy, Mild, HIVES, ITCHING; TAKES LORTAB AT HOME, 12/07/15) Fish Containing Products (Unverified Allergy, Unknown, 12/07/15) FROM UNCODED ALLERGIES "SEAFOOD" Penicillins (Unverified Allergy, Unknown, 12/07/15) erythromycin base (Verified Allergy, Unknown, 12/07/15) shellfish derived (Unverified Allergy, Unknown, 12/07/15) FROM UNCODED ALLERGIES "SEAFOOD" Uncoded Allergies: SILK TAPE (Allergy, Unknown, 02/26/06) Patient Home Medication List Home Medication List Reviewed: Yes Amitriptyline HCl (Amitriptyline HCl) 25 Mg Tablet, 25 MG PO HS, (Reported) Entered as Reported by: ALEXANDRA FOSTER on 09/24/191126 Apixaban (Eliquis) 5 Mg Tablet, 5 MG PO BID, (Reported) Entered as Reported by: ALEXANDRA FOSTER on 09/24/191126 Aspirin (Aspirin) 325 Mg Tablet, 325 MG PO DAILY Prescribed by: RENUKA PERES on 09/24/19 135 Atorvastatin Calcium (Lipitor) 40 Mg Tablet, 40 MG PO HS Prescribed by: RENUKA PERES on 09/24/19 135 Budesonide/Formoterol Fumarate (Symbicort 160-4.5 Mcg Inhaler) 10.2 Gm Hfa.aer.ad, 2 PUFF PO BID, (Reported) Entered as Reported by: ALEXANDRA FOSTER on 09/24/191126 C,E,Zinc,Copper 11/Esdbh7t/Lut (Ocuvite Adult 50 Plus Softgel) 1 Each Capsule, 1 EACH PO DAILY, (Reported) Entered as Reported by: ALEXANDRA FOSTER on 09/24/191126 Duloxetine HCl (Duloxetine HCl) 60 Mg Capsule.dr, 60 MG PO BID, (Reported) Entered as Reported by: ALEXANDRA FOSTER on 09/24/191126 Empagliflozin (Jardiance) 25 Mg Tablet, 25 MG PO DAILY, (Reported) Entered as Reported by: ALEXANDRA FOSTER on 09/24/191126 Fluticasone Propionate (Fluticasone Propionate) 16 Gm [place].susp, 2 SPRAYS NSEACH BID, (Reported) Entered as Reported by: ALEXANDRA FOSTER on 09/24/191126 Gabapentin (Neurontin) 300 Mg Capsule, 300-600 MG PO TID, (Reported) Entered as Reported by: ALEXANDRA FOSTER on 09/24/19 113 Insulin Glargine,Hum.rec.anlog (Lantus Solostar) 100 Unit/1 Ml Insuln.pen, 60 UNITS SC DAILY, (Reported) Entered as Reported by: ALEXANDRA FOSTER on 09/24/191126 Insulin Glargine,Hum.rec.anlog (Lantus Solostar) 100 Unit/1 Ml Insuln.pen, 15 UNIT SQ HS, (Reported) Entered as Reported by: ALEXANDRA FOSTER on 09/24/191126 Mirabegron (Myrbetriq) 25 Mg Tab.er.24h, 25 MG PO BID, (Reported) Entered as Reported by: ALEXANDRA FOSTER on 09/24/191126 Montelukast Sodium (Montelukast Sodium) 10 Mg Tablet, 10 MG PO DAILY, (Reported) Entered as Reported by: ALEXANDRA FOSTER on 09/24/191126 Multivitamin (Multivitamin) 1 Each Tablet, 1 EACH PO DAILY, (Reported) Entered as Reported by: ALEXANDRA FOSTER on 09/24/191126 Nystatin (Nystatin) 100,000 Unit/1 Ml Oral.susp, 5 ML PO QID, (Reported) Entered as Reported by: ALEXANDRA FOSTER on 09/24/191126 Oxycodone Hcl (Oxyir Tablet) 5 Mg Tablet, 5 MG PO TID, (Reported) Entered as Reported by: ALEXANDRA FOSTER on 09/24/191126 Propranolol HCl (Propranolol HCl) 10 Mg Tablet, 5 MG PO BID, (Reported) Entered as Reported by: ALEXANDRA FOSTER on 09/24/191126 Quetiapine Fumarate (Quetiapine Fumarate) 50 Mg Tablet, 50 MG PO HS, (Reported) Entered as Reported by: ALEXANDRA FOSTER on 09/24/191126 Roflumilast (Daliresp) 500 Mcg Tablet, 500 MCG PO DAILY, (Reported) Entered as Reported by: ALEXANDRA FOSTER on 09/24/191126 Tizanidine HCl (Tizanidine HCl) 4 Mg Tablet, 4 MG PO TID PRN for MUSCLE SPASMS, (Reported) Entered as Reported by: ALEXANDRA FOSTER on 09/24/191126 Review of Systems Review of Systems Constitutional: weakness EENTM: see HPI Respiratory: short of breath Cardiovascular: chest pain Gastrointestinal: no symptoms reported Genitourinary: no symptoms reported Musculoskeletal: no symptoms reported Past Cvtfhfn-Hxisnb-Voqnyd Hx Immunizations Up To Date Tetanus Booster (TDap): Less than 5yrs PED Vaccines UTD: No Seasonal Allergies Seasonal Allergies: No Past Medical History Surgeries: Yes Abdominal, Appendectomy, Cardiac, Section, Coronary Stent, Gallbladder, 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, Orthopedic, Pacemaker Respiratory: Yes Asthma, Sleep Apnea, COPD Currently Using CPAP: Yes Currently Using BIPAP: No Cardiac: Yes Atrial Fibrillation, Cardiomyopathy, Coronary Artery Disease, Hypertension Neurological: Yes (LEFT SIDE AFFECTED, MINIMAL RESIDUAL WEAKNESS/PARESTHESIAS) Stroke, TIA Reproductive Disorders: Yes Female Reproductive Disorders: 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, 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 Sexually Transmitted Disease: No HIV/AIDS: No Genitourinary: Yes (Overactive bladder, weak bladder, weak stream) Bladder Infection, Kidney Stones, UTI-Chronic Gastrointestinal: Yes (Esophageal spams ) Gastroesophageal Reflux, Chronic Constipation, Diverticulosis, Hiatal Hernia, Irritable Bowel Musculoskeletal: Yes Degenerate Disk Disease, Arthritis, Fibromyalgia, Chronic Back Pain Endocrine: Yes (MORBID OBESITY) Diabetes, Insulin dep HEENT: Yes Cataract, Macular Degeneration Loss of Vision: Denies Hearing Impairment: Denies Cancer: No Psychosocial: Yes Anxiety, Depression Integumentary: No Blood Disorders: No Adverse Reaction/Blood Tranf: No Family Medical History Alcoholism 03 FATHER, , Onset:15's - 20 09 BROTHER, Onset:20's - 25 Cataract 03 FATHER, 09 SISTER Dementia 03 FATHER, Family history: Alzheimer's disease 03 FATHER, Family history: Arthritis 03 FATHER, 03 MOTHER 09 BROTHER 09 SISTER Family history: Asthma 03 MOTHER 09 BROTHER 09 SISTER Family history: Cardiovascular disease Family history: Diabetes mellitus 03 MOTHER 09 SISTER Family history: Hypertension 03 FATHER, 03 MOTHER 09 BROTHER 09 SISTER Heart disease 03 FATHER, 03 MOTHER History of - anemia 09 SISTER History of - respiratory disease 03 FATHER, ( OF PNEUMONIA) 09 BROTHER 09 SISTER History of drug abuse 09 BROTHER Hypercholesterolemia 09 BROTHER 09 SISTER Infertile 09 SISTER Kidney disease 03 FATHER, (KIDNEY STONES) Myocardial infarction 03 FATHER, Parkinson's disease 03 FATHER, Psychotic disorder 09 BROTHER (BIPOLAR) 09 SISTER (BIPOLAR) Stroke 03 FATHER, 03 MOTHER No Family History of: Abdominal aortic aneurysm Brooks's disease Aphasia Cancer Cancer of colon Congenital heart disease Congestive heart failure Cystic fibrosis Dysphagia Family history: Breast disease Family history: Coronary thrombosis Family history: Gastrointestinal disease Family history: Glaucoma Family history: Thyroid disorder Human immunodeficiency virus (HIV) seropositivity Malignant neoplasm of lung Prostate cancer Seizure disorder Tuberculosis Visual impairment Physical Exam Vital Signs Vital Signs - First Documented 11/29/21 14:38 Temp 36.2 Pulse 67 Resp 20 B/P (MAP) 102/44 (63) Pulse Ox 98 O2 Delivery Room Air Capillary Refill : Less Than 3 Seconds Height, Weight, BMI Height: 5'4.00" Weight: 282lbs. 0.0oz. [id number]; 47.00 BMI Method:Stated General Appearance: No Apparent Distress HEENT: Normal ENT Inspection, Pharynx Normal Neck: Normal Inspection, Non Tender Respiratory: Chest Non Tender, Other (Decreased breath sounds throughout. Worse in the left base) Cardiovascular: Regular Rate, Rhythm, No Gallop, No Murmur, Normal Peripheral Pulses Gastrointestinal: Normal Bowel Sounds, No Organomegaly, Non Tender, Soft Extremity: Normal Capillary Refill, Other (2+ pitting edema bilateral lower extremities) Neurologic/Psychiatric: Alert, Oriented x3, No Motor/Sensory Deficits, Normal Mood/Affect, hematologist II-XII Norm as Tested Skin: Normal Color, Warm/Dry Focused Exam Lactate Level 11/29/21 15:45: Lactic Acid Level 0.89 Lactic Acid Level Laboratory Tests Test 11/29/21 15:45 Lactic Acid Level 0.89 MMOL/L (0.50-2.00) Progress/Results/Core Measures Results/Orders Lab Results Laboratory Tests Test 11/29/21 14:50 11/29/21 15:45 11/29/21 15:52 Range/Units White Blood Count 8.4 4.3-11.0 10^3/uL Red Blood Count 4.64 3.80-5.11 10^6/uL Hemoglobin 12.3 11.5-16.0 g/dL Hematocrit 39 35-52 % Mean Corpuscular Volume 84 80-99 fL Mean Corpuscular Hemoglobin 27 25-34 pg Mean Corpuscular Hemoglobin Concent 32 32-36 g/dL Red Cell Distribution Width 14.5 10.0-14.5 % Platelet Count 122 L 130-400 10^3/uL Mean Platelet Volume 11.3 9.0-12.2 fL Immature Granulocyte % (Auto) 0 % Neutrophils (%) (Auto) 67 42-75 % Lymphocytes (%) (Auto) 24 12-44 % Monocytes (%) (Auto) 7 0-12 % Eosinophils (%) (Auto) 1 0-10 % Basophils (%) (Auto) 0 0-10 % Neutrophils # (Auto) 5.7 1.8-7.8 X 10^3 Lymphocytes # (Auto) 2.0 1.0-4.0 X 10^3 Monocytes # (Auto) 0.6 0.0-1.0 X 10^3 Eosinophils # (Auto) 0.1 0.0-0.3 10^3/uL Basophils # (Auto) 0.0 0.0-0.1 10^3/uL Immature Granulocyte # (Auto) 0.0 0.0-0.1 10^3/uL Prothrombin Time 14.4 12.2-14.7 SEC INR Comment 1.1 0.8-1.4 Activated Partial Thromboplast Time 27 24-35 SEC Sodium Level 138 135-145 MMOL/L Potassium Level 3.8 3.6-5.0 MMOL/L Chloride Level 102 98-107 MMOL/L Carbon Dioxide Level 30 21-32 MMOL/L Anion Gap 6 5-14 MMOL/L Blood Urea Nitrogen 16 7-18 MG/DL Creatinine 0.70 0.60-1.30 MG/DL Estimat Glomerular Filtration Rate 94 BUN/Creatinine Ratio 23 Glucose Level 169 H 70-105 MG/DL Calcium Level 8.3 L 8.5-10.1 MG/DL Corrected Calcium 9.3 8.5-10.1 MG/DL Total Bilirubin 0.3 0.1-1.0 MG/DL Aspartate Amino Transf (AST/SGOT) 8 5-34 U/L Alanine Aminotransferase (ALT/SGPT) 11 0-55 U/L Alkaline Phosphatase 77 40-136 U/L Troponin I 0.111 H <0.028 NG/ML B-Type Natriuretic Peptide 93.2 <100.0 PG/ML Total Protein 5.6 L 6.4-8.2 GM/DL Albumin 2.8 L 3.2-4.5 GM/DL Lactic Acid Level 0.89 0.50-2.00 MMOL/L Urine Color YELLOW Urine Clarity CLEAR Urine pH 5.5 5-9 Urine Specific [place] >=1.030 1.016-1.022 Urine Protein NEGATIVE NEGATIVE Urine Glucose (UA) NEGATIVE NEGATIVE Urine Ketones NEGATIVE NEGATIVE Urine Nitrite POSITIVE H NEGATIVE Urine Bilirubin NEGATIVE NEGATIVE Urine Urobilinogen 1.0 < = 1.0 MG/DL Urine Leukocyte Esterase 1+ H NEGATIVE Urine RBC (Auto) TRACE-I H NEGATIVE Urine RBC NONE /HPF Urine WBC 10-25 H /HPF Urine Squamous Epithelial Cells 5-10 /HPF Urine Renal Epithelial Cells NONE /HPF Urine Crystals NONE /LPF Urine Bacteria LARGE H /HPF Urine Casts NONE /LPF Urine Mucus NEGATIVE /LPF Urine Yeast FEW H /HPF Urine Culture Indicated CULTURE PENDING My Orders Orders - FARHANAVIRGINIE Janak DO Cbc With Automated Diff (11/29/21 14:46) Comprehensive Metabolic Panel (11/29/21 14:46) Blood Culture (11/29/21 14:46) Urinalysis (11/29/21 14:46) Urine Culture (11/29/21 14:46) Protime With Inr (11/29/21 14:46) Partial Thromboplastin Time (11/29/21 14:46) Chest 1 View, Ap/Pa Only (11/29/21 14:46) Ed Iv/Invasive Line Start (11/29/21 14:46) Vital Signs Adult Sepsis Patie Q15M (11/29/21 14:46) O2 (11/29/21 14:46) Remove Rings In Anticipation O (11/29/21 14:46) Lactic Acid Analyzer (11/29/21 14:46) Bnp Son (11/29/21 16:08) Troponin I Son (11/29/21 16:14) Ekg Tracing (11/29/21 16:14) Ceftriaxone 1 Gm Pre-Mix (Rocephin 1 Gm (11/29/21 16:30) Furosemide Injection (Lasix Injection) (11/29/21 17:00) Ed Admission (Communication) (11/29/21 16:51) Medications Given in ED Current Medications Medications Dose Ordered Sig/Fernanda Route Start Time Stop Time Status Last Admin Dose Admin Ceftriaxone Sodium/Dextrose 50 ml @ 100 mls/hr ONCE ONCE IV 11/29/21 16:30 11/29/21 16:59 11/29/21 16:42 100 MLS/HR Vital Signs/I&O 11/29/21 14:38 Temp 36.2 Pulse 67 Resp 20 B/P (MAP) 102/44 (63) Pulse Ox 98 O2 Delivery Room Air Blood Pressure Mean: 63 Progress Progress Note : Time: 16:20 Progress Note I was notified by the nurse that the patient started having chest pain. I have added a troponin and EKG to her work-up. She does have UTI, also adding antibiotics. Has some mild to moderate pulmonary edema, likely cause of her hypoxia. Currently stable on 2 L nasal cannula oxygen and is feeling a little bit better. Critical Care Note Critical Care Start Time: 14:40 Stop Time: 15:40 Total Time (minutes) 60 Departure Communication (Admissions) Time/Spoke to Admitting Phy: 16:45 Time/Spoke to Consulting Phy: 17:[address] Lechuga of cardiology. He recommends no further interventions at this time. He believes that the troponin elevation is likely from her recent watchman procedure and recommend serial troponins and close monitoring. Patient is hemodynamically stable outside of some mild hypoxia on arrival which resolves quickly with 2 L oxygen via nasal cannula most oxygen saturation I saw was 86% on room air. She is in no respiratory distress at present with oxygen saturation in the mid 90s on her current oxygen therapy. She does have some pulmonary edema on her chest x-ray. Her EKG is nonischemic but she did start complaining of some chest pain a little bit into her hospital stay. Troponin was obtained and was elevated. I spoke with Dr. Lechuga who believe this is likely from her recent watchman procedure. He recommends no further interventions but to obtain serial troponins and monitor her Impression Primary Impression: Respiratory failure, acute Qualified Codes: J96.01 - Acute respiratory failure with hypoxia Additional Impressions: Pulmonary edema Qualified Codes: J81.0 - Acute pulmonary edema Chest pain Qualified Codes: R07.9 - Chest pain, unspecified Elevated troponin Hypoxia UTI (urinary tract infection) Qualified Codes: N30.00 - Acute cystitis without hematuria Disposition: ADMITTED INPATIENT Condition: Stable Admissions Decision to Admit Reason: Admit from ER (General) Decision to Admit/Date: Nov 29, 2021 Time/Decision to Admit Time: 16:50 Departure-Patient Inst. Referrals: NO,LOCAL PHYSICIAN (PCP/Family) Primary Care Physician VIRGINIE DELCID DO Nov 29, 2021 16:21
[2021-11-29] MEDS ORDERED: cefTRIAXone 1 GM PRE-MIX 50 ML IV ONE (16:30)
[2021-11-29] MEDS ORDERED: FUROSEMIDE 40 MG/4 ML INJ (LASIX) IVP ONE (17:00)
[2021-11-29] MEDS ORDERED: MELATONIN 3 MG TABLET PO PRN (18:00)
[2021-11-29] MEDS ORDERED: diphenhydrAMINE 50 MG/ML INJ (BENADRYL) IVP PRN (18:00)
[2021-11-29] MEDS ORDERED: CALCIUM CARBONATE 500 MG (TUMS) TAB.CHEW PO PRN (18:00)
[2021-11-29] MEDS ORDERED: MILK OF MAGNESIA 400 MG/5 ML 30 ML UDC PO PRN (18:00)
[2021-11-29] MEDS ORDERED: BISACODYL 10 MG SUPP (DULCOLAX) PR PRN (18:00)
[2021-11-29] MEDS ORDERED: ACETAMINOPHEN 325 MG TABLET PO PRN (18:00)
[2021-11-29] MEDS ORDERED: polyethylene glycoL POWDER 17 GM (MIRALAX) PACK PO PRN (18:00)
[2021-11-29] MEDS ORDERED: ANTACID SUSP 30 ML UDC (MYLANTA) PO PRN (18:00)
[2021-11-29] MEDS ORDERED: diphenhydrAMINE 25 MG TAB (BENADRYL) PO PRN (18:00)
[2021-11-29] MEDS ORDERED: ONDANSETRON 4 MG (ZOFRAN) ORAL DISSOLVE TAB PO PRN (18:00)
[2021-11-29] MEDS ORDERED: LACTULOSE SYRUP 10GM/15ML (ENULOSE) 30ML UDC PO PRN (18:00)
[2021-11-29] MEDS ORDERED: ONDANSETRON 4 MG/2 ML (SDV) Z0FRAN IV PRN (18:00)
[2021-11-29] MEDS ORDERED: NS IV 500 ML 500 ML IV PRN (18:00)
[2021-11-29] MEDS ORDERED: morphine INJ 4 MG/ML 1 ML (VIAL/SYRINGE) IVP PRN (18:45)
[2021-11-29 20:09] VITALS: BP 125/75
[2021-11-29] MEDS: DOCUSATE SODIUM 100 MG (COLACE) CAP PO SCH (20:21)
[2021-11-29] MEDS: SENNOSIDES 8.6 MG (SENOKOT) TAB PO SCH (20:21)
[2021-11-29] MEDS ORDERED: HYDROmorphone 2 MG/ML VIAL (DILAUDID) ONE (20:54)
[2021-11-29] MEDS: HYDROmorphone 2 MG/ML VIAL (DILAUDID) IV PRN (21:01)
[2021-11-30] MEDS: HYDROmorphone 2 MG/ML VIAL (DILAUDID) IV PRN ×2 (00:36→10:39)
[2021-11-30 02:12] VITALS: BP 119/70
[2021-11-30 04:27] VITALS: BP 129/69
[2021-11-30 05:12] LABS: HEMOGLOBIN 12.7 g/dL (11.5-16.0)
[2021-11-30 05:14] LABS: MEAN PLATELET VOLUME 11.2 fL (9.0-12.2); WHITE BLOOD COUNT 9.4 10^3/uL (4.3-11.0)
[2021-11-30 05:26] LABS: POTASSIUM 3.4 MMOL/L (3.6-5.0)
[2021-11-30 05:27] LABS: CALCIUM 8.6 MG/DL (8.5-10.1)
[2021-11-30 05:32] LABS: CREATININE SERUM 0.68 MG/DL (0.60-1.30)
[2021-11-30 05:34] LABS: MAGNESIUM 1.9 MG/DL (1.6-2.4)
[2021-11-30] MEDS ORDERED: POTASSIUM BICARB 20 MEQ (EFFER-K) TABLET PO ONE (05:45)
[2021-11-30] MEDS ORDERED: NS (IVPB) 50 ML ONE (05:45)
[2021-11-30] MEDS: POTASSIUM CL 10MEQ/50ML IVPB 50 ML IV SCH ×2 (05:53→06:33)
[2021-11-30] MEDS ORDERED: KCL 20 MEQ TAB (K-DUR) PO SCH (06:00)
[2021-11-30] MEDS ORDERED: POTASSIUM CL 10MEQ/50ML IVPB 50 ML IV SCH (06:00)
[2021-11-30] MEDS ORDERED: MAGNESIUM 1 GM/100 ML IVPB 100 ML IV SCH (06:00)
[2021-11-30 08:00] VITALS: BP 132/66
[2021-11-30] MEDS ORDERED: cefTRIAXone 2,000 MG in NS (IVPB) 50 ML IV SCH (09:00)
[2021-11-30] MEDS: SENNOSIDES 8.6 MG (SENOKOT) TAB PO SCH (09:13)
[2021-11-30] MEDS: DOCUSATE SODIUM 100 MG (COLACE) CAP PO SCH (09:13)
--- NOTE | 2021-11-30 09:45 | Consultation-Cardiology ---
HPI-Cardiology Cardiology Consultation Date of Consultation 11/30/21 Date of Admission Time Seen by Provider: 09:38 Indication: Elevated troponin level HPI 66-year-old lady with extensive cardiac history, paroxysmal atrial fibrillation, underwent ablation about 3 weeks ago. Had a watchman implant earlier this week. Patient was discharged home to use home oxygen but it was not delivered to her house. On Friday evening she started to have weakness and fatigue and loss of energy was unable to stand on her own. Continued to deteriorate until it reached a point that EMS were called and she was brought to the hospital, patient was extremely lethargic, cyanotic and hypoxemic. Improved after receiving oxygen. On my evaluation she was on oxygen nasal cannula and she is feeling better, still having generalized weakness. Had some chest discomfort. No palpitation. She was noted to have elevation in troponin level. Home Medications & Allergies Allergies: Coded Allergies: morphine (Unverified Allergy, Mild, HIVES, ITCHING; TAKES LORTAB AT HOME, 12/07/15) Fish Containing Products (Unverified Allergy, Unknown, 12/07/15) FROM UNCODED ALLERGIES "SEAFOOD" Penicillins (Unverified Allergy, Unknown, 12/07/15) erythromycin base (Verified Allergy, Unknown, 12/07/15) shellfish derived (Unverified Allergy, Unknown, 12/07/15) FROM UNCODED ALLERGIES "SEAFOOD" Uncoded Allergies: SILK TAPE (Allergy, Unknown, 02/26/06) Home Medication List Reviewed: Yes NSS-Sxfoux-Ribgdj Hx Patient Social History Marital Status: single Smoking Status: Current Everyday Smoker Former smoker/When Quit: Apr 14, 1985 Type Used: Cigarettes Recent Hopitalizations: No Have you traveled recently?: No Alcohol Use?: No Immunizations Up To Date Tetanus Booster (TDap): Less than 5yrs Date of Pneumonia Vaccine: Jan 25, 2013 Date of Influenza Vaccine: Feb 06, 2019 Past Medical History Discussed below Family Medical History Family History: Alcoholism 03 FATHER, , Onset:15's - 09 BROTHER, Onset:s - Cataract 03 FATHER, 09 SISTER Dementia 03 FATHER, Family history: Alzheimer's disease 03 FATHER, Family history: Arthritis 03 FATHER, 03 MOTHER 09 BROTHER 09 SISTER Family history: Asthma 03 MOTHER 09 BROTHER 09 SISTER Family history: Cardiovascular disease Family history: Diabetes mellitus 03 MOTHER 09 SISTER Family history: Hypertension 03 FATHER, 03 MOTHER 09 BROTHER 09 SISTER Heart disease 03 FATHER, 03 MOTHER History of - anemia 09 SISTER History of - respiratory disease 03 FATHER, ( OF PNEUMONIA) 09 BROTHER 09 SISTER History of drug abuse 09 BROTHER Hypercholesterolemia 09 BROTHER 09 SISTER Infertile 09 SISTER Kidney disease 03 FATHER, (KIDNEY STONES) Myocardial infarction 03 FATHER, Parkinson's disease 03 FATHER, Psychotic disorder 09 BROTHER (BIPOLAR) 09 SISTER (BIPOLAR) Stroke 03 FATHER, 03 MOTHER No Family History of: Abdominal aortic aneurysm [place]'s disease Aphasia Cancer Cancer of colon Congenital heart disease Congestive heart failure Cystic fibrosis Dysphagia Family history: Breast disease Family history: Coronary thrombosis Family history: Gastrointestinal disease Family history: Glaucoma Family history: Thyroid disorder Human immunodeficiency virus (HIV) seropositivity Malignant neoplasm of lung Prostate cancer Seizure disorder Tuberculosis Visual impairment Review of Systems-General Review of Systems Constitutional: see HPI, malaise, weakness EENTM: see HPI, no symptoms reported Respiratory: see HPI; No cough, No dyspnea on exertion, No hemoptysis, No ort hopnea, No phlegm; short of breath; No stridor, No wheezing, No other Cardiovascular: see HPI, chest pain; No edema, No Hx of Intervention, No palpitations, No syncope, No vascular heart diseas, No other Gastrointestinal: no symptoms reported, see HPI Genitourinary: no symptoms reported, see HPI Musculoskeletal: no symptoms reported, see HPI Skin: no symptoms reported, see HPI Psychiatric/Neurological: No Symptoms Reported, See HPI Reviewed Test Results Reviewed Test Results Lab Laboratory Tests Test 11/29/21 14:50 11/29/21 15:45 11/29/21 15:52 11/29/21 21:14 Range/Units White Blood Count 8.4 4.3-11.0 10^3/uL Red Blood Count 4.64 3.80-5.11 10^6/uL Hemoglobin 12.3 11.5-16.0 g/dL Hematocrit 39 35-52 % Mean Corpuscular Volume 84 80-99 fL Mean Corpuscular Hemoglobin 27 25-34 pg Mean Corpuscular Hemoglobin Concent 32 32-36 g/dL Red Cell Distribution Width 14.5 10.0-14.5 % Platelet Count 122 L 130-400 10^3/uL Mean Platelet Volume 11.3 9.0-12.2 fL Immature Granulocyte % (Auto) 0 % Neutrophils (%) (Auto) 67 42-75 % Lymphocytes (%) (Auto) 24 12-44 % Monocytes (%) (Auto) 7 0-12 % Eosinophils (%) (Auto) 1 0-10 % Basophils (%) (Auto) 0 0-10 % Neutrophils # (Auto) 5.7 1.8-7.8 X 10^3 Lymphocytes # (Auto) 2.0 1.0-4.0 X 10^3 Monocytes # (Auto) 0.6 0.0-1.0 X 10^3 Eosinophils # (Auto) 0.1 0.0-0.3 10^3/uL Basophils # (Auto) 0.0 0.0-0.1 10^3/uL Immature Granulocyte # (Auto) 0.0 0.0-0.1 10^3/uL Prothrombin Time 14.4 12.2-14.7 SEC INR Comment 1.1 0.8-1.4 Activated Partial Thromboplast Time 27 24-35 SEC Sodium Level 138 135-145 MMOL/L Potassium Level 3.8 3.6-5.0 MMOL/L Chloride Level 102 98-107 MMOL/L Carbon Dioxide Level 30 21-32 MMOL/L Anion Gap 6 5-14 MMOL/L Blood Urea Nitrogen 16 7-18 MG/DL Creatinine 0.70 0.60-1.30 MG/DL Estimat Glomerular Filtration Rate 94 BUN/Creatinine Ratio 23 Glucose Level 169 H 70-105 MG/DL Calcium Level 8.3 L 8.5-10.1 MG/DL Corrected Calcium 9.3 8.5-10.1 MG/DL Total Bilirubin 0.3 0.1-1.0 MG/DL Aspartate Amino Transf (AST/SGOT) 8 5-34 U/L Alanine Aminotransferase (ALT/SGPT) 11 0-55 U/L Alkaline Phosphatase 77 40-136 U/L Troponin I 0.111 H 0.109 H <0.028 NG/ML B-Type Natriuretic Peptide 93.2 <100.0 PG/ML Total Protein 5.6 L 6.4-8.2 GM/DL Albumin 2.8 L 3.2-4.5 GM/DL Lactic Acid Level 0.89 0.50-2.00 MMOL/L Urine Color YELLOW Urine Clarity CLEAR Urine pH 5.5 5-9 Urine Specific [place] >=1.030 1.016-1.022 Urine Protein NEGATIVE NEGATIVE Urine Glucose (UA) NEGATIVE NEGATIVE Urine Ketones NEGATIVE NEGATIVE Urine Nitrite POSITIVE H NEGATIVE Urine Bilirubin NEGATIVE NEGATIVE Urine Urobilinogen 1.0 < = 1.0 MG/DL Urine Leukocyte Esterase 1+ H NEGATIVE Urine RBC (Auto) TRACE-I H NEGATIVE Urine RBC NONE /HPF Urine WBC 10-25 H /HPF Urine Squamous Epithelial Cells 5-10 /HPF Urine Renal Epithelial Cells NONE /HPF Urine Crystals NONE /LPF Urine Bacteria LARGE H /HPF Urine Casts NONE /LPF Urine Mucus NEGATIVE /LPF Urine Yeast FEW H /HPF Urine Culture Indicated CULTURE PENDING Test 11/30/21 04:56 Range/Units White Blood Count 9.4 4.3-11.0 10^3/uL Red Blood Count 4.82 3.80-5.11 10^6/uL Hemoglobin 12.7 11.5-16.0 g/dL Hematocrit 40 35-52 % Mean Corpuscular Volume 83 80-99 fL Mean Corpuscular Hemoglobin 26 25-34 pg Mean Corpuscular Hemoglobin Concent 32 32-36 g/dL Red Cell Distribution Width 14.3 10.0-14.5 % Platelet Count 119 L 130-400 10^3/uL Mean Platelet Volume 11.2 9.0-12.2 fL Percent Immature Platelet Fraction 8.1 H 0.0-7.6 % Sodium Level 138 135-145 MMOL/L Potassium Level 3.4 L 3.6-5.0 MMOL/L Chloride Level 96 L 98-107 MMOL/L Carbon Dioxide Level 31 21-32 MMOL/L Anion Gap 11 5-14 MMOL/L Blood Urea Nitrogen 13 7-18 MG/DL Creatinine 0.68 0.60-1.30 MG/DL Estimat Glomerular Filtration Rate 95 BUN/Creatinine Ratio 19 Glucose Level 106 H 70-105 MG/DL Calcium Level 8.6 8.5-10.1 MG/DL Magnesium Level 1.9 1.6-2.4 MG/DL Troponin I 0.116 H <0.028 NG/ML Physical Exam Physical Exam Vital Signs Vital Signs - First Documented 11/29/21 11/29/21 14:38 20:09 Temp 36.2 Pulse 67 Resp 20 B/P (MAP) 102/44 (63) Pulse Ox 98 O2 Delivery Room Air O2 Flow Rate 3.00 Capillary Refill : Less Than 3 Seconds Height, Weight, BMI Height: 5'4.00" Weight: 282lbs. 0.0oz. 127.644481mq; 42.37 BMI Method:Stated General Appearance: No Apparent Distress HEENT: Normal ENT Inspection, Pharynx Normal Neck: Normal Inspection, Non Tender Respiratory: Chest Non Tender, Other (Decreased breath sounds throughout. 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 Responded to nasal cannula oxygen, better at this time. Chest x-ray did not show any acute abnormality. Probably exacerbation of COPD Managed by primary care physician Elevation in troponin, probably type II myocardial infarction. EKG did not show any acute abnormality, troponin elevation continue to be minimally increased. Conservative management is recommended Coronary artery disease, history of stenting in the remote past using 3.5 x 16 mm element stent to the mid right coronary artery. Had multiple cardiac catheterization after that done in 2012, 2016 and 2018 showing mild to moderate coronary artery disease nonobstructive disease. Continue to monitor at this point. History of recurrent occasional chest pain. Did not change in intensity or frequency. History of paroxysmal atrial fibrillation, underwent ablation earlier in November 2021 at . Continue to monitor History of sinus node dysfunction, had dual-chamber pacemaker, had pacemaker malfunction and and it was extracted in April [address] Son and had new device. Currently atrial and ventricular paced Status post watchman implant done by Dr. Leyva on November 26, 2021 Diabetes mellitus, followed and managed by primary care physician History of hypertension, monitor blood pressure Hyperlipidemia, intolerant to Lipitor Tolerating Crestor 5 mg daily History of obstructive sleep apnea, using BiPAP at night. History of multiple orthopedic surgeries RAVEN GRAMAJO MD Nov 30, 2021 09:45
[2021-11-30] MEDS ORDERED: predniSONE 20 MG TAB PO NR (12:30)
[2021-11-30] MEDS ORDERED: SOTALOL 80 MG (BETAPACE) TAB PO NR (12:30)
[2021-11-30] MEDS ORDERED: GABAPENTIN 600 MG (NEURONTIN) TAB PO NR (12:30)
[2021-11-30] MEDS ORDERED: APIXABAN 5 MG (ELIQUIS) TABLET PO NR (12:30)
[2021-11-30] MEDS ORDERED: TRIA15CR TOP (13:22)
[2021-11-30] MEDS ORDERED: NYST15CR TOP (13:22)
[2021-11-30] MEDS ORDERED: ROSU5TAB13 PO (13:22)
[2021-11-30] MEDS ORDERED: LORA-405 PO (13:22)
[2021-11-30] MEDS ORDERED: SUCR1TAB PO (13:22)
[2021-11-30] MEDS ORDERED: DILT360C36 PO (13:22)
[2021-11-30] MEDS ORDERED: CHOL10004 PO (13:22)
[2021-11-30] MEDS ORDERED: AMIT50TA3 PO (13:22)
[2021-11-30] MEDS ORDERED: FURO40TA4 PO (13:22)
[2021-11-30] MEDS ORDERED: OXYC10TA7 PO (13:22)
[2021-11-30] MEDS ORDERED: ARIP5TAB57 PO (13:22)
[2021-11-30] MEDS ORDERED: POTA-179 PO (13:22)
[2021-11-30] MEDS ORDERED: RT-ALBUINH IH (13:22)
[2021-11-30] MEDS ORDERED: MAGN400T50 PO (13:22)
[2021-11-30] MEDS ORDERED: FAMO20TA5 PO (13:22)
[2021-11-30] MEDS ORDERED: SEMA7TAB2 PO (13:22)
[2021-11-30] MEDS ORDERED: SOTA120T PO (13:22)
[2021-11-30] MEDS ORDERED: PRED10TA22 PO (14:52)
[2021-11-30] MEDS ORDERED: NITR-65 PO (14:52)
--- NOTE | 2021-11-30 15:22 | Short Stay Summary-Hospitalist ---
History of Present Illness HPI/Chief Complaint Destiney Pimentel is a 66 year old female with PMH HTN, CAD, HLD, AFib, COPD, RY, morbid obesity, who presented with hypoxia. She has chronic shortness of breath which may be slightly worse than usual. She denies cough. She denies fevers and chills. She denies chest pain and palpitations. She denies nausea and vomiting. She denies abdominal pain. She denies dysuria. She recently had a Watchman procedure performed at [facility]. Source: patient Exam Limitations: no limitations Date Seen 11/30/21 Time Seen by a Provider: 10:10 Attending Physician No,Local Physician PCP Admitting Physician: Renuka Peres MD Attending Physician: Renuka Peres MD Referring Physician Date of Admission Nov 29, 2021 at 16:52 Home Medications & Allergies Home Medications Reviewed patient Home Medication Reconciliation performed by pharmacy medication reconciliations prosthetic lab technician and/or nursing. Patients Allergies have been reviewed. Allergies Allergies Coded Allergies morphine (Unverified Allergy, Mild, HIVES, ITCHING; TAKES LORTAB AT HOME, 12/07/15) Fish Containing Products (Unverified Allergy, Unknown, 12/07/15) FROM UNCODED ALLERGIES "SEAFOOD" Penicillins (Unverified Allergy, Unknown, 12/07/15) erythromycin base (Verified Allergy, Unknown, 12/07/15) shellfish derived (Unverified Allergy, Unknown, 12/07/15) FROM UNCODED ALLERGIES "SEAFOOD" Uncoded Allergies SILK TAPE ( Allergy, Unknown, 02/26/06) Past Prnjueb-Mvsxoi-Dxwlhk Hx Patient Social History Marrital Status: single Tobacco Use?: Yes Tobacco type used: Cigarettes Smoking Status: Current Everyday Smoker Smokeless Tobacco Frequency: Never a User Use of E-Cig and/or Vaping dev: No Use of E-Cig and/or Vaping [place]: Never a User Substance use?: No Alcohol Use?: No Pt feels they are or have been: No Immunizations Up To Date Date of Influenza Vaccine: Feb 06, 2019 First/Initial COVID19 Vaccinat: UNKN Second COVID19 Vaccination [place]: UNK Tetanus Booster (TDap): Unknown PED Vaccines UTD: No Date of Pneumonia Vaccine: Jan 25, 2013 Seasonal Allergies Seasonal Allergies: No Current Status status: No Advance Directives: No Advance Directive Location: Home Communicates: Verbally Primary Language: Marshallese Preferred Spoken Language: Marshallese Is interpretation needed?: No Implanted or Applied Medical D: CPAP, Pacemaker, Port-a-cath Past Medical History Surgeries: Abdominal, Appendectomy, Cardiac, Section, Coronary Stent, Gallbladder, 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, Orthopedic, Pacemaker Asthma, Sleep Apnea, COPD Currently Using CPAP: Yes Currently Using BIPAP: No Atrial Fibrillation, Cardiomyopathy, Coronary Artery Disease, Hypertension Stroke, TIA 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: 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, Menopausal Sexually Transmitted Disease: No HIV/AIDS: No Bladder Infection, Kidney Stones, UTI-Chronic Gastroesophageal Reflux, Chronic Constipation, Diverticulosis, Hiatal Hernia, Irritable Bowel Degenerate Disk Disease, Arthritis, Fibromyalgia, Chronic Back Pain Diabetes, Insulin dep Cataract, Macular Degeneration Loss of Vision: Denies Hearing Impairment: Denies Anxiety, Depression Blood Disorders: No Adverse Reaction/Blood Tranf: No Family Medical History Alcoholism 03 FATHER, , Onset:15's - 20 09 BROTHER, Onset:20's - 25 Cataract 03 FATHER, 09 SISTER Dementia 03 FATHER, Family history: Alzheimer's disease 03 FATHER, Family history: Arthritis 03 FATHER, 03 MOTHER 09 BROTHER 09 SISTER Family history: Asthma 03 MOTHER 09 BROTHER 09 SISTER Family history: Cardiovascular disease Family history: Diabetes mellitus 03 MOTHER 09 SISTER Family history: Hypertension 03 FATHER, 03 MOTHER 09 BROTHER 09 SISTER Heart disease 03 FATHER, 03 MOTHER History of - anemia 09 SISTER History of - respiratory disease 03 FATHER, ( OF PNEUMONIA) 09 BROTHER 09 SISTER History of drug abuse 09 BROTHER Hypercholesterolemia 09 BROTHER 09 SISTER Infertile 09 SISTER Kidney disease 03 FATHER, (KIDNEY STONES) Myocardial infarction 03 FATHER, Parkinson's disease 03 FATHER, Psychotic disorder 09 BROTHER (BIPOLAR) 09 SISTER (BIPOLAR) Stroke 03 FATHER, 03 MOTHER No Family History of: Abdominal aortic aneurysm [place]'s disease Aphasia Cancer Cancer of colon Congenital heart disease Congestive heart failure Cystic fibrosis Dysphagia Family history: Breast disease Family history: Coronary thrombosis Family history: Gastrointestinal disease Family history: Glaucoma Family history: Thyroid disorder Human immunodeficiency virus (HIV) seropositivity Malignant neoplasm of lung Prostate cancer Seizure disorder Tuberculosis Visual impairment Review of Systems Constitutional: weakness EENTM: no symptoms reported Respiratory: short of breath Cardiovascular: no symptoms reported Gastrointestinal: no symptoms reported Genitourinary: no symptoms reported Physical Exam Physical Exam Vital Signs Vital Signs - First Documented 11/29/21 11/29/21 14:38 20:09 Temp 36.2 Pulse 67 Resp 20 B/P (MAP) 102/44 (63) Pulse Ox 98 O2 Delivery Room Air O2 Flow Rate 3.00 Capillary Refill : Less Than 3 Seconds Height, Weight, BMI Height: 5'4.00" Weight: 282lbs. 0.0oz. 127.509341mc; 42.37 BMI Method:Stated General Appearance: No Apparent Distress, Obese HEENT: PERRL/EOMI, Pharynx Normal Neck: Normal Inspection, Supple Respiratory: Chest Non Tender, No Respiratory Distress, Decreased Breath Sounds Cardiovascular: Regular Rate, Rhythm, No Murmur, Normal Peripheral Pulses Gastrointestinal: Normal Bowel Sounds, Non Tender, Soft Extremity: Normal Inspection, Non Tender, Pedal Edema Neurologic/Psychiatric: Alert, Oriented x3, Normal Mood/Affect Skin: Normal Color, Warm/Dry Results Results/Procedures Labs Laboratory Tests 11/29/21 14:50 11/30/21 04:56 Patient resulted labs reviewed. Imaging: Reviewed Imaging Report Short Stay Diagnosis Discharge Diagnosis-Short Stay Admission Diagnosis Acute respiratory failure with hypoxia Final Discharge Diagnosis COPD exacerbation Conclusion Plan Acute respiratory failure with hypoxia COPD exacerbation Requiring supplemental oxygen initially RT oxygen study with no requirement Given a steroid taper Continue inhalers Would benefit from outpatient sleep study Follow up with PCP and Cardiology UTI UA consistent with UTI Urine culture with E coli and Proteus, final pending Given Rocephin Transitioned to Macrobid NSTEMI, type II CAD AFib HTN HLD Cardiology consulted Troponin slightly elevated, stable Thought to be type II HI Continue home meds Diagnosis/Problems Diagnosis/Problems (1) Acute respiratory failure with hypoxia Status: Resolved Resolution Date/Time: 11/30/21 @ 15:22 (2) COPD (chronic obstructive pulmonary disease) Status: Acute Qualifiers: Qualified Codes: J44.1 - Chronic obstructive pulmonary disease with (acute) exacerbation (3) NSTEMI (non-ST elevation myocardial infarction) Status: Acute (4) Morbid obesity Status: Chronic (5) Urinary tract infection Status: Acute RENUKA PERES MD Nov 30, 2021 15:21
[2021-11-30] MEDS ORDERED: inSUlin ASPART (NovoLOG) 1 UNIT/0.01 ML (CHARGE PER UNIT) SC SCH (16:00)
[2021-11-30] MEDS ORDERED: ROSUVASTATIN 5 MG (CRESTOR) TABLET PO SCH (21:00)
[2021-11-30] MEDS ORDERED: GABAPENTIN 600 MG (NEURONTIN) TAB PO SCH (21:00)
[2021-11-30] MEDS ORDERED: MONTELUKAST 10 MG (SINGULAIR) TAB PO SCH (21:00)
[2021-11-30] MEDS ORDERED: AMITRIPTYLINE 25 MG (ELAVIL) TAB PO SCH (21:00)
[2021-11-30] MEDS ORDERED: SOTALOL 80 MG (BETAPACE) TAB PO SCH (21:00)
[2021-11-30] MEDS ORDERED: DULoxetine 30 MG (CYMBALTA) CAP PO SCH (21:00)
[2021-11-30] MEDS ORDERED: APIXABAN 5 MG (ELIQUIS) TABLET PO SCH (21:00)
== END 2021-11-30 16:05 | disposition home or self-care (01) | DRG 189 ==
LOC: EDUNIT# 14:35 → ER 14:37 → CSD 16:52
PROVIDERS: ADMIT Internal Medicine; ATTEND Internal Medicine
DX: J96.01 Acute respiratory failure with hypoxia (principal); I21.A1 Myocardial infarction type 2; J81.0 Acute pulmonary edema; J44.1 Chronic obstructive pulmonary disease with (acute) exacerbation; N39.0 Urinary tract infection, site not specified; Z68.41 Body mass index [BMI] 40.0-44.9, adult; I42.9 Cardiomyopathy, unspecified; I25.10 Atherosclerotic heart disease of native coronary artery without angina pectoris; I10 Essential (primary) hypertension; E78.5 Hyperlipidemia, unspecified; E66.01 Morbid (severe) obesity due to excess calories; Z95.5 Presence of coronary angioplasty implant and graft; Z95.0 Presence of cardiac pacemaker; Z86.73 Personal history of transient ischemic attack (TIA), and cerebral infarction without residual deficits; K21.9 Gastro-esophageal reflux disease without esophagitis; K58.9 Irritable bowel syndrome, unspecified; E11.9 Type 2 diabetes mellitus without complications; Z79.4 Long term (current) use of insulin; H35.30 Unspecified macular degeneration; F41.9 Anxiety disorder, unspecified; F32.A Depression, unspecified; M19.90 Unspecified osteoarthritis, unspecified site; M79.7 Fibromyalgia; G89.29 Other chronic pain; M54.9 Dorsalgia, unspecified; F17.210 Nicotine dependence, cigarettes, uncomplicated; G47.33 Obstructive sleep apnea (adult) (pediatric); Z79.82 Long term (current) use of aspirin; Z79.899 Other long term (current) drug therapy; I48.0 Paroxysmal atrial fibrillation
CPT/HCPCS: 36415; 71045; 80048; 80053; 81000; 83605; 83735; 83880; 84484; 85025; 85027; 85610; 85730; 87040; 87077; 87088; 87186; 93005; 93306; 94761